=== PATIENT | male | born 1975 | race Caucasian/White ===

== ENCOUNTER 2020-03-29 10:58 | Outpatient (REF) | payer OTHER, SELFPAY ==
[2020-04-02 06:21] LABS: Vitamin B1 10 nmol/L (8-30)
== END 2020-03-29 10:59 | disposition home or self-care (01) ==
LOC: HO.LAB 10:58
PROVIDERS: PCP Internal Medicine; Visit Provider Surgery
DX: E51.9 Thiamine deficiency, unspecified (principal)
CPT/HCPCS: 84425

== ENCOUNTER 2020-07-30 13:12 | Outpatient (REF) | payer OTHER, SELFPAY ==
[2020-07-30 15:57] LABS: Blood Urea Nitrogen 13 mg/dL (9-16); Estimated Glomerular Filt Rate > 60
== END 2020-07-30 13:13 | disposition home or self-care (01) ==
LOC: HO.LAB 13:12
PROVIDERS: PCP Internal Medicine; Visit Provider Surgery
DX: E66.9 Obesity, unspecified (principal); Z68.31 Body mass index [BMI] 31.0-31.9, adult; R10.9 Unspecified abdominal pain; Z98.84 Bariatric surgery status
CPT/HCPCS: 36415; 82565; 84520; 99212

== ENCOUNTER 2020-09-06 10:08 | Outpatient (REF) | payer OTHER, SELFPAY | END 2020-09-06 10:09 | disposition home or self-care (01) | LOC: HO.CT 10:08 | PROVIDERS: Visit Provider Surgery | DX: Z13.89 Encounter for screening for other disorder (principal) ==

== ENCOUNTER 2021-06-18 06:42 | Emergency (ER) | payer OTHER, SELFPAY ==
--- NOTE | ~2021-06-18 | CT_ITS ---
EXAMINATION: CT LUMBAR SPINE WITHOUT CONTRAST CLINICAL INFORMATION: Fall. Pain. Rule out fracture. COMPARISON: None TECHNIQUE: Axial images through the lumbar spine without contrast. Sagittal and coronal reconstructions on the technologist workstation. This CT examination was performed using dose optimization techniques as appropriate, variously including the following: *Automated exposure control *Adjustment of mA and/or kV according to patient size (this includes techniques or standardized protocols for targeted exams where dose is matched to indication/reason for exam; i.e. extremities or head) *Use of iterative reconstruction technique DLP; 648 mGy-cm FINDINGS: Bone alignment is normal. No fracture or dislocation is seen. At L1-L2, there is no disc herniation, protrusion or bulge. There is mild facet arthritis. Spinal canal, lateral recesses and neural foramen are patent. At L2-L3, there is no disc herniation, protrusion or bulge. Spinal canal, lateral recesses and neural foramen are patent. At L3-L4, there is no disc herniation, protrusion or bulge. Spinal canal, lateral recesses and neural foramen are patent. At L4-L5, there is disc bulge and small calcified central disc protrusion. Spinal canal, lateral recesses and neural foramen are patent. At L5-S1, there is a central/left paracentral partially calcified disc herniation. There is mass effect on the left L5 lateral recess and proximal neural foramen. There is a partially calcified left adrenal nodule. Paraspinal soft tissues are otherwise normal. CT/CT lumbar spine wo con IMPRESSION: No fracture or dislocation. Large central/left paracentral partially calcified disc herniation at L5-S1. Central calcified disc protrusion at L4-L5.
[2021-06-18 07:06] VITALS: BP 157/103; PULSE 76; RESP 16; TEMP 36.6; O2SAT 99; BMI 33.9
[2021-06-18] MEDS: predniSONE 20 MG TABLET 60 MG PO (09:08)
[2021-06-18] MEDS: Ketorolac Tromethamine 60 MG/2 ML VIAL IM (09:08)
[2021-06-18 09:12] VITALS: BP 156/107; PULSE 102; RESP 18; O2SAT 99
--- NOTE | 2021-06-18 09:43 | ED_ITS ---
HPI - Back Pain/Injury General Chief Complaint: Back Pain/Injury Stated Complaint: Back pain Time Seen by Provider: 06/18/21 07:46 Source: patient Mode of arrival: ambulatory Limitations: no limitations History of Present Illness HPI Narrative: Patient presents ED for chronic back pain exacerbation. Patient states history of disc herniations and this past Thursday patient fell onto the floor due to severe back pain. Patient states he was walking with his cane and then his back pain came upon him which caused him to fall to the ground and fall onto his back. Patient has follow-up with Neurosurgery in and waiting on MRI results. Patient denies any urinary/bowel incontinence. Patient denies any paralysis of lower extremities or changing in gait. Patient denies any history of IV drug use or history of immunocompromise diseases. Patient denies any urinary/bowel incontinence, abdominal pain, nausea, vomiting, flank pain, fever, chills, dysuria, hematuria, or testicular pain Related Data Home Medications Medication Instructions Recorded Confirmed cholecalciferol (vitamin D3) 75 5,000 unit PO DAILY tab 07/30/20 07/30/20 mcg (3,000 unit) tablet cyanocobalamin (vitamin B-12) 1,000 mcg PO DAILY 07/30/20 07/30/20 1,000 mcg capsule duloxetine 30 mg capsule,delayed 30 mg PO DAILY 07/30/20 07/30/20 release duloxetine 60 mg capsule,delayed 60 mg PO DAILY 07/30/20 07/30/20 release hydroxyzine HCl 25 mg tablet 25 mg PO BEDTIME 07/30/20 07/30/20 Previous Rx's Medication Instructions Recorded ketorolac 10 mg tablet 10 mg PO QID PRN 5 Days #20 tab 06/18/21 prednisone 20 mg tablet 60 mg PO DAILY 5 Days #15 tab 06/18/21 Allergies Allergy/AdvReac Type Severity Reaction Status Date / Time Penicillin Allergy Unknown rash Unverified 07/30/20 14:28 Penicillins Allergy Unknown RASH, Unverified 07/30/20 14:28 THROAT CLOSES SEAFOOD Allergy Unknown RASH, Uncoded 07/30/20 14:28 THROAT CLOSES Shell Fish Allergy Unknown rash Uncoded 07/30/20 14:28 Review of Systems Review of Systems: Only back pain Yes all other systems are reviewed and are negative PMFSH Past Medical History Medical History Anxiety Back pain Degenerative disc disease Depression History of DVT (deep vein thrombosis) HTN (hypertension) Obesity (BMI 30-39.9) PTSD (post-traumatic stress disorder) Slipped cervical disc Surgical History History of fusion of cervical spine History of repair of hiatal hernia History of sleeve gastrectomy Family History Family History Father Type 2 diabetes mellitus History of stroke Mother HTN (hypertension) Osteoporosis Sister Obesity HTN (hypertension) Hyperlipidemia Sister No problems noted. Sister No problems noted. Son No problems noted. Son No problems noted. Son No problems noted. Son No problems noted. Daughter No problems noted. Daughter No problems noted. Daughter No problems noted. Social History Social History (Updated 07/30/20 @ 14:29 by Francheska Smith MD) Alcohol intake: former Advance Directives: No Physical Exam Vital Signs: Vital Signs: Last Vital Signs Temp 97.8 F 06/18/21 07:06 Pulse 102 H 06/18/21 09:12 Resp 18 06/18/21 09:12 BP 156/107 H 06/18/21 09:12 Pulse Ox 99 06/18/21 09:12 BMI result Body Mass Index 33.9 Const: General: cooperative, healthy appearing, comfortable, no acute distress, well developed, alert, awake and Physically active Orientation/consciousness: patient oriented x3 HENMT: Head: Yes normal to inspection, Yes No palpable skull fracture present, Yes normocephalic and Yes atraumatic Eyes: General: appearance normal, both eyes and all related structures Neck: Neck: Yes normal visual inspection, Yes full ROM, Yes no lymphadenopathy, Yes no meningeal signs, Yes trachea midline, Yes supple, No anterior neck swelling and No tender Chest: Chest palpation & inspection: normal inspection of the chest and normal palpation of entire chest wall Resp: Effort & Inspection: normal respiratory effort and able to speak in complete sentences Auscultation: clear to auscultation bilaterally Cardio: Jugular venous distension: no JVD Heart sounds: S1 normal heart sound present and S2 normal heart sound present GI: Inspection: Yes normal to inspection and No abdominal wall ecchymosis Palpation (GI): Soft to palpation, not firm, nontender, no guarding and not rigid : General: No CVA tenderness and Yes no CVA tenderness Back/Spine/Pelvis: Back: no CVA tenderness, No CVA tenderness and back tenderness (Lumbar spine tenderness on palpation) Skin: General skin exam: no rashes or lesions noted and elasticity normal Neuro: General: patient oriented x3, gait normal, no meningeal signs and CN's II-XI intact bilaterally Cranial nerves: Yes CN's II-XII intact bilaterally Extrem: General: Yes normal to inspection and Yes full ROM Psych: Appearance: grossly normal, well kempt and not disheveled Course Course Course Narrative: Due to patient's significant lumbar disc herniation history and fall will do is to CT scan to get better view of lumbar spine to rule out fracture. Will give Toradol and steroids Reevaluation(s) Reevaluation #1: CT scan came back negative for any fracture and just shows disc herniation. Patient already have oxycodone prescription at home. Patient will be discharged with Toradol and prednisone Time: 10:39 MDM - Back Pain/Injury MDM Narrative Medical decision making narrative: Disc herniation. Fall Discharge Plan Discharge Clinical Impression: Lumbar disc herniation with radiculopathy Patient Disposition: Home, Self-Care Instructions: Lumbar Disc Herniation (ED) Additional Instructions: Your CT scan came back negative for fracture. CT scan shows disc herniation. You will be discharged with NSAID and steroid. You can continue taking your oxycodone for pain relief. Return to the ED for any urinary/bowel incontinence, abdominal pain, bloody urine, testicular pain, painful urination, fever, chills, worsening back pain, paralysis of lower extremities, or any other concerning symptoms. Please follow up [facility] Surgeon and PCP. Prescriptions: New prednisone 20 mg tablet 60 mg PO DAILY 5 Days Qty: 15 RF: 0 ketorolac 10 mg tablet 10 mg PO QID PRN (Reason: pain) 5 Days Qty: 20 RF: 0 No Action duloxetine 30 mg capsule,delayed release(DR/EC) 30 mg PO DAILY RF: 0 duloxetine 60 mg capsule,delayed release(DR/EC) 60 mg PO DAILY RF: 0 hydroxyzine HCl 25 mg tablet 25 mg PO BEDTIME RF: 0 cholecalciferol (vitamin D3) 75 mcg (3,000 unit) tablet 5,000 unit PO DAILY RF: 0 cyanocobalamin (vitamin B-12) 1,000 mcg capsule 1,000 mcg PO DAILY RF: 0 Stand Alone Forms: Work/School Release Interventions: ED Discharge Assessment Last Done: 06/18/21 10:57 Discharge Date/Time: 06/18/21 10:57 Print Language: Slovenian
== END 2021-06-18 10:57 | disposition home or self-care (01) ==
PROVIDERS: Emergency Provider Emergency Medicine; PCP Internal Medicine
DX: M51.16 Intervertebral disc disorders with radiculopathy, lumbar region (principal); I10 Essential (primary) hypertension
CPT/HCPCS: 72131; 96372; 99284; J1885

== ENCOUNTER 2021-07-07 22:22 | Emergency (ER) | payer OTHER, SELFPAY ==
--- NOTE | ~2021-07-07 | XR_ITS ---
EXAMINATION: XR CHEST CLINICAL INFORMATION: Chest pain and shortness of breath COMPARISON: 01/04/2019 TECHNIQUE: Frontal view of the chest was obtained. FINDINGS: No significant abnormality is noted involving the heart, lungs, mediastinum, bony thorax or soft tissues. There is been prior cervical spine surgery. XR/XR chest 1V IMPRESSION: No acute intrathoracic disease.
--- NOTE | ~2021-07-07 | CT_ITS ---
EXAMINATION: CT ANGIOGRAM OF THE CHEST WITH AND WITHOUT CONTRAST (CT PULMONARY ANGIOGRAM FOR PE) CLINICAL INFORMATION: Reason for Exam severe left sided chest pain radiating to the back, SOB COMPARISON: 10/04/2009 TECHNIQUE: Prior to contrast administration, noncontrast localization images were obtained. Subsequently, multidetector volumetric imaging was performed from the thoracic inlet to below the diaphragms following the administration of 65 mL Omnipaque 350 intravenous contrast. No contrast reaction reported Sagittal, coronal, and MIP oblique sagittal reformatted images were obtained on the CT workstation, uploaded to PACS, and reviewed. This CT examination was performed using dose optimization techniques as appropriate, variously including the following: *Automated exposure control *Adjustment of mA and/or kV according to patient size (this includes techniques or standardized protocols for targeted exams where dose is matched to indication/reason for exam; i.e. extremities or head) *Use of iterative reconstruction technique Total exam dose-length product 367 mGy-cm FINDINGS: QUALITY OF STUDY/CONTRAST BOLUS: Suboptimal. PULMONARY ARTERIES: No central or segmental pulmonary emboli. However, assessment of the distal vasculature is limited due to bolus timing and respiratory motion artifact. THORACIC AORTA: No aneurysm or dissection. LUNG: Symmetric biapical opacities may reflect scarring. No additional consolidation is seen. A few calcified granulomas are noted. PLEURA: No pleural effusion or pneumothorax. MEDIASTINUM: Visualized thyroid gland is grossly unremarkable. There are subcentimeter mediastinal lymph nodes within the range of normal variation. Cardiac size is within normal limits; no pericardial effusion. No evidence of septal bowing or right heart strain. CHEST WALL/AXILLA: No axillary or internal mammary lymphadenopathy. OSSEOUS STRUCTURES: Multilevel endplate degenerative changes are noted in the spine. UPPER ABDOMEN: There are postsurgical changes along the stomach. Redemonstrated left adrenal nodule containing coarse calcification, also present on 10/04/2009 and presumably benign. No reflux of contrast into the hepatic veins to suggest elevated right heart pressures. CT/CT angio chest PE protocol IMPRESSION: No central or segmental pulmonary embolus identified. Limited assessment of the distal vasculature due to bolus timing and respiratory motion artifact; emboli at these levels therefore cannot be entirely excluded. VTE: negative
[2021-07-07 22:26] VITALS: BP 153/100; PULSE 99; RESP 20; TEMP 36; O2SAT 99; BMI 33.9
--- NOTE | 2021-07-07 22:31 | ECG_ITS ---
Test Reason : ANXIETY/TWTICH Blood Pressure : / mmHG Vent. Rate : 097 BPM Atrial Rate : 097 BPM P-R Int : 138 ms QRS Dur : 090 ms QT Int : 328 ms P-R-T Axes : 060 032 035 degrees QTc Int : 416 ms Normal sinus rhythm Normal ECG When compared with ECG of 04-JAN-2019 09:01, No significant change was found Referred By: Generic ED Physician Electronically Signed By:Kailash Vega
--- NOTE | 2021-07-07 22:45 | ED_ITS ---
HPI - Chest Pain General Chief Complaint: Chest Pain Stated Complaint: CRISIS, chest hurts Time Seen by Provider: 07/07/21 22:32 Source: patient Mode of arrival: ambulatory Limitations: no limitations History of Present Illness HPI narrative: 45-year-old male with a history of obesity, chronic low back pain on chronic opiates, status post cervical spinal fusion, anxiety who presents to the ER with severe 10/10 squeezing left upper chest pain that occurred suddenly at noon when he woke up and was lying in bed. He reports the pain radiates from his left upper chest to his back. He is short of breath, he reports because of the pain. He is unable to get sit still or be comfortable. He reports he last took his Percocet at 3 or 16:00 with some brief improvement in the pain but it came right back. He reports severe anxiety and has been diaphoretic since the pain started. He denies any nausea or vomiting. He denies any drug or alcohol use. He denies any personal or family history of cardiac disease. He is a nonsmoker. MD complaint: chest pain Onset (ago): hour(s) (10) Timing of current episode: constant Prior episodes: No Onset: during rest Pain location: left chest Pain radiation: back Severity: severe Pain scale (0-10): 10 Quality: tightness Relieving factors: nothing Exacerbating factors: palpation Associated symptoms: diaphoresis, dyspnea and sense of impending doom Treatment prior to arrival: none Risk Factors Coronary artery disease risk factors: none Thoracic aortic dissection risk factors: none Related Data Home Medications Medication Instructions Recorded Confirmed cholecalciferol (vitamin D3) 75 5,000 unit PO DAILY tab 07/30/20 07/30/20 mcg (3,000 unit) tablet cyanocobalamin (vitamin B-12) 1,000 mcg PO DAILY 07/30/20 07/30/20 1,000 mcg capsule duloxetine 30 mg 30 mg PO DAILY 07/30/20 07/30/20 capsule,delayed release duloxetine 60 mg 60 mg PO DAILY 07/30/20 07/30/20 capsule,delayed release hydroxyzine HCl 25 mg tablet 25 mg PO BEDTIME 07/30/20 07/30/20 Previous Rx's Medication Instructions Recorded ketorolac 10 mg tablet 10 mg PO QID PRN 5 Days #20 tab 01/18/22 prednisone 20 mg tablet 60 mg PO DAILY 5 Days #15 tab 06/18/21 Allergies Allergy/AdvReac Type Severity Reaction Status Date / Time Penicillin Allergy Unknown rash Verified 07/07/21 22:30 Penicillins Allergy Unknown RASH, Verified 07/07/21 22:30 THROAT CLOSES SEAFOOD Allergy Unknown RASH, Uncoded 07/07/21 22:30 THROAT CLOSES Shell Fish Allergy Unknown rash Uncoded 07/07/21 22:30 Review of Systems Verdana 4l Review of Systems: Verdana 4d Verdana 4d Constitutional: No Fever, No Chills, +Diaphoresis ENT/Mouth: No sore throat, No Rhinorrhea, No Swallowing Difficulty Eyes: No Eye Pain, No Swelling, No Redness Cardiovascular: + Chest Pain, + SOB, No Orthopnea, No Edema Respiratory: No Cough, No Sputum, No Wheezing, + dyspnea Gastrointestinal: No Nausea, No Vomiting, No Diarrhea, No abdominal Pain, No Hematochezia, No Melena Genitourinary: No Dysuria, No Urinary Frequency, No Hematuria Musculoskeletal: No joint pain, No Myalgias Skin: No Skin Lesions, No rash Neuro: No Weakness, No Numbness, No Dizziness, No Headache Psych: + Anxiety/Panic, No Depression Heme/Lymph: No Bruising, No Lymphadenopathy Endocrine: No Polyuria, No Polydipsia PMFSH Past Medical History Medical History Anxiety Back pain Degenerative disc disease Depression History of DVT (deep vein thrombosis) HTN (hypertension) Obesity (BMI 30-39.9) PTSD (post-traumatic stress disorder) Slipped cervical disc Surgical History History of fusion of cervical spine History of repair of hiatal hernia History of sleeve gastrectomy Family History Family History Father Type 2 diabetes mellitus History of stroke Mother HTN (hypertension) Osteoporosis Sister Obesity HTN (hypertension) Hyperlipidemia Sister No problems noted. Sister No problems noted. Son No problems noted. Son No problems noted. Son No problems noted. Son No problems noted. Daughter No problems noted. Daughter No problems noted. Daughter No problems noted. Social History Social History (Updated 07/30/20 @ 14:29 by Francheska Smith MD) Alcohol intake: former Advance Directives: No Physical Exam Verdana 4l Vital Signs: Verdana 4d Verdana 4d Vital Signs: Verdana 4d Verdana 4Bd Last Vital Signs Verdana 4d Radio Division Officer New 4d Radio Division Officer New 4d Temp 97.6 F 07/08/21 00:59 Radio Division Officer New 4d Pulse 90 07/08/21 00:59 Radio Division Officer New 4d Resp 20 07/08/21 00:59 BP 132/88 07/08/21 00:59 Pulse Ox 98 07/08/21 00:59 BMI result Body Mass Index 33.9 Appearance: Alert. Oriented X3. Diaphoretic, restless, will not sit still. Eyes: Pupils equal, round and reactive to light. ENT: Pharynx normal. Neck: Normal inspection. Neck supple. CVS: Tachycardic, regular rhythm. Pulses normal. Left chest wall with tenderness Respiratory: No respiratory distress. Breath sounds normal. Abdomen: Soft and nontender. +BS x4 Skin: Skin warm and dry. Normal skin color. Normal skin turgor. No rashes. Extremities: No lower extremity edema. Negative calf tenderness. Neuro: Oriented X 3. No motor deficit. No sensory deficit. Myoclonic jerking type movements/restlessness Course Course Course Narrative: 45-year-old male with a history of obesity, anxiety, chronic back pain on chronic opiates who presents to the ER with acute saw onset of left-sided constant 10/10 chest pain that radiates to his back that started around noon time today. He arrived to the ER diaphoretic and restless. He cannot get comfortable and states his pain is 10/10. He also reports some shortness of breath. On arrival his tachycardic with blood pressure in the 150s. His oxygen saturation is normal. He has left chest wall tenderness. EKG is normal, no STEMI. There is concern for possible PE vs dissection - will get CTA. IV morphine and ativan ordered for severe pain and anxiety. ASA given as well. Reevaluation(s) Reevaluation #1: Troponin is negative. WBC is 15K. CXR clear. Patient snoring after morphine and ativan. When awoken he continues to still have twitching and restless movements. Suspect substance abuse. CTA pending. Signed out to Dr. Sanchez who will follow- up results. MDM - Chest Pain Medical Records Data Attestation: I reviewed the patient's medical records. Lab Data Attestation: I reviewed the patient's lab results. Result diagrams: 07/07/21 22:44 07/07/21 22:44 Labs: Lab Results 07/07/21 07/07/21 07/07/21 Range/Units 22:44 22:44 22:44 WBC 15.0 H (4.8-10.8) X10*3/uL RBC 4.31 L (4.60-5.80) X10*6/uL Hgb 13.1 L (14.0-18.0) g/dl Hct 37.9 L (42.0-52.0) % MCV 87.9 (80.0-98.0) fL MCH 30.4 (27.0-33.0) pg MCHC 34.6 (31.0-36.0) g/dl RDW 12.4 (11.0-16.0) % Plt Count 260 (160-400) X10*3/uL MPV 9.3 L (9.4-12.4) fL Immature Gran % (Auto) 0.3 (0.0-0.4) % Neut % (Auto) 55.4 (45-73) % Lymph % (Auto) 26.7 (20-40) % Leon % (Auto) 14.8 H (2-11) % Eos % (Auto) 2.3 (0-4) % Baso % (Auto) 0.5 (0-2) % Lymph # (Auto) 4.0 (1.2-4.9) X10*3/uL Leon # (Auto) 2.2 H (0.1-1.2) X10*3/uL Eos # (Auto) 0.3 (0.0-0.4) X10*3/uL Baso # (Auto) 0.1 (0.0-0.2) X10*3/uL Abs Immat Gran (auto) 0.05 H (0.00-0.03) X10*3/uL Absolute Neuts (auto) 8.3 (2.0-8.3) x10*3/uL Absolute Nucleated RBC 0.000 (0.0-0.012) X10*3/uL Nucleated RBC % (auto) 0.0 (0.0-0.2) /100WBC Smear Tech's Comments VERIFIED PT (9.9-13.0) SEC INR (0.9-1.1) APTT (24.1-38.0) SEC Sodium 142 (135-145) mmol/L Potassium 3.6 (3.3-5.1) mmol/L Chloride 105 (96-108) mmol/L Carbon Dioxide 30 H (22-29) mmol/L Anion Gap 11 L (12-20) BUN 18 H (9-16) mg/dL Creatinine 0.95 (0.5-1.4) mg/dL Estim Creat Clear Calc 108.3 Estimated GFR > 60 Random Glucose 94 (60-115) mg/dL Calcium 9.3 (8.4-10.2) mg/dL Troponin I High Sens 3.9 (<3.5-35.0) ng/L Ethyl Alcohol mg/dL 07/07/21 07/07/21 Range/Units 22:44 22:44 WBC (4.8-10.8) X10*3/uL RBC (4.60-5.80) X10*6/uL Hgb (14.0-18.0) g/dl Hct (42.0-52.0) % MCV (80.0-98.0) fL MCH (27.0-33.0) pg MCHC (31.0-36.0) g/dl RDW (11.0-16.0) % Plt Count (160-400) X10*3/uL MPV (9.4-12.4) fL Immature Gran % (Auto) (0.0-0.4) % Neut % (Auto) (45-73) % Lymph % (Auto) (20-40) % Leon % (Auto) (2-11) % Eos % (Auto) (0-4) % Baso % (Auto) (0-2) % Lymph # (Auto) (1.2-4.9) X10*3/uL Leon # (Auto) (0.1-1.2) X10*3/uL Eos # (Auto) (0.0-0.4) X10*3/uL Baso # (Auto) (0.0-0.2) X10*3/uL Abs Immat Gran (auto) (0.00-0.03) X10*3/uL Absolute Neuts (auto) (2.0-8.3) x10*3/uL Absolute Nucleated RBC (0.0-0.012) X10*3/uL Nucleated RBC % (auto) (0.0-0.2) /100WBC Smear Tech's Comments PT 11.0 (9.9-13.0) SEC INR 1.0 (0.9-1.1) APTT 35.3 (24.1-38.0) SEC Sodium (135-145) mmol/L Potassium (3.3-5.1) mmol/L Chloride (96-108) mmol/L Carbon Dioxide (22-29) mmol/L Anion Gap (12-20) BUN (9-16) mg/dL Creatinine (0.5-1.4) mg/dL Estim Creat Clear Calc Estimated GFR Random Glucose (60-115) mg/dL Calcium (8.4-10.2) mg/dL Troponin I High Sens (<3.5-35.0) ng/L Ethyl Alcohol < 10 mg/dL ABG Data Attestation: I personally reviewed and interpreted this ABG as follows: ECG Data ECG #1: Attestation: I personally reviewed and interpreted this ECG as follows: ECG interpretation date: 07/07/21 ECG interpretation time: 22:47 Prior ECG tracings: not available for review Interpretation: Normal sinus rhythm, heart rate 97 beats per minute, normal RI interval, normal QTC, no ST segment elevations or depressions. Critical Care Time Critical Care Time Critical Care Time: Yes Total Critical Care Time: 35 Attestation: I have personally provided critical care time exclusive of time spent on separately billable procedures. Time includes review of lab data, radiology results, discussion with consultants, and monitoring for potential decompensation. Intervention performed as documented. Discharge Plan Discharge Clinical Impression: Chest pain Patient Disposition: Still a Patient Prescriptions: No Action prednisone 20 mg tablet 60 mg PO DAILY 5 Days Qty: 15 0RF ketorolac 10 mg tablet 10 mg PO QID PRN (Reason: pain) 5 Days Qty: 20 0RF Rx Instructions: patient received Toradol IM 60mg in the ED duloxetine 30 mg capsule,delayed release(DR/EC) 30 mg PO DAILY 0RF duloxetine 60 mg capsule,delayed release(DR/EC) 60 mg PO DAILY 0RF hydroxyzine HCl 25 mg tablet 25 mg PO BEDTIME 0RF cholecalciferol (vitamin D3) 75 mcg (3,000 unit) tablet 5,000 unit PO DAILY 0RF cyanocobalamin (vitamin B-12) 1,000 mcg capsule 1,000 mcg PO DAILY 0RF
[2021-07-07 22:51] LABS: Basophils Absolute Auto 0.1 X10*3/uL (0.0-0.2); Basophils Percent Auto 0.5 % (0-2); Eosinophils Absolute Auto 0.3 X10*3/uL (0.0-0.4); Eosinophils Percent Auto 2.3 % (0-4); Hematocrit 37.9 % (42.0-52.0); Hemoglobin 13.1 g/dl (14.0-18.0); Imm Gran Abs Auto 0.05 X10*3/uL (0.00-0.03); Imm Gran Pct Auto 0.3 % (0.0-0.4); Lymphocytes Percent Auto 26.7 % (20-40); MANUAL DIFF FLAG SCAN; Mean Corpuscular HGB Conc 34.6 g/dl (31.0-36.0); Mean Corpuscular Hemoglobin 30.4 pg (27.0-33.0); Mean Corpuscular Volume 87.9 fL (80.0-98.0); Mean Platelet Volume 9.3 fL (9.4-12.4); Monocytes Absolute Auto 2.2 X10*3/uL (0.1-1.2); Monocytes Percent Auto 14.8 % (2-11); Neutrophils Absolute Auto 8.3 x10*3/uL (2.0-8.3); Neutrophils Percent Auto 55.4 % (45-73); Platelet Count 260 X10*3/uL (160-400); Red Blood Count 4.31 X10*6/uL (4.60-5.80); Red Cell Distribution Width 12.4 % (11.0-16.0); SCAN SMEAR FLAG 1
[2021-07-07 23:02] LABS: Partial Thromboplastin Time 35.3 SEC (24.1-38.0)
[2021-07-07 23:05] LABS: Anion Gap 11 (12-20); Blood Urea Nitrogen 18 mg/dL (9-16); Calcium 9.3 mg/dL (8.4-10.2); Carbon Dioxide 30 mmol/L (22-29); Chloride 105 mmol/L (96-108); Creatinine Clr Calc Pharmacy 108.3; Estimated Glomerular Filt Rate > 60; Glucose Random 94 mg/dL (60-115); Potassium 3.6 mmol/L (3.3-5.1); Sodium 142 mmol/L (135-145)
[2021-07-07 23:08] LABS: SLIDE REVIEW VERIFIED
[2021-07-07 23:10] LABS: Troponin-I High Sensitivity 3.9 ng/L (<3.5-35.0)
[2021-07-07] MEDS: Aspirin 81 MG TAB.CHEW 324 MG PO (23:10)
[2021-07-07] MEDS: LORazepam 2 MG/ML VIAL 1 MG IVPUSH (23:11)
[2021-07-07 23:14] VITALS: RESP 29
[2021-07-07] MEDS: Morphine Sulfate 4 MG/ML CARTRIDGE IVPUSH (23:14)
[2021-07-07 23:16] VITALS: BP 158/101; PULSE 106; RESP 25; TEMP 36.8; O2SAT 98
[2021-07-07] MEDS: 0.9 % Sodium Chloride 1,000 ML 999 ML IVCONT (23:22)
--- NOTE | 2021-07-07 23:23 | PC.NURSE ---
At change of shift while this RN receiving report from CRISTO Leong pt is standing in hallway waving arm to indicate he needs assistance. Pt motions towards where his PIV was, bleeding controlled, PIV no longer in arm. Pt assisted to seated, cleaned, new PIV placed. Pt reports I was trying to get the stretcher down and the IV fell out because there was no tape on it or anything. Pt stretcher in low locked position, rails raised. Pt medicated per JUL. Pt reports 10/10 L chest pain, denies drugs/ETOH. Sandy MADDOX to bedside to ask pt why he is so restless. Pt states when my pain is bad, I get like this. Pt now asleep on stretcher, RR even and unlabored on RA. Pt awaiting CT for PE protocol.
[2021-07-07 23:30] LABS: Ethanol < 10 mg/dL
[2021-07-08] MEDS: iohexoL 350 MG/ML 100 ML INFUS..BTL 65 ML IV (00:47)
[2021-07-08 00:59] VITALS: BP 132/88; PULSE 90; RESP 20; TEMP 36.4; O2SAT 98
[2021-07-08 01:24] LABS: COVID-19 Test Negative (Negative); IDNOW Serial# 9DD0AD1C
[2021-07-08 01:26] LABS: Amphetamine Screen Urine Not Detected (Not Detect); Barbiturates, Urine Not Detected (Not Detect); Benzodiazepines Screen Urine Not Detected (Not Detect); Cannabinoid Screen Urine Not Detected (Not Detect); Cocaine Screen Urine POSITIVE (Not Detect); Fentanyl, urine Not Detected (Not Detect); Opiate Screen Urine POSITIVE (Not Detect); Phencyclidine Screen Urine Not Detected (Not Detect)
[2021-07-08 01:55] VITALS: BP 127/75; PULSE 98; RESP 21; O2SAT 98
[2021-07-08] MEDS: diphenhydrAMINE HCL 50 MG/ML VIAL IVPUSH (01:56)
[2021-07-08 03:21] VITALS: BP 133/67; PULSE 97; RESP 19; O2SAT 96
[2021-07-08 05:12] VITALS: BP 138/76; PULSE 96; RESP 18; O2SAT 97
== END 2021-07-08 05:27 | disposition home or self-care (01) ==
PROVIDERS: Physician Assistant; Emergency Provider Internal Medicine
DX: I10 Essential (primary) hypertension (principal); R07.89 Other chest pain; R06.02 Shortness of breath; F41.9 Anxiety disorder, unspecified; M54.50 Low back pain, unspecified; Z20.822 Contact with and (suspected) exposure to COVID-19; Z79.899 Other long term (current) drug therapy
CPT/HCPCS: 36415; 71045; 71275; 80048; 80307; 82077; 84484; 85025; 85610; 85730; 87635; 93005; 96374; 96376; 99284; J1200; J2060; J2270; Q9967

== ENCOUNTER 2023-01-05 19:31 | Inpatient (IN) | payer OTHER, SELFPAY ==
[2023-01-05 19:50] VITALS: BP 140/89; PULSE 89; RESP 16; TEMP 36.4; O2SAT 98
[2023-01-05 19:51] VITALS: BMI 34.7
[2023-01-05] MEDS: traZODone HCL 50 MG TABLET PO (23:33)
[2023-01-05] MEDS: Acetaminophen 325 MG TABLET 650 MG PO (23:33)
[2023-01-05] MEDS: Baclofen 10 MG TABLET PO (23:34)
[2023-01-05] MEDS: oxyCODONE HCl Immed Release 5 MG TABLET 7.5 MG PO (23:34)
[2023-01-05] MEDS: hydrOXYzine HCL 50 MG TABLET PO (23:34)
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
[2023-01-06 08:24] VITALS: BP 155/88; PULSE 88; RESP 18; TEMP 36.5; O2SAT 100
[2023-01-06] MEDS: Baclofen 10 MG TABLET PO ×2 (08:31→21:20)
[2023-01-06] MEDS: oxyCODONE HCl Immed Release 5 MG TABLET 7.5 MG PO ×2 (08:31→21:30)
[2023-01-06] MEDS: Cholecalciferol (Vitamin D3) 25 MCG TABLET 125 MCG PO (08:31)
[2023-01-06] MEDS: Cyanocobalamin (Vitamin B-12) 1,000 MCG TABLET 1000 MCG PO (08:31)
[2023-01-06 09:12] LABS: Alanine Aminotransferase 18 U/L (0-40); Albumin Level 4.2 g/dL (3.5-5.0); Alkaline Phosphatase 62 U/L (39-117); Anion Gap 10 (12-20); Aspartate Amino Transferase 19 U/L (5-37); Bilirubin Direct 0.2 mg/dL (0.0-0.5); Bilirubin Total 0.7 mg/dL (0.0-1.0); Blood Urea Nitrogen 16 mg/dL (9-16); Calcium 9.8 mg/dL (8.4-10.2); Carbon Dioxide 32 mmol/L (22-29); Chloride 104 mmol/L (96-108); Cholesterol 184 mg/dL; Estimated Glomerular Filt Rate > 60; Glucose Fasting 130 mg/dL (60-99); HDL Cholesterol 43 mg/dL; LDL Cholesterol Calculated 115 mg/dl; Potassium 4.4 mmol/L (3.3-5.1); Sodium 142 mmol/L (135-145); Triglycerides 134 mg/dL
[2023-01-06 09:21] LABS: Estimated Average Glucose 91 mg/dL; Hemoglobin A1c % 4.8 %
[2023-01-06 09:27] LABS: Free T4 (Free Thyroxine) 0.84 ng/dL (0.71-1.85); Thyroid Stimulating Hormone 0.88 uIU/mL (0.32-4.0)
[2023-01-06 09:39] LABS: Folate 12.6 ng/mL (> or = 4.0); Vitamin B12 321 pg/mL (200-900)
[2023-01-06] MEDS: DULoxetine HCl 60 MG CAPSULE.DR PO (10:00)
[2023-01-06] MEDS: Acetaminophen 325 MG TABLET 650 MG PO (11:15)
--- NOTE | 2023-01-06 12:03 | P.CONHOSP_ITS ---
History of Present Illness Data of Consult Service Date: 01/06/23 Requesting physician: Geovany Colunga Primary Care Provider: Unknown Physician HPI Reason for consult: Medical H and P 47-year-old male with history of chronic pain disorder related to chronic neck and low back pain with history cervical spinal fusion and L2 disc decompression, cocaine abuse, alcohol abuse admitted to Psychiatry with consult placed to hospitalist service for medical H and P. The patient's only complaint is his chronic uncontrolled neck pain. States he had been taking oxycodone 7.5 mg and baclofen which had previously been controlling his pain but over the last 2 weeks has not been sleeping and pain has become uncontrolled. Three days ago he decided to self medicate with cocaine and heavy alcohol use. States at that time he was not taking his oxycodone and baclofen. He denies any radicular symptoms, focal weakness, paresthesias, saddle anesthesia, bowel/bladder dysfunction. He is able to ambulate without difficulty. He denies any other illicit drug use, cigarette smoking. Review of Systems Review of Systems: General: No fevers, malaise, unintentional weight loss HEENT: No blurred vision, diplopia. No sore throat, nasal congestion, rhinorrhea, sinus pain, ear pain Cardiovascular: No chest pain, palpitations, or leg edema Respiratory: No shortness of breath, wheezing, cough GI: No abdominal pain, nausea, vomiting, diarrhea, constipation, melena, hematochezia : No dysuria, hematuria, increased urinary frequency, decreased urinary output MSK: No myalgia, +neck and back pain Neuro: No headaches, weakness, paresthesias Skin: No rashes or lesions [facility] Medical History Anxiety Back pain Degenerative disc disease Depression History of DVT (deep vein thrombosis) HTN (hypertension) Obesity (BMI 30-39.9) PTSD (post-traumatic stress disorder) Slipped cervical disc Family History Father Type 2 diabetes mellitus History of stroke Mother HTN (hypertension) Osteoporosis Sister Obesity HTN (hypertension) Hyperlipidemia Sister No problems noted. Sister No problems noted. Son No problems noted. Son No problems noted. Son No problems noted. Son No problems noted. Daughter No problems noted. Daughter No problems noted. Daughter No problems noted. Surgical History History of fusion of cervical spine History of repair of hiatal hernia History of sleeve gastrectomy Social History Household Members: Family Housing: Apartment Do you presently have visiting nurse or other home services: No Alcohol intake: former Patient Tobacco Use Status: Never used Tobacco Smoked in Last 30 Days: No e-Cigarette/Vaping Use: Former Use Patient Interested in Nicotine Replacement: No Patient Given Instructions on How to Stop Smoking: No Second Hand Smoke Exposure: No Substance Use Type: Crack/Cocaine Substance Use Frequency: Occasionally Last Used Substance: Just Prior to Admission Currently Displaying Signs/Symptoms of Drug Intoxication Withdrawal: No Any prior treatment program specific to substance use: No Have you been hit, kicked, punched, or otherwise hurt by someone within the past year? If so, by whom?: No Do you feel safe in your current relationship?: Yes Is there a partner from a previous relationship who is making you feel unsafe now?: No Are you made to feel afraid or neglected: No Advance Directives: No Advance Directives Information Provided: No Do you have thoughts of harming others: None Do you have a plan to hurt others: No Plan Recently lost weight without trying: No Eating poorly because of decreased appetite: No Nutrition Risks: No Nutritional Risk service: No Sexual orientation: Straight/Heterosexual Meds Allergies Allergy/AdvReac Type Severity Reaction Status Date / Time Penicillins Allergy Unknown Rash, Verified 07/02/22 08:14 Throat closes seafood Allergy Unknown Rash, Verified 07/02/22 08:14 throat closes shellfish derived Allergy Unknown Rash Verified 07/02/22 08:14 Active Medications: Current Medications Acetaminophen (Acetaminophen 325 Mg Tablet) 650 mg PO Q6H PRN PRN Reason: Headache/Pain Mild Scale (1-3) Last Admin: 01/06/23 11:15 Dose: 650 mg Al Hydroxide/Mg Hydroxide (Magnesium Hydrox/Alum Hydrox 30 Ml Oral.Susp) 30 ml PO Q6H PRN PRN Reason: Heartburn/Nausea Baclofen (Baclofen 10 Mg Tablet) 10 mg PO BID TRACEY Last Admin: 01/06/23 08:31 Dose: 10 mg Cyanocobalamin (Cyanocobalamin (Vitamin B-12) 1,000 Mcg Tablet) 1,000 mcg PO DAILY [facility] Last Admin: 01/06/23 08:31 Dose: 1,000 mcg Duloxetine HCl (Duloxetine Hcl 30 Mg Capsule.Dr) 90 mg PO DAILY [facility] Hydroxyzine HCl (Hydroxyzine Hcl 25 Mg Tablet) 25 mg PO Q6H PRN PRN Reason: Anxiety Hydroxyzine HCl (Hydroxyzine Hcl 50 Mg Tablet) 50 mg PO BEDTIME [facility] Last Admin: 01/05/23 23:34 Dose: 50 mg Magnesium Hydroxide (Milk Of Magnesia 30 Ml Oral.Susp) 30 ml PO DAILY PRN PRN Reason: Constipation Nicotine Polacrilex (Nicotine Polacrilex 2 Mg Gum) 4 mg BUCCAL Q2H PRN PRN Reason: Nicotine Cravings Oxycodone HCl (Oxycodone Hcl Immed Release 5 Mg Tablet) 7.5 mg PO TID PRN PRN Reason: Pain, Moderate(Pain Scale 4-6) Last Admin: 01/06/23 08:31 Dose: 7.5 mg Trazodone HCl (Trazodone Hcl 50 Mg Tablet) 50 mg PO BEDTIME MRX1 PRN PRN Reason: Insomnia Last Admin: 01/05/23 23:33 Dose: 50 mg Trazodone HCl (Trazodone Hcl 50 Mg Tablet) 150 mg PO BEDTIME [facility] Vitamin D (Cholecalciferol (Vitamin D3) 25 Mcg Tablet) 125 mcg PO DAILY [facility] Last Admin: 01/06/23 08:31 Dose: 125 mcg Home Medications Medication Instructions Recorded Confirmed Last Taken Type cholecalciferol (vitamin D3) 75 5,000 unit PO DAILY 07/30/20 01/05/23 Unknown History mcg (3,000 unit) tablet cyanocobalamin (vitamin B-12) 1,000 mcg PO DAILY 07/30/20 01/05/23 Unknown History 1,000 mcg capsule duloxetine 30 mg capsule,delayed 60 mg PO DAILY 07/30/20 01/05/23 Unknown History release duloxetine 60 mg capsule,delayed 60 mg PO DAILY 07/30/20 01/05/23 Unknown History release hydroxyzine HCl 25 mg tablet 50 mg PO BEDTIME 07/30/20 01/05/23 Unknown History baclofen 10 mg tablet 10 mg PO BID 01/05/23 01/05/23 Unknown History oxycodone-acetaminophen 7.5 mg-325 1 tab PO TID PRN Pain, Moderate 01/05/23 01/05/23 Unknown History mg tablet Physical Exam Vital Signs and Narrative: Vital Signs: Last Vital Signs Temp 97.7 F 01/06/23 08:24 Pulse 88 01/06/23 08:24 Resp 18 01/06/23 08:24 BP 155/88 H 01/06/23 08:24 Pulse Ox 100 01/06/23 08:24 O2 Del Method Room Air 01/06/23 08:24 BMI result Body Mass Index 34.7 Constitutional - Awake and Alert, No apparent distress Eyes - PERRLA, EOMI Cardiovascular - S1S2, RRR, No edema Neck- midline and bilateral paraspinal ttp with palpable spasm Respiratory - Normal lung expansion, Normal respiratory effort, No respiratory distress, CTA bilaterally Gastrointestinal - NT / ND; +BS; No rebound or guarding - No CVA tenderness Extremities - no calf tenderness bilaterally, no swelling Musculoskeletal - Normal inspection, normal ROM Skin - Warm/Dry Neurological - Alert & oriented x3, CN II-XII in tact, 5/5 strength BUE and BLE Psychological - Appropriate affect Results Labs 01/06/23 08:20 Labs: Laboratory Results - last 24 hr 01/06/23 01/06/23 01/06/23 08:20 08:20 08:20 Anion Gap 10 L Estim Creat Clear Calc 129.0 Estimated GFR > 60 Fasting Glucose 130 H Estimat Average Glucose 91 Hemoglobin A1c % 4.8 Calcium 9.8 Total Bilirubin 0.7 Direct Bilirubin 0.2 AST 19 ALT 18 Alkaline Phosphatase 62 Total Protein 7.0 Albumin 4.2 Triglycerides 134 Cholesterol 184 LDL Cholesterol, Calc 115 HDL Cholesterol 43 Vitamin B12 321 Folate 12.6 TSH 0.88 Free T4 0.84 Assessment and Plan (1) Routine medical exam: Status: Acute Plan 47-year-old male with history of chronic pain disorder related to chronic neck and low back pain with history cervical spinal fusion and L2 disc decompression, cocaine abuse, alcohol abuse admitted to Psychiatry with consult placed to hospitalist service for medical H and P. #Mood disorder/insomnia -plan per psychiatry #Chronic neck and low back pain -s/p cervical spinal fusion and lumbar decompression -Continue oxycodone 7.5mg tid pen and baclofen -add lidocaine patches -heat -outpt follow up #Substance abuse -plan per psychiatry Thank you for allowing me to participate in this consult. Signing off at this time. Please do not hesitate to call for further questions. Time Spent With Patient Time: Total time managing care of this patient today ____ minutes.
[2023-01-06] MEDS: Lidocaine 4 % Patch ADH..PATCH 2 PATCH TRANSDERMA (13:27)
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
[2023-01-06 19:45] VITALS: BP 138/64; PULSE 91; RESP 18; TEMP 36.3; O2SAT 99
[2023-01-06] MEDS: hydrOXYzine HCL 50 MG TABLET PO (21:20)
[2023-01-06] MEDS: traZODone HCL 50 MG TABLET 150 MG PO (21:20)
[2023-01-07] MEDS: Cholecalciferol (Vitamin D3) 25 MCG TABLET 125 MCG PO (08:53)
[2023-01-07] MEDS: DULoxetine HCl 30 MG CAPSULE.DR 90 MG PO (08:53)
[2023-01-07] MEDS: Cyanocobalamin (Vitamin B-12) 1,000 MCG TABLET 1000 MCG PO (08:53)
[2023-01-07] MEDS: Baclofen 10 MG TABLET PO (08:53)
[2023-01-07] MEDS: oxyCODONE HCl Immed Release 5 MG TABLET 7.5 MG PO (08:53)
[2023-01-07] MEDS: Lidocaine 4 % Patch ADH..PATCH 2 PATCH TRANSDERMA (08:58)
[2023-01-07 09:23] VITALS: BP 126/75; PULSE 96; RESP 18; TEMP 36.4; O2SAT 98
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
== END 2023-01-07 10:40 | disposition home or self-care (01) | DRG 885 ==
PROVIDERS: Admitting Provider Psychiatry & Neurology Psychiatry; Visit Provider Psychiatry & Neurology Psychiatry
DX: F39 Unspecified mood [affective] disorder (principal); R45.851 Suicidal ideations; F41.1 Generalized anxiety disorder; F14.10 Cocaine abuse, uncomplicated; F11.10 Opioid abuse, uncomplicated; G89.29 Other chronic pain; Z86.718 Personal history of other venous thrombosis and embolism; Z98.1 Arthrodesis status; Z98.84 Bariatric surgery status; Z88.0 Allergy status to penicillin; Z79.899 Other long term (current) drug therapy
CPT/HCPCS: 36415; 80053; 80061; 80076; 82607; 82746; 83036; 84439; 84443

== ENCOUNTER → 2023-01-05 19:31 | Outpatient (BNV) | payer OTHER, SELFPAY | PROVIDERS: Admitting Provider Psychiatry & Neurology Psychiatry; Visit Provider Psychiatry & Neurology Psychiatry | DX: F10.90 Alcohol use, unspecified, uncomplicated (principal); F14.10 Cocaine abuse, uncomplicated; F11.90 Opioid use, unspecified, uncomplicated; G89.29 Other chronic pain; F39 Unspecified mood [affective] disorder | CPT/HCPCS: 90792; 99239 ==

== ENCOUNTER → 2023-01-05 19:31 | Outpatient (BNV) | payer OTHER, SELFPAY | PROVIDERS: Admitting Provider Psychiatry & Neurology Psychiatry; Visit Provider Physician Assistant | DX: M54.2 Cervicalgia (principal); M43.22 Fusion of spine, cervical region; M54.50 Low back pain, unspecified | CPT/HCPCS: 99222 ==

== ENCOUNTER 2023-02-26 06:25 | Emergency (ER) | payer OTHER, SELFPAY ==
--- NOTE | ~2023-02-26 | CT_ITS ---
EXAMINATION: CT ABDOMEN AND PELVIS WITH CONTRAST CLINICAL INFORMATION: Upper abdominal pain and vomiting COMPARISON: CT angiography chest 07/08/2021 and CTA chest 10/04/2009 TECHNIQUE: Multidetector volumetric images were obtained from the superior aspect of the liver through the pubic symphysis following administration 85 mL of Omnipaque 350 intravenous contrast. Sagittal and coronal reformatted images were obtained on the technologist's workstation. Oral contrast: No This CT examination was performed using dose optimization techniques as appropriate, variously including the following: *Automated exposure control *Adjustment of mA and/or kV according to patient size (this includes techniques or standardized protocols for targeted exams where dose is matched to indication/reason for exam; i.e. extremities or head) *Use of iterative reconstruction technique DLP: 733 mGy-cm FINDINGS: LUNG BASES: The visualized lung bases are unremarkable. LIVER, GALLBLADDER, AND BILIARY TREE: The liver is normal in size, shape, and attenuation. No focal hepatic lesion or biliary ductal dilatation is present. The gallbladder is unremarkable with no evidence of radiopaque gallstones, gallbladder wall thickening, or obvious pericholecystic inflammatory changes. PANCREAS: Unremarkable. SPLEEN: Unremarkable. ADRENAL GLANDS: There is an irregular-shaped left adrenal mass present measuring 3.3 x 2.1 x 3.3 cm-this mass measures water density and has areas of calcification. This was present on the 10/04/2009 study although the degree of calcification is a bit more on the current study. Findings are consistent with a benign mass. The right adrenal gland is normal. KIDNEYS AND URETERS: The kidneys are normal in size, shape, and attenuation. No hydronephrosis, hydroureter, or calculi seen. No perinephric stranding. In the left kidney, there is a 0.8 cm mass seen near the lower pole which is not a cyst. No other renal masses are seen. BLADDER: Unremarkable. GASTROINTESTINAL TRACT: Patient is status post gastric surgery. There is thickening of the esophagus at the GE junction. The small and large bowel are unremarkable. The appendix is unremarkable. ABDOMINAL WALL: No significant hernia is appreciated. LYMPH NODES: No retroperitoneal lymphadenopathy VASCULAR: The abdominal aorta and iliofemoral vessels appear normal. The portal venous system is normal. The IVC and renal veins appear normal. The celiac SMA and ROSI are all widely patent. There are single renal arteries present bilaterally which appear unremarkable. PELVIC VISCERA: There is mild BPH. Seminal vesicles appear normal. OSSEOUS STRUCTURES: Mild degenerative changes are present in the spine. No bony destructive lesions. CT/CT abdomen pelvis w IV con IMPRESSION: 1. Prior gastric surgery with thickening of the esophagus is at the GE junction. In light of the patient's symptoms, further investigation is probably warranted with either an esophagram or upper endoscopy. 2. Benign left adrenal mass. 3. Mild BPH. 4. Small 0.8 cm left renal mass which is not a cyst. This could be a hyperdense cyst, a fat poor angiomyolipoma or a small renal cell carcinoma. MRI is recommended for further evaluation. Fleischner guidelines were followed.
--- NOTE | ~2023-02-26 | US_ITS ---
EXAMINATION: US VENOUS WITH DOPPLER UPPER EXTREMITY, LEFT CLINICAL INFORMATION: Left upper extremity swelling. COMPARISON: None available. TECHNIQUE: Ultrasound of the upper extremity is performed using compression sonography and color and pulse Doppler flow with assessment of augmentation of flow. There is also imaging and Doppler assessment of the jugular and subclavian veins. Spectral analysis with color-flow imaging is performed. FINDINGS: Respiratory variation, normal compression, and augmented flow are noted throughout the upper extremity including the axillary, brachial, cephalic, and radial and ulnar veins. There is normal flow in the internal jugular and subclavian veins. There is no visible deep or superficial thrombophlebitis. If the patient's symptoms progress, a followup ultrasound in 5 -7 days might be of value to exclude proximal propagation from a nonvisualized distal arm vein. US/US venous duplex UE LT IMPRESSION: No DVT demonstrated in the left upper extremity.
[2023-02-26 06:30] VITALS: BP 154/102; PULSE 72; RESP 16; TEMP 36.6; O2SAT 97; BMI 33.9
--- NOTE | 2023-02-26 07:09 | ED_ITS ---
HPI - General Adult General Chief complaint: General Medical Stated complaint: n/v, discolored vomit Time Seen by Provider: 02/26/23 07:02 Source: patient and old records reviewed Mode of arrival: ambulatory Limitations: no limitations History of Present Illness HPI narrative: 47 yo male with PMH of polysubstance abuse and ETOH abuse, s/p laparascopic gastric [place] [address] Barajas, chronic pain disorder here with c/o one week of poor PO intake and n/v. He then notes 3 days it looks more red in his vomitus and last night he threw up blood. He denies black or bloody stools. He takes motrin every day for aches and pain. He states he has never had GIB before or PUD. He takes no antacids. He denies ETOH use and has not used cocaine in 2 months. He states he also has LUE pain hx of DVT in that arm and worried about another clot - he does not inject drugs but snorts. He has also been constipated x 3 days due to no oral intake. MD complaint: bloody emesis Onset (ago): day(s) (3) Location: abdomen Radiation: non-radiation Severity: moderate Quality: burning and aching Pain Consistency: intermittent Relieving factors: none Exacerbating factors: eating Associated symptoms: loss of appetite, malaise, nausea/vomiting and other (hematemesis) Treatments prior to arrival: none Related Data Home Medications Medication Instructions Recorded Confirmed cholecalciferol (vitamin D3) 75 5,000 unit PO DAILY 07/30/20 01/05/23 mcg (3,000 unit) tablet cyanocobalamin (vitamin B-12) 1,000 mcg PO DAILY 07/30/20 01/05/23 1,000 mcg capsule duloxetine 60 mg capsule,delayed 60 mg PO DAILY 07/30/20 01/05/23 release hydroxyzine HCl 25 mg tablet 50 mg PO BEDTIME 07/30/20 01/05/23 baclofen 10 mg tablet 10 mg PO BID 01/05/23 01/05/23 oxycodone-acetaminophen 7.5 mg-325 1 tab PO TID PRN Pain, Moderate 01/05/23 01/05/23 mg tablet Previous Rx's Medication Instructions Recorded lidocaine 4 % topical patch 2 patch transdermal DAILY 30 days 01/07/23 (Lidocaine Pain Relief) #60 ea trazodone 50 mg tablet 150 mg (3 x 50 mg) PO BEDTIME 30 01/07/23 days #90 tabs omeprazole 20 mg capsule,delayed 20 mg PO BID #60 caps 02/26/23 release ondansetron 4 mg disintegrating 4 mg PO Q8H PRN nausea and 02/26/23 tablet vomiting #20 tabs sucralfate 100 mg/mL oral 10 ml PO BID 4 weeks #560 mL 02/26/23 suspension (Carafate) Allergies Allergy/AdvReac Type Severity Reaction Status Date / Time Penicillins Allergy Unknown Rash, Verified 07/02/22 08:14 Throat closes seafood Allergy Unknown Rash, Verified 07/02/22 08:14 throat closes shellfish derived Allergy Unknown Rash Verified 07/02/22 08:14 Review of Systems 2 Review of Systems: Constitutional : No Weight loss, No Fever, No Chills ENT/Mouth : No sore throat, No Rhinorrhea Eyes: No Swelling, No Redness Cardiovascular : No Chest Pain, No SOB, NoEdema Respiratory : No Cough, No Sputum, No Wheezing Gastrointestinal : Positive Nausea, Positive Vomiting, no Diarrhea, positive abdominal Pain, No Hematochezia, No Melena, pos hematemesis Genitourinary : No Dysuria, No Urinary Frequency, No Hematuria, No Urgency Musculoskeletal : No joint pain, No Myalgias, No Joint Swelling, pos left arm pain Skin : No Skin Lesions, No rash Neuro : No Weakness, No Numbness, No Dizziness, No Headache Psych : No Anxiety/Panic, No Depression All other systems reviewed and are negative. [facility] Past Medical History Attestation statement: The following information was validated with the patient. Source: old records reviewed Medical History Routine medical exam Obesity (BMI 30-39.9) History of DVT (deep vein thrombosis) Back pain PTSD (post-traumatic stress disorder) Anxiety Depression HTN (hypertension) Slipped cervical disc Degenerative disc disease Surgical History History of repair of hiatal hernia History of sleeve gastrectomy History of fusion of cervical spine Family History Family History Father Type 2 diabetes mellitus History of stroke Mother HTN (hypertension) Osteoporosis Sister Obesity HTN (hypertension) Hyperlipidemia Sister No problems noted. Sister No problems noted. Son No problems noted. Son No problems noted. Son No problems noted. Son No problems noted. Daughter No problems noted. Daughter No problems noted. Daughter No problems noted. Social History Social History Household Members: Family Housing: Apartment Do you presently have visiting nurse or other home services: No Alcohol intake: current Alcohol intake frequency: a few times a month Patient Tobacco Use Status: Never used Tobacco e-Cigarette/Vaping Use: Former Use Second Hand Smoke Exposure: No Substance Use Type: Crack/Cocaine service: No Sexual orientation: Straight/Heterosexual Physical Exam ED Vital Signs: Vital Signs - 24 hr 02/26/23 06:30 02/26/23 09:05 02/26/23 10:10 Temperature 98 F Pulse Rate 72 66 70 Respiratory Rate 16 18 16 Blood Pressure 154/102 H 159/97 H 153/106 H Pulse Oximetry 97 98 99 Oxygen Delivery Method Room Air Room Air Room Air BMI result Body Mass Index 33.9 Appearance: Alert. Oriented X3. No acute distress. Eyes: Pupils equal, round and reactive to light. ENT: Pharynx normal. Neck: Normal inspection. Neck supple. CVS: Normal heart rate and rhythm. Pulses normal. Respiratory: No respiratory distress. Breath sounds normal. Abdomen: Soft and mild epigastric ttp Skin: Skin warm and dry. Normal skin color. Normal skin turgor. Extremities: No lower extremity edema. L arm NV intact no swelling no rash or signs of infection but reports pain in bicep area Neuro: Oriented X 3. No motor deficit. No sensory deficit. Medications Administered Discontinued Medications Generic Name Dose Route Start Last Admin Trade Name Freq PRN Reason Stop Dose Admin Sodium Chloride 1,000 mls @ 999 mls/hr 02/26/23 07:30 02/26/23 10:11 Ns IV 02/26/23 08:30 Infused .Q1H1M TRACEY Infusion Iohexol 85 ml 02/26/23 07:58 02/26/23 07:58 Iohexol 350 Mg/Ml 75 Ml Infus..Btl IV 02/26/23 07:59 85 ml ONCE ONE Administration Morphine Sulfate 4 mg 02/26/23 07:22 02/26/23 07:44 Morphine Sulfate 4 Mg/Ml Cartridge IVPUSH 02/26/23 07:23 4 mg ONCE ONE Administration Protocol Ondansetron HCl 4 mg 02/26/23 07:22 02/26/23 07:45 Ondansetron Hcl 4 Mg/2 Ml Vial IVPUSH 02/26/23 07:23 4 mg ONCE ONE Administration Oxycodone HCl 7.5 mg 02/26/23 10:02 02/26/23 10:26 Oxycodone Hcl Immed Release 5 Mg Tablet PO 02/26/23 10:03 7.5 mg ONCE ONE Administration Pantoprazole Sodium 40 mg 02/26/23 07:22 02/26/23 07:44 Pantoprazole Sodium 40 Mg/10 Ml Vial IVPUSH 02/26/23 07:23 40 mg ONCE ONE Administration Medical Decision Making Medical Decision Making MDM Narrative: 47 yo male with PMH of polysubstance abuse and ETOH abuse, s/p laparascopic gastric [place] [address] Barajas, chronic pain disorder here with c/o one week of poor PO intake and n/v and associated blood in emesis. At this time he is taking motrin daily. No hx of UGIB or Marjolin ulcer. He denies having endoscopy. Will obtain labs, hydrate, start IV morphine/zofran and IV protonix. CT scan is ordered. He is also c/o L UE pain with hx of DVT I have ordered DVT study in that arm. Differential Diagnosis Differential Diagnoses: The differential diagnosis associated with the presentation includes gastritis, PUD, marjolin ulcer, elizabeth hawk tear Admission/Observation Consideration of admission/observation: Escalation of care including admission/observation considered cleared by bariatric and H/H stable - follow up with GI and either Dr. Smith or bariatrics here. start on PPI and carafate, able to tolerate PO Consult Healthcare Provider Management of the patient was discussed with: Global Account Executive (Noa tinsley) Lab Data [facility] Lab Attestation statement: I reviewed the patient's lab results. 02/26/23 07:14 02/26/23 07:14 Labs: Lab Results 02/26/23 02/26/23 Range/Units 07:14 09:07 WBC 8.7 (4.8-10.8) X10*3/uL RBC 4.65 (4.60-5.80) X10*6/uL Hgb 14.6 (14.0-18.0) g/dl Hct 40.0 L (42.0-52.0) % MCV 86.0 (80.0-98.0) fL MCH 31.4 (27.0-33.0) pg MCHC 36.5 H (31.0-36.0) g/dl RDW 12.7 (11.0-16.0) % Plt Count 276 (160-400) X10*3/uL MPV 9.3 L (9.4-12.4) fL Absolute Nucleated RBC 0.000 (0.0-0.012) X10*3/uL Nucleated RBC % (auto) 0.0 (0.0-0.2) /100WBC Sodium 141 (135-145) mmol/L Potassium 3.3 D (3.3-5.1) mmol/L Chloride 105 (96-108) mmol/L Carbon Dioxide 28 (22-29) mmol/L Anion Gap 11 L (12-20) BUN 17 H (9-16) mg/dL Creatinine 0.76 (0.5-1.4) mg/dL Estim Creat Clear Calc 132.6 Estimated GFR > 60 Random Glucose 93 (60-115) mg/dL Lactic Acid 0.6 (0.5-2.0) mmol/L Calcium 9.4 (8.4-10.2) mg/dL Magnesium 2.1 (1.6-2.6) mg/dL Total Bilirubin 0.5 (0.0-1.0) mg/dL AST 23 (5-37) U/L ALT 17 (0-40) U/L Alkaline Phosphatase 60 (39-117) U/L Total Protein 6.9 (6.5-8.0) g/dL Albumin 4.2 (3.5-5.0) g/dL Lipase 17 (8-78) U/L Urine Color Yellow Urine Appearance Clear Urine pH 7.5 (5.0-9.0) Ur Specific [place] >= 1.030 H (1.005-1.025) Urine Protein Negative (Neg-Trace) mg/dL Urine Glucose (UA) Negative (Negative) mg/dL Urine Ketones Negative (Negative) mg/dL Urine Blood Negative (Negative) Urine Nitrite Negative (Negative) Ur Leukocyte Esterase Negative (Negative) Urine RBC 0-2 (0-2) /HPF Urine WBC 0-5 (0-5) /HPF Ur Squamous Epith Cells 0-2 (0-2) /HPF Urine Bacteria None Seen (None Seen) Hyaline Casts 0-2 (0-2) /LPF Urine Opiates Screen POSITIVE H (Not Detect) Urine Fentanyl Screen Not Detected (Not Detect) Ur Barbiturates Screen Not Detected (Not Detect) Ur Phencyclidine Scrn Not Detected (Not Detect) Ur Amphetamines Screen Not Detected (Not Detect) U Benzodiazepines Scrn Not Detected (Not Detect) Urine Cocaine Screen Not Detected (Not Detect) U Marijuana (THC) Screen Not Detected (Not Detect) Ethyl Alcohol < 10 mg/dL Independent Interpretation I performed an independent interpretation of an: Ultrasound and CT Scan ([facility]) Radiology Impression Discussion of test interpretation with radiology: I have reviewed the radiologist's reading. External Record Review External record reviewed: Inpatient record Prescription Management I considered prescription management with: Other (zofran, PPI, carafate) Social Determinants Patient?s care significantly limited by Social Determinants of Health including: Alcoholism and drug addiction in family Critical Care Time Critical Care Time Critical Care Time: Yes Total Critical Care Time: 31 Attestation: pain improved after IV dilaudid, medical consult I attest to this time spent taking care of the patient Discharge Plan Discharge Clinical Impression: Esophagitis Patient Disposition: Home, Self-Care Instructions: Esophagitis (ED) Additional Instructions: YOU CANNOT TAKE MOTRIN ALEVE IBUPROFEN NAPROSYN OR ASPIRIN TYLENOL IS OKAY RETURN FOR WORSENING PAIN, FEVERS, BLACK / BLOOD STOOLS, WORSENING VOMITING OF BLOOD YOU CAN FOLLOW UP WITH DR. BARAJAS AT [facility] OR OUR BARIATRIC TEAM LISTED BELOW TAKE THE MEDICATIONS PRESCRIBED. YOU WILL ALSO NEED TO SEE THE BROKERAGE COORDINATOR LISTED BELOW PLEASE CALL THEM DR. THURMAN Prescriptions: New ondansetron 4 mg tablet,disintegrating 4 mg PO Q8H PRN (Reason: nausea and vomiting) Qty: 20 0RF omeprazole 20 mg capsule,delayed release(DR/EC) 20 mg PO BID Qty: 60 0RF sucralfate [Carafate] 100 mg/mL suspension 10 ml PO BID 28 Days Qty: 560 0RF No Action baclofen 10 mg tablet 10 mg PO BID oxycodone-acetaminophen 7.5-325 mg tablet 1 tab PO TID PRN (Reason: Pain, Moderate) lidocaine [Lidocaine Pain Relief] 4 % Adhesive Patch,Medicated 2 patch transdermal DAILY 30 Days Qty: 60 0RF Protocol: Apply to: Apply to: neck pain, back pain trazodone 50 mg Tablet 150 mg PO BEDTIME 30 Days Qty: 90 0RF duloxetine 60 mg capsule,delayed release(DR/EC) 60 mg PO DAILY hydroxyzine HCl 25 mg tablet 50 mg PO BEDTIME cholecalciferol (vitamin D3) 75 mcg (3,000 unit) tablet 5,000 unit PO DAILY cyanocobalamin (vitamin B-12) 1,000 mcg capsule 1,000 mcg PO DAILY Referrals: Danilo Latham PA [Physician Research Chemical Engineer] - 1 week (our bariatric surgery team) Jefferson Thurman MD [Physician] - 1 week (call for appointment - GI doctor) Interventions: ED Discharge Assessment Last Done: 02/26/23 10:28 Discharge Date/Time: 02/26/23 10:29
[2023-02-26 07:23] LABS: Hemoglobin 14.6 g/dl (14.0-18.0); Mean Corpuscular HGB Conc 36.5 g/dl (31.0-36.0); Mean Corpuscular Hemoglobin 31.4 pg (27.0-33.0); Mean Platelet Volume 9.3 fL (9.4-12.4); Platelet Count 276 X10*3/uL (160-400); Red Blood Count 4.65 X10*6/uL (4.60-5.80); Red Cell Distribution Width 12.7 % (11.0-16.0); White Blood Count 8.7 X10*3/uL (4.8-10.8)
[2023-02-26 07:33] LABS: Lactic Acid 0.6 mmol/L (0.5-2.0)
[2023-02-26 07:39] LABS: Alanine Aminotransferase 17 U/L (0-40); Albumin Level 4.2 g/dL (3.5-5.0); Alkaline Phosphatase 60 U/L (39-117); Anion Gap 11 (12-20); Aspartate Amino Transferase 23 U/L (5-37); Bilirubin Total 0.5 mg/dL (0.0-1.0); Blood Urea Nitrogen 17 mg/dL (9-16); Calcium 9.4 mg/dL (8.4-10.2); Carbon Dioxide 28 mmol/L (22-29); Chloride 105 mmol/L (96-108); Creatinine Clr Calc Pharmacy 132.6; Estimated Glomerular Filt Rate > 60; Glucose Random 93 mg/dL (60-115); Lipase 17 U/L (8-78); Potassium 3.3 mmol/L (3.3-5.1); Sodium 141 mmol/L (135-145); Total Protein 6.9 g/dL (6.5-8.0)
[2023-02-26 07:40] LABS: Ethanol < 10 mg/dL; Magnesium 2.1 mg/dL (1.6-2.6)
[2023-02-26] MEDS: Morphine Sulfate 4 MG/ML CARTRIDGE IVPUSH (07:44)
[2023-02-26] MEDS: 0.9 % Sodium Chloride 1,000 ML 999 ML IV (07:44)
[2023-02-26] MEDS: Pantoprazole Sodium 40 MG/10 ML VIAL IVPUSH (07:44)
[2023-02-26] MEDS: ondansetron HCL 4 MG/2 ML VIAL IVPUSH (07:45)
--- NOTE | 2023-02-26 07:51 | PC.NURSE ---
pt a&ox3. respirations even and unlabored. pt reports having a gastric bypass 3 years ago. pt reports within the last week he has been experiencing nausea with no vomiting and constipation.pt reports his last bowel movement 3 days ago that was soft. pt abdomen soft non tender to touch with hypoactive bowel sounds. pt reports he has no been able to eat or drink much for 3 days due to the nausea. pt reports 9/10 abdominal pain. pt denies chest pain and shortness of breath.
[2023-02-26] MEDS: iohexoL 350 MG/ML 75 ML INFUS..BTL 85 ML IV (07:58)
[2023-02-26 09:05] VITALS: BP 159/97; PULSE 66; RESP 18; O2SAT 98
[2023-02-26 09:15] LABS: Appearance Urine Clear; Color Urine Yellow; Glucose Urine UA Negative (Negative); Leukocyte Esterase Urine Negative (Negative); Nitrite Urine Negative (Negative); PH 7.5 (5.0-9.0); Specific Gravity - Urine >= 1.030 (1.005-1.025); Urine Blood Negative (Negative); Urine Ketones Negative (Negative); Urine Protein Negative (Neg-Trace)
[2023-02-26 09:20] LABS: Bacteria Urine None Seen (None Seen); Hyaline Casts Urine 0-2 /LPF (0-2); RBC Urine 0-2 /HPF (0-2); Squamous Epithelial Cell Urine 0-2 /HPF (0-2); WBC Urine 0-5 /HPF (0-5)
[2023-02-26 09:22] LABS: Amphetamine Screen Urine Not Detected (Not Detect); Barbiturates, Urine Not Detected (Not Detect); Benzodiazepines Screen Urine Not Detected (Not Detect); Cannabinoid Screen Urine Not Detected (Not Detect); Cocaine Screen Urine Not Detected (Not Detect); Fentanyl, urine Not Detected (Not Detect); Opiate Screen Urine POSITIVE (Not Detect); Phencyclidine Screen Urine Not Detected (Not Detect)
[2023-02-26 10:10] VITALS: BP 153/106; PULSE 70; RESP 16; O2SAT 99
--- NOTE | 2023-02-26 10:11 | PC.NURSE ---
when pt was ambulating to bathroom, pt accidentally removed IV. IV site cleaned and gauze applied by this RN.
[2023-02-26] MEDS: oxyCODONE HCl Immed Release 5 MG TABLET 7.5 MG PO (10:26)
--- NOTE | 2023-02-26 10:28 | PC.NURSE ---
pt medicated per mar prior to discharge. pt states having a ride home upon discharge.
== END 2023-02-26 10:29 | disposition home or self-care (01) ==
PROVIDERS: Emergency Provider Emergency Medicine
DX: K20.90 Esophagitis, unspecified without bleeding (principal); M79.602 Pain in left arm; I10 Essential (primary) hypertension; G89.4 Chronic pain syndrome; F19.10 Other psychoactive substance abuse, uncomplicated; Z98.84 Bariatric surgery status; Z86.718 Personal history of other venous thrombosis and embolism; Z79.899 Other long term (current) drug therapy
CPT/HCPCS: 36415; 74177; 80053; 80307; 81001; 83605; 83690; 83735; 85027; 93971; 96361; 96374; 96375; 99284; J2270; J2405; Q9967

== ENCOUNTER 2023-09-16 18:30 | Inpatient (IN) | payer OTHER, SELFPAY ==
[2023-09-16 18:35] VITALS: BP 143/101; PULSE 110; RESP 18; TEMP 36; O2SAT 97; BMI 29.0
--- NOTE | 2023-09-16 18:35 | ED_ITS ---
HPI - Psych General Chief Complaint: Psychiatric Symptoms Stated Complaint: crisis Time Seen by Provider: 09/16/23 19:08 Related Data Home Medications ?Medication ?Instructions ?Recorded ?Confirmed duloxetine 60 mg capsule,delayed 60 mg PO BID 07/30/20 09/16/23 release baclofen 10 mg tablet 10 mg PO BID 01/05/23 09/16/23 meloxicam 15 mg tablet 15 mg PO BEDTIME 09/16/23 09/16/23 oxycodone-acetaminophen 7.5 mg-325 1 tab PO TID PRN Pain (Scale Score 09/16/23 09/16/23 mg tablet 4-6) Allergies Allergy/AdvReac Type Severity Reaction Status Date / Time Penicillins Allergy Unknown Rash, Verified 09/16/23 18:39 Throat closes seafood Allergy Unknown Rash, Verified 09/16/23 18:39 throat closes shellfish derived Allergy Unknown Rash Verified 09/16/23 18:39 PMFSH Past Medical History Medical History Routine medical exam Obesity (BMI 30-39.9) History of DVT (deep vein thrombosis) Back pain PTSD (post-traumatic stress disorder) Anxiety Depression HTN (hypertension) Slipped cervical disc Degenerative disc disease Surgical History History of repair of hiatal hernia History of sleeve gastrectomy History of fusion of cervical spine Family History Family History Father Type 2 diabetes mellitus History of stroke Mother HTN (hypertension) Osteoporosis Sister Obesity HTN (hypertension) Hyperlipidemia Sister No problems noted. Sister No problems noted. Son No problems noted. Son No problems noted. Son No problems noted. Son No problems noted. Daughter No problems noted. Daughter No problems noted. Daughter No problems noted. Social History Social History Household Members: Family Housing: Apartment Do you presently have visiting nurse or other home services: No Alcohol intake: current Alcohol intake frequency: a few times a month Patient Tobacco Use Status: Never used Tobacco Smoked in Last 30 Days: Yes e-Cigarette/Vaping Use: Former Use Second Hand Smoke Exposure: No Use of substances other than those prescribed or required for medical reasons: Yes Substance Use Type: Crack/Cocaine and Marijuana Advance Directives: No Advance Directives Information Provided: No service: No Sexual orientation: Straight/Heterosexual Physical Exam 2 Vital Signs: Vital Signs: Last Vital Signs Temp 98.1 F 09/17/23 06:14 Pulse 85 09/17/23 06:14 Resp 16 09/17/23 06:14 BP 126/81 09/17/23 06:14 Pulse Ox 98 09/17/23 06:14 O2 Del Method Room Air 09/17/23 06:14 BMI result Body Mass Index 29.0 Course Course Course Narrative: RME:?47 yo male hx of etoh use disorder, polysubstance use here for crisis eval. states i have pain in my bones . endorses si with plan to rampage . no hi. endorses etoh consumption and cocaine 3 hours ago. no recent med changes. labs, ua, uds ordered Full HPI, ROS and PE to be performed by the primary ED provider. Reevaluation(s) Reevaluation #1: Patient is seen with the care team will be a bed search for inpatient psychiatric care Time: 22:53 Reevaluation #2: Physician observation continued. VS stable, no acute events overnight, inpatient bed search Time: 07:18 Medications Administered Generic Name Dose Route Start Last Admin Trade Name Freq PRN Reason Stop Dose Admin Baclofen 10 mg 09/17/23 09:00 09/16/23 22:52 Baclofen 10 Mg Tablet PO 10 mg BID TRACEY Administration Duloxetine HCl 60 mg 09/17/23 09:00 09/16/23 22:51 Duloxetine Hcl 60 Mg Capsule.Dr PO 60 mg BID TRACEY Administration Ibuprofen 800 mg 09/16/23 22:43 09/16/23 22:51 Ibuprofen 800 Mg Tablet PO 800 mg Q8H PRN Administration Pain, Moderate(Pain Scale 4-6) Discontinued Medications Generic Name Dose Route Start Last Admin Trade Name Freq PRN Reason Stop Dose Admin Hydroxyzine HCl 50 mg 09/16/23 20:17 09/16/23 20:20 Hydroxyzine Hcl 50 Mg Tablet PO 09/16/23 20:18 50 mg ONCE ONE Administration Lorazepam 2 mg 09/16/23 22:23 09/16/23 22:25 Lorazepam 1 Mg Tablet PO 09/16/23 22:24 2 mg ONCE ONE Administration Medical Decision Making Lab Data 09/16/23 21:18 09/16/23 21:18 Labs: Lab Results 09/16/23 09/16/23 09/16/23 Range/Units 19:07 21:18 21:19 WBC 9.3 (4.8-10.8) X10*3/uL RBC 4.94 (4.60-5.80) X10*6/uL Hgb 15.4 (14.0-18.0) g/dl Hct 43.8 (42.0-52.0) % MCV 88.7 (80.0-98.0) fL MCH 31.2 (27.0-33.0) pg MCHC 35.2 (31.0-36.0) g/dl RDW 12.3 (11.0-16.0) % Plt Count 318 (160-400) X10*3/uL MPV 9.7 (9.4-12.4) fL Immature Gran % (Auto) 0.2 (0.0-0.4) % Neut % (Auto) 59.1 (45-73) % Lymph % (Auto) 28.6 (20-40) % [place] % (Auto) 9.8 (2-11) % Eos % (Auto) 1.5 (0-4) % Baso % (Auto) 0.8 (0-2) % Lymph # (Auto) 2.7 (1.2-4.9) X10*3/uL [place] # (Auto) 0.9 (0.1-1.2) X10*3/uL Eos # (Auto) 0.1 (0.0-0.4) X10*3/uL Baso # (Auto) 0.1 (0.0-0.2) X10*3/uL Abs Immat Gran (auto) 0.02 (0.00-0.03) X10*3/uL Absolute Neuts (auto) 5.5 (2.0-8.3) x10*3/uL Absolute Nucleated RBC 0.000 (0.0-0.012) X10*3/uL Nucleated RBC % (auto) 0.0 (0.0-0.2) /100WBC Sodium 140 (135-145) mmol/L Potassium 3.5 (3.3-5.1) mmol/L Chloride 102 (96-108) mmol/L Carbon Dioxide 31 H (22-29) mmol/L Anion Gap 11 L (12-20) BUN 20 H (9-16) mg/dL Creatinine 0.77 (0.5-1.4) mg/dL Estim Creat Clear Calc 121.5 Estimated GFR > 60 Random Glucose 88 (60-115) mg/dL Calcium 9.7 (8.4-10.2) mg/dL Magnesium 2.0 (1.6-2.6) mg/dL Total Bilirubin 0.7 (0.0-1.0) mg/dL AST 27 (5-37) U/L ALT 22 (0-40) U/L Alkaline Phosphatase 82 (39-117) U/L Total Protein 7.0 (6.5-8.0) g/dL Albumin 4.4 (3.5-5.0) g/dL Lipase 36 (8-78) U/L Urine Color Dark Yellow Urine Appearance Clear Urine pH 6.0 (5.0-9.0) Ur Specific [place] 1.025 (1.005-1.025) Urine Protein Negative (Neg-Trace) mg/dL Urine Glucose (UA) Negative (Negative) mg/dL Urine Ketones Trace (Negative) mg/dL Urine Blood Negative (Negative) Urine Nitrite Negative (Negative) Ur Leukocyte Esterase Negative (Negative) Salicylates < 5.0 L (15-30) mg/dL Urine Opiates Screen Not Detected (Not Detect) Ur Buprenorphine Scrn Not Detected (Not Detect) ng/mL Ur Oxycodone Screen Not Detected (Not Detect) ng/mL Urine Methadone Screen Not Detected (Not Detect) ng/mL Urine Fentanyl Screen Not Detected (Not Detect) Ur Barbiturates Screen Not Detected (Not Detect) Ur Phencyclidine Scrn Not Detected (Not Detect) Ur Amphetamines Screen Not Detected (Not Detect) U Benzodiazepines Scrn Not Detected (Not Detect) Urine Cocaine Screen POSITIVE H (Not Detect) U Marijuana (THC) Screen Not Detected (Not Detect) Ethyl Alcohol 77 mg/dL Discharge Plan Discharge Clinical Impression: Cocaine use disorder, Acute anxiety Patient Disposition: Still a Patient Instructions: Cocaine Abuse (ED), Polysubstance Abuse (ED), Anxiety (ED) Prescriptions: No Action baclofen 10 mg tablet 10 mg PO BID meloxicam 15 mg tablet 15 mg PO BEDTIME oxycodone-acetaminophen 7.5-325 mg tablet 1 tab PO TID PRN (Reason: Pain (Scale Score 4-6)) duloxetine 60 mg capsule,delayed release(DR/EC) 60 mg PO BID Interventions: [place]-Suicide Risk Severity Scale Last Done: 09/16/23 18:50 Print Language: Green[place]ic
[2023-09-16 18:49] VITALS: RESP 16
[2023-09-16 19:15] LABS: Appearance Urine Clear; Color Urine Dark Yellow; Glucose Urine UA Negative (Negative); Leukocyte Esterase Urine Negative (Negative); Nitrite Urine Negative (Negative); Specific Gravity - Urine 1.025 (1.005-1.025); Urine Blood Negative (Negative); Urine Ketones Trace mg/dL (Negative); Urine Protein Negative (Neg-Trace)
--- NOTE | 2023-09-16 19:22 | PC.NURSE ---
patient appears to remain at rest at present respirations are even and unlabored patient appears in no distress.
[2023-09-16 19:24] LABS: Amphetamine Screen Urine Not Detected (Not Detect); Barbiturates, Urine Not Detected (Not Detect); Benzodiazepines Screen Urine Not Detected (Not Detect); Buprenorphine Scr Not Detected (Not Detect); Cannabinoid Screen Urine Not Detected (Not Detect); Cocaine Screen Urine POSITIVE (Not Detect); Fentanyl, urine Not Detected (Not Detect); Methadone Screen, Urine Not Detected (Not Detect); Opiate Screen Urine Not Detected (Not Detect); Oxycodone Screen Urine Not Detected (Not Detect); Phencyclidine Screen Urine Not Detected (Not Detect)
--- NOTE | 2023-09-16 19:25 | ED_ITS ---
HPI - Psych General Chief Complaint: Psychiatric Symptoms Stated Complaint: crisis Time Seen by Provider: 09/16/23 19:08 Source: patient Mode of arrival: ambulatory Limitations: no limitations History of Present Illness HPI Narrative: Patient comes to the emergency room complaining of severe anxiety, polysubstance abuse and suicidal ideation. Patient states that it has been a few weeks since he has been taking his anxiety medications. Patient admits to using drugs prior to arrival. Patient denies HI Related Data Home Medications ?Medication ?Instructions ?Recorded ?Confirmed cholecalciferol (vitamin D3) 75 5,000 unit PO DAILY 07/30/20 01/05/23 mcg (3,000 unit) tablet cyanocobalamin (vitamin B-12) 1,000 mcg PO DAILY 07/30/20 01/05/23 1,000 mcg capsule duloxetine 60 mg capsule,delayed 60 mg PO DAILY 07/30/20 01/05/23 release hydroxyzine HCl 25 mg tablet 50 mg PO BEDTIME 07/30/20 01/05/23 baclofen 10 mg tablet 10 mg PO BID 01/05/23 01/05/23 oxycodone-acetaminophen 7.5 mg-325 1 tab PO TID PRN Pain, Moderate 01/05/23 01/05/23 mg tablet Previous Rx's ?Medication ?Instructions ?Recorded lidocaine 4 % topical patch 2 patch transdermal DAILY 30 days 01/07/23 (Lidocaine Pain Relief) #60 ea trazodone 50 mg tablet 150 mg (3 x 50 mg) PO BEDTIME 30 01/07/23 days #90 tabs omeprazole 20 mg capsule,delayed 20 mg PO BID #60 caps 02/26/23 release ondansetron 4 mg disintegrating 4 mg PO Q8H PRN nausea and 02/26/23 tablet vomiting #20 tabs sucralfate 100 mg/mL oral 10 ml PO BID 4 weeks #560 mL 02/26/23 suspension (Carafate) Allergies Allergy/AdvReac Type Severity Reaction Status Date / Time Penicillins Allergy Unknown Rash, Verified 09/16/23 18:39 Throat closes seafood Allergy Unknown Rash, Verified 09/16/23 18:39 throat closes shellfish derived Allergy Unknown Rash Verified 09/16/23 18:39 Review of Systems Review of Systems: Constitutional : No Weight loss, No Fever, No Chills, No Night Sweats, No Fatigue, No Malaise ENT/Mouth : No Hearing loss, No Ear Pain, No Nasal Congestion, No Sinus Pain, No Hoarseness, No sore throat, No Rhinorrhea, No Swallowing Difficulty Eyes: No Eye Pain, No Swelling, No Redness, No Foreign Body, No Discharge, No Vision Changes Cardiovascular : No Chest Pain, No SOB, No Dyspnea on Exertion, No Orthopnea, No Edema, No Palpitations Respiratory : No Cough, No Sputum, No Wheezing, No Smoke Exposure, No Dyspnea Gastrointestinal : No Nausea, No Vomiting, No Diarrhea, No Constipation, No abdominal Pain, No Hematochezia, No Melena Genitourinary : no irregular bleeding, No Dysuria, No Urinary Frequency, No Hematuria, No Urinary Incontinence, No Urgency, No Flank Pain, No Urinary Flow Changes, No Hesitancy Musculoskeletal : No joint pain, No Myalgias, No Joint Swelling Skin : No Skin Lesions, No rash Neuro : No Weakness, No Numbness, No Paresthesias, No Loss of Consciousness, No Dizziness, No Headache Psych : Complaining of anxiety, vague SI, polysubstance abuse, no HI Heme/Lymph: No Bruising, No Bleeding,No Lymphadenopathy Endocrine : No Polyuria, No Polydipsia, No Temperature Intolerance PMFSH Past Medical History Medical History Routine medical exam Obesity (BMI 30-39.9) History of DVT (deep vein thrombosis) Back pain PTSD (post-traumatic stress disorder) Anxiety Depression HTN (hypertension) Slipped cervical disc Degenerative disc disease Surgical History History of repair of hiatal hernia History of sleeve gastrectomy History of fusion of cervical spine Family History Family History Father Type 2 diabetes mellitus History of stroke Mother HTN (hypertension) Osteoporosis Sister Obesity HTN (hypertension) Hyperlipidemia Sister No problems noted. Sister No problems noted. Son No problems noted. Son No problems noted. Son No problems noted. Son No problems noted. Daughter No problems noted. Daughter No problems noted. Daughter No problems noted. Social History Social History Household Members: Family Housing: Apartment Do you presently have visiting nurse or other home services: No Alcohol intake: current Alcohol intake frequency: a few times a month Patient Tobacco Use Status: Never used Tobacco Smoked in Last 30 Days: Yes e-Cigarette/Vaping Use: Former Use Second Hand Smoke Exposure: No Use of substances other than those prescribed or required for medical reasons: Yes Substance Use Type: Crack/Cocaine and Marijuana Advance Directives: No Advance Directives Information Provided: No service: No Sexual orientation: Straight/Heterosexual Physical Exam Vital Signs: Vital Signs: Last Vital Signs Temp 96.8 F 09/16/23 18:35 Pulse 110 H 09/16/23 18:35 Resp 16 09/16/23 18:49 BP 143/101 H 09/16/23 18:35 Pulse Ox 97 09/16/23 18:35 O2 Del Method Room Air 09/16/23 18:35 BMI result Body Mass Index 29.0 Const: Other: Appearance: Alert. Oriented X3. No acute distress. Eyes: Pupils equal, round and reactive to light. ENT: Pharynx normal. Neck: Normal inspection. Neck supple. No lymph nodes noted. No crepitus CVS: Normal heart rate and rhythm. Pulses normal. Normal S1 and S2 Respiratory: No respiratory distress. Breath sounds normal. No Wheezing. No rales Abdomen: Soft and nontender. No rigidity. No distention. Skin: Skin warm and dry. Normal skin color. Normal skin turgor. Extremities: No lower extremity edema. No Lacerations. No Rash Neuro: Oriented X 3. No motor deficit. No sensory deficit. Moving all extremities. No slurred speech. CN 2 through 12 grossly intact Psych: calm, cooperative, seems anxious Course Course Course Narrative: -all of patient's labs pending -care team consult pending -physician observation started at 19:27 Medical Decision Making Differential Diagnosis Differential Diagnoses: The differential diagnosis associated with the presentation includes (Anxiety, depression, polysubstance abuse) Admission/Observation Consideration of admission/observation: Escalation of care including admission/observation considered (Patient is on physician [facility] waiting to be seen by the care team to determine disposition) Lab Data Labs: Lab Results 09/16/23 Range/Units 19:07 Urine Color Dark Yellow Urine Appearance Clear Urine pH 6.0 (5.0-9.0) Ur Specific [place] 1.025 (1.005-1.025) Urine Protein Negative (Neg-Trace) mg/dL Urine Glucose (UA) Negative (Negative) mg/dL Urine Ketones Trace (Negative) mg/dL Urine Blood Negative (Negative) Urine Nitrite Negative (Negative) Ur Leukocyte Esterase Negative (Negative) Urine Opiates Screen Not Detected (Not Detect) Ur Buprenorphine Scrn Not Detected (Not Detect) ng/mL Ur Oxycodone Screen Not Detected (Not Detect) ng/mL Urine Methadone Screen Not Detected (Not Detect) ng/mL Urine Fentanyl Screen Not Detected (Not Detect) Ur Barbiturates Screen Not Detected (Not Detect) Ur Phencyclidine Scrn Not Detected (Not Detect) Ur Amphetamines Screen Not Detected (Not Detect) U Benzodiazepines Scrn Not Detected (Not Detect) Urine Cocaine Screen POSITIVE H (Not Detect) U Marijuana (THC) Screen Not Detected (Not Detect) Critical Care Time Critical Care Time Critical Care Time: Yes Total Critical Care Time: 35 Attestation: I have personally provided critical care time. Time includes review of lab data, radiology results, discussion with consultants, and monitoring for potential decompensation. Intervention performed as documented. Discharge Plan Discharge Clinical Impression: Cocaine use disorder, Acute anxiety Patient Disposition: Still a Patient Instructions: Anxiety (ED), Polysubstance Abuse (ED), Cocaine Abuse (ED) Prescriptions: No Action baclofen 10 mg tablet 10 mg PO BID oxycodone-acetaminophen 7.5-325 mg tablet 1 tab PO TID PRN (Reason: Pain, Moderate) lidocaine [Lidocaine Pain Relief] 4 % Adhesive Patch,Medicated 2 patch transdermal DAILY 30 Days Qty: 60 0RF Protocol: Apply to: Apply to: neck pain, back pain trazodone 50 mg Tablet 150 mg PO BEDTIME 30 Days Qty: 90 0RF ondansetron 4 mg tablet,disintegrating 4 mg PO Q8H PRN (Reason: nausea and vomiting) Qty: 20 0RF omeprazole 20 mg capsule,delayed release(DR/EC) 20 mg PO BID Qty: 60 0RF sucralfate [Carafate] 100 mg/mL suspension 10 ml PO BID 28 Days Qty: 560 0RF duloxetine 60 mg capsule,delayed release(DR/EC) 60 mg PO DAILY hydroxyzine HCl 25 mg tablet 50 mg PO BEDTIME cholecalciferol (vitamin D3) 75 mcg (3,000 unit) tablet 5,000 unit PO DAILY cyanocobalamin (vitamin B-12) 1,000 mcg capsule 1,000 mcg PO DAILY Interventions: [place]-Suicide Risk Severity Scale Last Done: 09/16/23 18:50 Print Language: Tanzanian
[2023-09-16] MEDS: hydrOXYzine HCL 50 MG TABLET PO (20:20)
--- NOTE | 2023-09-16 20:35 | PC.NURSE ---
patient vomited once, stated he prior had bariatric surgery seems pickard may have vomited again, will complete med rec
[2023-09-16 21:23] LABS: MANUAL DIFF FLAG NO
[2023-09-16 21:31] LABS: Basophils Absolute Auto 0.1 X10*3/uL (0.0-0.2); Basophils Percent Auto 0.8 % (0-2); Eosinophils Absolute Auto 0.1 X10*3/uL (0.0-0.4); Eosinophils Percent Auto 1.5 % (0-4); Hematocrit 43.8 % (42.0-52.0); Hemoglobin 15.4 g/dl (14.0-18.0); Imm Gran Abs Auto 0.02 X10*3/uL (0.00-0.03); Imm Gran Pct Auto 0.2 % (0.0-0.4); Lymphocytes Absolute Auto 2.7 X10*3/uL (1.2-4.9); Lymphocytes Percent Auto 28.6 % (20-40); Mean Corpuscular HGB Conc 35.2 g/dl (31.0-36.0); Mean Corpuscular Hemoglobin 31.2 pg (27.0-33.0); Mean Corpuscular Volume 88.7 fL (80.0-98.0); Mean Platelet Volume 9.7 fL (9.4-12.4); Monocytes Absolute Auto 0.9 X10*3/uL (0.1-1.2); Monocytes Percent Auto 9.8 % (2-11); Neutrophils Absolute Auto 5.5 x10*3/uL (2.0-8.3); Neutrophils Percent Auto 59.1 % (45-73); Platelet Count 318 X10*3/uL (160-400); Red Blood Count 4.94 X10*6/uL (4.60-5.80); Red Cell Distribution Width 12.3 % (11.0-16.0); White Blood Count 9.3 X10*3/uL (4.8-10.8)
[2023-09-16 21:40] LABS: Alanine Aminotransferase 22 U/L (0-40); Albumin Level 4.4 g/dL (3.5-5.0); Alkaline Phosphatase 82 U/L (39-117); Anion Gap 11 (12-20); Aspartate Amino Transferase 27 U/L (5-37); Bilirubin Total 0.7 mg/dL (0.0-1.0); Blood Urea Nitrogen 20 mg/dL (9-16); Calcium 9.7 mg/dL (8.4-10.2); Carbon Dioxide 31 mmol/L (22-29); Chloride 102 mmol/L (96-108); Creatinine Clr Calc Pharmacy 121.5; Estimated Glomerular Filt Rate > 60; Ethanol 77 mg/dL; Glucose Random 88 mg/dL (60-115); Lipase 36 U/L (8-78); Potassium 3.5 mmol/L (3.3-5.1); Sodium 140 mmol/L (135-145)
[2023-09-16 21:43] LABS: Salicylate < 5.0 mg/dL (15-30)
[2023-09-16] MEDS: LORazepam 1 MG TABLET 2 MG PO (22:25)
[2023-09-16] MEDS: Ibuprofen 800 MG TABLET PO (22:51)
[2023-09-16] MEDS: DULoxetine HCl 60 MG CAPSULE.DR PO (22:51)
[2023-09-16] MEDS: Baclofen 10 MG TABLET PO (22:52)
--- NOTE | 2023-09-17 03:45 | PC.NURSE ---
Took over care from RN Juana unable to complete psychiatric assessment due to pt sleeping at this time.
[2023-09-17 06:14] VITALS: BP 126/81; PULSE 85; RESP 16; TEMP 36.7; O2SAT 98
[2023-09-17 08:14] VITALS: BP 112/61; PULSE 103; RESP 16; TEMP 36.6; O2SAT 98
--- NOTE | 2023-09-17 08:26 | ECG_ITS ---
Test Reason : CHECK PROLONG QT Blood Pressure : / mmHG Vent. Rate : 085 BPM Atrial Rate : 085 BPM P-R Int : 144 ms QRS Dur : 088 ms QT Int : 332 ms P-R-T Axes : 068 051 048 degrees QTc Int : 395 ms Normal sinus rhythm Normal ECG No significant changes when compared with the previous EKG of 07 jul 2021 Referred By: Denise Zuniga Electronically Signed By:ELLIOTT MELTON
[2023-09-17] MEDS: Ibuprofen 800 MG TABLET PO ×2 (08:34→14:32)
[2023-09-17 09:09] LABS: COVID-19 Test Negative (Negative); IDNOW Serial# 152EDE1D
[2023-09-17] MEDS: hydrOXYzine HCL 50 MG TABLET PO (10:48)
[2023-09-17 13:26] VITALS: BMI 27.4
[2023-09-17 13:27] VITALS: BP 150/95; PULSE 100; RESP 18; TEMP 36.9; O2SAT 99
[2023-09-17] MEDS: Acetaminophen 325 MG TABLET 650 MG PO (13:54)
[2023-09-17] MEDS: LORazepam 1 MG TABLET PO ×2 (13:54→20:55)
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
[2023-09-17 20:00] VITALS: BP 121/77; PULSE 90; RESP 16; TEMP 36.8; O2SAT 99
[2023-09-17] MEDS: DULoxetine HCl 60 MG CAPSULE.DR PO (20:55)
[2023-09-17] MEDS: Baclofen 10 MG TABLET PO (20:55)
[2023-09-17] MEDS: hydrOXYzine HCL 25 MG TABLET PO (20:55)
[2023-09-17] MEDS: traZODone HCL 50 MG TABLET PO (20:55)
[2023-09-18 07:30] VITALS: BP 134/95; PULSE 93; RESP 16; TEMP 36.4; O2SAT 97
[2023-09-18 08:36] LABS: Alanine Aminotransferase 27 U/L (0-40); Alkaline Phosphatase 77 U/L (39-117); Anion Gap 11 (12-20); Aspartate Amino Transferase 25 U/L (5-37); Bilirubin Total 0.7 mg/dL (0.0-1.0); Blood Urea Nitrogen 14 mg/dL (9-16); Calcium 9.6 mg/dL (8.4-10.2); Carbon Dioxide 31 mmol/L (22-29); Chloride 102 mmol/L (96-108); Cholesterol 157 mg/dL (<200); Creatinine Clr Calc Pharmacy 115.4; Estimated Glomerular Filt Rate > 60; Glucose Fasting 94 mg/dL (60-99); HDL Cholesterol 68 mg/dL (>40); LDL Cholesterol Calculated 75 mg/dL (<100); Sodium 140 mmol/L (135-145); Total Protein 6.8 g/dL (6.5-8.0); Triglycerides 73 mg/dL (<150)
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
[2023-09-18] MEDS: Folic Acid 1 MG TABLET PO (09:32)
[2023-09-18] MEDS: Baclofen 10 MG TABLET PO ×2 (09:32→20:11)
[2023-09-18] MEDS: Multivitamin TABLET 1 TAB PO (09:32)
[2023-09-18] MEDS: DULoxetine HCl 60 MG CAPSULE.DR PO ×2 (09:32→20:30)
[2023-09-18] MEDS: Thiamine HCL 100 MG TABLET PO (09:32)
[2023-09-18] MEDS: Lidocaine 4 % Patch ADH..PATCH 2 PATCH TRANSDERMA (09:34)
[2023-09-18] MEDS: Ibuprofen 800 MG TABLET PO ×2 (09:45→18:43)
[2023-09-18] MEDS: LORazepam 1 MG TABLET PO (09:46)
[2023-09-18] MEDS: Acetaminophen 325 MG TABLET 650 MG PO (13:12)
[2023-09-18] MEDS: oxyCODONE HCl Immed Release 5 MG TABLET 7.5 MG PO ×2 (14:40→20:10)
--- NOTE | 2023-09-18 15:04 | MHC.RECOVRN ---
AUDIT-C Brief Intervention Pt had positive screen for unhealthy alcohol use on admission. Pt declined meeting with [facility] to discuss alcohol use and resources.
[2023-09-18] MEDS: hydrOXYzine HCL 25 MG TABLET PO (17:10)
[2023-09-18 20:00] VITALS: BP 100/60; PULSE 87; RESP 16; TEMP 36.6; O2SAT 98
[2023-09-18] MEDS: traZODone HCL 50 MG TABLET 150 MG PO (20:11)
[2023-09-19] MEDS: oxyCODONE HCl Immed Release 5 MG TABLET 7.5 MG PO ×3 (05:34→20:16)
[2023-09-19] MEDS: Acetaminophen 325 MG TABLET 650 MG PO ×2 (05:34→15:57)
[2023-09-19 07:51] VITALS: BP 109/68; PULSE 101; RESP 16; TEMP 36.2; O2SAT 97
[2023-09-19] MEDS: Nicotine 21 MG PATCH.TD24 TRANSDERMA (08:26)
[2023-09-19] MEDS: Baclofen 10 MG TABLET PO ×2 (08:27→20:16)
[2023-09-19] MEDS: Multivitamin TABLET 1 TAB PO (08:27)
[2023-09-19] MEDS: Folic Acid 1 MG TABLET PO (08:27)
[2023-09-19] MEDS: DULoxetine HCl 60 MG CAPSULE.DR PO ×2 (08:27→20:16)
[2023-09-19] MEDS: Thiamine HCL 100 MG TABLET PO (08:27)
[2023-09-19] MEDS: Lidocaine 4 % Patch ADH..PATCH 2 PATCH TRANSDERMA (08:28)
--- NOTE | 2023-09-19 09:35 | HO.PSYCHPN ---
Subjective Subjective Date of Service: 09/19/23 Reason For Visit: crisis Subjective Notes: Conditional Voluntary Interim History: Patient was seen and discussed in rounds today. Records and plans were reviewed. He has been guarded and continues to endorse depression and anxiety. Scoring low on his CIWA protocol. Using most of his p.r.n. medications. No complaints or side effects. Eating and sleeping well. No SI. No changes were made today Review of Systems Review of Systems Yes all other systems are reviewed and are negative Mental Status Exam Mental Status Exam Narrative: In today's visit he is alert, oriented and pleasant. Normal speech. Moderate eye contact. Appropriate affect and somewhat subdued. No signs of psychosis. No AVH. No delusions. No SI. Cognitively intact. Judgment is intact. Able to move all limbs. No abnormalities of gait. Diagnostics Vital Signs (24Hr): Vital Signs - 24 hr 09/18/23 20:00 09/19/23 07:51 Temperature 97.9 F 97.2 F Pulse Rate 87 101 H Respiratory Rate 16 16 Blood Pressure 100/60 109/68 Pulse Oximetry 98 97 Oxygen Delivery Method Room Air Room Air BMI result Body Mass Index 27.4 Labs 09/16/23 21:18 09/18/23 08:06 Labs: Laboratory Results - last 48 hr 09/18/23 08:06 Hold Purple Top SEE NOTE Sodium 140 Potassium 4.0 Chloride 102 Carbon Dioxide 31 H Anion Gap 11 L BUN 14 Creatinine 0.79 Estim Creat Clear Calc 115.4 Estimated GFR > 60 Fasting Glucose 94 Calcium 9.6 Total Bilirubin 0.7 AST 25 ALT 27 Alkaline Phosphatase 77 Total Protein 6.8 Albumin 4.0 Triglycerides 73 Cholesterol 157 LDL Cholesterol, Calc 75 HDL Cholesterol 68 Medications Medications Current Medications Acetaminophen (Acetaminophen 325 Mg Tablet) 650 mg PO Q6H PRN PRN Reason: Headache/Pain Mild Scale (1-3) Last Admin: 09/19/23 05:34 Dose: 650 mg Al Hydroxide/Mg Hydroxide (Magnesium Hydrox/Alum Hydrox 30 Ml Oral.Susp) 30 ml PO Q6H PRN PRN Reason: Heartburn/Nausea Baclofen (Baclofen 10 Mg Tablet) 10 mg PO BID [facility] Last Admin: 09/19/23 08:27 Dose: 10 mg Benzocaine (Benzocaine 20 % Oral Gel 9 Gm Tube) 1 appl MUCOUS MEM TID PRN; Protocol PRN Reason: tooth pain Duloxetine HCl (Duloxetine Hcl 60 Mg Capsule.Dr) 60 mg PO BID [facility] Last Admin: 09/19/23 08:27 Dose: 60 mg Folic Acid (Folic Acid 1 Mg Tablet) 1 mg PO DAILY [facility] Last Admin: 09/19/23 08:27 Dose: 1 mg Hydroxyzine HCl (Hydroxyzine Hcl 25 Mg Tablet) 25 mg PO Q6H PRN PRN Reason: Anxiety Last Admin: 09/18/23 17:10 Dose: 25 mg Ibuprofen (Ibuprofen 800 Mg Tablet) 800 mg PO Q8H PRN PRN Reason: Pain, Moderate(Pain Scale 4-6) Last Admin: 09/18/23 18:43 Dose: 800 mg Lidocaine (Lidocaine 4 % Patch Adh..Patch) 2 patch TRANSDERMA DAILY [facility]; Protocol Last Admin: 09/19/23 08:28 Dose: 2 patch Lorazepam (Lorazepam 1 Mg Tablet) 1 mg PO Q4H PRN PRN Reason: CIWA 6-12 Last Admin: 09/18/23 09:46 Dose: 1 mg Lorazepam (Lorazepam 1 Mg Tablet) 2 mg PO Q4H PRN PRN Reason: Ciwa 13 and above Magnesium Hydroxide (Milk Of Magnesia 30 Ml Oral.Susp) 30 ml PO DAILY PRN PRN Reason: Constipation Multivitamins/Vitamin C (Multivitamin Tablet) 1 tab PO DAILY [facility] Last Admin: 09/19/23 08:27 Dose: 1 tab Nicotine (Nicotine 21 Mg Patch.Td24) 21 mg TRANSDERMA DAILY [facility] Last Admin: 09/19/23 08:26 Dose: 21 mg Nicotine Polacrilex (Nicotine Polacrilex 2 Mg Gum) 4 mg BUCCAL Q2H PRN PRN Reason: Nicotine Cravings Oxycodone HCl (Oxycodone Hcl Immed Release 5 Mg Tablet) 7.5 mg PO TID PRN PRN Reason: Pain (Scale Score 4-6) Last Admin: 09/19/23 05:34 Dose: 7.5 mg Thiamine HCl (Thiamine Hcl 100 Mg Tablet) 100 mg PO DAILY [facility] Last Admin: 09/19/23 08:27 Dose: 100 mg Trazodone HCl (Trazodone Hcl 50 Mg Tablet) 150 mg PO BEDTIME [facility] Last Admin: 09/18/23 20:11 Dose: 150 mg Allergies Allergies Allergy/AdvReac Type Severity Reaction Status Date / Time Penicillins Allergy Unknown Rash, Verified 09/16/23 18:39 Throat closes seafood Allergy Unknown Rash, Verified 09/16/23 18:39 throat closes shellfish derived Allergy Unknown Rash Verified 09/16/23 18:39 Assessment & Plan Assessment & Plan (1) MDD (major depressive disorder), recurrent episode: Status: Acute Code(s): F33.9 - Major depressive disorder, recurrent, unspecified (2) PTSD (post-traumatic stress disorder): Status: Acute Code(s): F43.10 - Post-traumatic stress disorder, unspecified (3) Alcohol use disorder: Status: Acute Code(s): F10.90 - Alcohol use, unspecified, uncomplicated (4) Cocaine use disorder: Status: Acute Code(s): F14.10 - Cocaine abuse, uncomplicated Plan Patient is a 47 year old male with hx of MDD, PTSD, cocaine use d/o and alcohol use d/o who presented to ER d/t suicidal ideation secondary to increased anxiety and inability to sleep for the past four days. Plan: CV 15 minute safety checks CIWA continue home medications Start: Trazodone 150mg PO bedtime referral to outpatient prescriber encourage groups discharge planning 09/19/2023: Continue current regimen and plans Reason for continued inpatient stay Substantial Risk for: med/psych decompensation Time Spent With Patient Time: Total time managing care of this patient today ____ minutes.
[2023-09-19] MEDS: LORazepam 1 MG TABLET PO (09:41)
[2023-09-19] MEDS: Benzocaine 20 % Oral Gel 9 GM TUBE 1 APPL MUCOUS MEM (11:08)
[2023-09-19] MEDS: Ibuprofen 800 MG TABLET PO ×2 (11:08→19:06)
[2023-09-19] MEDS: hydrOXYzine HCL 25 MG TABLET PO ×2 (11:08→16:54)
[2023-09-19 20:00] VITALS: BP 137/61; PULSE 110; RESP 16; TEMP 36.6; O2SAT 99
[2023-09-19] MEDS: traZODone HCL 50 MG TABLET 150 MG PO (20:15)
[2023-09-20] MEDS: hydrOXYzine HCL 25 MG TABLET PO ×3 (03:15→15:42)
[2023-09-20] MEDS: Ibuprofen 800 MG TABLET PO (03:16)
[2023-09-20 08:00] VITALS: BP 110/68; PULSE 82; RESP 16; TEMP 36.8; O2SAT 99
[2023-09-20] MEDS: DULoxetine HCl 60 MG CAPSULE.DR PO ×2 (08:48→20:24)
[2023-09-20] MEDS: Multivitamin TABLET 1 TAB PO (08:48)
[2023-09-20] MEDS: Baclofen 10 MG TABLET PO ×2 (08:49→20:24)
[2023-09-20] MEDS: Folic Acid 1 MG TABLET PO (08:49)
[2023-09-20] MEDS: Thiamine HCL 100 MG TABLET PO (08:49)
[2023-09-20] MEDS: oxyCODONE HCl Immed Release 5 MG TABLET 7.5 MG PO ×3 (09:22→20:22)
[2023-09-20] MEDS: Lidocaine 4 % Patch ADH..PATCH 2 PATCH TRANSDERMA (09:23)
--- NOTE | 2023-09-20 09:37 | HO.PSYCHPN ---
Subjective Subjective Date of Service: 09/20/23 Reason For Visit: crisis Subjective Notes: Conditional Voluntary Interim History: Patient was seen and discussed in rounds today. Records and plans were reviewed. He has been pleasant and cooperative. Not scoring on the CIWA and it was discontinued. Some back pain reported. He is denying any side effects. Eating and sleeping well. No SI. No changes were made today other than the above. Review of Systems Review of Systems Back pain Yes all other systems are reviewed and are negative Mental Status Exam Mental Status Exam Narrative: In today's visit he is alert, oriented and pleasant. Normal speech. Moderate eye contact. Appropriate affect and somewhat subdued. No signs of psychosis. No AVH. No delusions. No SI. Cognitively intact. Judgment is intact. Able to move all limbs. No abnormalities of gait. Diagnostics Vital Signs (24Hr): Vital Signs - 24 hr 09/19/23 20:00 09/20/23 08:00 Temperature 97.8 F 98.3 F Pulse Rate 110 H 82 Respiratory Rate 16 16 Blood Pressure 137/61 110/68 Pulse Oximetry 99 99 Oxygen Delivery Method Room Air Room Air BMI result Body Mass Index 27.4 Labs 09/16/23 21:18 09/18/23 08:06 Medications Medications Current Medications Acetaminophen (Acetaminophen 325 Mg Tablet) 650 mg PO Q6H PRN PRN Reason: Headache/Pain Mild Scale (1-3) Last Admin: 09/19/23 15:57 Dose: 650 mg Al Hydroxide/Mg Hydroxide (Magnesium Hydrox/Alum Hydrox 30 Ml Oral.Susp) 30 ml PO Q6H PRN PRN Reason: Heartburn/Nausea Baclofen (Baclofen 10 Mg Tablet) 10 mg PO BID [facility] Last Admin: 09/20/23 08:49 Dose: 10 mg Benzocaine (Benzocaine 20 % Oral Gel 9 Gm Tube) 1 appl MUCOUS MEM TID PRN; Protocol PRN Reason: tooth pain Last Admin: 09/19/23 11:08 Dose: 1 appl Duloxetine HCl (Duloxetine Hcl 60 Mg Capsule.) 60 mg PO BID [facility] Last Admin: 09/20/23 08:48 Dose: 60 mg Folic Acid (Folic Acid 1 Mg Tablet) 1 mg PO DAILY [facility] Last Admin: 09/20/23 08:49 Dose: 1 mg Hydroxyzine HCl (Hydroxyzine Hcl 25 Mg Tablet) 25 mg PO Q6H PRN PRN Reason: Anxiety Last Admin: 09/20/23 09:22 Dose: 25 mg Ibuprofen (Ibuprofen 800 Mg Tablet) 800 mg PO Q8H PRN PRN Reason: Pain, Moderate(Pain Scale 4-6) Last Admin: 09/20/23 03:16 Dose: 800 mg Lidocaine (Lidocaine 4 % Patch Adh..Patch) 2 patch TRANSDERMA DAILY [facility]; Protocol Last Admin: 09/20/23 09:23 Dose: 2 patch Magnesium Hydroxide (Milk Of Magnesia 30 Ml Oral.Susp) 30 ml PO DAILY PRN PRN Reason: Constipation Multivitamins/Vitamin C (Multivitamin Tablet) 1 tab PO DAILY [facility] Last Admin: 09/20/23 08:48 Dose: 1 tab Nicotine (Nicotine 21 Mg Patch.Td24) 21 mg TRANSDERMA DAILY [facility] Last Admin: 09/20/23 09:06 Dose: Not Given Nicotine Polacrilex (Nicotine Polacrilex 2 Mg Gum) 4 mg BUCCAL Q2H PRN PRN Reason: Nicotine Cravings Oxycodone HCl (Oxycodone Hcl Immed Release 5 Mg Tablet) 7.5 mg PO TID PRN PRN Reason: Pain (Scale Score 4-6) Last Admin: 09/20/23 09:22 Dose: 7.5 mg Thiamine HCl (Thiamine Hcl 100 Mg Tablet) 100 mg PO DAILY [facility] Last Admin: 09/20/23 08:49 Dose: 100 mg Trazodone HCl (Trazodone Hcl 50 Mg Tablet) 150 mg PO BEDTIME [facility] Last Admin: 09/19/23 20:15 Dose: 150 mg Allergies Allergies Allergy/AdvReac Type Severity Reaction Status Date / Time Penicillins Allergy Unknown Rash, Verified 09/16/23 18:39 Throat closes seafood Allergy Unknown Rash, Verified 09/16/23 18:39 throat closes shellfish derived Allergy Unknown Rash Verified 09/16/23 18:39 Assessment & Plan Assessment & Plan (1) MDD (major depressive disorder), recurrent episode: Status: Acute Code(s): F33.9 - Major depressive disorder, recurrent, unspecified (2) PTSD (post-traumatic stress disorder): Status: Acute Code(s): F43.10 - Post-traumatic stress disorder, unspecified (3) Alcohol use disorder: Status: Acute Code(s): F10.90 - Alcohol use, unspecified, uncomplicated (4) Cocaine use disorder: Status: Acute Code(s): F14.10 - Cocaine abuse, uncomplicated Plan Patient is a 47 year old male with hx of MDD, PTSD, cocaine use d/o and alcohol use d/o who presented to ER d/t suicidal ideation secondary to increased anxiety and inability to sleep for the past four days. Plan: CV 15 minute safety checks CIWA continue home medications Start: Trazodone 150mg PO bedtime referral to outpatient prescriber encourage groups discharge planning 09/19/2023: Continue current regimen and plans 09/20/2023: Continue current regimen and plans Reason for continued inpatient stay Substantial Risk for: med/psych decompensation Time Spent With Patient Time: Total time managing care of this patient today ____ minutes.
[2023-09-20] MEDS: Acetaminophen 325 MG TABLET 650 MG PO ×2 (13:48→20:23)
[2023-09-20 19:55] VITALS: BP 111/57; PULSE 89; RESP 15; TEMP 36.8; O2SAT 99
[2023-09-20] MEDS: traZODone HCL 50 MG TABLET 150 MG PO (20:24)
[2023-09-21 07:30] VITALS: BP 128/75; PULSE 79; RESP 14; TEMP 36.5; O2SAT 99
[2023-09-21] MEDS: Multivitamin TABLET 1 TAB PO (08:26)
[2023-09-21] MEDS: DULoxetine HCl 60 MG CAPSULE.DR PO ×2 (08:26→20:45)
[2023-09-21] MEDS: Baclofen 10 MG TABLET PO ×2 (08:26→20:46)
[2023-09-21] MEDS: Thiamine HCL 100 MG TABLET PO (08:27)
[2023-09-21] MEDS: Folic Acid 1 MG TABLET PO (08:27)
[2023-09-21] MEDS: Lidocaine 4 % Patch ADH..PATCH 2 PATCH TRANSDERMA (08:27)
[2023-09-21] MEDS: oxyCODONE HCl Immed Release 5 MG TABLET 7.5 MG PO ×3 (08:54→20:43)
--- NOTE | 2023-09-21 08:57 | P.PNPSI_ITS ---
Subjective Subjective Date of Service: 09/21/23 Reason For Visit: crisis Subjective Notes: 3 Day Interim History: Reviewed with Dr. Ortega. Pt reports feeling better than when I came in because I have my medicine. I slept well. I stopped feeling negative after the second day here because I was able to rest . Pt reports he plans to follow up with outpatient providers. pt denies SI/HI/VH/AH. Plan to discharge home tomorrow. Medication Compliance: Yes Side effects from medications: No Attending Groups: No Review of Systems Constitutional: Reports as per HPI Eyes: Reports as per HPI Reports as per HPI Cardiovascular: Reports as per HPI Respiratory: Reports as per HPI Gastrointestinal: Reports as per HPI Genitourinary: Reports as per HPI Musculoskeletal: Reports as per HPI Skin/Breast: Reports as per HPI Reports as per HPI Psychiatric: Reports as per HPI Endocrine: Reports as per HPI Hematologic/Lymphatic: Reports as per HPI Allergic/Immunologic: Reports as per HPI Mental Status Exam Mental Status Exam Narrative: Pt is alert and oriented; behavior is cooperative and calm; dressed in casual attire; mood is described as good ; eye contact appropriate; Speech is normal rate, volume and prosody and not pressured; thought process is organized Thought content is on discharge; denies SI/HI/VH/AH. Diagnostics Vital Signs (24Hr): Vital Signs - 24 hr 09/20/23 19:55 09/21/23 07:30 Temperature 98.2 F 97.7 F Pulse Rate 89 79 Respiratory Rate 15 14 Blood Pressure 111/57 L 128/75 Pulse Oximetry 99 99 Oxygen Delivery Method Room Air Room Air BMI result Body Mass Index 27.4 Labs 09/16/23 21:18 09/18/23 08:06 Medications Medications Current Medications Acetaminophen (Acetaminophen 325 Mg Tablet) 650 mg PO Q6H PRN PRN Reason: Headache/Pain Mild Scale (1-3) Last Admin: 09/20/23 20:23 Dose: 650 mg Al Hydroxide/Mg Hydroxide (Magnesium Hydrox/Alum Hydrox 30 Ml Oral.Susp) 30 ml PO Q6H PRN PRN Reason: Heartburn/Nausea Baclofen (Baclofen 10 Mg Tablet) 10 mg PO BID [facility] Last Admin: 09/21/23 08:26 Dose: 10 mg Benzocaine (Benzocaine 20 % Oral Gel 9 Gm Tube) 1 appl MUCOUS MEM TID PRN; Protocol PRN Reason: tooth pain Last Admin: 09/19/23 11:08 Dose: 1 appl Duloxetine HCl (Duloxetine Hcl 60 Mg Capsule.Dr) 60 mg PO BID [facility] Last Admin: 09/21/23 08:26 Dose: 60 mg Folic Acid (Folic Acid 1 Mg Tablet) 1 mg PO DAILY [facility] Last Admin: 09/21/23 08:27 Dose: 1 mg Hydroxyzine HCl (Hydroxyzine Hcl 25 Mg Tablet) 25 mg PO Q6H PRN PRN Reason: Anxiety Last Admin: 09/20/23 15:42 Dose: 25 mg Ibuprofen (Ibuprofen 800 Mg Tablet) 800 mg PO Q8H PRN PRN Reason: Pain, Moderate(Pain Scale 4-6) Last Admin: 09/20/23 03:16 Dose: 800 mg Lidocaine (Lidocaine 4 % Patch Adh..Patch) 2 patch TRANSDERMA DAILY [facility]; Protocol Last Admin: 09/21/23 08:27 Dose: 2 patch Magnesium Hydroxide (Milk Of Magnesia 30 Ml Oral.Susp) 30 ml PO DAILY PRN PRN Reason: Constipation Multivitamins/Vitamin C (Multivitamin Tablet) 1 tab PO DAILY [facility] Last Admin: 09/21/23 08:26 Dose: 1 tab Nicotine (Nicotine 21 Mg Patch.Td24) 21 mg TRANSDERMA DAILY [facility] Last Admin: 09/21/23 08:31 Dose: Not Given Nicotine Polacrilex (Nicotine Polacrilex 2 Mg Gum) 4 mg BUCCAL Q2H PRN PRN Reason: Nicotine Cravings Oxycodone HCl (Oxycodone Hcl Immed Release 5 Mg Tablet) 7.5 mg PO TID PRN PRN Reason: Pain (Scale Score 4-6) Last Admin: 09/21/23 08:54 Dose: 7.5 mg Thiamine HCl (Thiamine Hcl 100 Mg Tablet) 100 mg PO DAILY [facility] Last Admin: 09/21/23 08:27 Dose: 100 mg Trazodone HCl (Trazodone Hcl 50 Mg Tablet) 150 mg PO BEDTIME [facility] Last Admin: 09/20/23 20:24 Dose: 150 mg Allergies Allergies Allergy/AdvReac Type Severity Reaction Status Date / Time Penicillins Allergy Unknown Rash, Verified 09/16/23 18:39 Throat closes seafood Allergy Unknown Rash, Verified 09/16/23 18:39 throat closes shellfish derived Allergy Unknown Rash Verified 09/16/23 18:39 Assessment & Plan Assessment & Plan (1) MDD (major depressive disorder), recurrent episode: Status: Acute Code(s): F33.9 - Major depressive disorder, recurrent, unspecified (2) PTSD (post-traumatic stress disorder): Status: Acute Code(s): F43.10 - Post-traumatic stress disorder, unspecified (3) Alcohol use disorder: Status: Acute Code(s): F10.90 - Alcohol use, unspecified, uncomplicated (4) Cocaine use disorder: Status: Acute Code(s): F14.10 - Cocaine abuse, uncomplicated Plan Patient is a 47 year old male with hx of MDD, PTSD, cocaine use d/o and alcohol use d/o who presented to ER d/t suicidal ideation secondary to increased anxiety and inability to sleep for the past four days. Plan: CV 15 minute safety checks CIWA continue home medications Start: Trazodone 150mg PO bedtime referral to outpatient prescriber encourage groups discharge planning 09/19/2023: Continue current regimen and plans 09/20/2023: Continue current regimen and plans 09/20:Pt reports feeling better than when I came in because I have my medicine. I slept well. I stopped feeling negative after the second day here because I was able to rest . Pt reports he plans to follow up with outpatient providers. pt denies SI/HI/VH/AH. Plan to discharge home tomorrow. Patient educated on: diagnosis, medication risk/benefits, substance abuse and therapeutic strategies Informed Consent: understands Reason for continued inpatient stay Substantial Risk for: stable for discharge Time Spent With Patient Time: Total time managing care of this patient today __20__ minutes.
[2023-09-21] MEDS: Acetaminophen 325 MG TABLET 650 MG PO ×2 (12:05→20:45)
[2023-09-21] MEDS: hydrOXYzine HCL 25 MG TABLET PO ×2 (15:00→20:46)
[2023-09-21] MEDS: Ibuprofen 800 MG TABLET PO (19:33)
[2023-09-21 20:00] VITALS: BP 136/79; PULSE 97; RESP 16; TEMP 37; O2SAT 100
[2023-09-21] MEDS: traZODone HCL 50 MG TABLET 150 MG PO (20:45)
[2023-09-22 08:00] VITALS: BP 128/67; PULSE 80; RESP 16; O2SAT 96
[2023-09-22] MEDS: Multivitamin TABLET 1 TAB PO (09:09)
[2023-09-22] MEDS: Folic Acid 1 MG TABLET PO (09:09)
[2023-09-22] MEDS: oxyCODONE HCl Immed Release 5 MG TABLET 7.5 MG PO (09:09)
[2023-09-22] MEDS: Thiamine HCL 100 MG TABLET PO (09:10)
[2023-09-22] MEDS: Baclofen 10 MG TABLET PO (09:10)
[2023-09-22] MEDS: DULoxetine HCl 60 MG CAPSULE.DR PO (09:10)
[2023-09-22] MEDS: hydrOXYzine HCL 25 MG TABLET PO (09:10)
[2023-09-22] MEDS: Lidocaine 4 % Patch ADH..PATCH 2 PATCH TRANSDERMA (09:11)
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
== END 2023-09-22 11:12 | disposition home or self-care (01) | DRG 885 ==
LOC: HO.ED 19:28 → HO.PADLT16 09-17 12:23
PROVIDERS: Physician Assistant Medical; Admitting Provider Registered Nurse; Emergency Provider Emergency Medicine; Responsible Provider Registered Nurse; Visit Provider Psychiatry & Neurology Psychiatry
DX: F33.9 Major depressive disorder, recurrent, unspecified (principal); R45.851 Suicidal ideations; Z20.822 Contact with and (suspected) exposure to COVID-19; Y90.3 Blood alcohol level of 60-79 mg/100 ml; F19.10 Other psychoactive substance abuse, uncomplicated; Z91.148 Patient's other noncompliance with medication regimen for other reason; F14.10 Cocaine abuse, uncomplicated; F10.90 Alcohol use, unspecified, uncomplicated; F43.10 Post-traumatic stress disorder, unspecified; Z79.899 Other long term (current) drug therapy
CPT/HCPCS: 36415; 80053; 80061; 80179; 80307; 81003; 83690; 83735; 85025; 87635; 93005; 99285; S9485

== ENCOUNTER → 2023-09-17 08:26 | Outpatient (BNV) | payer OTHER, SELFPAY | PROVIDERS: Admitting Provider Registered Nurse; Emergency Provider Emergency Medicine; Responsible Provider Registered Nurse; Visit Provider Internal Medicine | DX: I45.81 Long QT syndrome (principal) | CPT/HCPCS: 93010 ==

== ENCOUNTER → 2023-09-17 12:08 | Outpatient (BNV) | payer OTHER, SELFPAY | PROVIDERS: Admitting Provider Registered Nurse; Emergency Provider Emergency Medicine; Responsible Provider Registered Nurse; Visit Provider Registered Nurse | DX: F33.2 Major depressive disorder, recurrent severe without psychotic features (principal); F14.10 Cocaine abuse, uncomplicated; F43.11 Post-traumatic stress disorder, acute; F10.90 Alcohol use, unspecified, uncomplicated | CPT/HCPCS: 90792; 99231; 99238 ==

== ENCOUNTER 2023-11-21 20:52 | Emergency (ER) | payer OTHER, SELFPAY ==
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
[2023-11-21 20:56] VITALS: BP 165/95; PULSE 102; RESP 24; TEMP 35.7; O2SAT 97; BMI 25.6
[2023-11-21 21:15] LABS: MANUAL DIFF FLAG NO
[2023-11-21 21:19] VITALS: TEMP 36.8
[2023-11-21 21:24] LABS: Basophils Absolute Auto 0.1 X10*3/uL (0.0-0.2); Basophils Percent Auto 1.3 % (0-2); Eosinophils Absolute Auto 0.2 X10*3/uL (0.0-0.4); Eosinophils Percent Auto 1.6 % (0-4); Hematocrit 42.5 % (42.0-52.0); Hemoglobin 14.8 g/dl (14.0-18.0); Imm Gran Abs Auto 0.04 X10*3/uL (0.00-0.03); Imm Gran Pct Auto 0.4 % (0.0-0.4); Lymphocytes Absolute Auto 1.9 X10*3/uL (1.2-4.9); Lymphocytes Percent Auto 20.5 % (20-40); Mean Corpuscular HGB Conc 34.8 g/dl (31.0-36.0); Mean Corpuscular Hemoglobin 31.6 pg (27.0-33.0); Mean Corpuscular Volume 90.8 fL (80.0-98.0); Mean Platelet Volume 8.9 fL (9.4-12.4); Monocytes Percent Auto 10.3 % (2-11); Neutrophils Absolute Auto 6.1 x10*3/uL (2.0-8.3); Neutrophils Percent Auto 65.9 % (45-73); Platelet Count 376 X10*3/uL (160-400); Red Blood Count 4.68 X10*6/uL (4.60-5.80); Red Cell Distribution Width 13.1 % (11.0-16.0); White Blood Count 9.2 X10*3/uL (4.8-10.8)
[2023-11-21 21:39] LABS: Appearance Urine Cloudy; Bacteria Urine None Seen (None Seen); Color Urine Dark Yellow; Glucose Urine UA Negative (Negative); Leukocyte Esterase Urine Negative (Negative); Nitrite Urine Negative (Negative); PH 7.5 (5.0-9.0); Squamous Epithelial Cell Urine 0-2 /HPF (0-2); UMIC TRIGGER UACC YES; Urine Blood Negative (Negative); Urine Ketones Trace mg/dL (Negative); Urine Protein 30 (1+) mg/dL (Neg-Trace); WBC Urine 0-5 /HPF (0-5)
[2023-11-21 21:46] LABS: Alanine Aminotransferase 21 U/L (0-40); Albumin Level 4.3 g/dL (3.5-5.0); Alkaline Phosphatase 103 U/L (39-117); Anion Gap 13 (12-20); Aspartate Amino Transferase 52 U/L (5-37); Bilirubin Total 0.4 mg/dL (0.0-1.0); Blood Urea Nitrogen 12 mg/dL (9-16); Calcium 10.2 mg/dL (8.4-10.2); Carbon Dioxide 30 mmol/L (22-29); Chloride 103 mmol/L (96-108); Creatinine Clr Calc Pharmacy 109.5; Estimated Glomerular Filt Rate > 60; Ethanol < 10 mg/dL; Glucose Random 99 mg/dL (60-115); Sodium 142 mmol/L (135-145); Total Protein 7.6 g/dL (6.5-8.0)
[2023-11-21 21:49] LABS: Amphetamine Screen Urine Not Detected (Not Detect); Barbiturates, Urine Not Detected (Not Detect); Benzodiazepines Screen Urine Not Detected (Not Detect); Buprenorphine Scr Not Detected (Not Detect); Cannabinoid Screen Urine Not Detected (Not Detect); Cocaine Screen Urine POSITIVE (Not Detect); Fentanyl, urine Not Detected (Not Detect); Methadone Screen, Urine Not Detected (Not Detect); Opiate Screen Urine Not Detected (Not Detect); Oxycodone Screen Urine Positive (Not Detect); Phencyclidine Screen Urine Not Detected (Not Detect)
--- NOTE | 2023-11-21 22:13 | ED.GENADULT ---
HPI - General Adult General Chief complaint: Psychiatric Symptoms Stated complaint: crisis eval Time Seen by Provider: 11/21/23 22:13 History of Present Illness ED Provider: Sina ANDUJAR narrative: The patient is a 48-year-old male with a history of depression, PTSD, alcohol use disorder, and cocaine use disorder who comes to the emergency room after feeling unwell for over a week. He reports that he has been under stress because he has had housing problems and also because he has having a disagreement with the mother of his child. Apparently he shares custody of the child with the mother but the mother does not feel that she can release the child to the patient because of his uncertain social situation. The patient says he has been upset about this and has been drinking a lot more than usual over the last week. He reports that he has had 2 episodes of passing out and hitting his head and causing neck pain. He says that he is also run out of his medications. He is complaining of a headache and neck pain. He has been very upset over the last couple of days and was worried that he ?might do something stupid? and so had a cousin drive him to the emergency room tonight. Related Data Home Medications ?Medication ?Instructions ?Recorded ?Confirmed baclofen 10 mg tablet 10 mg PO BID 11/21/23 11/21/23 duloxetine 60 mg capsule,delayed 60 mg PO BID 11/21/23 11/21/23 release hydroxyzine HCl 25 mg tablet 25 mg PO BID 11/21/23 11/21/23 meloxicam 15 mg tablet 15 mg PO DAILY 11/21/23 11/21/23 terbinafine HCl 250 mg tablet 250 mg PO DAILY 11/21/23 11/21/23 trazodone 150 mg tablet 150 mg PO BEDTIME 11/21/23 11/21/23 Allergies Allergy/AdvReac Type Severity Reaction Status Date / Time Penicillins Allergy Unknown Rash, Verified 11/21/23 21:00 Throat closes seafood Allergy Unknown Rash, Verified 11/21/23 21:00 throat closes shellfish derived Allergy Unknown Rash Verified 11/21/23 21:00 Review of Systems Review of Systems: Yes all other systems are reviewed and are negative PMFSH Past Medical History Medical History (Updated 11/22/23 @ 02:00 by Petar Andino MD) Routine medical exam Obesity (BMI 30-39.9) History of DVT (deep vein thrombosis) Back pain PTSD (post-traumatic stress disorder) Anxiety Depression HTN (hypertension) Slipped cervical disc Degenerative disc disease Surgical History History of repair of hiatal hernia History of sleeve gastrectomy History of fusion of cervical spine Family History Family History Father Type 2 diabetes mellitus History of stroke Mother HTN (hypertension) Osteoporosis Sister Obesity HTN (hypertension) Hyperlipidemia Sister No problems noted. Sister No problems noted. Son No problems noted. Son No problems noted. Son No problems noted. Son No problems noted. Daughter No problems noted. Daughter No problems noted. Daughter No problems noted. Social History Social History Household Members: Other Household Members Other:: Roommate Housing: Apartment Do you presently have visiting nurse or other home services: No Alcohol intake: current Alcohol intake frequency: a few times a month Patient Tobacco Use Status: Never used Tobacco e-Cigarette/Vaping Use: Former Use Second Hand Smoke Exposure: No Substance Use Type: Crack/Cocaine Advance Directives: No Advance Directives Information Provided: No Do you have a plan to hurt others: No Plan service: No Sexual orientation: Straight/Heterosexual Physical Exam ED Vital Signs: Vital Signs - 24 hr 11/21/23 20:56 11/21/23 21:19 Temperature 96.3 F L 98.2 F Pulse Rate 102 H Respiratory Rate 24 H Blood Pressure 165/95 H Pulse Oximetry 97 Oxygen Delivery Method Room Air BMI result Body Mass Index 25.6 Const Other: The patient is a well-developed and athletic looking 48-year-old who was awake and alert. He was extremely restless during the interview. He did not seem in distress. HENMT Other: No obvious signs of trauma to the head or the neck. No raccoon eyes. No forman sign. Face is symmetrical and unremarkable. Eyes Other: Pupils are round equal, conjunctivae are clear Neck Other: The patient reports significant C-spine tenderness in the midline posteriorly with palpation. Resp Effort & Inspection: normal respiratory effort Auscultation: clear to auscultation bilaterally Cardio Rate: regular rate Rhythm: regular rhythm Heart sounds: S1 normal heart sound present and S2 normal heart sound present GI Other: Abdomen is soft and nontender Back/Spine/Pelvis Other: Back is normal to inspection without significant vertebral tenderness. Skin Other: Skin is dry and unremarkable Neuro Other: The patient is awake and alert and oriented. He has an intense affect but his mental status is otherwise unremarkable. He was exhibiting a lot of psychomotor restlessness. However cranial nerves 2-12 are intact. He moves his extremities normally. Coordination is normal. Gait is normal. He is neurologically intact. Extrem Other: No signs of trauma to the extremities. No edema. Extremities are normal. Psych Other: The patient has an intense affect and a lot of psychomotor restlessness. Medications Administered Generic Name Dose Route Start Last Admin Trade Name Freq PRN Reason Stop Dose Admin Baclofen 10 mg 11/21/23 22:30 11/21/23 22:44 Baclofen 10 Mg Tablet PO 10 mg BID TRACEY Administration Duloxetine HCl 60 mg 11/21/23 22:30 11/21/23 22:44 Duloxetine Hcl 60 Mg Capsule.Dr PO 60 mg BID TRACEY Administration Hydroxyzine HCl 25 mg 11/21/23 22:30 11/21/23 22:44 Hydroxyzine Hcl 25 Mg Tablet PO 25 mg BID TRACEY Administration Trazodone HCl 150 mg 11/21/23 22:30 11/21/23 22:44 Trazodone Hcl 50 Mg Tablet PO 150 mg BEDTIME TRACEY Administration Discontinued Medications Generic Name Dose Route Start Last Admin Trade Name Freq PRN Reason Stop Dose Admin Lorazepam 2 mg 11/21/23 22:25 11/21/23 22:44 Lorazepam 1 Mg Tablet PO 11/21/23 22:26 2 mg ONCE ONE Administration Medical Decision Making Medical Decision Making [facility] Narrative: The patient is a 48-year-old male who presents himself to the emergency room on a voluntary basis primarily for reasons of Behavioral Health. He describes feeling depressed and having worries that he might ?do something stupid. The patient says that he has been drinking a lot during the last week and he has had 2 episodes of fainting and has had a head injury and has neck pain. He has a negative head CT and a negative cervical spine CT. EKG shows sinus rhythm at 70 beats per minute and is an unremarkable EKG with normal QT interval. Labs are unremarkable. ETOH is negative. Urine is positive for cocaine. The patient admitted to cocaine use. The patient is medically clear for evaluation by the care team. Lab Data 11/21/23 21:09 11/21/23 21:09 Labs: Lab Results 11/21/23 11/21/23 Range/Units 21:09 21:20 WBC 9.2 (4.8-10.8) X10*3/uL RBC 4.68 (4.60-5.80) X10*6/uL Hgb 14.8 (14.0-18.0) g/dl Hct 42.5 (42.0-52.0) % MCV 90.8 (80.0-98.0) fL MCH 31.6 (27.0-33.0) pg MCHC 34.8 (31.0-36.0) g/dl RDW 13.1 (11.0-16.0) % Plt Count 376 (160-400) X10*3/uL MPV 8.9 L (9.4-12.4) fL Immature Gran % (Auto) 0.4 (0.0-0.4) % Neut % (Auto) 65.9 (45-73) % Lymph % (Auto) 20.5 (20-40) % [place] % (Auto) 10.3 (2-11) % Eos % (Auto) 1.6 (0-4) % Baso % (Auto) 1.3 (0-2) % Lymph # (Auto) 1.9 (1.2-4.9) X10*3/uL [place] # (Auto) 1.0 (0.1-1.2) X10*3/uL Eos # (Auto) 0.2 (0.0-0.4) X10*3/uL Baso # (Auto) 0.1 (0.0-0.2) X10*3/uL Abs Immat Gran (auto) 0.04 H (0.00-0.03) X10*3/uL Absolute Neuts (auto) 6.1 (2.0-8.3) x10*3/uL Absolute Nucleated RBC 0.000 (0.0-0.012) X10*3/uL Nucleated RBC % (auto) 0.0 (0.0-0.2) /100WBC Sodium 142 (135-145) mmol/L Potassium 4.0 (3.3-5.1) mmol/L Chloride 103 (96-108) mmol/L Carbon Dioxide 30 H (22-29) mmol/L Anion Gap 13 (12-20) BUN 12 (9-16) mg/dL Creatinine 0.76 (0.5-1.4) mg/dL Estim Creat Clear Calc 109.5 Estimated GFR > 60 Random Glucose 99 (60-115) mg/dL Calcium 10.2 D (8.4-10.2) mg/dL Total Bilirubin 0.4 (0.0-1.0) mg/dL AST 52 H (5-37) U/L ALT 21 (0-40) U/L Alkaline Phosphatase 103 (39-117) U/L Total Protein 7.6 (6.5-8.0) g/dL Albumin 4.3 (3.5-5.0) g/dL Urine Color Dark Yellow Urine Appearance Cloudy Urine pH 7.5 (5.0-9.0) Ur Specific [place] 1.020 (1.005-1.025) Urine Protein 30 (1+) H (Neg-Trace) mg/dL Urine Glucose (UA) Negative (Negative) mg/dL Urine Ketones Trace (Negative) mg/dL Urine Blood Negative (Negative) Urine Nitrite Negative (Negative) Ur Leukocyte Esterase Negative (Negative) Urine RBC 3-5 H (0-2) /HPF Urine WBC 0-5 (0-5) /HPF Ur Squamous Epith Cells 0-2 (0-2) /HPF Urine Bacteria None Seen (None Seen) Hyaline Casts 3-5 (0-2) /LPF Urine Opiates Screen Not Detected (Not Detect) Ur Buprenorphine Scrn Not Detected (Not Detect) ng/mL Ur Oxycodone Screen Positive H (Not Detect) ng/mL Urine Methadone Screen Not Detected (Not Detect) ng/mL Urine Fentanyl Screen Not Detected (Not Detect) Ur Barbiturates Screen Not Detected (Not Detect) Ur Phencyclidine Scrn Not Detected (Not Detect) Ur Amphetamines Screen Not Detected (Not Detect) U Benzodiazepines Scrn Not Detected (Not Detect) Urine Cocaine Screen POSITIVE H (Not Detect) U Marijuana (THC) Screen Not Detected (Not Detect) Ethyl Alcohol < 10 mg/dL Independent Interpretation I performed an independent interpretation of an: EKG Interpretation: EKG at 22:38 shows sinus rhythm with a short UT at 70 beats per minute. QTC is 386. Overall unremarkable EKG. Discharge Plan Discharge Clinical Impression: Depression, Substance use disorder Patient Disposition: Still a Patient Prescriptions: No Action meloxicam 15 mg tablet 15 mg PO DAILY terbinafine HCl 250 mg tablet 250 mg PO DAILY baclofen 10 mg tablet 10 mg PO BID trazodone 150 mg tablet 150 mg PO BEDTIME hydroxyzine HCl 25 mg tablet 25 mg PO BID duloxetine 60 mg capsule,delayed release(DR/EC) 60 mg PO BID Interventions: Sawyer-Suicide Risk Severity Scale Last Done: 11/21/23 21:19 Print Language: Occitan
--- NOTE | 2023-11-21 22:32 | ECG_ITS ---
Test Reason : cocaine use Blood Pressure : / mmHG Vent. Rate : 070 BPM Atrial Rate : 070 BPM P-R Int : 108 ms QRS Dur : 088 ms QT Int : 358 ms P-R-T Axes : 049 051 066 degrees QTc Int : 386 ms Sinus rhythm with short SD Otherwise normal ECG When compared with ECG of 17-SEP-2023 08:33, SD interval has decreased Referred By: Petar Andino Electronically Signed By:TIP CUNNINGHAM MD
[2023-11-21] MEDS: traZODone HCL 50 MG TABLET 150 MG PO (22:44)
[2023-11-21] MEDS: LORazepam 1 MG TABLET 2 MG PO (22:44)
[2023-11-21] MEDS: hydrOXYzine HCL 25 MG TABLET PO (22:44)
[2023-11-21] MEDS: Baclofen 10 MG TABLET PO (22:44)
[2023-11-21] MEDS: DULoxetine HCl 60 MG CAPSULE.DR PO (22:44)
[2023-11-22 06:00] VITALS: BP 120/80; PULSE 88; RESP 17; TEMP 36.2; O2SAT 96
--- NOTE | 2023-11-22 07:46 | PC.NURSE ---
Assumed care of patient at 0645. Patient is observed resting quietly in their bed. No unsafe behaviors observed at this time. No signs of distress observed, breathing is even and unlabored.
[2023-11-22] MEDS: hydrOXYzine HCL 25 MG TABLET PO ×2 (08:36→20:05)
[2023-11-22] MEDS: DULoxetine HCl 60 MG CAPSULE.DR PO ×2 (08:36→20:05)
[2023-11-22] MEDS: NaPROXEN 500 MG TABLET PO ×2 (08:36→20:04)
[2023-11-22] MEDS: Baclofen 10 MG TABLET PO ×2 (08:37→20:05)
[2023-11-22 19:16] VITALS: BP 134/88; PULSE 94; RESP 18; TEMP 36.3; O2SAT 99
--- NOTE | 2023-11-22 19:18 | PC.NURSE ---
patient appears to remain at rest at present respirations are even and unlabored patient appears in no distress.
[2023-11-22] MEDS: traZODone HCL 50 MG TABLET 150 MG PO (20:04)
[2023-11-22] MEDS: oxyCODONE HCl Immed Release 15 MG TABLET 7.5 MG PO (22:15)
[2023-11-22] MEDS: Acetaminophen 325 MG TABLET PO (22:15)
[2023-11-23 00:27] VITALS: BP 94/66; PULSE 109; RESP 16; TEMP 36.5; O2SAT 98
--- NOTE | 2023-11-23 07:46 | PC.NURSE ---
Assumed care of patient at 0645, patient appears to be in no apparent distress, sitting up in bed eating breakfast, respirations even and unlabored. Pending CARE team re-eval this am
[2023-11-23] MEDS: NaPROXEN 500 MG TABLET PO (08:48)
[2023-11-23] MEDS: Baclofen 10 MG TABLET PO (08:48)
[2023-11-23] MEDS: hydrOXYzine HCL 25 MG TABLET PO (08:48)
[2023-11-23] MEDS: DULoxetine HCl 60 MG CAPSULE.DR PO (08:48)
[2023-11-23] MEDS: oxyCODONE HCl Immed Release 5 MG TABLET PO ×2 (08:49→16:46)
[2023-11-23 12:00] VITALS: BP 102/64; PULSE 94; RESP 16; TEMP 36.9; O2SAT 97
--- NOTE | 2023-11-23 19:03 | PC.NURSE ---
patient appears to remain at rest
[2023-11-23 19:47] VITALS: BP 130/78; PULSE 80; RESP 18; TEMP 36.6; O2SAT 98
== END 2023-11-23 19:47 | disposition home or self-care (01) ==
PROVIDERS: Emergency Provider Emergency Medicine
DX: F33.9 Major depressive disorder, recurrent, unspecified (principal); F19.10 Other psychoactive substance abuse, uncomplicated; F41.9 Anxiety disorder, unspecified; F43.10 Post-traumatic stress disorder, unspecified; F14.10 Cocaine abuse, uncomplicated; F11.90 Opioid use, unspecified, uncomplicated; F10.10 Alcohol abuse, uncomplicated; Y90.0 Blood alcohol level of less than 20 mg/100 ml; Z79.899 Other long term (current) drug therapy; Z86.718 Personal history of other venous thrombosis and embolism
CPT/HCPCS: 36415; 70450; 72125; 80053; 80307; 81001; 85025; 93005; 99285; S9485

== ENCOUNTER → 2023-11-21 22:32 | Outpatient (BNV) | payer OTHER, SELFPAY | PROVIDERS: Emergency Provider Emergency Medicine; Visit Provider Internal Medicine Cardiovascular Disease | DX: I49.8 Other specified cardiac arrhythmias (principal) | CPT/HCPCS: 93010 ==

== ENCOUNTER 2023-12-21 00:04 | Emergency (ER) | payer OTHER, SELFPAY ==
--- NOTE | ~2023-12-21 | CT_ITS ---
EXAMINATION: CT HEAD WITHOUT CONTRAST CT CERVICAL SPINE WITHOUT CONTRAST CLINICAL INFORMATION: Fall. Pain. COMPARISON: None available. TECHNIQUE: Contiguous axial imaging was performed through the head and cervical spine without intravenous administration of contrast. Sagittal and coronal reformatted images also obtained. This CT examination was performed using dose optimization techniques as appropriate, variously including the following: *Automated exposure control *Adjustment of mA and/or kV according to patient size (this includes techniques or standardized protocols for targeted exams where dose is matched to indication/reason for exam; i.e. extremities or head) *Use of iterative reconstruction technique DLP: 1185 mGy-cm FINDINGS: The lateral, third and fourth ventricles are normally outlined. The cortical sulci and basal normally outlined as well. There is no acute territorial defect, hemorrhage or midline shift. The extra-axial spaces are unremarkable. Calvarium/scalp: Intact. Maxillofacial sinuses and mastoids: Clear as visualized. Cervical spine: There is fusion at C3-C4-C5, C5-C6 and C6-C7. The alignment is normal. There is multilevel posterior osteophytes and mild facet osteoarthritic hypertrophic change with multilevel minimal spinal canal and mild neuroforaminal narrowing. No acute fracture is seen. The soft tissues are unremarkable. The visualized upper lung maynard are clear. CT/CT head/brain wo IV con IMPRESSION: CT HEAD: No acute intracranial abnormality. CT CERVICAL SPINE: There is fusion C4-C5, C5-C6 and C6-C7. The alignment is normal. There is multilevel posterior osteophytes and mild facet arthropathy with multilevel minimal spinal canal and mild neuroforaminal narrowing.
--- NOTE | ~2023-12-21 | CT_ITS ---
EXAMINATION: CT HEAD WITHOUT CONTRAST CT CERVICAL SPINE WITHOUT CONTRAST CLINICAL INFORMATION: Fall. Pain. COMPARISON: None available. TECHNIQUE: Contiguous axial imaging was performed through the head and cervical spine without intravenous administration of contrast. Sagittal and coronal reformatted images also obtained. This CT examination was performed using dose optimization techniques as appropriate, variously including the following: *Automated exposure control *Adjustment of mA and/or kV according to patient size (this includes techniques or standardized protocols for targeted exams where dose is matched to indication/reason for exam; i.e. extremities or head) *Use of iterative reconstruction technique DLP: 1185 mGy-cm FINDINGS: The lateral, third and fourth ventricles are normally outlined. The cortical sulci and basal normally outlined as well. There is no acute territorial defect, hemorrhage or midline shift. The extra-axial spaces are unremarkable. Calvarium/scalp: Intact. Maxillofacial sinuses and mastoids: Clear as visualized. Cervical spine: There is fusion at C3-C4-C5, C5-C6 and C6-C7. The alignment is normal. There is multilevel posterior osteophytes and mild facet osteoarthritic hypertrophic change with multilevel minimal spinal canal and mild neuroforaminal narrowing. No acute fracture is seen. The soft tissues are unremarkable. The visualized upper lung maynard are clear. CT/CT cervical spine wo IV con IMPRESSION: CT HEAD: No acute intracranial abnormality. CT CERVICAL SPINE: There is fusion C4-C5, C5-C6 and C6-C7. The alignment is normal. There is multilevel posterior osteophytes and mild facet arthropathy with multilevel minimal spinal canal and mild neuroforaminal narrowing.
[2023-12-21 00:07] VITALS: BP 136/88; PULSE 114; RESP 18; TEMP 36.8; O2SAT 96; BMI 24.3
--- NOTE | 2023-12-21 00:11 | ED_ITS ---
HPI - Psych General Chief Complaint: General Medical Stated Complaint: Crisis Time Seen by Provider: 12/21/23 00:10 Source: patient and old records reviewed Mode of arrival: ambulatory Limitations: other (very poor historian) History of Present Illness ED Provider: YIMI ANDUJAR Narrative: 48 yo male with PMH of PTSD, depression, chronic pain syndrome, opiate and cocaine abuse disorder, ETOH abuse here with multiple complaints that are hard to follow. He states he fell recently and then went to respite but his days are off of when he was seen here which was one month ago. He then states he gets anxiety and falls and passes out. No preceding chest pain dizziness. He then alludes to anxiety and depression and it causes him to vomit and now he has not taken his medications since . He initially stated he had a CT scan but that is not accurrate it was 11/21/23. He is moving a lot and rubbing his face and restless he states he has not done drugs and it not in withdrawal. He has no SI/HI but states he lives in a bad area and needs to see crisis because he will turn to drugs. He then states he has been vomiting for 3 days and fainted x 3 since Thursday and cannot keep anything down. He denies pain, diarrhea. He states this happens when his anxiety is bad. complaint: anxiety Onset (ago): week(s) Duration: getting worse History of same: Yes Relieving factors: none Exacerbating factors: other Context: significant life stressor Associated psychiatric symptoms: depression Associated symptoms: nausea, vomiting and syncope Treatments prior to arrival: none Related Data Home Medications ?Medication ?Instructions ?Recorded ?Confirmed baclofen 10 mg tablet 10 mg PO BID 11/21/23 11/21/23 duloxetine 60 mg capsule,delayed 60 mg PO BID 11/21/23 11/21/23 release hydroxyzine HCl 25 mg tablet 25 mg PO BID 11/21/23 11/21/23 meloxicam 15 mg tablet 15 mg PO DAILY 11/21/23 11/21/23 terbinafine HCl 250 mg tablet 250 mg PO DAILY 11/21/23 11/21/23 trazodone 150 mg tablet 150 mg PO BEDTIME 11/21/23 11/21/23 oxycodone-acetaminophen 7.5 mg-325 1 tab PO TID PRN Pain (Scale Score 11/23/23 11/23/23 mg tablet 7-10) Allergies Allergy/AdvReac Type Severity Reaction Status Date / Time Penicillins Allergy Unknown Rash, Verified 12/21/23 00:13 Throat closes seafood Allergy Unknown Rash, Verified 12/21/23 00:13 throat closes shellfish derived Allergy Unknown Rash Verified 12/21/23 00:13 Review of Systems 2 Review of Systems: Constitutional : No Fever, No Chills ENT/Mouth : No Ear Pain, No Nasal Congestion, No sore throat Eyes: No Eye Pain, No Swelling, No Redness Cardiovascular : No Chest Pain, No SOB Respiratory : No Cough, No Sputum, No Dyspnea Gastrointestinal : pos Nausea, pos Vomiting, No Diarrhea, No Hematochezia, No Melena Genitourinary : No Dysuria, No Urinary Frequency, No Hematuria Musculoskeletal : No Myalgias Skin : No Skin Lesions, No rash Neuro : No Weakness, No Numbness, No Paresthesias, No Dizziness, No Headache, pos syncope Psych : positive Anxiety, positive Depression, no SI/HI Heme/Lymph: No Lymphadenopathy Endocrine : No Polyuria, No Polydipsia All other systems reviewed and are negative [facility] Past Medical History Attestation statement: The following information was validated with the patient. Source: old records reviewed Medical History Routine medical exam Obesity (BMI 30-39.9) History of DVT (deep vein thrombosis) Back pain PTSD (post-traumatic stress disorder) Anxiety Depression HTN (hypertension) Slipped cervical disc Degenerative disc disease Surgical History History of repair of hiatal hernia History of sleeve gastrectomy History of fusion of cervical spine Family History Family History Father Type 2 diabetes mellitus History of stroke Mother HTN (hypertension) Osteoporosis Sister Obesity HTN (hypertension) Hyperlipidemia Sister No problems noted. Sister No problems noted. Son No problems noted. Son No problems noted. Son No problems noted. Son No problems noted. Daughter No problems noted. Daughter No problems noted. Daughter No problems noted. Social History Social History Household Members: Other Household Members Other:: Roommate Housing: Apartment Do you presently have visiting nurse or other home services: No Alcohol intake: current Alcohol intake frequency: a few times a month Patient Tobacco Use Status: Never used Tobacco e-Cigarette/Vaping Use: Former Use Second Hand Smoke Exposure: No Substance Use Type: Crack/Cocaine and Marijuana Advance Directives: No Advance Directives Information Provided: Yes service: No Sexual orientation: Straight/Heterosexual Physical Exam 2 Vital Signs: Vital Signs: Last Vital Signs Temp 98.2 F 12/21/23 00:07 Pulse 114 H 12/21/23 00:07 Resp 18 12/21/23 00:07 BP 136/88 12/21/23 00:07 Pulse Ox 96 12/21/23 00:07 O2 Del Method Room Air 12/21/23 00:07 BMI result Body Mass Index 24.3 Appearance: Alert. Oriented X3. restless, keeps rubbing face, hard time given information, mild acute distress. Eyes: Pupils equal, round and reactive to light. ENT: Pharynx normal. atrauamtic Neck: Normal inspection. Neck supple. CVS: Normal heart rate and rhythm. Pulses normal. Respiratory: No respiratory distress. Breath sounds normal. Abdomen: Soft and nontender. Skin: Skin warm and dry. Normal skin color. Normal skin turgor. Extremities: No lower extremity edema. No calf ttp Neuro: Oriented X 3. No motor deficit. No sensory deficit. CN2-12 intact moving all extremities without issue Medications Administered Discontinued Medications Generic Name Dose Route Start Last Admin Trade Name Freq PRN Reason Stop Dose Admin Lorazepam 2 mg 12/21/23 00:30 12/21/23 00:38 Lorazepam 2 Mg/Ml Vial IM 12/21/23 00:31 2 mg STAT STA Administration Medical Decision Making Medical Decision Making MDM Narrative: 48 yo male with PMH of PTSD, depression, chronic pain syndrome, opiate and cocaine abuse disorder, ETOH abuse here with c/o severe anxiety and n/v he then notes this has caused him to pass out and he then cannot keep his story consistent in regards to when he passed out and was seen here last he is very restless rubbing his face and he adamantly denies he used drugs to me. At this time labs, EKG, CT head/cspine, drug screen. IM ativan for anxiety ordered. He is asking for IV dilaudid for pain which I do not feel comfortable given as he has no traumatic injuries and it is not appropriate for chronic pain management. Differential Diagnosis Differential Diagnoses: The differential diagnosis associated with the presentation includes syncope, dehydration, drug abuse, anxiety Admission/Observation Consideration of admission/observation: Escalation of care including admission/observation considered physician observation started at 148am pending CARE team - medically cleared Lab Data MDM Lab Attestation statement: I reviewed the patient's lab results. 12/21/23 00:45 12/21/23 00:45 Labs: Lab Results 12/21/23 Range/Units 00:45 WBC 8.3 (4.8-10.8) X10*3/uL RBC 3.97 L (4.60-5.80) X10*6/uL Hgb 12.5 L (14.0-18.0) g/dl Hct 36.1 L (42.0-52.0) % MCV 90.9 (80.0-98.0) fL MCH 31.5 (27.0-33.0) pg MCHC 34.6 (31.0-36.0) g/dl RDW 12.5 (11.0-16.0) % Plt Count 398 (160-400) X10*3/uL MPV 9.0 L (9.4-12.4) fL Immature Gran % (Auto) 0.4 (0.0-0.4) % Neut % (Auto) 73.6 H (45-73) % Lymph % (Auto) 14.9 L (20-40) % [place] % (Auto) 10.3 (2-11) % Eos % (Auto) 0.2 (0-4) % Baso % (Auto) 0.6 (0-2) % Lymph # (Auto) 1.2 (1.2-4.9) X10*3/uL [place] # (Auto) 0.9 (0.1-1.2) X10*3/uL Eos # (Auto) 0.0 (0.0-0.4) X10*3/uL Baso # (Auto) 0.1 (0.0-0.2) X10*3/uL Abs Immat Gran (auto) 0.03 (0.00-0.03) X10*3/uL Absolute Neuts (auto) 6.1 (2.0-8.3) x10*3/uL Absolute Nucleated RBC 0.000 (0.0-0.012) X10*3/uL Nucleated RBC % (auto) 0.0 (0.0-0.2) /100WBC Sodium 143 (135-145) mmol/L Potassium 3.3 (3.3-5.1) mmol/L Chloride 102 (96-108) mmol/L Carbon Dioxide 27 (22-29) mmol/L Anion Gap 17 (12-20) BUN 22 H (9-16) mg/dL Creatinine 0.84 (0.5-1.4) mg/dL Estim Creat Clear Calc 99.1 Estimated GFR > 60 Random Glucose 93 (60-115) mg/dL Calcium 9.8 (8.4-10.2) mg/dL Total Bilirubin 0.3 (0.0-1.0) mg/dL Direct Bilirubin 0.1 (0.0-0.5) mg/dL AST 42 H (5-37) U/L ALT 30 (0-40) U/L Alkaline Phosphatase 89 (39-117) U/L Total Protein 6.8 (6.5-8.0) g/dL Albumin 3.7 (3.5-5.0) g/dL Urine Opiates Screen POSITIVE H (Not Detect) Ur Buprenorphine Scrn Not Detected (Not Detect) ng/mL Ur Oxycodone Screen Positive H (Not Detect) ng/mL Urine Methadone Screen Not Detected (Not Detect) ng/mL Urine Fentanyl Screen Not Detected (Not Detect) Ur Barbiturates Screen Not Detected (Not Detect) Ur Phencyclidine Scrn Not Detected (Not Detect) Ur Amphetamines Screen Not Detected (Not Detect) U Benzodiazepines Scrn Not Detected (Not Detect) Urine Cocaine Screen POSITIVE H (Not Detect) U Marijuana (THC) Screen Not Detected (Not Detect) Ethyl Alcohol < 10 mg/dL Independent Interpretation I performed an independent interpretation of an: EKG and CT Scan (normal ) Interpretation: Rate: 87 Rhythm: NSR [place]: normal Normal P waves. Normal JASON. Normal QRS complex. ST T wave : normal no CLEVE qTC: 404 prior studies: no acute ischemia The study has been interpreted contemporaneously by me. . Radiology Impression Discussion of test interpretation with radiology: I have reviewed the radiologist's reading. External Record Review External record reviewed: Inpatient record Discharge Plan Discharge Clinical Impression: Cocaine use disorder, Opioid use disorder Patient Disposition: Still a Patient Prescriptions: No Action meloxicam 15 mg tablet 15 mg PO DAILY terbinafine HCl 250 mg tablet 250 mg PO DAILY baclofen 10 mg tablet 10 mg PO BID trazodone 150 mg tablet 150 mg PO BEDTIME hydroxyzine HCl 25 mg tablet 25 mg PO BID duloxetine 60 mg capsule,delayed release(DR/EC) 60 mg PO BID oxycodone-acetaminophen 7.5-325 mg tablet 1 tab PO TID PRN (Reason: Pain (Scale Score 7-10)) Print Language: Latvian
--- NOTE | 2023-12-21 00:24 | ECG_ITS ---
Test Reason : syncope Blood Pressure : / mmHG Vent. Rate : 087 BPM Atrial Rate : 087 BPM P-R Int : 110 ms QRS Dur : 084 ms QT Int : 336 ms P-R-T Axes : 062 039 049 degrees QTc Int : 404 ms Sinus rhythm with short MA Otherwise normal ECG When compared with ECG of 21-NOV-2023 22:38, No significant change was found Referred By: Elsy Powell Electronically Signed By:ELLIOTT MELTON
[2023-12-21] MEDS: LORazepam 2 MG/ML VIAL IM (00:38)
[2023-12-21 00:50] LABS: Basophils Absolute Auto 0.1 X10*3/uL (0.0-0.2); Basophils Percent Auto 0.6 % (0-2); Eosinophils Percent Auto 0.2 % (0-4); Hematocrit 36.1 % (42.0-52.0); Hemoglobin 12.5 g/dl (14.0-18.0); Imm Gran Abs Auto 0.03 X10*3/uL (0.00-0.03); Imm Gran Pct Auto 0.4 % (0.0-0.4); Lymphocytes Absolute Auto 1.2 X10*3/uL (1.2-4.9); Lymphocytes Percent Auto 14.9 % (20-40); MANUAL DIFF FLAG NO; Mean Corpuscular HGB Conc 34.6 g/dl (31.0-36.0); Mean Corpuscular Hemoglobin 31.5 pg (27.0-33.0); Mean Corpuscular Volume 90.9 fL (80.0-98.0); Monocytes Absolute Auto 0.9 X10*3/uL (0.1-1.2); Monocytes Percent Auto 10.3 % (2-11); Neutrophils Absolute Auto 6.1 x10*3/uL (2.0-8.3); Neutrophils Percent Auto 73.6 % (45-73); Platelet Count 398 X10*3/uL (160-400); Red Blood Count 3.97 X10*6/uL (4.60-5.80); Red Cell Distribution Width 12.5 % (11.0-16.0); White Blood Count 8.3 X10*3/uL (4.8-10.8)
[2023-12-21 01:04] LABS: Amphetamine Screen Urine Not Detected (Not Detect); Barbiturates, Urine Not Detected (Not Detect); Benzodiazepines Screen Urine Not Detected (Not Detect); Buprenorphine Scr Not Detected (Not Detect); Cannabinoid Screen Urine Not Detected (Not Detect); Cocaine Screen Urine POSITIVE (Not Detect); Fentanyl, urine Not Detected (Not Detect); Methadone Screen, Urine Not Detected (Not Detect); Opiate Screen Urine POSITIVE (Not Detect); Oxycodone Screen Urine Positive (Not Detect); Phencyclidine Screen Urine Not Detected (Not Detect)
[2023-12-21 01:08] LABS: Alanine Aminotransferase 30 U/L (0-40); Albumin Level 3.7 g/dL (3.5-5.0); Alkaline Phosphatase 89 U/L (39-117); Anion Gap 17 (12-20); Aspartate Amino Transferase 42 U/L (5-37); Bilirubin Direct 0.1 mg/dL (0.0-0.5); Bilirubin Total 0.3 mg/dL (0.0-1.0); Blood Urea Nitrogen 22 mg/dL (9-16); Calcium 9.8 mg/dL (8.4-10.2); Carbon Dioxide 27 mmol/L (22-29); Chloride 102 mmol/L (96-108); Creatinine Clr Calc Pharmacy 99.1; Estimated Glomerular Filt Rate > 60; Ethanol < 10 mg/dL; Glucose Random 93 mg/dL (60-115); Potassium 3.3 mmol/L (3.3-5.1); Sodium 143 mmol/L (135-145); Total Protein 6.8 g/dL (6.5-8.0)
--- NOTE | 2023-12-21 02:10 | PC.NURSE ---
pt very restless upon arrival, denied drug use. pt medicated per MAR for anxiety. pt rested for an hour, now awake and resting food. sitting up in bed, eat and restless again
--- NOTE | 2023-12-21 03:15 | PC.NURSE ---
pt resting comfortably with eyes closed, breathing even and unlabored. no apparent distress noted. call downey w/in reach
[2023-12-21 03:56] VITALS: BP 125/97; PULSE 64; RESP 16; TEMP 36.2; O2SAT 97
--- NOTE | 2023-12-21 06:34 | MHC.EDTECH ---
pt belongings in pod laundry closet. logged into log book, stickers on bag.
[2023-12-21 06:45] VITALS: BP 146/91; PULSE 84; RESP 18; TEMP 36.4; O2SAT 97
--- NOTE | 2023-12-21 07:31 | PC.NURSE ---
Care of Pt assumed at change of shift. Pt is currently resting comfortably with eyes closed; NAD. Pt is awaiting care team consult.
[2023-12-21] MEDS: Ondansetron ODT 4 MG TAB.RAPDIS TRANSLINGU (07:50)
[2023-12-21 08:00] VITALS: BP 132/82; PULSE 79; RESP 18; TEMP 36.4; O2SAT 99
--- NOTE | 2023-12-21 08:02 | PC.NURSE ---
Pt is alert/oriented. Vomiting after breakfast, Zofran ordered and given. Pt states no SI or HI at this time but feels potential d/t chronic uncontrolled pain to neck, left arm and low back. Ambulatory to bathroom, unsteady on feet but able to stabilize self. Denies drug use despite tox screen, states ETOH last use 8 days ago. Staying in cousins house with drug use and states I need to get out of there Request Dilaudid and Toradol
--- NOTE | 2023-12-21 08:53 | PC.NURSE ---
Pt is asleep, no further vomiting s/p Zofran.
--- NOTE | 2023-12-21 10:44 | PC.NURSE ---
Pt remains asleep at this time RR16
--- NOTE | 2023-12-21 11:01 | PC.NURSE ---
CARE team at bedside
[2023-12-21] MEDS: LORazepam 1 MG TABLET 2 MG PO (11:29)
--- NOTE | 2023-12-21 13:50 | MHC.CARE ---
Pt referred to [facility] and [facility]
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
[2023-12-21 14:19] VITALS: BP 151/101; PULSE 95; RESP 16; TEMP 36.6; O2SAT 100
--- NOTE | 2023-12-21 14:20 | PC.NURSE ---
Pt now awake and eating lunch at his time. ?dispo
--- NOTE | 2023-12-21 14:39 | PC.NURSE ---
Plan for PO Dilaudid then discharge to homeless senior living via [facility]
[2023-12-21] MEDS: HYDROmorphone HCl 2 MG TABLET 1 MG PO (15:40)
[2023-12-21] MEDS: Ketorolac Tromethamine 15 MG/ML VIAL 30 MG IM (15:47)
[2023-12-21 16:19] VITALS: BP 151/101; PULSE 95; RESP 16; TEMP 36.6; O2SAT 100
== END 2023-12-21 16:20 | disposition home or self-care (01) ==
PROVIDERS: Emergency Provider Emergency Medicine
DX: F14.10 Cocaine abuse, uncomplicated (principal); F11.10 Opioid abuse, uncomplicated; R51.9 Headache, unspecified; R55 Syncope and collapse; M54.2 Cervicalgia; R11.2 Nausea with vomiting, unspecified; M25.50 Pain in unspecified joint; Z79.899 Other long term (current) drug therapy
CPT/HCPCS: 36415; 70450; 72125; 80048; 80076; 80307; 85025; 93005; 96372; 99285; J1885; J2060; S9485

== ENCOUNTER → 2023-12-21 00:24 | Outpatient (BNV) | payer OTHER, SELFPAY | PROVIDERS: Emergency Provider Emergency Medicine; Visit Provider Internal Medicine | DX: R55 Syncope and collapse (principal) | CPT/HCPCS: 93010 ==

== ENCOUNTER → 2023-12-21 00:52 | Outpatient (BNV) | payer OTHER, SELFPAY | PROVIDERS: Emergency Provider Emergency Medicine; Visit Provider Social Worker | DX: F33.2 Major depressive disorder, recurrent severe without psychotic features (principal); F14.10 Cocaine abuse, uncomplicated; F11.90 Opioid use, unspecified, uncomplicated; F10.90 Alcohol use, unspecified, uncomplicated | CPT/HCPCS: 99284 ==

== ENCOUNTER 2025-02-21 19:03 | Inpatient (IN) | payer OTHER, SELFPAY ==
--- OUTSIDE RECORDS SUMMARY | 2017-03-18 12:45 | XMS_ITS | Continuity of Care Document ---
Author Organization [facility] Address [address] [place] [address] Care Team Providers Care Editor Sound Name Role Phone Kirill Samir CH Unavailable Unavailable Allergies, Adverse Reactions, Alerts Substance Reaction Status Criticality Penicillins Active No Information Medications Medication Instructions Dosage Effective Dates (start - stop) Status Comments Percocet 10 mg-325 mg tablet take 1 tablet by oral route every 6 hours as needed 1.00 tablet - Active tizanidine 4 mg tablet take 1 tablet by oral route every 8 hours as needed not to exceed 3 doses in 24 hours 4 MG - Active trazodone 150 mg tablet take 1 tablet by oral route every day as needed 150 MG - Active Dymista 137 mcg-50 mcg/spray nasal spray - Active aripiprazole 5 mg tablet take 1 tablet by oral route every day 5 MG - Active duloxetine 60 mg capsule,delayed release take 1 capsule by oral route every day 60 MG - Active pantoprazole 40 mg tablet,delayed release take 1 tablet by oral route every day 40 MG - Active lisinopril 2.5 mg tablet take 1 tablet by oral route every day 2.5 MG - Active alprazolam 2 mg tablet take 1/2 - 1 Tablet by oral route 2 times every day 1 MG - Active Percocet 10 mg-325 mg tablet take 1 tablet by oral route every 6 hours as needed 1.00 tablet - No Longer Active Procedures Procedure Date OFFICE/OUTPATIENT VISIT, EST DRUG TEST PRSMV CHEM ANLYZR OFFICE/OUTPATIENT VISIT, EST DRUG TEST PRSMV CHEM ANLYZR OFFICE/OUTPATIENT VISIT, EST ASC Procedure PERLA interlaminar lmbr/sac ANESTH, N BLOCK/INJ, PRONE OFFICE/OUTPATIENT VISIT, EST DRUG TEST PRSMV CHEM ANLYZR OFFICE/OUTPATIENT VISIT, EST OFFICE/OUTPATIENT VISIT, EST DRUG TEST PRSMV CHEM ANLYZR OFFICE/OUTPATIENT VISIT, EST DRUG TEST PRSMV CHEM ANLYZR ANESTH, N BLOCK/INJ, PRONE Njx interlaminar crv/thrc OFFICE/OUTPATIENT VISIT, EST DRUG TEST PRSMV CHEM ANLYZR OFFICE/OUTPATIENT VISIT, EST ASC Procedure ASC Procedure Facet joint injection C/T 1 lev 016 Facet joint injection C/T 2 lev 016 ANESTH, N BLOCK/INJ, PRONE OFFICE/OUTPATIENT VISIT, EST OFFICE/OUTPATIENT VISIT, EST OFFICE/OUTPATIENT VISIT, EST DRUG SCREEN, SINGLE OFFICE/OUTPATIENT VISIT, EST OFFICE/OUTPATIENT VISIT, EST OFFICE/OUTPATIENT VISIT, EST DRUG SCREEN, SINGLE OFFICE/OUTPATIENT VISIT, EST OFFICE/OUTPATIENT VISIT, EST DRUG SCREEN, SINGLE OFFICE/OUTPATIENT VISIT, EST DRUG SCREEN, SINGLE OFFICE/OUTPATIENT VISIT, EST DRUG SCREEN, SINGLE OFFICE/OUTPATIENT VISIT, EST DRUG SCREEN, SINGLE OFFICE/OUTPATIENT VISIT, EST ASC Procedure PERLA Cervical Or Thoracic FLUOROGUIDE FOR SPINE INJECT ANESTH, N BLOCK/INJ, PRONE OFFICE/OUTPATIENT VISIT, EST MUSCLE TEST, 2 LIMBS Motor&sen 9-10 Nrv Cndj Test ASC Procedure PERLA Cervical Or Thoracic FLUOROGUIDE FOR SPINE INJECT ANESTH, N BLOCK/INJ, PRONE OFFICE/OUTPATIENT VISIT, NEW Drug Screen Multiple Class Drug Screen Quantalcohols Results Test Name Date and Time Measure Units Reference Range Abnormal Flag Status Comments Panel Description: [facility] Drug Confirmation 3 2 Panel Final Alprazolam 2016 14:48:4 7 >1000 ng/mL 25 Final Consistent res ults given prescription(s) indicated. AlphaOHAlprazolam 2016 14:48:4 7 905 ng/mL 25 Final Consistent res ults given prescription(s) indicated. Hydroxyalprazolam is the primary metabolite of Alprazolam. Buprenorphine 2016 14:48:4 7 <5 ng/mL 5 Final Norbuprenorphine 2016 14:48:4 7 <5 ng/mL 5 Final Carisoprodol 2016 14:48:4 7 <100 ng/mL 100 Final Meprobamate 2016 14:48:4 7 <100 ng/mL 100 Final EDDP(Methadone Metabolite) 2016 14:48:4 7 <25 ng/mL 25 Final Methadone 2016 14:48:4 7 <25 ng/mL 25 Final Meperidine 2016 14:48:4 7 <25 ng/mL 25 Final Normeperidine 2016 14:48:4 7 <25 ng/mL 25 Final Hydrocodone 2016 14:48:4 7 <25 ng/mL 25 Final Hydromorphone 2016 14:48:4 7 <25 ng/mL 25 Final Codeine 2016 14:48:4 7 <25 ng/mL 25 Final Morphine 2016 14:48:4 7 <25 ng/mL 25 Final Fentanyl 2016 14:48:4 7 <1 ng/mL 1 Final Norfentanyl 2016 14:48:4 7 <1 ng/mL 1 Final 6-MALGORZATA 2016 14:48:4 7 <15 ng/mL 15 Final Oxycodone 2016 14:48:4 7 >1000 ng/mL 25 Final Consistent res ult given prescription(s) indicated. Oxymorphone 2016 14:48:4 7 526 ng/mL 25 Final Consistent res ult given prescription(s) indicated. Lorazepam 2016 14:48:4 7 <25 ng/mL 25 Final 7-Aminoclonazepam 2016 14:48:4 7 <25 ng/mL 25 Final Nordiazepam 2016 14:48:4 7 <25 ng/mL 25 Final Oxazepam 2016 14:48:4 7 <25 ng/mL 25 Final Temazepam 2016 14:48:4 7 <25 ng/mL 25 Final Tapentadol 2016 14:48:4 7 <25 ng/mL 25 Final Tramadol 2016 14:48:4 7 <25 ng/mL 25 Final Cocaine Metabolite 2016 14:48:4 7 <50 ng/mL 50 Final MDMA(Ecstasy) 2016 14:48:4 7 <50 ng/mL 50 Final Phencyclidine 2016 14:48:4 7 <5 ng/mL 5 Final Amphetamine 2016 14:48:4 7 <100 ng/mL 100 Final Methamphetamine 2016 14:48:4 7 <250 ng/mL 250 Final THC-COOH 2016 14:48:4 7 <40 ng/mL 40 Final Prescriptions 2016 14:48:4 7 Alprazola m,Oxycodo ne Final Panel Description: Report Comments[i] Final Report Comment 2016 14:48:4 7 Report Comments Final 1. All samples tested at [facility] are urine from clinical patients.2. Screening tests for the presence of drugs and validity tests are by immunoassay techniques. 3. Positive drug screening results are considered presumptive until confirmed by a more sensitive and specific method. 4. Analytical test results are reported as part of the treatment protocol using sensitive confirmatory liquid chromatography mass spectrometry (LC/MS/MS) analyses based on laboratory developed tests (LDTs) that are specific at a molecular level for individual drugs and their metabolites. 5. For interpretation, consistency is reported when a patient's urine specimen is confirmed positive for a prescribed drug or one or more metabolites.6. Due to individual variations in patient urinary excretion patterns, certain drug metabolites may not be detected.7. Laboratory test results should be combined with clinical observation and professional judgement in relation to pain management practices. Panel Description: Urine Drug Screen Final Amphetamines Negative ng/mL 100 Final Barbiturates Negative ng/mL 100 Final Benzodiazepines Positive ng/mL 100 H Final Phencyclidine Negative ng/mL 100 Final Cocaine Negative ng/mL 100 Final Methadone Negative ng/mL 100 Final Oxycodone Positive ng/mL 100 H Final THC Negative ng/mL 100 Final ETOH Negative mg/dL 100 Final Ecstasy Negative ng/mL 100 Final Opiates Positive ng/mL 100 H Final Advance Directives Directive Yes / No Effective Date File Name No Information Encounters Encounter Description Practice Location Reason(s) For Visit Diagnoses Date Provider Providers Copied on Encounter OFFICE/OUTPA TIENT VISIT, EST [facility], [address], [place], [place], [id number], [facility] low back pain (chief complaint)ne ck pain (chief complaint) Postlaminect liliam syndromeRadi culopathy, lumbar regionOther spondylosis, cervical regionLong term (current) use of opiate analgesicOth er longterm (current) drug therapy 7 Kirill Dawson. [address] [place] [address], [address], [id number], . tel:[phone] Referring Provider: Samir Jeong, [address] [place] [address] [place] [address], [address] . 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 [address] [place] [address], [id number], . tel:[phone] Referring Provider: Samir Jeong, [address] [place] [address], [address] . tel:[phone] OFFICE/OUTPA TIENT VISIT, EST [facility], [address], [place], [place], [id number], [facility] Follow Up of caudal epidural injection (chief complaint)lo w back pain (chief complaint) Postlaminect liliam syndromeOthe r spondylosis, cervical regionRadicu lopathy, lumbar regionLong term (current) use of opiate analgesicBod y mass index (BMI) 45.0-49.9, adult Bronson-0 7 Kirill Dawson. [address] [place] [address], [id number], . tel:[phone] Referring Provider: Samir Jeong, [address] [place] [address], [address] . tel:[phone] [facility], [address], [place], [place], [id number], [facility] Radiculopath y, lumbar region 7 Kirill Dawson. [address] [place] [address], [id number], . tel:[phone] [facility], [address], [place], [place], [id number], [place] tel:[phone] [facility] [place] No Information Aiden Arroyo. [address], [place], [place], [id number], [place]. OFFICE/OUTPA TIENT VISIT, EST [facility], [address], [place], [place], [id number], [facility] low back pain (chief complaint) Postlaminect liliam syndromeOthe r spondylosis, cervical regionRadicu lopathy, lumbar regionLong term (current) use of opiate analgesic September- Kirill Dawson. [address], [id number], . tel:[phone] Referring Provider: Samir Jeong, [address] [place] [address] [place] [address], [address] . tel:[phone] OFFICE/OUTPA TIENT VISIT, [facility], [address], [place], [place], [id number], [facility] low back pain (chief complaint)ne ck pain (chief complaint) Body mass index (BMI) 50-59.9 , adultCervica l disc disorder with radiculopath y, unspecified cervical regionPostla minectomy syndromeOthe r spondylosis, cervical regionOther longterm (current) drug therapyLong term (current) use of opiate analgesicRad iculopathy, lumbar region Jul-3 Carolyn Hudson. [address] [facility], [place] [address], [place], [place], [id number], [place]. tel:[phone] Referring Provider: Becca Norris, [address] [facility] [address] [facility], [place], [address] . tel:[phone] OFFICE/OUTPA TIENT VISIT, [facility], [address], [place], [place], [id number], [facility] neck pain (chief complaint)lo w back pain (chief complaint) Radiculopath y, lumbar regionPostla minectomy syndromeOthe r spondylosis, cervical regionLong term (current) use of opiate analgesic Jul-0 Kirill Dawson. 100 [facility], [address], [id number], [place]. tel:[phone] Referring Provider: Smair Jeong, [address] [place] [address] [place] [address], [address] . tel:[phone] OFFICE/OUTPA TIENT VISIT, EST [facility], [address], [place], [place], [id number], [place] [facility] cervicalgia (chief complaint)lo w back pain (chief complaint) Postlaminect liliam syndromeRadi culopathy, lumbar regionOther spondylosis, cervical regionLong term (current) use of opiate analgesic 7 Kirill Dawson. [address] [place] [address], [address] [place] [address], [id number], [place]. tel:[phone] Referring Provider: Samir Jeong, [address] [place] [address] [place] [address], [address] . tel:[phone] [facility], [address], [place], [place], [id number], [facility] [place] Radiculopath y, lumbar region 7 Kirill Dawson. [address] [place] [address], [address], [place], [id number], [place]. tel:[phone] [facility], [address], [place], [place], [id number], [place] tel:[phone] [facility] No Information 7 Destinee Avila. [address] [place], [place], [id number], [place]. tel:[phone] [facility], [address], [place], [place], [id number], [place] [facility] [place] No Information 7 Kirill Camilausha. [address] [place] [address], [address] [place] [address], [id number], [place]. tel:[phone] Referring Provider: Samir Jeong, [address] [place] [address] [address], [place], [address] . tel:[phone] OFFICE/OUTPA TIENT VISIT, EST [facility], [address], [place], [place], [id number], [facility] cervicalgia (chief complaint)lo w back pain (chief complaint) Postlaminect liliam syndromeRadi culopathy, lumbar regionCervic al disc disorder with radiculopath y, unspecified cervical regionOther spondylosis, cervical regionLong term (current) use of opiate analgesic Jun-0 7 Kirill Dawson. [address] [place] [address], [address], [id number], [place]. tel:[phone] Referring Provider: Samir Jeong, [address] [place] [address] [place] [address], [address] . tel:[phone] OFFICE/OUTPA TIENT VISIT, EST [facility], [address], [place], [place], [id number], [facility] low back pain (chief complaint)Ce rvicalgia (chief complaint) Body mass index (BMI) 50-59.9 , adultPostlam inectomy syndromeRadi culopathy, lumbar regionCervic al disc disorder with radiculopath y, unspecified cervical regionOther spondylosis, cervical regionLong term (current) use of opiate analgesic 6 Kirill Camilausha. [address] [place] [address], [address], [id number], [place]. tel:[phone] Referring Provider: Samir Jeong, [address] [place] [address], [address] . tel:[phone] [facility], [address], [place], [place], [id number], [facility] Other spondylosis, cervical region 6 Kirill Camilausha. [address] [place] [address], [address], [id number], . tel:[phone] [facility], [address], [place], [place], [id number], tel:[phone] [facility] No Information 6 Destinee Turciosmelita. [address] [place], [place], [id number], [place]. tel:[phone] OFFICE/OUTPA TIENT VISIT, EST [facility], [address], [place], [place], [id number], [place] [facility] low back pain (chief complaint)Ce rvicalgia (chief complaint)ER Discharge 03/31/2016 04/01/2016 (chief complaint) Postlaminect liliam syndromeRadi culopathy, lumbar regionCervic al disc disorder with radiculopath y, unspecified cervical regionLong term (current) use of opiate analgesicOth er spondylosis, cervical region 6 Kirill Dawson. [address] [place] [address], [address], [id number], . tel:[phone] Referring Provider: Samir Jeong, [address] [place] [address] [place] [address], [address] . tel:[phone] OFFICE/OUTPA TIENT VISIT, EST [facility], [address], [place], [place], [id number], [facility] low back pain (chief complaint)Ce rvicalgia (chief complaint) Postlaminect liliam syndromeCerv ical disc disorder with radiculopath y, unspecified cervical regionLong term (current) use of opiate analgesicDiz zinessOther spondylosis, cervical regionRadicu lopathy, lumbar region 6 Kirill Dawson. [address] [place] [address], [address], [place], [id number], . tel:[phone] Referring Provider: Samir Jeong, [address] [place] [address] [place] [address], [address] . tel:[phone] OFFICE/OUTPA TIENT VISIT, EST [facility], [address], [place], [place], [id number], [place] [facility] cervicalgia (chief complaint)lo w back pain (chief complaint) Postlaminect liliam syndromeCerv ical disc disorder with radiculopath y, unspecified cervical regionLong term (current) use of opiate analgesic Sep-2 6 Kirill Dawson. [address] [place] [address], [address], [id number], . tel:[phone] Referring Provider: Samir Jeong, [address] [place] [address] [place] [address], [address] . tel:[phone] OFFICE/OUTPA TIENT VISIT, EST [facility], [address], [place], [place], [id number], [place] [facility] [place] low back pain (chief complaint)ce rvicalgia (chief complaint) Body mass index (BMI) 50-59.9 , adultCervica l disc disorder with radiculopath y, unspecified cervical regionRadicu lopathy, cervical regionLong term (current) use of opiate analgesicPos tlaminectomy syndrome Aug 6 Kirill Dawson. [address] [place] [address], [address], [id number], [place]. tel:[phone] Referring Provider: Samir Jeong, [address] [place] [address] [place] [address], [address] . tel:[phone] OFFICE/OUTPA TIENT VISIT, EST [facility], [address], [place], [place], [id number], [place] [facility] low back pain (chief complaint) Cervical disc disorder with radiculopath y, unspecified cervical regionCervic al disc disorder w myelopathy, high cervical regionRadicu lopathy, cervical region Nov- 6 Jam Young. [address], [facility] [address], [id number], [place]. tel:[phone] Referring Provider: Hector Robins, [address], [place], [address] . tel:[phone] OFFICE/OUTPA TIENT VISIT, EST [facility], [address], [place], [place], [id number], [facility] neck pain (chief complaint) Cervical disc disorder with radiculopath y, unspecified cervical regionCervic al disc disorder w myelopathy, high cervical regionOther longterm (current) drug therapyRadic ulopathy, cervical region Bronson-2 8-201 6 [place] Hector. [address], [address], [id number], . tel:[phone] OFFICE/OUTPA TIENT VISIT, EST [facility], [address], [place], [place], [id number], [facility] low back pain (chief complaint)ne ck pain (chief complaint) Cervical disc disorder w myelopathy, high cervical regionCervic al disc disorder with radiculopath y, unspecified cervical regionRadicu lopathy, cervical region Bronson-0 2 6 [place] Hector. [address], [address], [id number], . tel:[phone] OFFICE/OUTPA TIENT VISIT, [facility], [address], [place], [place], [id number], [facility] low back pain (chief complaint)ne ck pain (chief complaint) Cervical disc disorder with radiculopath y, unspecified cervical regionRadicu lopathy, cervical region September-0 5201 6 Jam Young. [address], [address], [id number], . tel:[phone] Referring Provider: Hector Robins, [address], [address] . tel:[phone] OFFICE/OUTPA TIENT VISIT, [facility], [address], [place], [place], [id number], [facility] neck pain (chief complaint) Cervical disc disorder with radiculopath y, unspecified cervical regionRadicu lopathy, cervical regionCervic al disc disorder w myelopathy, high cervical region Apr-0 6 [place] Hector. [address], [address] [place] [address], [id number], [place]. tel:[phone] Referring Provider: Hector Robins, [address], [address] . tel:[phone] OFFICE/OUTPA TIENT VISIT, EST [facility], [address], [place], [place], [id number], [facility] neck pain (chief complaint) Cervical disc disorder with radiculopath y, unspecified cervical regionCervic al disc disorder w myelopathy, high cervical regionRadicu lopathy, cervical region Jul- 6 [place] Hector. [address], [address], [id number], [place]. tel:[phone] Referring Provider: Hector Robins, [address], [address] . tel:[phone] OFFICE/OUTPA TIENT VISIT, [facility], [address], [place], [place], [id number], [facility] neck pain (chief complaint) Cervical disc disorder with radiculopath y, unspecified cervical regionCervic al disc disorder w myelopathy, high cervical regionRadicu lopathy, cervical region Feb- 6 [place] Hector. [address], [address] [place] [address], [id number], [place]. tel:[phone] Referring Provider: Hector Robins, [address], [address] . tel:[phone] OFFICE/OUTPA TIENT VISIT, [facility], [address], [place], [place], [id number], [facility] neck pain (chief complaint) Brachial neuritis or radiculitis nosCervical disc disorder with radiculopath y, unspecified cervical regionRadicu lopathy, cervical region 6 Jam Young. [address], [address], [id number], [place]. tel:[phone] Referring Provider: Hector Robins, [address], [address] . tel:[phone] [facility], [address], [place], [place], [id number], [place] [facility] Radiculopath y, cervical region 6 Jam Young. [address], [address], [id number], [place]. tel:[phone] [facility], [address], [place], [place], [id number], [place] tel:[phone] [facility] No Information 6 Destinee Avila. [address] [place], [place], [id number], [place]. tel:[phone] OFFICE/OUTPA TIENT VISIT, EST [facility], [address], [place], [place], [id number], [place] [facility] neck pain (chief complaint) Brachial neuritis or radiculitis nosRadiculop athy, cervical regionCervic al disc disorder with radiculopath y, unspecified cervical region 5 Jam Young. [address], [address], [id number], [place]. tel:[phone] [facility], [address], [place], [place], [id number], [place] [facility] Cervical disc disorder w myelopathy, high cervical region 5 Jam Chilel [address], [address], [id number], . tel:[phone] Referring Provider: Hector Robins, [address], [address] . tel:[phone] [facility], [address], [place], [place], [id number], [facility] Radiculopath y, cervical region 5 Jam Young. [address], [address], [id number], . tel:[phone] [facility], [address], [place], [place], [id number], tel:[phone] [facility] No Information 5 Alecia Muniz. . OFFICE/OUTPA TIENT VISIT, NEW [facility], [address], [place], [place], [id number], [facility] neck pain (chief complaint) Brachial neuritis or radiculitis nosRadiculop athy, cervical region 5 Jam Young. [address], [address], [id number], . tel:[phone] Referring Provider: Hector Robins, [address], [address] . tel:[phone] Family History Family Member Type Diagnosis Age At Onset Mother Problem (finding) hypertension Mother Problem (finding) diabetes melli tus in first degree relative Father Problem (finding) diabetes melli tus in first degree relative Father Problem (finding) hypertension Payers Payer name Insurance type Covered alliance party ID Authoriza tion(s) No Information Social History Type Description Quantity Date Captured Comments Alcohol Use Details No Caffeine Use Details coffee occassional per day Tobacco Use Status Never smoked tobacco 2016 Smoking Status Never smoker Sex Male Vital Signs Date / Time: Height Weight BMI Pulse Rate Blood Pressure Temperature Respiratory Rate Body Surface Area Head Circumference Head Circ. Percentile Wt./Bennett. Percentile BMI percentile Pulse Ox Inhaled Ox 3:29 PM 66.00 in 137.892 kg (304.00 lbs) 49.0 7 kg/m eter (2) 104 /min 115/81 mm[Hg] 99.00 F 14 /min Chief Complaint And Reason For Visit From encounter dated 03/18/2017 16:45'. low back pain (chief complaint). Description: Onset: gradual without injury. Severity level is severe. Duration: > 1 hour. The problem is fluctuating. It occurs persistently. Location of painis lower back, gluteal area and bilateral posterior hips. Pain is radiated to the left thigh, rightthigh and bilateral buttocks.The patient describes the pain as an ache, deep, shooting and stabbing. Context: no injury. Symptoms are aggravated by bending, changing positions, lifting, sitting, standing and walking. Symptoms are relieved by pain meds/drugs. Associated symptoms include tenderness, tingling in the arms and tingling in the legs. neck pain (chief complaint). Description: Onset: gradual. The problem is severe. Duration: > 1 hour. The status of the symptoms are flucuates. Location of pain is bilateral lateral neck, bilateral posterior neck, bilateral shoulder and bilateral scapula. There is radiation of pain to the bilateral head and occipital. The patient describes the pain as aching, sharp and stabbing. Aggravating factors include exertion, lifting, stress and turning head. Relieving factors include rx pain meds. Associated symptoms include difficulty sleeping, muscle spasm, tenderness, tingling and weakness. Reason For Referral Reason For Referral No Information Plan Of Treatment Date Type Action Status Goal Dietary manageme nt education, guidance, and counseling completed Goal Dietary manageme nt education, guidance, and counseling completed Referral Ordered: MRI L-SPINE W/WO CONTRAST ordered Referral Ordered: MRI SACRUM / COCCYX ordered Referral Ordered: MRI C-SPINE W/O CONTRAST ordered Referral Ordered: MRI L-SPINE W/ CONTRAST ordered Future Order: Lab Order Urine Dr ug Screen w/Alcohol Screen (101), Collected on: , Sent on: Sent History Of Present Illness Encounter Date Complaint History Of Dustin nt Illness neck pain Onset: gradual. The problem is severe. Duration: > 1 hour. The status of the symptoms are flucuates. Location of pain is bilateral lateral neck, bilateral posterior neck, bilateral shoulder and bilateral scapula. There is radiation of pain to the bilateral head and occipital. The patient describes the pain as aching, sharp and stabbing. Aggravating factors include exertion, lifting, stress and turning head. Relieving factors include rx pain meds. Associated symptoms include difficulty sleeping, muscle spasm, tenderness, tingling and weakness. low back pain Onset: gradual w ithout injury. Severity level is severe. Duration: > 1 hour. The problem is fluctuating. It occurs persistently. Location of pain is lower back, gluteal area and bilateral posterior hips. Pain is radiated to the left thigh, right thigh and bilateral buttocks.The patient describes the pain as an ache, deep, shooting and stabbing. Context: no injury. Symptoms are aggravated by bending, changing positions, lifting, sitting, standing and walking. Symptoms are relieved by pain meds/drugs. Associated symptoms include tenderness, tingling in the arms and tingling in the legs. neck pain Onset: gradual. The problem is severe. Duration: > 1 hour. The problem has worsened. The frequency of pain is constant. Location of pain is bilateral lateral neck, bilateral posterior neck, left arm and bilateral upper back. The patient describes the pain as aching, burning, sharp and shooting. Aggravating factors include prolonged sitting, rotation and straining. Relieving factors include narcotic analgesics and rest. caudal epidural injection Patidivya t states that he had some improvement after the injection on 10/30/16. States there was no change in range of motion. States that his pain leve went from an 8 to a 5. Follow Up of caudal epidural injection low back pain The problem is i mproving. It occurs persistently. Location of pain is lower back. Pain is radiated to the left ankle, left calf and left thigh.The patient describes the pain as sharp and shooting. Symptoms are aggravated by bending, daily activities, lifting, sitting, standing and walking. Symptoms are relieved by lying down, injection: epidural injection, pain meds/drugs and rest. low back pain Onset: gradual w ithout injury. Severity level is severe. Duration: > 1 hour. The problem is fluctuating. It occurs persistently. Location of pain is lower back, gluteal area, bilateral posterior hips and and sacrum. Pain is radiated to the left ankle, right ankle, left calf, right calf, left thigh, right thigh and bilateral buttocks.The patient describes the pain as an ache, deep, sharp and shooting. Context: no injury. Symptoms are aggravated by bending, changing positions, lifting, sitting, standing and walking. Symptoms are relieved by pain meds/drugs. Associated symptoms include limping, numbness in the lower extremity, spasms, tenderness, tingling in the arms and tingling in the legs. low back pain The problem is s table. It occurs persistently. Location of pain is lower back. Pain is radiated to the left ankle, left calf, left foot and left thigh.The patient describes the pain as sharp and shooting. Symptoms are aggravated by daily activities, sitting and standing. Symptoms are relieved by pain meds/drugs. neck pain The problem has not changed. The frequency of pain is daily. Location of pain is bilateral posterior neck. There is radiation of pain to the shoulders. The patient describes the pain as aching, discomforting, dull, sharp and shooting. Aggravating factors include flexion, rotation and turning head. Relieving factors include narcotic analgesics. neck pain Onset: gradual. The problem is severe. Duration: > 1 hour. The problem has worsened. The frequency of pain is constant. Location of pain is bilateral lateral neck, bilateral posterior neck and bilateral shoulder. The patient describes the pain as aching, discomforting, sharp and shooting. Aggravating factors include rotation and turning head. low back pain Onset: gradual w ithout injury. Severity level is severe. Duration: > 1 hour. The problem is worsening. It occurs persistently. Location of pain is lower back and gluteal area. Pain is radiated to the right thigh.The patient describes the pain as an ache and discomforting. Symptoms are aggravated by changing positions, daily activities, standing and walking. Symptoms are relieved by pain meds/drugs. low back pain Severity level i s moderate. The problem is fluctuating. It occurs persistently. Location of pain is lower back and gluteal area. Pain is radiated to the left calf, right calf, left foot, right foot, left thigh and right thigh.The patient describes the pain as an ache, discomforting and dull. Symptoms are aggravated by daily activities, sitting, standing and walking. Symptoms are relieved by pain meds/drugs and rest. cervicalgia Onset: gradual. The severity of the problem is moderate. Duration: > 1 hour. The problem has not changed. The frequency of pain is constant. Location of pain is bilateral anterior neck, bilateral lateral neck, bilateral posterior neck and bilateral shoulder. There is radiation of pain to the bilateral head and bilateral scalp. The patient describes the pain as aching and sharp. Aggravating factors include prolonged sitting and turning head. Relieving factors include narcotic analgesics, NSAIDs and rest. low back pain Severity level i s moderate-severe. It occurs persistently. Location of pain is lower back and gluteal area.The patient describes the pain as an ache, discomforting, dull and sharp. Symptoms are aggravated by coughing, daily activities, sitting, standing and walking. Symptoms are relieved by pain meds/drugs and rest. cervicalgia The problem is s evere. The problem has not changed. The frequency of pain is constant. Location of pain is bilateral anterior neck, bilateral lateral neck and bilateral posterior neck. There is radiation of pain to the bilateral head. The patient describes the pain as aching, gnawing and sharp. Aggravating factors include prolonged sitting, standing and turning head. Relieving factors include narcotic analgesics, NSAIDs and rest. Cervicalgia The problem is s evere. The problem has not changed. The frequency of pain is constant. Location of pain is bilateral anterior neck, bilateral lateral neck and bilateral posterior neck. The patient describes the pain as aching, gnawing and sharp. Aggravating factors include lying down, prolonged sitting and turning head. Relieving factors include NSAIDs. low back pain Onset: gradual w ith injury. Severity level is moderate-severe. Duration: > 1 hour. The problem is fluctuating. It occurs persistently. Location of pain is lower back and gluteal area. Pain is radiated to the left ankle, right ankle, left calf, right calf, left foot, right foot, left thigh and right thigh.The patient describes the pain as an ache, discomforting, dull and sharp. Symptoms are aggravated by daily activities, sitting, standing and walking. Symptoms are relieved by pain meds/drugs and rest. ER Discharge 03/31/2016 04/01/20 16 Patient was admited due chronic back pain Cervicalgia The problem is s evere. The problem has not changed. The frequency of pain is constant. Location of pain is bilateral anterior neck, bilateral lateral neck, bilateral posterior neck, bilateral arm and bilateral upper back. There is radiation of pain to the bilateral head and bilateral scalp. The patient describes the pain as aching and sharp. Aggravating factors include prolonged sitting and twisting. Relieving factors include narcotic analgesics. low back pain Onset: sudden wi th injury. Severity level is moderate-severe. Duration: 30-60 minutes. The problem is fluctuating. It occurs persistently. Location of pain is lower back and gluteal area. Pain is radiated to the left ankle, right ankle, left calf, right calf, left foot, right foot, left thigh and right thigh.The patient describes the pain as an ache, discomforting, dull and sharp. Symptoms are aggravated by daily activities, extension, flexion, sitting, standing and walking. Symptoms are relieved by rest. Cervicalgia The severity of the problem is moderate. The problem has not changed. The frequency of pain is constant. Location of pain is left scalp, left anterior neck, left lateral neck and left posterior neck. There is radiation of pain to the left head and left scalp. The patient describes the pain as aching, sharp, shooting and throbbing. Aggravating factors include driving, lifting, prolonged sitting, rotation, standing, stooping, stress and turning head. Relieving factors include narcotic analgesics. Associated symptoms include dizziness and right arm numbness. Pertinent negatives include dysphagia and weight loss. low back pain Onset: gradual w ithout injury. Severity level is moderate-severe. Duration: > 1 hour. The problem is fluctuating. It occurs persistently. Location of pain is lower back and gluteal area. Pain is radiated to the left ankle, left calf, left foot and left thigh.The patient describes the pain as an ache, discomforting, dull and sharp. Symptoms are aggravated by daily activities, sitting, standing and walking. Symptoms are relieved by pain meds/drugs and rest. cervicalgia Location of pain is bilateral head. There is radiation of pain to the left upper arm, left hand, left thumb, left index finger and left 5th finger. The patient describes the pain as burning and stabbing. Aggravating factors include exertion. Relieving factors include rest. low back pain The problem is s table. Pain is radiated to the left thigh.The patient describes the pain as burning and stabbing. Symptoms are aggravated by daily activities. Symptoms are relieved by rest. low back pain Onset: gradual w ith injury. Severity level is moderate-severe. Duration: > 1 hour. The problem is fluctuating. It occurs persistently. Location of pain is lower back and gluteal area. Pain is radiated to the left calf, right calf, left foot, right foot, left thigh and right thigh.The patient describes the pain as an ache, discomforting, dull, sharp, stabbing and throbbing. Symptoms are aggravated by daily activities, sitting, standing and walking. Symptoms are relieved by pain meds/drugs and rest. cervicalgia The severity of the problem is moderate. The patient describes the pain as aching and sharp. Aggravating factors include exertion. Relieving factors include rest. Pertinent negatives include dysphagia and weight loss. low back pain Severity level i s 7. The problem is worsening. It occurs persistently. Location of pain is middle back.There is no radiation of pain. The patient describes the pain as dull and sharp. Symptoms are aggravated by daily activities. Symptoms are relieved by pain meds/drugs. neck pain The severity of the problem is moderate. The problem has worsened. The frequency of pain is constant. Location of pain is bilateral posterior neck and bilateral shoulder. There is radiation of pain to the bilateral upper arm, bilateral elbow, bilateral forearm, bilateral interscapular and bilateral wrist. The patient describes the pain as aching and sharp. neck pain The severity of the problem is moderate. The problem has not changed. The frequency of pain is constant. Location of pain is bilateral anterior neck and bilateral lateral neck. There is radiation of pain to the bilateral head, bilateral wrist, bilateral hand, bilateral index finger and bilateral 5th finger. The patient describes the pain as aching and sharp. Aggravating factors include prolonged sitting, rotation, standing and turning head. Relieving factors include narcotic analgesics and rest. Associated symptoms include numbness. Pertinent negatives include bladder incontinence, bladder retention, joint pain, rash, sexual dysfunction and weight loss. Additional information: PAtient is having surgery on 11/15/15. low back pain Severity level i s moderate-severe. The problem is fluctuating. It occurs persistently. Location of pain is middle back, lower back and neck. Pain is radiated to the left calf, right calf, left foot, right foot, left thigh and right thigh.The patient describes the pain as an ache, discomforting, dull and sharp. Symptoms are aggravated by daily activities, sitting, standing and walking. Symptoms are relieved by pain meds/drugs and rest. neck pain Onset: gradual. The severity of the problem is moderate. The problem has worsened. The frequency of pain is constant. Location of pain is bilateral lateral neck, bilateral posterior neck, bilateral shoulder and bilateral arm. There is radiation of pain to the bilateral forearm, bilateral interscapular, bilateral wrist, bilateral hand and left thumb. The patient describes the pain as aching, dull and shooting. Associated symptoms include joint pain. Pertinent negatives include bladder incontinence, bladder retention, rash, sexual dysfunction and weight loss. low back pain Onset: gradual w ithout injury. Severity level is moderate. Duration: 5-15 minutes. The problem is stable. It occurs persistently. Location of pain is lower back and gluteal area. Pain is radiated to the right calf, right foot and right thigh.The patient describes the pain as an ache, dull and sharp. Symptoms are aggravated by daily activities. Symptoms are relieved by pain meds/drugs. neck pain The severity of the problem is moderate. The problem has improved. The frequency of pain is constant. Location of pain is bilateral posterior neck and bilateral shoulder. There is radiation of pain to the bilateral upper arm. The patient describes the pain as aching and sharp. Relieving factors include narcotic analgesics and rest. neck pain The problem is s evere. Duration: 30-60 minutes. The problem has not changed. The frequency of pain is constant. Location of pain is bilateral posterior neck. There is radiation of pain to the bilateral hand. The patient describes the pain as burning, sharp and tingling. Aggravating factors include bending, lying down, prolonged sitting, rotation and turning head. Relieving factors include narcotic analgesics. Pertinent negatives include bladder incontinence, bladder retention, joint pain, rash, sexual dysfunction and weight loss. neck pain The severity of the problem is moderate. Duration: 30-60 minutes. The problem has not changed. The frequency of pain is constant. Location of pain is bilateral posterior neck and bilateral shoulder. There is radiation of pain to the bilateral hand. The patient describes the pain as aching and tingling. Aggravating factors include bending, exertion, prolonged sitting, rotation and turning head. Relieving factors include narcotic analgesics. Pertinent negatives include bladder incontinence, bladder retention, joint pain, rash, sexual dysfunction and weight loss. neck pain The problem is s evere. Duration: 30-60 minutes. The problem has not changed. The frequency of pain is constant. Location of pain is bilateral posterior neck. There is radiation of pain to the bilateral hand. The patient describes the pain as aching, burning, sharp, stabbing and tingling. Aggravating factors include bending, lifting, prolonged sitting, rotation and turning head. Denies relieving factors. Pertinent negatives include bladder incontinence, bladder retention, joint pain, rash, sexual dysfunction and weight loss. neck pain The severity of the problem is moderate. Duration: 30-60 minutes. The problem has not changed. The frequency of pain is constant. Location of pain is bilateral posterior neck. There is radiation of pain to the bilateral hand. The patient describes the pain as aching, burning, stabbing and tingling. Aggravating factors include bending, lifting, prolonged sitting, rotation and turning head. Relieving factors include narcotic analgesics. neck pain Onset: gradual. The severity of the problem is moderate. Duration: 15-30 minutes. The problem has worsened. The frequency of pain is constant. Location of pain is bilateral posterior neck. There is radiation of pain to the left interscapular, left wrist, left hand, left thumb and left index finger. The patient describes the pain as aching, sharp and shooting. Functional Status Date Functional Assessmen t Pain Score 8/10 Pain Score 8/10 Instructions Date Instruction Additional Infor martínez Recommended to lana merritt up with spine surgeon Related to Radiculopathy, lumbar region The patient notes th at the current medication regimen is helping with pain and functionality and denies significant side effects. There is no evidence of aberrant behavior or inconsistencies. Urine drug testing and EFORSCE are consistent and demonstrate compliance with the treatment plan. We will continue the current medication regimen.The patient understands to take the medication only as prescribed. It was explained to the patient and the patient understands the potential side effects of the medications including sedation, drowsiness and respiratory depression. The patient understands not to drive or operate heavy machinery while on this medication. Related to Postlaminectomy syndrome It is my medical opi nion that this patient will benefit from a fluoroscopically guided therapeutic caudal epidural injection. The patient has evidence of persistent radicular pain >6/10 on a numeric pain scale, with pain that is significant enough to interfere with normal activities and has failed 6 weeks of conservative treatment including a combination of medications, a supervised HEP/PT/healthcare liaison, despite ongoing active treatment. The patient has significant functional limitations resulting in diminished quality of life and impaired age appropriate activities. The patient understands the risks/benefits of this procedure and wishes to schedule this procedure. Related to Radiculopathy, lumbar region The patient has inco mplete relief from NSAIDs, ice/heat and is in moderate to severe pain, consistent with the physical examination performed today. There is no evidence of aberrant behavior or inconsistencies. EFORSCE demonstrates no aberrant behavior. I will reinitiate the patient on a regimen of Percocet 10-325mg QIDThe patient has signed an opiate contract. The patient understands to take the medication only as prescribed. It was explained to the patient and the patient understands the potential side effects of the medications including sedation, drowsiness, and respiratory depression. The patient understands not to drive or operate heavy machinery while on this medication. UDS obtained today and LC/MS confirmation results to be checked when available. Related to Postlaminectomy syndrome It is my medical opi nion that this patient will benefit from a fluoroscopically guided therapeutic caudal epidural injection. The patient has evidence of persistent radicular pain >6/10 on a numeric pain scale, with pain that is significant enough to interfere with normal activities and has failed 6 weeks of conservative treatment including a combination of medications, a supervised HEP/PT/healthcare liaison, despite ongoing active treatment. The patient has significant functional limitations resulting in diminished quality of life and impaired age appropriate activities. The patient understands the risks/benefits of this procedure and wishes to schedule this procedure. Related to Radiculopathy, lumbar region The patient notes th at the current medication regimen is helping with pain and functionality and denies significant side effects. There is no evidence of aberrant behavior or inconsistencies. Urine drug testing and E-FORSCE are consistent and demonstrate compliance with the treatment plan. We will continue the current medication regimen.The patient understands to take the medication only as prescribed. It was explained to the patient and the patient understands the potential side effects of the medications including sedation, drowsiness and respiratory depression. The patient understands not to drive or operate heavy machinery while on this medication. Related to Postlaminectomy syndrome I will follow up wit h the patient in 4 weeks. Related to group home (current) use of opiate analgesic Dietary management e ducation, guidance, and counseling Related to Body mass index (BMI) 45.0-49.9, adult I will follow up wit h the patient in 4 weeks. Related to group home (current) use of opiate analgesic It is my medical opi jane that this patient will benefit from a fluoroscopically guided therapeutic caudal epidural injection. The patient has evidence of persistent radicular pain >6/10 on a numeric pain scale, with pain that is significant enough to interfere with normal activities and has failed 6 weeks of conservative treatment including a combination of medications, a supervised HEP/PT/healthcare liaison, despite ongoing active treatment. The patient has significant functional limitations resulting in diminished quality of life and impaired age appropriate activities. The patient understands the risks/benefits of this procedure and wishes to schedule this procedure. Related to Radiculopathy, lumbar region The patient notes th at the current medication regimen is helping with pain and functionality and denies significant side effects. There is no evidence of aberrant behavior or inconsistencies. Urine drug testing and E-FORSCE are consistent and demonstrate compliance with the treatment plan. We will continue the current medication regimen.The patient understands to take the medication only as prescribed. It was explained to the patient and the patient understands the potential side effects of the medications including sedation, drowsiness and respiratory depression. The patient understands not to drive or operate heavy machinery while on this medication. Related to Postlaminectomy syndrome Dietary management e ducation, guidance, and counseling Related to Body mass index (BMI) 50-59.9 , adult The patient notes th at the current medication regimen is helping with pain and functionality and denies significant side effects. There is no evidence of aberrant behavior. Urine drug testing and EFORSCE are consistent and demonstrate compliance with the treatment plan. We will continue the current medication regimen. Upon today's office visit, pill count of [facility] was inconsistent with previous fill date of 07/05/2016. Upon inspection, 60 tablets were counted despite the last prescription being filled on 07/05/2016 and taking as prescribed.The patient understands to take the medication only as prescribed. It was explained to the patient and the patient understands the potential side effects of the medications including sedation, drowsiness and respiratory depression. The patient understands not to drive or operate heavy machinery while on this medication. Related to Postlaminectomy syndrome I will follow up wit h the patient in 4 weeks. Related to group home (current) use of opiate analgesic We will obtain an MR I of the Lumbosacral Spine/Sacrum to evaluate for disc pathology, cord compression and nerve root compromise which may be contributing to the patient's symptoms. Related to Radiculopathy, lumbar region Continue to monitor effects of L PERLA. Related to Radiculopathy, lumbar region I will see the patie nt for follow up in 4 weeks. 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 Patient's last UDS is negative for oxycodone which is consistent. He states he has been taking his medications regularly. He last took oxycodone yesterday. He states that he has been sleepy due to an increase in his psychiatric medications. PATIENT HAS BEEN INSTRUCTED TO BRING IN PILL BOTTLES TO EACH VISIT. PATIENT WARNED TO TAKE MEDICATIONS PRESCRIBED. We will continue the current medication regimen.The patient understands to take the medication only as prescribed. It was explained to the patient and the patient understands the potential side effects of the medications including sedation, drowsiness and respiratory depression. The patient understands not to drive or operate heavy machinery while on this medication. Related to Postlaminectomy syndrome I will follow up wit h the patient in 4 weeks. 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 There is no evidence of aberrant behavior or inconsistencies. Urine drug testing and EFORSCE are consistent and demonstrate compliance with the treatment plan. We will continue the current medication regimen.The patient understands to take the medication only as prescribed. It was explained to the patient and the patient understands the potential side effects of the medications including sedation, drowsiness and respiratory depression. The patient understands not to drive or operate heavy machinery while on this medication. Related to Postlaminectomy syndrome It is my medical opi nion that this patient will benefit from a fluoroscopically guided therapeutic L5-S1 interlaminar epidural injection. The patient has evidence of persistent radicular pain >6/10 on a numeric pain scale, with pain that is significant enough to interfere with normal activities and has failed 6 weeks of conservative treatment including a combination of medications, a supervised HEP/PT/healthcare liaison, despite ongoing active treatment. The patient has significant functional limitations resulting in diminished quality of life and impaired age appropriate activities. The patient understands the risks/benefits of this procedure and wishes to schedule this procedure. Related to Radiculopathy, lumbar region Continue follow up with dominick tucker. Related to Cervical disc disorder with radiculopathy, unspecified cervical region It is my medical opi nion that this patient will benefit from a fluoroscopically guided therapeutic lumbar interlaminar epidural injection. 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 WE WILL CONTACT THEM TODAY FOR CLEARANCE. The patient has evidence of persistent radicular pain >6/10 on a numeric pain scale, with pain that is significant enough to interfere with normal activities and has failed 6 weeks of conservative treatment including a combination of medications, a supervised HEP/PT/healthcare liaison, despite ongoing active treatment. The patient has significant functional limitations resulting in diminished quality of life and impaired age appropriate activities. The patient understands the risks/benefits of this procedure and wishes to schedule this procedure. Related to Radiculopathy, lumbar region I will follow up wit h the patient in 4 weeks. 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 Related to Other spondylosis, cervical region The patient notes th at the current medication regimen is helping with pain and functionality and denies significant side effects. There is no evidence of aberrant behavior or inconsistencies. Urine drug testing and EFORSCE are consistent and demonstrate compliance with the treatment plan. We will continue the current medication regimen.The patient understands to take the medication only as prescribed. It was explained to the patient and the patient understands the potential side effects of the medications including sedation, drowsiness and respiratory depression. The patient understands not to drive or operate heavy machinery while on this medication. Related to Postlaminectomy syndrome Dietary needs education Related to Body mass index (BMI) 50-59.9 , adult I will see the patie nt for follow up in 4 weeks. 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 PATIENT WILL NEED CLEARANCE FROM DR. STEPHENS, THE BATCH MIXER OPERATOR TO STOP ELIQUIS PRIOR TO INJECTION. The patient has evidence of persistent radicular pain >6/10 on a numeric pain scale, with pain that is significant enough to interfere with normal activities and has failed 6 weeks of conservative treatment including a combination of medications, a supervised HEP/PT/healthcare liaison, despite ongoing active treatment. The patient has significant functional limitations resulting in diminished quality of life and impaired age appropriate activities. The patient understands the risks/benefits of this procedure and wishes to schedule this procedure.Patient's gabapentin increased to 800mg TID. Related to Radiculopathy, lumbar region Patient is scheduled for left cervical MBB. Related to Other spondylosis, cervical region As the patient is ex periencing incomplete pain relief with the current medications we will adjust the regimen as follows: Increase MS Contin to 30mg q12. Continue Percocet 10/325mg q6 hours PRN. There is no evidence of aberrant behavior or inconsistencies. Urine drug testing and EFORSCE are consistent and demonstrate compliance with the treatment plan. The patient understands to take the medication only as prescribed. It was explained to the patient and the patient understands the potential side effects of the medications including sedation, drowsiness and respiratory depression. The patient understands not to drive or operate heavy machinery while on this medication. Related to Postlaminectomy syndrome I will see the patie nt for follow up in 4 weeks. Related to group home (current) use of opiate analgesic We will obtain an MR I of the Lumbosacral Spine to evaluate for disc pathology, cord compression or nerve root compromise which may be contributing to the patient's symptoms. Related to Radiculopathy, lumbar region It is my medical opi nion that this patient will benefit from fluoroscopically guided left C3-4, C4-5, C5-6 facet joint nerve block. The patient has evidence of non-radiating left-sided cervical pain, pain in the cervical spine rated 9/10 on a numeric pain scale, with pain that is significant enough to interfere with normal activities and has failed 6 weeks of conservative treatment including a combination of medications, a supervised HEP/PT/healthcare liaison. The patient has significant functional limitations resulting in diminished quality of life and impaired age appropriate activities. The patient understands the risks/benefits of this procedure and wishes to schedule this procedure. Related to Other spondylosis, cervical region The patient notes th at the current medication regimen is helping with pain and functionality and denies significant side effects. There is no evidence of aberrant behavior or inconsistencies. Urine drug testing and EFORSCE are consistent and demonstrate compliance with the treatment plan. We will continue the current medication regimen.The patient understands to take the medication only as prescribed. It was explained to the patient and the patient understands the potential side effects of the medications including sedation, drowsiness and respiratory depression. The patient understands not to drive or operate heavy machinery while on this medication. Related to Postlaminectomy syndrome We will obtain an MR I of the Cervical Spine to evaluate for disc pathology, cord compression or nerve root compromise which may be contributing to the patient's symptoms. Related to Cervical disc disorder with radiculopathy, unspecified cervical region Patient is being fol lowed by an blood donor recruiter supervisor for further assessment of this concern. Related to Dizziness Increase gabapentin to QID. Rela andrade to Cervical disc disorder with radiculopathy, unspecified cervical region I will see the nu henriquez for follow up in 4 weeks. 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 we will adjust the regimen as follows: Start MS Contin 15mg q12, continue Percocet 10/325mg q6 hours PRN. There is no evidence of aberrant behavior or inconsistencies. Urine drug testing and EFORSCE are consistent and demonstrate compliance with the treatment plan. The patient understands to take the medication only as prescribed. It was explained to the patient and the patient understands the potential side effects of the medications including sedation, drowsiness and respiratory depression. The patient understands not to drive or operate heavy machinery while on this medication. Related to Postlaminectomy syndrome Increase gabapentin to 300mg TID . Related to Radiculopathy, cervical region I will see the nu nt for follow up in 4 weeks. Related to group home (current) use of opiate analgesic The patient notes th at the current medication regimen is helping with pain and functionality and denies significant side effects. There is no evidence of aberrant behavior or inconsistencies. Urine drug testing and EFORSCE are consistent and demonstrate compliance with the treatment plan. We will continue the current medication regimen.The patient understands to take the medication only as prescribed. It was explained to the patient and the patient understands the potential side effects of the medications including sedation, drowsiness and respiratory depression. The patient understands not to drive or operate heavy machinery while on this medication. Related to Postlaminectomy syndrome Dietary needs education Related to Body mass index (BMI) 50-59.9 , adult Assessments Type Assessment Date assessment Postlaminectomy syndrome 2016 assessment Radiculopathy, lumbar region Mar assessment Other spondylosis, cervical elisabeth on assessment group home (current) use of opiat e analgesic impression Last UDS was negative as expecte d will retest today. assessment Other longterm (current) drug t herapy Mental Status Date Cognitive Assessment Orientation - [place] ed to time, place, person, situation. Patient Care Teams Name Effective Dates (start - stop) Status Members No Information
--- NOTE | ~2025-02-21 | CT_ITS ---
CLINICAL HISTORY: fall intoxicated CT cervical spine without contrast Comparison: CT/SR - CT CERVICAL SPINE WITHOUT IV CONTRAST - 12/21/23 01:03 EDT Findings: C6-7: Grade 1 anterolisthesis of C6 over C7. Mild facet arthropathy. Mild bilateral spondylitic neural foraminal stenosis. Prior anterior cervical fusion of C4/C5/C6. Visualized intracranial contents are unremarkable. Soft tissues of the neck are normal. Lung apices are clear. IMPRESSION: 1. Grade 1 anterolisthesis of C6 over C7. 2. Prior anterior cervical fusion of C4/C5/C6. This document has been electronically signed by: David Villalpando MD on 02/21/2025 21:13:43
--- NOTE | ~2025-02-21 | CT_ITS ---
CLINICAL HISTORY: fall, intoxicated CT head without contrast Comparison: CT/SR - CT HEAD WITHOUT IV CONTRAST - 12/21/23 01:03 EDT Findings: No intra-axial mass, midline shift, hydrocephalus, or acute hemorrhage. No significant atrophy-like change or white matter disease. The visualized paranasal sinuses and mastoid air cells are normal. The orbits are unremarkable. No skull fracture. IMPRESSION: 1. No acute intracranial findings. This document has been electronically signed by: David Villalpando MD on 02/21/2025 20:50:36
[2025-02-21 19:12] VITALS: BP 92/56; PULSE 94; RESP 20; TEMP 36.9; O2SAT 99; BMI 23.8
--- NOTE | 2025-02-21 19:12 | ED.GENADULT ---
HPI - General Adult General Chief complaint: Psychiatric Symptoms Stated complaint: CRISIS Time Seen by Provider: 02/21/25 21:17 Source: patient Mode of arrival: ambulatory Limitations: altered mental status (Intoxicated) History of Present Illness ED Provider: Dr. Letitia Callahan HPI narrative: 49-year-old male with with a history of cocaine use disorder, alcohol use disorder, housing insecurity, major depressive disorder, PTSD presenting with a fall that occurred today. Reports that he has been drinking and using cocaine and fell forward, hitting his face on the ground. Unsure of LOC. denies neck pain. Ambulatory into the emergency department without assistance. Denies other injuries besides his face. Admits that he is feeling depressed about using drugs and feels ?I can not keep doing this?. He is asking for help. He admitted to triage that he had a plan to overdose to kill himself. He denies this to me. He is feeling extremely depressed though in the setting of his mother dying a few months ago. Admits he is currently living with his cousin. Denies other illicit substance use. Related Data Home Medications ?Medication ?Instructions ?Recorded ?Confirmed baclofen 10 mg tablet 10 mg PO BID 11/21/23 02/22/25 duloxetine 60 mg capsule,delayed 60 mg PO BID 11/21/23 02/22/25 release hydroxyzine HCl 25 mg tablet 25 mg PO BID 11/21/23 02/22/25 meloxicam 15 mg tablet 15 mg PO DAILY 11/21/23 02/22/25 terbinafine HCl 250 mg tablet 250 mg PO DAILY 11/21/23 02/22/25 trazodone 150 mg tablet 150 mg PO BEDTIME 11/21/23 02/22/25 oxycodone-acetaminophen 7.5 mg-325 1 tab PO TID PRN Pain (Scale Score 11/23/23 02/22/25 mg tablet 7-10) clonidine HCl 0.1 mg tablet 0.1 mg PO BID PRN Anxiety 02/22/25 02/22/25 melatonin 3 mg tablet 3 mg PO BEDTIME PRN Sleep 02/22/25 02/22/25 quetiapine 50 mg tablet 50 - 100 mg PO BEDTIME PRN anxiety 02/22/25 02/22/25 Allergies Allergy/AdvReac Type Severity Reaction Status Date / Time Penicillins Allergy Unknown Rash, Verified 02/21/25 19:14 Throat closes seafood Allergy Unknown Rash, Verified 02/21/25 19:14 throat closes shellfish derived Allergy Unknown Rash Verified 02/21/25 19:14 Review of Systems Review of Systems: As per HPI, full review of systems performed and negative but for the above mentioned pertinent positives and negatives. [facility] Past Medical History Medical History Routine medical exam Obesity (BMI 30-39.9) History of DVT (deep vein thrombosis) Back pain PTSD (post-traumatic stress disorder) Anxiety Depression HTN (hypertension) Slipped cervical disc Degenerative disc disease Surgical History History of repair of hiatal hernia History of sleeve gastrectomy History of fusion of cervical spine Family History Family History Father Type 2 diabetes mellitus History of stroke Mother HTN (hypertension) Osteoporosis Sister Obesity HTN (hypertension) Hyperlipidemia Sister No problems noted. Sister No problems noted. Son No problems noted. Son No problems noted. Son No problems noted. Son No problems noted. Daughter No problems noted. Daughter No problems noted. Daughter No problems noted. Social History Social History Household Members: Other Household Members Other:: Roommate Housing: Apartment Do you presently have visiting nurse or other home services: No Alcohol intake: current Alcohol intake frequency: 3 or more drinks per day Alcohol type: hard liquor Patient Tobacco Use Status: Never used Tobacco Smoked in Last 30 Days: Yes e-Cigarette/Vaping Use: Former Use Second Hand Smoke Exposure: No Substance Use Type: Crack/Cocaine Advance Directives: No Advance Directives Information Provided: No Do you have a plan to hurt others: No Plan service: No Sexual orientation: Straight/Heterosexual Physical Exam ED Exam Exam: GENERAL: Appears intoxicated, GCS 13, eyes open to voice, slurred speech, unkempt. SKIN: Normal skin color for ethnicity, warm, dry, no rashes noted. HEENT: Normocephalic, atraumatic, no stridor, posterior oropharynx nonerythematous, dentition intact, no raccoon's eyes, no forman sign, no raccoon's eyes, no bogginess to the scalp, EOMI, pupils are pinpoint bilaterally, reactive to light. NECK: Soft, supple, no step-offs, no deformities, no lymphadenopathy. CHEST: Heart regular tachycardia, no murmurs, symmetric chest rise and fall. PULMONARY: Clear to auscultation bilaterally, diminished at the bases, no labored breathing, no wheezes/rhales/rhonchi. ABDOMINAL: Soft, nondistended, positive bowel sounds in all quadrants. : Deferred. MUSCULOSKELETAL: Normal tone, full range of motion, no deformities, no peripheral edema. NEURO: GCS 13, eyes open to voice, slightly slurred speech, CN II through XII intact, equal strength and sensation bilateral upper and lower extremities, no focal neurologic deficits. PSYCHIATRIC: Flat affect, poor eye contact, suicidal. Vital Signs: Vital Signs - 24 hr 02/21/25 19:12 02/22/25 02:28 02/22/25 10:04 Temperature 98.5 F 98.3 F 98.5 F Pulse Rate 94 85 77 Respiratory Rate 20 17 20 Blood Pressure 92/56 L 126/76 143/100 H Pulse Oximetry 99 99 97 Oxygen Delivery Method Room Air Room Air Room Air BMI result Body Mass Index 23.8 Course Course Course Narrative: This is a Rapid Medical Examination (RME) performed by Mara Rider PA-C in triage. Full HPI, ROS, assessment and treatment plan per primary provider in the Main ED. Hx: 49 yo M here for eval of SI w/ plan to overdose. admits to using cocaine and consuming etoh. last used yesterday. last drink 5 hours ago. admits to falling some time between yesterday and today while drinking. cannot give me an exact time. no LOC. no thinners. bit his upper lip during fall, admits to facial pain. PE/vitals: small lac w/ swelling to upper lip, dentition appears intact, perrla, no other trauma noted to head/face, appears intoxicated. Plan: CT head/c spine, med clearance, care team Reevaluation(s) Reevaluation #1: Patient currently medically cleared. Requesting crisis for substance use and suicidality. Awaiting care team evaluation. Time: 23:13 Reevaluation #2: Time: Date: 02/22/25 Provider: DR. Pace Patient in physician observation for psychiatric evaluation.? No acute events reported overnight. No current complaints. VS stable.? Patient is in bed search status. Will continue to monitor. Reevaluation #3: Time: 14:10, Date: 02/22/25 Provider: DR. Pace. Discontinue physician observation patient will be admitted to . Time: 14:10 Medications Administered Generic Name Dose Route Start Last Admin Trade Name Freq PRN Reason Stop Dose Admin Baclofen 10 mg 02/22/25 09:30 02/22/25 10:38 Baclofen 10 Mg Tablet PO 10 mg BID TRACEY Administration Duloxetine HCl 60 mg 02/22/25 09:30 02/22/25 10:39 Duloxetine Hcl 60 Mg Capsule.Dr PO 60 mg BID TRACEY Administration Hydroxyzine HCl 25 mg 02/22/25 09:30 02/22/25 10:36 Hydroxyzine Hcl 25 Mg Tablet PO 25 mg BID TRACEY Administration Naproxen 500 mg 02/22/25 10:30 02/22/25 10:46 Naproxen 500 Mg Tablet PO 500 mg BID TRACEY Administration Oxycodone HCl 7.5 mg 02/22/25 10:45 02/22/25 10:47 Oxycodone Hcl Immed Release 5 Mg Tablet PO 7.5 mg TID PRN Administration Pain (Scale Score 7-10) Medical Decision Making Medical Decision Making MDM Narrative: Patient presents with psychologic complaints. Differential diagnosis includes suicidal ideations, homicidal ideations, depression, anxiety, mood disorder, decompensated mental illnesses such as schizophrenia or bipolar disorder, medication noncompliance, among many others. Medical clearance protocol was initiated. 6:57 AM 02/22/2025 (Dr. Letitia Callahan, D.O.) signing out to oncoming provider pending placement and final disposition. Differential Diagnosis Differential Diagnoses: The differential diagnosis associated with the presentation includes (As above) Admission/Observation Consideration of admission/observation: Escalation of care including admission/observation considered Consult Healthcare Provider Management of the patient was discussed with: Behavioral Health Provider Lab Data [facility] Lab Attestation statement: I reviewed the patient's lab results. 02/21/25 19:22 02/21/25 19:22 Labs: Lab Results 02/21/25 02/22/25 Range/Units 19:22 01:10 WBC 9.6 (4.8-10.8) X10*3/uL RBC 4.02 L (4.60-5.80) X10*6/uL Hgb 12.7 L (14.0-18.0) g/dl Hct 36.6 L (42.0-52.0) % MCV 91.0 (80.0-98.0) fL MCH 31.6 (27.0-33.0) pg MCHC 34.7 (31.0-36.0) g/dl RDW 13.2 (11.0-16.0) % Plt Count 229 D (160-400) X10*3/uL MPV 9.4 (9.4-12.4) fL Immature Gran % (Auto) 0.4 (0.0-0.4) % Neut % (Auto) 56.8 (45-73) % Lymph % (Auto) 29.8 (20-40) % Crane % (Auto) 10.6 (2-11) % Eos % (Auto) 1.6 (0-4) % Baso % (Auto) 0.8 (0-2) % Lymph # (Auto) 2.9 (1.2-4.9) X10*3/uL [place]ane # (Auto) 1.0 (0.1-1.2) X10*3/uL Eos # (Auto) 0.2 (0.0-0.4) X10*3/uL Baso # (Auto) 0.1 (0.0-0.2) X10*3/uL Abs Immat Gran (auto) 0.04 H (0.00-0.03) X10*3/uL Absolute Neuts (auto) 5.5 (2.0-8.3) x10*3/uL Absolute Nucleated RBC 0.000 (0.0-0.012) X10*3/uL Nucleated RBC % (auto) 0.0 (0.0-0.2) /100WBC Sodium 146 H (135-145) mmol/L Potassium 3.6 (3.3-5.1) mmol/L Chloride 109 H (96-108) mmol/L Carbon Dioxide 29 (22-29) mmol/L Anion Gap 12 (12-20) BUN 11 (9-16) mg/dL Creatinine 0.80 (0.5-1.4) mg/dL Estim Creat Clear Calc 103.0 Estimated GFR > 60 Random Glucose 86 (60-115) mg/dL Calcium 8.8 D (8.4-10.2) mg/dL Magnesium 1.9 (1.6-2.6) mg/dL Total Bilirubin 0.1 (0.0-1.0) mg/dL AST 39 H (5-37) U/L ALT 46 H (0-40) U/L Alkaline Phosphatase 99 (39-117) U/L Total Protein 6.4 L (6.5-8.0) g/dL Albumin 3.8 (3.5-5.0) g/dL Lipase 41 (8-78) U/L Urine Color Yellow Urine Appearance Clear Urine pH 5.5 (5.0-9.0) Ur Specific [place] 1.025 (1.005-1.025) Urine Protein Negative (Neg-Trace) mg/dL Urine Glucose (UA) Negative (Negative) mg/dL Urine Ketones Negative (Negative) mg/dL Urine Blood Negative (Negative) Urine Nitrite Negative (Negative) Ur Leukocyte Esterase Negative (Negative) Salicylates < 5.0 L (15-30) mg/dL Urine Opiates Screen Not Detected (Not Detect) Ur Buprenorphine Scrn Not Detected (Not Detect) ng/mL Ur Oxycodone Screen Not Detected (Not Detect) ng/mL Urine Methadone Screen Not Detected (Not Detect) ng/mL Urine Fentanyl Screen Not Detected (Not Detect) Acetaminophen < 3 (<30) mcg/mL Ur Barbiturates Screen Not Detected (Not Detect) Ur Phencyclidine Scrn Not Detected (Not Detect) Ur Amphetamines Screen Not Detected (Not Detect) U Benzodiazepines Scrn Not Detected (Not Detect) Urine Cocaine Screen POSITIVE H (Not Detect) U Marijuana (THC) Screen Not Detected (Not Detect) Ethyl Alcohol 206 mg/dL External Record Review External record reviewed: Inpatient record Social Determinants Patient?s care significantly limited by Social Determinants of Health including: Inadequate housing, Problems related to primary support group and Other Social Determinant of Health Discharge Plan Discharge Clinical Impression: Alcohol use disorder, Cocaine use disorder, Ground-level fall, Laceration of lower lip, Suicidal ideation Patient Disposition: Admitted As Inpatient Interventions: [place]-Suicide Risk Severity Scale Last Done: 02/21/25 21:15 Print Language: Thai
--- OUTSIDE RECORDS SUMMARY | 2025-02-21 19:21 | XMS_ITS | Patient Health Record ---
Author Organization [facility], [place] Address [address] [place] [id number] Care Team Providers Care Trimmer And Borer Machine Operator Name Role Phone PINELESS DO, PABLO Unavailable [phone] Reason For Referral No Information Plan Of Treatment No Information
--- OUTSIDE RECORDS SUMMARY | 2025-02-21 19:21 | XMS_ITS | Patient Health Record ---
Author Organization [facility] Address [address] [place] [id number] Care Team Providers Care Mailing Section Clerk Name Role Phone Link Danilo Powell Primary Care Provider Hector Hargrove Unavailable [phone] Allergies Allergen (clinical drug ingredient) Drug/Non Drug Allergy documented on EMR Reaction Allergy Type Onset Date Status PCN, shellfish (uncoded) Unknown Allergy Active Reason For Referral No Information Medications Medication SIG (Take, Route, Fr equency, Duration) Notes Start Date End Date Status ALPRAZolam Active traZODone HCl Active busPIRone HCl Active Tizanidine Comfort Pac Active Eliquis Active Gabapentin Active oxyCODONE-Acetaminophen Active Metoprolol Succinate Active Citalopram Hydrobromide Active Social History Tobacco Use: Social History Observation Description Date Details (start date - stop date) Never Smoker NA - NA Tobacco Use/Smoking Question Answer Notes Are you a nonsmoker Problems Problem Type SNOMED Code ICD Code Onset Dates Problem Status W/U Status Risk Notes Problem Embolism from thrombosis of vein of lower extremity (307413807) Acute embolism and thrombosis of unspecified deep veins of unspecified lower extremity (I82.409) Active confirmed Plan Of Treatment No Information Insurance Providers Payer Name Payer Address Payer Phone Subscriber Number Group Number Insured Name Patient Relationship to Insured Coverage Start Date Coverage End Date [employer] [place] [employer] [address] [place] [address] [id number] Self - patient is the insured Medical (General) History Medical History History ICD Code M.O. Surgical History Surgery Date(Month/Year) cervical spine fusion
--- OUTSIDE RECORDS SUMMARY | 2025-02-21 19:22 | XMS_ITS | Patient Health Record ---
Author Organization [facility] Address [address] [place] [address] Care Team Providers Care Mortgage Advisor Name Role Phone Micheal Phillips Primary Care Provider U SARA Coleman Unavailable [phone] Allergies Allergen (clinical drug ingredient) Drug/Non Drug Allergy documented on EMR Reaction Allergy Type Onset Date Status penicillin V Penicillin V Potassium Intolerance-unkn own Drug Allergy Active Reason For Referral No Information Medications Medication SIG (Take, Route, Frequency, Duration) Notes Start Date End Date Status traZODone HCl 150 mg 1 po at HS oral 06/04/2016 Active tiZANidine HCl 4 mg 1 p.o. daily q 6hr oral 2016 Active Metoprolol Tartrate 25 mg 1 p.o. b.i.d. oral 06/04 Active ALPRAZolam 2 mg 1 p.o. b.i.d. oral 06/04/2016 Active Percocet 10-325 mg 1 p.o. b.i.d. oral 10/13/2016 Active Lisinopril 2.5 mg 1 p.o. daily oral 06/04/2016 Active Pantoprazole Sodium 40 mg 1 p.o. daily oral 2016 Active glipiZIDE 5 mg 1 po daily oral 06/26/2016 Active RisperDAL 2 mg 1 p.o. daily oral 06/04/2016 Active Problems Problem Type SNOMED Code ICD Code Onset Dates Problem Status W/U Status Risk Notes Problem Type II diabetes mellitus without complication (530679640) Type 2 diabetes mellitus without complications (E11.9) 2016 Active confirmed Smooth- ICD9 Name: Type 2 Diabetes Mellitus Without Complications-[facility]- Entry Dt: 10/13/2016; Dr: BASIA Problem Morbid obesity (disorder) (742494075) Morbid (severe) obesity due to excess calories (E66.01) 2016 Active confirmed Smooth- ICD9 Name: Morbid (severe) Obesity Due To Excess Calories-Unchange d- Entry Dt: 10/13/2016; : BASIA Problem Obstructive sleep apnea syndrome (disorder) (75606102) Obstructive sleep apnea (adult) (pediatric) (G47.33) 2016 Active confirmed Smooth- ICD9 Name: Obstructive Sleep Apnea (adult) (pediatric)-Prima ry- Entry Dt: 10/13/2016; Dr: BASIA Problem Essential hypertension (95748609) Essential (primary) hypertension (I10) 2016 Active confirmed Smooth- ICD9 Name: Essential (primary) Hypertension-New- Entry Dt: 10/13/2016; : BASIA Amato Hypertensive heart disease without congestive heart failure (91212081) Hypertensive heart disease without heart failure (I11.9) 2016 Active confirmed Smooth- ICD9 Name: Hypertensive Heart Disease Without Heart Failure-Primary- Entry Dt: 10/13/2016; Dr: BRIA Problem Phlebitis and thrombophlebitis of lower extremities, unspecified (I80.3) 2016 Active confirmed Smooth- ICD9 Name: Phlebitis And Thrombophlebitis Of Lower Extremities, Unspecified-Uncha nged- Entry Dt: 10/13/2016; : BASIA Problem Dyspnea (098471884) Dyspnea, unspecified (R06.00) 2016 Active confirmed Smooth- ICD9 Name: Dyspnea-Stable- Entry Dt: 10/13/2016; : BRIA Problem Chest pain (51002582) Chest pain, unspecified (R07.9) 2016 Active confirmed Smooth- ICD9 Name: Chest pain, unspecified-Resol kate- Entry Dt: 06/26/2016; End Dt: 06/26/2016; : BRIA Plan Of Treatment No Information Insurance Providers Payer Name Payer Address Payer Phone Subscriber Number Group Number Insured Name Patient Relationship to Insured Coverage Start Date Coverage End Date [facility] [address] [place] [address] [id number] KOSTAS BROWN Spouse - patient is the spouse of the insured Medical (General) History Medical History History ICD Code MEDICAL Type 2 diabetes mellitus without complic ations E11.9 Morbid (severe) obesity due to excess ca lories E66.01 Obstructive sleep apnea G47.33 cervical disk onychomycosis depression bipolar CARDIOVASCULAR Essential (primary) hypertension I10 Hypertensive heart disease without heart failure I11.9 Phlebitis and thrombophlebitis of lower extremities, unspecified I80.3 DVT LUE post neck surgery 2016 Dyspnea, unspecified R06.00 Surgical History Surgery Date(Month/Year) Shoulder Surgery, Hernia Repair left upper extreity doppler - DVT - [facility] 2015
--- OUTSIDE RECORDS SUMMARY | 2025-02-21 19:22 | XMS_ITS | Patient Health Record ---
Author Organization [facility] Address [address] [place], [place] [id number] Care Team Providers Care Mix Technician Name Role Phone Dewayne Lawrence Unavailable [phone] Reason For Referral No Information Medications Medication SIG (Take, Route, Frequency, Duration) Notes Start Date End Date Status traMADol HCl 1 every 6 hours 11/29/2014 Active Medrol as directed 11/28/2015 Not-Glenn ing Restoril 1 every bedtime 11/29/2014 Act linda Flexeril 10mgTablet One to two tabs every 8 hours 01/08/2015 Active Problems Problem Type SNOMED Code ICD Code Onset Dates Problem Status W/U Status Risk Notes Problem Low back pain (087375597) Low back pain (M54.5) Active confirmed Plan Of Treatment No Information Insurance Providers Payer Name Payer Address Payer Phone Subscriber Number Group Number Insured Name Patient Relationship to Insured Coverage Start Date Coverage End Date [facility] [address] [place] [address] [id number] Ghada Brown Spouse - patient is the spouse of the insured [employer] [facility] [address] [place] [address] [id number] Jamil Brown Self - patient is the insured Medical (General) History Medical History History ICD Code Mr. Brown relates continue d pain in his neck into was left upper extremity.. The pain is not nearly as severe as it was prior to surgery. However it is still bothersome. He also relates lower back pain concentrated in the mid lumbar region. He denies any significant lower extremity symptoms. The patient relates that he has not undergone physical therapy for his neck or his lower back recently.
[2025-02-21 19:26] LABS: MANUAL DIFF FLAG NO
[2025-02-21 19:31] LABS: Hematocrit 36.6 % (42.0-52.0); Hemoglobin 12.7 g/dl (14.0-18.0); Imm Gran Abs Auto 0.04 X10*3/uL (0.00-0.03); Imm Gran Pct Auto 0.4 % (0.0-0.4); Lymphocytes Absolute Auto 2.9 X10*3/uL (1.2-4.9); Mean Corpuscular HGB Conc 34.7 g/dl (31.0-36.0); Mean Corpuscular Hemoglobin 31.6 pg (27.0-33.0); Mean Corpuscular Volume 91.0 fL (80.0-98.0); NRBC Abs Auto 0.000 X10*3/uL (0.0-0.012); NRBC Pct Auto 0.0 /100WBC (0.0-0.2); Platelet Count 229 X10*3/uL (160-400); Red Blood Count 4.02 X10*6/uL (4.60-5.80); White Blood Count 9.6 X10*3/uL (4.8-10.8)
[2025-02-21 19:43] LABS: Alanine Aminotransferase 46 U/L (0-40); Albumin Level 3.8 g/dL (3.5-5.0); Alkaline Phosphatase 99 U/L (39-117); Anion Gap 12 (12-20); Aspartate Amino Transferase 39 U/L (5-37); Blood Urea Nitrogen 11 mg/dL (9-16); Calcium 8.8 mg/dL (8.4-10.2); Carbon Dioxide 29 mmol/L (22-29); Chloride 109 mmol/L (96-108); Creatinine Clr Calc Pharmacy 103.0; Estimated Glomerular Filt Rate > 60; Lipase 41 U/L (8-78); Magnesium 1.9 mg/dL (1.6-2.6); Potassium 3.6 mmol/L (3.3-5.1); Sodium 146 mmol/L (135-145); Total Protein 6.4 g/dL (6.5-8.0)
[2025-02-21 19:44] LABS: Acetaminophen LAB < 3 mcg/mL (<30); Salicylate < 5.0 mg/dL (15-30)
--- NOTE | 2025-02-21 21:15 | PC.NURSE ---
Pt presents with suicidal ideation, states that he was trying to harm self by binge drinking whiskey and snoring cocaine for the last week, denies HI, pt states that he hit his head on the floor intentionally aaox4, pt resting in the bed NAD, sitter at bedside
--- NOTE | 2025-02-22 00:15 | PC.NURSE ---
med rec completed at this time, pt able to verbalize home medications
[2025-02-22 01:17] LABS: Appearance Urine Clear; Glucose Urine UA Negative (Negative); PH 5.5 (5.0-9.0); Specific Gravity - Urine 1.025 (1.005-1.025)
[2025-02-22 01:29] LABS: Cannabinoid Screen Urine Not Detected (Not Detect)
[2025-02-22 02:28] VITALS: BP 126/76; PULSE 85; RESP 17; TEMP 36.8; O2SAT 99
--- NOTE | 2025-02-22 07:08 | PC.NURSE ---
Assumed care, report received. Pt is currently sleeping, safety maintained.
--- NOTE | 2025-02-22 09:26 | ECG_ITS ---
Test Reason : CHECK PROLONGED QT Blood Pressure : */* mmHG Vent. Rate : 64 BPM Atrial Rate : 64 BPM P-R Int : 154 ms QRS Dur : 88 ms QT Int : 366 ms P-R-T Axes : 53 50 55 degrees QTcB Int : 377 ms Normal sinus rhythm Normal ECG When compared with ECG of 21-Dec-2023 00:32, HI interval has increased Referred By: Debra Pace Electronically Signed By: Kailash Vega
[2025-02-22 10:04] VITALS: BP 143/100; PULSE 77; RESP 20; TEMP 36.9; O2SAT 97
--- NOTE | 2025-02-22 10:04 | PHA.MEDREC ---
Addendum entered by Deyvi Ni RPh 02/22/25 10:21: MED REC REVIEWED BY [facility] Original Note: Pharmacy Consult ? Medication Reconciliation Pharmacy has Reviewed the medication reconciliation done by nursing. Spoke to patient to confirm med list. Patient confirmed he is still taking Baclofen 10, Duloxetine 60 mg, and Hydroxyzine 25 mg even though last fill date was 09/13/24 for 28 days, Quetiapine is now 50-100 mg at bedtime from 100-200 mg at bedtime, and trazadone 150 mg at bedtime even though claims has Trazadone 100-200 mg at bedtime Patient insist he takes the 50 mg tablets.
[2025-02-22] MEDS: oxyCODONE HCl Immed Release 5 MG TABLET 7.5 MG PO (10:47)
[2025-02-22 14:50] VITALS: PULSE 77
[2025-02-22 17:55] VITALS: BP 145/99; PULSE 78; RESP 16; TEMP 36.8; O2SAT 97
[2025-02-22 18:01] VITALS: BMI 24.2
--- NOTE | 2025-02-22 18:41 | PC.ADMIT ---
Jamil was admitted to M3 from [facility] on a CV for treatment of MDD, Alcohol Use Disorder and Cocaine Use Disorder. Prior to admission, he was living with his cousin after his mother passing away a few months ago. He has been drinking alcohol excessively and using cocaine excessively. He than had SI with a plan to OD. His last drink and cocaine use was 02/21/25. Upon admission assessment, he is A&O x4, calm, pleasant and cooperative. His mood is depressed and his affect is congruent with his mood. He denies current SI/HI/AVH and reports being able to come to staff if these thoughts occur. His thought process is clear and linear, he does not appear to have any perceptual disturbances. He reports his appetite is intact and denies any recent weight loss. He reports poor sleep due to racing thoughts. His tox screen was positive for cocaine and his BAL was 206. He reports a recent fall after drinking too much alcohol, hitting his face. All testing from the ED were negative. He has a PMH HTN, chronic back pain, slipped cervical disc and degenerative disc disease. He reports continued pain to his face and back. His skin check was unremarkable. He was placed on 15 minute checks for safety.
--- NOTE | 2025-02-22 18:55 | PC.NURSE ---
Patient refused Flu vaccine
[2025-02-22 20:00] VITALS: BP 132/94; PULSE 85; RESP 16; TEMP 36.4; O2SAT 98
[2025-02-23 08:00] VITALS: BP 133/81; PULSE 92; RESP 16; TEMP 36.6; O2SAT 99
--- NOTE | 2025-02-23 08:25 | P.CONHOSP_ITS ---
History of Present Illness Data of Consult Service Date: 02/23/25 Primary Care Provider: Unknown Physician HPI Reason for consult: Medical management 49-year-old male with a past medical history of cocaine use disorder, obesity, history of DVT, chronic back pain, anxiety, depression, hypertension, alcohol use disorder, major depressive disorder, PTSD presented to the ED with a fall. Patient reported that he had been drinking and using cocaine and fell forward hitting his face, unsure if he lost consciousness. He admitted to triage that he had a plan to overdose to kill himself, but denied this in the ED. in the ED his workup revealed ETOH level of 206, positive cocaine on tox screen, urine without any evidence of infection. Mild elevation in AST and ALT. Renal function within normal limits, mild anemia, no leukocytosis. Head CT negative for any acute intracranial findings. Cervical spine reveals a prior anterior cervical fusion of C4 through C6 otherwise no fracture or abnormality. Patient denies any medical concerns except for chronic lower back pain. He denies any shortness of breath, dizziness, lightheadedness, abdominal pain, dysuria or any other concerning symptoms. Review of Systems 2 Review of Systems: Denies any shortness of breath, chest pain, dizziness, lightheadedness, abdominal pain or discomfort, nausea vomiting or diarrhea PMFSH Medical History Routine medical exam Obesity (BMI 30-39.9) History of DVT (deep vein thrombosis) Back pain PTSD (post-traumatic stress disorder) Anxiety Depression HTN (hypertension) Slipped cervical disc Degenerative disc disease Family History Father Type 2 diabetes mellitus History of stroke Mother HTN (hypertension) Osteoporosis Sister Obesity HTN (hypertension) Hyperlipidemia Sister No problems noted. Sister No problems noted. Son No problems noted. Son No problems noted. Son No problems noted. Son No problems noted. Daughter No problems noted. Daughter No problems noted. Daughter No problems noted. Surgical History History of repair of hiatal hernia History of sleeve gastrectomy History of fusion of cervical spine Social History Household Members: Family Household Members Other:: [place] Housing: Apartment Do you presently have visiting nurse or other home services: No Alcohol intake: current Alcohol intake frequency: 3 or more drinks per day Alcohol type: hard liquor Patient Tobacco Use Status: Never used Tobacco Smoked in Last 30 Days: Yes e-Cigarette/Vaping Use: Former Use Second Hand Smoke Exposure: No Substance Use Type: Crack/Cocaine Currently Displaying Signs/Symptoms of Drug Intoxication Withdrawal: No Have you been hit, kicked, punched, or otherwise hurt by someone within the past year? If so, by whom?: No Do you feel safe in your current relationship?: No Current Relationship Is there a partner from a previous relationship who is making you feel unsafe now?: No Are you made to feel afraid or neglected: No Advance Directives: No Advance Directives Information Provided: No Do you have thoughts of harming others: None Do you have a plan to hurt others: No Plan Recently lost weight without trying: No How much weight loss: Not applicable Eating poorly because of decreased appetite: No Nutrition screen score: 0 Nutrition Risks: No Nutritional Risk Poor oral hygiene: No service: No Sexual orientation: Straight/Heterosexual Meds Allergies Allergy/AdvReac Type Severity Reaction Status Date / Time Penicillins Allergy Unknown Rash, Verified 02/21/25 19:14 Throat closes seafood Allergy Unknown Rash, Verified 02/21/25 19:14 throat closes shellfish derived Allergy Unknown Rash Verified 02/21/25 19:14 Active Medications: Current Medications Acetaminophen (Acetaminophen 325 Mg Tablet) 650 mg PO Q6H PRN PRN Reason: Headache/Pain, Scale 1-10 Al Hydroxide/Mg Hydroxide (Magnesium Hydrox/Alum Hydrox 30 Ml Oral.Susp) 30 ml PO Q6H PRN PRN Reason: Heartburn/Nausea Baclofen (Baclofen 10 Mg Tablet) 10 mg PO BID [facility] Last Admin: 02/22/25 20:16 Dose: 10 mg Clonidine HCl (Clonidine Hcl 0.1 Mg Tablet) 0.1 mg PO BID PRN; Protocol PRN Reason: Anxiety Duloxetine HCl (Duloxetine Hcl 60 Mg Capsule.Dr) 60 mg PO BID [facility] Last Admin: 02/22/25 20:17 Dose: 60 mg Hydroxyzine HCl (Hydroxyzine Hcl 25 Mg Tablet) 25 mg PO Q6H PRN PRN Reason: mild anxiety Lorazepam (Lorazepam 1 Mg Tablet) 1 mg PO Q2H PRN PRN Reason: CIWA 8-11 Lorazepam (Lorazepam 1 Mg Tablet) 2 mg PO Q2H PRN PRN Reason: CIWA 12-15 Lorazepam (Lorazepam 1 Mg Tablet) 3 mg PO Q2H PRN PRN Reason: CIWA > 15, and call Magnesium Hydroxide (Milk Of Magnesia 30 Ml Oral.Susp) 30 ml PO DAILY PRN PRN Reason: Constipation Melatonin (Melatonin 3 Mg Tablet) 3 mg PO BEDTIME PRN PRN Reason: Sleep Naproxen (Naproxen 500 Mg Tablet) 500 mg PO BID [facility] Last Admin: 02/22/25 20:16 Dose: 500 mg Nicotine (Nicotine 21 Mg Patch.Td24) 21 mg TRANSDERMA DAILY TRACEY Nicotine Polacrilex (Nicotine Polacrilex 2 Mg Gum) 4 mg BUCCAL Q2H PRN PRN Reason: Nicotine Cravings Non-Formulary Medication (Terbinafine Hcl) 250 mg PO DAILY TRACEY Thiamine HCl (Thiamine Hcl 100 Mg Tablet) 100 mg PO DAILY TRACEY Trazodone HCl (Trazodone Hcl 50 Mg Tablet) 150 mg PO BEDTIME [facility] Last Admin: 02/22/25 20:16 Dose: 150 mg Trazodone HCl (Trazodone Hcl 50 Mg Tablet) 50 mg PO BEDTIME MRX1 PRN PRN Reason: Insomnia Home Medications ?Medication ?Instructions ?Recorded ?Confirmed ?Last Taken ?Type baclofen 10 mg tablet 10 mg PO BID 11/21/23 Unknown History duloxetine 60 mg capsule,delayed 60 mg PO BID 11/21/23 02/22/25 Unknown History release hydroxyzine HCl 25 mg tablet 25 mg PO BID 11/21/23 Unknown History meloxicam 15 mg tablet 15 mg PO DAILY 11/21/2301/31 Unknown History terbinafine HCl 250 mg tablet 250 mg PO DAILY 11/21/23 02/22/25 Unknown History trazodone 150 mg tablet 150 mg PO BEDTIME 11/21/23 0 02/22/25 Unknown History oxycodone-acetaminophen 7.5 mg-325 1 tab PO TID PRN Pa in (Scale Score 11/23/23 02/22/25 Unknown History mg tablet 7-10) clonidine HCl 0.1 mg tablet 0.1 mg PO BID PRN Anxiety 02/22/25 02/22/25 Unknown History melatonin 3 mg tablet 3 mg PO BEDTIME PRN Sleep 02/22/25 Unknown History quetiapine 50 mg tablet 50 - 100 mg PO BEDTIME PRN a nxiety 02/22/25 02/22/25 Unknown History Physical Exam 2 Vital Signs and Narrative: Vital Signs: Last Vital Signs Temp 97.9 F 02/23/25 08:00 Pulse 92 02/23/25 08:00 Resp 16 02/23/25 08:00 BP 133/81 02/23/25 08:00 Pulse Ox 99 02/23/25 08:00 O2 Del Method Room Air 02/23/25 08:00 BMI result Body Mass Index 24.2 CONST: Alert and oriented, in NAD. Well nourished HEENT: Normocephalic, atraumatic, MMM, Eyes clear, Neck supple RESP: Lungs clear, RRR even and regular HEART:,RRR, S1, S2. No edema GI:Abdomen Soft NT, ND. + BS times four :Deferred SKIN: Warm dry and intact, no visible lesions or rashes NEURO:CN II-XII Intact bilaterally, Sensation intact. Speech clear PSYCH: Normal affect Results Labs 02/21/25 19:22 02/23/25 07:37 Assessment and Plan (1) Chronic pain: Status: Acute Plan 49-year-old male with past medical history of cocaine use disorder, obesity, history of DVT, chronic back pain, anxiety, depression, hypertension, alcohol use disorder, major depressive disorder, PTSD admitted to inpatient psych after presenting to the ED with and suicide ideation with plan to overdose. Anxiety/depression/EtOH use disorder/major depressive disorder/PTSD Treatment per psychiatric team Chronic back pain/history of cervical fusion Baclofen b.i.d., Cymbalta and Naprosyn Will order muscle rub TID prn Thank you for allowing me to participate in the care of this patient. Will follow as needed, please notify medical provider with any changes in condition or concerns.
[2025-02-23 08:29] LABS: Alanine Aminotransferase 37 U/L (0-40); Albumin Level 3.9 g/dL (3.5-5.0); Alkaline Phosphatase 77 U/L (39-117); Anion Gap 7 (12-20); Aspartate Amino Transferase 28 U/L (5-37); Blood Urea Nitrogen 15 mg/dL (9-16); Calcium 9.1 mg/dL (8.4-10.2); Carbon Dioxide 33 mmol/L (22-29); Chloride 104 mmol/L (96-108); Cholesterol 161 mg/dL (<200); Creatinine Clr Calc Pharmacy 117.7; Estimated Glomerular Filt Rate > 60; HDL Cholesterol 69 mg/dL (>40); Potassium 3.8 mmol/L (3.3-5.1); Sodium 140 mmol/L (135-145); Total Protein 6.8 g/dL (6.5-8.0); Triglycerides 66 mg/dL (<150)
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
[2025-02-23 10:30] LABS: Hemoglobin A1C 109.4872 umol/L; Total Hemoglobin (HGBA1C) 3717.6416 umol/L
[2025-02-23 19:44] VITALS: BP 158/105; PULSE 77; RESP 16; TEMP 36.4; O2SAT 100
--- NOTE | 2025-02-24 00:31 | PC.NURSE ---
Pt sleeping soundly and comfortably, snoring gently. Breathing is easy and unlabored. Allowed to sleep.
--- NOTE | 2025-02-24 04:59 | PC.NURSE ---
At 0400, pt sleeping soundly and comfortably, snoring gently. Breathing is easy and unlabored. Allowed to sleep.
[2025-02-24 07:40] VITALS: BP 97/63; PULSE 94; RESP 16; TEMP 36.4; O2SAT 98
--- NOTE | 2025-02-24 11:17 | MHC.RECOVRN ---
TW met with the patient in a conference room on M3? to discuss current alcohol/substance use and concerns related to increased risk of alcohol/substance use related problems.? On approach pt is laying in bed, eyes closed, in no apparent distress. Pt awakens to name being called and agreed to meet with TW Pt reports his alcohol and cocaine use was previously only on the weekends and ?not that bad?, but states that after the of his mother in July of this year, it has progressed and ? is out of control?.? Pt states he is currently drinking 1 Ltr of straight whiskey in addition to snorting 1 to 1.5 eight balls of cocaine daily. Pt states he no longer wants to use any substances however reports that he is currently residing with a cousin who drinks and uses substances regularly.? Pt states he has never attended treatment but does report speaking with his older adult social work specialist and having a referral to the [facility] and is looking forward to placement.? Discussed how alcohol and substance use has impacted health, including negative impact on mental health and overall physical well being.? Discussed risk and reduction strategies including drinking below the recommended limit, not combining substances, using clean straws and not sharing or using other items to snort cocaine.??? Provided pt with written resources including information on inpatient and outpatient treatment, SHABANA, harm reduction, recovery coaching, and START program.?? Pt declines intervention, SHABANA, or outpatient appt for treatment related to AUD at this time. Pt also declined referrals for recovery coaching and START program.? ?Pt was provided with TW?s contact information if questions or concerns arise, which he denies at this time.? Tw available as needed for further recovery support as needed.
--- NOTE | 2025-02-24 12:21 | HO.PSYCHPN ---
Subjective Subjective Date of Service: 02/24/25 Reason For Visit: CRISIS Subjective Notes: Conditional Voluntary Interim History: Pt had poor sleep last night due to anxious ruminations and his roommate's snoring. Took trazodone and hydroxyzine with partial benefit. Feels tired today and has tried to catch up on his sleep. Mood is a 'little anxious' Denies any med SE. Denies SI/violent ideation Denies AH/VH Denies sx of ETOH w/d Medication Compliance: Yes Side effects from medications: No Attending Groups: No Review of Systems Acute medical concerns: No Review of Systems Psychiatric: Reports no additional psychiatric complaints Mental Status Exam Mental Status Exam Narrative: Appearance: lying in bed, wearing hospital dwayne Attitude:Cooperative Speech: Mild latency, fluent in mix of [place]araguan and Frisian Motor activity: Calm and without any tics, tremors or dyskinesias. Steady gait Mood: as noted above Affect: appropriate, constricted Thought process: goal directed and without evidence of formal thought disorder Thought content: denies SI/violent ideation. Perception: Denies AH/VH and does not appear to respond to internal stimuli Insight: intact Judgment: intact Diagnostics Vital Signs (24Hr): Vital Signs - 24 hr 02/23/25 19:44 02/24/25 07:40 Temperature 97.6 F 97.6 F Pulse Rate 77 94 Respiratory Rate 16 16 Blood Pressure 158/105 H 97/63 Pulse Oximetry 100 98 Oxygen Delivery Method Room Air Room Air BMI result Body Mass Index 24.2 Labs 02/21/25 19:22 02/23/25 07:37 Labs: Laboratory Results - last 48 hr 02/23/25 07:37 Sodium 140 Potassium 3.8 Chloride 104 Carbon Dioxide 33 H Anion Gap 7 L BUN 15 Creatinine 0.70 Estim Creat Clear Calc 117.7 Estimated GFR > 60 Random Glucose 100 Estimat Average Glucose 91 Hemoglobin A1c % 4.8 Calcium 9.1 Total Bilirubin 0.3 AST 28 ALT 37 Alkaline Phosphatase 77 Total Protein 6.8 Albumin 3.9 Triglycerides 66 Cholesterol 161 LDL Cholesterol, Calc 79 HDL Cholesterol 69 Medications Medications Current Medications Acetaminophen (Acetaminophen 325 Mg Tablet) 650 mg PO Q6H PRN PRN Reason: Headache/Pain, Scale 1-10 Last Admin: 02/23/25 14:56 Dose: 650 mg Al Hydroxide/Mg Hydroxide (Magnesium Hydrox/Alum Hydrox 30 Ml Oral.Susp) 30 ml PO Q6H PRN PRN Reason: Heartburn/Nausea Baclofen (Baclofen 10 Mg Tablet) 10 mg PO BID [facility] Last Admin: 02/24/25 08:26 Dose: 10 mg Clonidine HCl (Clonidine Hcl 0.1 Mg Tablet) 0.1 mg PO BID PRN; Protocol PRN Reason: Anxiety Last Admin: 02/24/25 08:30 Dose: 0.1 mg Duloxetine HCl (Duloxetine Hcl 60 Mg Capsule.Dr) 60 mg PO BID [facility] Last Admin: 02/24/25 08:26 Dose: 60 mg Hydroxyzine HCl (Hydroxyzine Hcl 25 Mg Tablet) 25 mg PO Q6H PRN PRN Reason: mild anxiety Last Admin: 02/23/25 14:56 Dose: 25 mg Lorazepam (Lorazepam 1 Mg Tablet) 1 mg PO Q2H PRN PRN Reason: CIWA 8-11 Last Admin: 02/23/25 09:36 Dose: 1 mg Lorazepam (Lorazepam 1 Mg Tablet) 2 mg PO Q2H PRN PRN Reason: CIWA 12-15 Lorazepam (Lorazepam 1 Mg Tablet) 3 mg PO Q2H PRN PRN Reason: CIWA > 15, and call Magnesium Hydroxide (Milk Of Magnesia 30 Ml Oral.Susp) 30 ml PO DAILY PRN PRN Reason: Constipation Melatonin (Melatonin 3 Mg Tablet) 3 mg PO BEDTIME PRN PRN Reason: Sleep Last Admin: 02/23/25 20:20 Dose: 3 mg Naproxen (Naproxen 500 Mg Tablet) 500 mg PO BID [facility] Last Admin: 02/24/25 08:26 Dose: 500 mg Nicotine (Nicotine 21 Mg Patch.Td24) 21 mg TRANSDERMA DAILY [facility] Last Admin: 02/24/25 08:27 Dose: Not Given Nicotine Polacrilex (Nicotine Polacrilex 2 Mg Gum) 4 mg BUCCAL Q2H PRN PRN Reason: Nicotine Cravings Non-Formulary Medication (Terbinafine Hcl) 250 mg PO DAILY [facility] Thiamine HCl (Thiamine Hcl 100 Mg Tablet) 100 mg PO DAILY [facility] Last Admin: 02/24/25 08:26 Dose: 100 mg Trazodone HCl (Trazodone Hcl 50 Mg Tablet) 150 mg PO BEDTIME [facility] Last Admin: 02/23/25 20:19 Dose: 150 mg Trazodone HCl (Trazodone Hcl 50 Mg Tablet) 50 mg PO BEDTIME MRX1 PRN PRN Reason: Insomnia Last Admin: 02/23/25 20:19 Dose: 50 mg Allergies Allergies Allergy/AdvReac Type Severity Reaction Status Date / Time Penicillins Allergy Unknown Rash, Verified 02/21/25 19:14 Throat closes seafood Allergy Unknown Rash, Verified 02/21/25 19:14 throat closes shellfish derived Allergy Unknown Rash Verified 02/21/25 19:14 Assessment & Plan Assessment & Plan (1) MDD (major depressive disorder), recurrent episode: Status: Acute Code(s): F33.9 - Major depressive disorder, recurrent, unspecified (2) PTSD (post-traumatic stress disorder): Status: Acute Code(s): F43.10 - Post-traumatic stress disorder, unspecified (3) Alcohol use disorder: Status: Acute Code(s): F10.90 - Alcohol use, unspecified, uncomplicated (4) Cocaine use disorder: Status: Acute Code(s): F14.10 - Cocaine abuse, uncomplicated Plan Patient is a 49-year-old male with history of MDD, PTSD, opiate use disorder, cocaine use disorder and alcohol use disorder who self presented to ER due to suicidal ideation secondary to increased depressive symptoms and substance use. Plan: CV 15 minute safety checks Continue home medications CIWA protocol. Last lorazepam was taken on am of 02/23 Obtain collateral Referral to outpatient psychiatric providers Encourage groups Referral to substance abuse program Discharge planning Patient educated on: medication risk/benefits and substance abuse Informed Consent: understands Reason for continued inpatient stay Substantial Risk for: harm to self and inability to function Time Spent With Patient Time: Total time managing care of this patient today ___30_ minutes.
[2025-02-24 20:00] VITALS: BP 97/63; PULSE 94; RESP 16; TEMP 36.4; O2SAT 98
[2025-02-24 20:28] VITALS: BP 97/63
[2025-02-25 07:42] VITALS: BP 108/60; PULSE 93; RESP 16; TEMP 36.4; O2SAT 100
[2025-02-25 09:11] VITALS: BP 95/63
[2025-02-25 17:48] VITALS: BP 127/89
[2025-02-25 19:48] VITALS: BP 119/87; PULSE 97; RESP 18; TEMP 36.6; O2SAT 100
--- NOTE | 2025-02-25 20:41 | P.PNPSI_ITS ---
Subjective Subjective Date of Service: 02/25/25 Reason For Visit: CRISIS Interim History: asking for something better for anxiety. also asking for increase in trazodone for sleep to 250. per staff, isolative. 10/10 back and neck pain. c/o anxiety 2/2 pain. anx/dep 9. CIWAs low. Mental Status Exam Mental Status Exam Narrative: Appearance: lying in bed, wearing hospital dwayne Attitude:Cooperative Speech: Mild latency, fluent in mix of Maltese and [place]ib[place]ian Motor activity: Calm and without any tics, tremors or dyskinesias. Steady gait Mood: as noted above Affect: appropriate, constricted Thought process: goal directed and without evidence of formal thought disorder Thought content: denies SI/violent ideation. Perception: Denies AH/VH and does not appear to respond to internal stimuli Insight: intact Judgment: intact Diagnostics Vital Signs (24Hr): Vital Signs - 24 hr 02/25/25 07:42 02/25/25 09:11 02/25/25 17:48 Temperature 97.5 F Pulse Rate 93 Respiratory Rate 16 Blood Pressure 108/60 95/63 127/89 Pulse Oximetry 100 Oxygen Delivery Method Room Air 02/25/25 19:48 Temperature 97.9 F Pulse Rate 97 Respiratory Rate 18 Blood Pressure 119/87 Pulse Oximetry 100 Oxygen Delivery Method Room Air BMI result Body Mass Index 24.2 Labs 02/21/25 19:22 02/23/25 07:37 Medications Medications Current Medications Acetaminophen (Acetaminophen 325 Mg Tablet) 650 mg PO Q6H PRN PRN Reason: Headache/Pain, Scale 1-10 Last Admin: 02/25/25 15:27 Dose: 650 mg Al Hydroxide/Mg Hydroxide (Magnesium Hydrox/Alum Hydrox 30 Ml Oral.Susp) 30 ml PO Q6H PRN PRN Reason: Heartburn/Nausea Baclofen (Baclofen 10 Mg Tablet) 10 mg PO BID [facility] Last Admin: 02/25/25 08:58 Dose: 10 mg Clonidine HCl (Clonidine Hcl 0.1 Mg Tablet) 0.1 mg PO BID PRN; Protocol PRN Reason: Anxiety Last Admin: 02/25/25 17:48 Dose: 0.1 mg Duloxetine HCl (Duloxetine Hcl 60 Mg Capsule.Dr) 60 mg PO BID [facility] Last Admin: 02/25/25 08:57 Dose: 60 mg Hydroxyzine HCl (Hydroxyzine Hcl 50 Mg Tablet) 50 mg PO Q6H PRN PRN Reason: mild anxiety Last Admin: 02/25/25 12:07 Dose: 50 mg Magnesium Hydroxide (Milk Of Magnesia 30 Ml Oral.Susp) 30 ml PO DAILY PRN PRN Reason: Constipation Melatonin (Melatonin 3 Mg Tablet) 3 mg PO BEDTIME PRN PRN Reason: Sleep Last Admin: 02/24/25 20:25 Dose: 3 mg Naproxen (Naproxen 500 Mg Tablet) 500 mg PO BID [facility] Last Admin: 02/25/25 08:57 Dose: 500 mg Nicotine (Nicotine 21 Mg Patch.Td24) 21 mg TRANSDERMA DAILY [facility] Last Admin: 02/25/25 09:12 Dose: Not Given Nicotine Polacrilex (Nicotine Polacrilex 2 Mg Gum) 4 mg BUCCAL Q2H PRN PRN Reason: Nicotine Cravings Non-Formulary Medication (Terbinafine Hcl) 250 mg PO DAILY [facility] Thiamine HCl (Thiamine Hcl 100 Mg Tablet) 100 mg PO DAILY [facility] Last Admin: 02/25/25 08:58 Dose: 100 mg Tramadol HCl (Tramadol Hcl 50 Mg Tablet) 50 mg PO Q6H PRN PRN Reason: severe pain (8-10) Last Admin: 02/25/25 18:10 Dose: 50 mg Trazodone HCl (Trazodone Hcl 50 Mg Tablet) 50 mg PO BEDTIME MRX1 PRN PRN Reason: Insomnia Last Admin: 02/24/25 20:25 Dose: 50 mg Trazodone HCl (Trazodone Hcl 100 Mg Tablet) 200 mg PO BEDTIME [facility] Allergies Allergies Allergy/AdvReac Type Severity Reaction Status Date / Time Penicillins Allergy Unknown Rash, Verified 02/21/25 19:14 Throat closes seafood Allergy Unknown Rash, Verified 02/21/25 19:14 throat closes shellfish derived Allergy Unknown Rash Verified 02/21/25 19:14 Assessment & Plan Assessment & Plan (1) MDD (major depressive disorder), recurrent episode: Status: Acute Code(s): F33.9 - Major depressive disorder, recurrent, unspecified (2) PTSD (post-traumatic stress disorder): Status: Acute Code(s): F43.10 - Post-traumatic stress disorder, unspecified (3) Alcohol use disorder: Status: Acute Code(s): F10.90 - Alcohol use, unspecified, uncomplicated (4) Cocaine use disorder: Status: Acute Code(s): F14.10 - Cocaine abuse, uncomplicated Plan Patient is a 49-year-old male with history of MDD, PTSD, opiate use disorder, cocaine use disorder and alcohol use disorder who self presented to ER due to suicidal ideation secondary to increased depressive symptoms and substance use. Plan: CV 15 minute safety checks Continue home medications CIWA protocol. Last lorazepam was taken on am of 02/23 Obtain collateral Referral to outpatient psychiatric providers Encourage groups Referral to substance abuse program Discharge planning 02/25: not scoring for CIWA< protocol DCed. tramadol 50 started for back/neck pain. trazodone increased to 250 QHS for insomnia. continue hydroxyzine for anxiety. Reason for continued inpatient stay Substantial Risk for: inability to function Time Spent With Patient Time: Total time managing care of this patient today ____ minutes.
[2025-02-26 08:00] VITALS: BP 89/54; PULSE 73; RESP 16; TEMP 36.9; O2SAT 97
[2025-02-26 11:49] VITALS: BP 130/83
[2025-02-26] MEDS: Benzocaine 20 % Oral Gel 9 GM TUBE 1 APPL MUCOUS MEM (16:33)
--- NOTE | 2025-02-26 17:29 | P.PNPSI_ITS ---
Subjective Subjective Date of Service: 02/26/25 Reason For Visit: CRISIS Interim History: asking for oxycodone for back pain, MD declined and suggested he visit PCP after discharge. feeling helped by tramadol. also c/o having fallen and injured his teeth/gums, asking for anbesol, which is prescribed. no mental health complaints. per staff, taking clonidine and atarax for anxiety. c/o back pain. tramadol 50 PRN added. helpful. slept 7 hours. dep/anx 8. Mental Status Exam Mental Status Exam Narrative: Appearance: lying in bed, wearing hospital dwayne Attitude:Cooperative Speech: Mild latency, fluent in mix of Malay and Danish Motor activity: Calm and without any tics, tremors or dyskinesias. Steady gait Mood: as noted above Affect: appropriate, constricted Thought process: goal directed and without evidence of formal thought disorder Thought content: denies SI/violent ideation. Perception: Denies AH/VH and does not appear to respond to internal stimuli Insight: intact Judgment: intact Diagnostics Vital Signs (24Hr): Vital Signs - 24 hr 02/25/25 17:48 02/25/25 19:48 02/26/25 08:00 Temperature 97.9 F 98.4 F Pulse Rate 97 73 Respiratory Rate 18 16 Blood Pressure 127/89 119/87 89/54 L Pulse Oximetry 100 97 Oxygen Delivery Method Room Air Room Air 02/26/25 11:49 Temperature Pulse Rate Respiratory Rate Blood Pressure 130/83 Pulse Oximetry Oxygen Delivery Method BMI result Body Mass Index 24.2 Labs 02/21/25 19:22 02/23/25 07:37 Medications Medications Current Medications Acetaminophen (Acetaminophen 325 Mg Tablet) 650 mg PO Q6H PRN PRN Reason: Headache/Pain, Scale 1-10 Last Admin: 02/26/25 15:22 Dose: 650 mg Al Hydroxide/Mg Hydroxide (Magnesium Hydrox/Alum Hydrox 30 Ml Oral.Susp) 30 ml PO Q6H PRN PRN Reason: Heartburn/Nausea Baclofen (Baclofen 10 Mg Tablet) 10 mg PO BID [facility] Last Admin: 02/26/25 08:27 Dose: 10 mg Benzocaine (Benzocaine 20 % Oral Gel 9 Gm Tube) 1 appl MUCOUS MEM QID PRN; Protocol PRN Reason: dental pain Last Admin: 02/26/25 16:33 Dose: 1 appl Clonidine HCl (Clonidine Hcl 0.1 Mg Tablet) 0.1 mg PO BID PRN; Protocol PRN Reason: Anxiety Last Admin: 02/26/25 11:49 Dose: 0.1 mg Duloxetine HCl (Duloxetine Hcl 60 Mg Capsule.Dr) 60 mg PO BID [facility] Last Admin: 02/26/25 08:26 Dose: 60 mg Hydroxyzine HCl (Hydroxyzine Hcl 50 Mg Tablet) 50 mg PO Q6H PRN PRN Reason: mild anxiety Last Admin: 02/26/25 15:22 Dose: 50 mg Magnesium Hydroxide (Milk Of Magnesia 30 Ml Oral.Susp) 30 ml PO DAILY PRN PRN Reason: Constipation Melatonin (Melatonin 3 Mg Tablet) 3 mg PO BEDTIME PRN PRN Reason: Sleep Last Admin: 02/25/25 20:43 Dose: 3 mg Naproxen (Naproxen 500 Mg Tablet) 500 mg PO BID [facility] Last Admin: 02/26/25 08:26 Dose: 500 mg Nicotine Polacrilex (Nicotine Polacrilex 2 Mg Gum) 4 mg BUCCAL Q2H PRN PRN Reason: Nicotine Cravings Non-Formulary Medication (Terbinafine Hcl) 250 mg PO DAILY [facility] Thiamine HCl (Thiamine Hcl 100 Mg Tablet) 100 mg PO DAILY [facility] Last Admin: 02/26/25 08:26 Dose: 100 mg Tramadol HCl (Tramadol Hcl 50 Mg Tablet) 50 mg PO Q6H PRN PRN Reason: severe pain (8-10) Last Admin: 02/26/25 12:21 Dose: 50 mg Trazodone HCl (Trazodone Hcl 50 Mg Tablet) 50 mg PO BEDTIME MRX1 PRN PRN Reason: Insomnia Last Admin: 02/26/25 00:30 Dose: 50 mg Trazodone HCl (Trazodone Hcl 100 Mg Tablet) 200 mg PO BEDTIME [facility] Last Admin: 02/25/25 20:43 Dose: 200 mg Allergies Allergies Allergy/AdvReac Type Severity Reaction Status Date / Time Penicillins Allergy Unknown Rash, Verified 02/21/25 19:14 Throat closes seafood Allergy Unknown Rash, Verified 02/21/25 19:14 throat closes shellfish derived Allergy Unknown Rash Verified 02/21/25 19:14 Assessment & Plan Assessment & Plan (1) MDD (major depressive disorder), recurrent episode: Status: Acute Code(s): F33.9 - Major depressive disorder, recurrent, unspecified (2) PTSD (post-traumatic stress disorder): Status: Acute Code(s): F43.10 - Post-traumatic stress disorder, unspecified (3) Alcohol use disorder: Status: Acute Code(s): F10.90 - Alcohol use, unspecified, uncomplicated (4) Cocaine use disorder: Status: Acute Code(s): F14.10 - Cocaine abuse, uncomplicated Plan Patient is a 49-year-old male with history of MDD, PTSD, opiate use disorder, cocaine use disorder and alcohol use disorder who self presented to ER due to suicidal ideation secondary to increased depressive symptoms and substance use. Plan: CV 15 minute safety checks Continue home medications CIWA protocol. Last lorazepam was taken on am of 02/23 Obtain collateral Referral to outpatient psychiatric providers Encourage groups Referral to substance abuse program Discharge planning 02/25: not scoring for CIWA< protocol DCed. tramadol 50 started for back/neck pain. trazodone increased to 250 QHS for insomnia. continue hydroxyzine for anxiety. 02/26: asking for oxycodone, told he can have tramadol while inpatient and can visit his PCP after discharge. no psych complaints. continue current mgmt. Reason for continued inpatient stay Substantial Risk for: inability to function and rapid decompensation Time Spent With Patient Time: Total time managing care of this patient today ____ minutes.
[2025-02-26 20:00] VITALS: BP 103/64; PULSE 86; RESP 16; TEMP 36.8; O2SAT 98
[2025-02-27 06:01] VITALS: BP 109/59
[2025-02-27 08:00] VITALS: RESP 18
--- NOTE | 2025-02-27 11:34 | P.PNPSI_ITS ---
Subjective Subjective Date of Service: 02/27/25 Reason For Visit: CRISIS Subjective Notes: Conditional Voluntary Interim History: Keeping to self. Pt reports feeling anxious today d/t not knowing if he will be accepted to program; encouraged to attend groups. Pt reports if he is not accepted to a program, he plans on returning to his cousins home. denies SI/HI/VH/AH. continue tx plan. Medication Compliance: Yes Side effects from medications: No Attending Groups: No Mental Status Exam Mental Status Exam Narrative: Pt is alert and oriented; behavior is cooperative and calm; dressed in casual attire; mood is described as good ; eye contact appropriate; Speech is normal rate, volume and not pressured; thought process is organized; Thought content is on tx; denies SI/HI/VH/AH. Diagnostics Vital Signs (24Hr): Vital Signs - 24 hr 02/26/25 11:49 02/26/25 20:00 02/27/25 06:01 Temperature 98.3 F Pulse Rate 86 Respiratory Rate 16 Blood Pressure 130/83 103/64 109/59 L Pulse Oximetry 98 Oxygen Delivery Method Room Air 02/27/25 08:00 Temperature Pulse Rate Respiratory Rate 18 Blood Pressure Pulse Oximetry Oxygen Delivery Method BMI result Body Mass Index 24.2 Labs 02/21/25 19:22 02/23/25 07:37 Medications Medications Current Medications Acetaminophen (Acetaminophen 325 Mg Tablet) 650 mg PO Q6H PRN PRN Reason: Headache/Pain, Scale 1-10 Last Admin: 02/27/25 06:01 Dose: 650 mg Al Hydroxide/Mg Hydroxide (Magnesium Hydrox/Alum Hydrox 30 Ml Oral.Susp) 30 ml PO Q6H PRN PRN Reason: Heartburn/Nausea Baclofen (Baclofen 10 Mg Tablet) 10 mg PO BID [facility] Last Admin: 02/27/25 08:59 Dose: 10 mg Benzocaine (Benzocaine 20 % Oral Gel 9 Gm Tube) 1 appl MUCOUS MEM QID PRN; Protocol PRN Reason: dental pain Last Admin: 02/26/25 16:33 Dose: 1 appl Clonidine HCl (Clonidine Hcl 0.1 Mg Tablet) 0.1 mg PO BID PRN; Protocol PRN Reason: Anxiety Last Admin: 02/27/25 06:01 Dose: 0.1 mg Duloxetine HCl (Duloxetine Hcl 60 Mg Capsule.) 60 mg PO BID [facility] Last Admin: 02/27/25 08:58 Dose: 60 mg Hydroxyzine HCl (Hydroxyzine Hcl 50 Mg Tablet) 50 mg PO Q6H PRN PRN Reason: mild anxiety Last Admin: 02/27/25 11:21 Dose: 50 mg Magnesium Hydroxide (Milk Of Magnesia 30 Ml Oral.Susp) 30 ml PO DAILY PRN PRN Reason: Constipation Melatonin (Melatonin 3 Mg Tablet) 3 mg PO BEDTIME PRN PRN Reason: Sleep Last Admin: 02/26/25 19:59 Dose: 3 mg Naproxen (Naproxen 500 Mg Tablet) 500 mg PO BID [facility] Last Admin: 02/27/25 08:59 Dose: 500 mg Nicotine Polacrilex (Nicotine Polacrilex 2 Mg Gum) 4 mg BUCCAL Q2H PRN PRN Reason: Nicotine Cravings Non-Formulary Medication (Terbinafine Hcl) 250 mg PO DAILY [facility] Thiamine HCl (Thiamine Hcl 100 Mg Tablet) 100 mg PO DAILY [facility] Last Admin: 02/27/25 08:58 Dose: 100 mg Tramadol HCl (Tramadol Hcl 50 Mg Tablet) 50 mg PO Q6H PRN PRN Reason: severe pain (8-10) Last Admin: 02/27/25 11:21 Dose: 50 mg Trazodone HCl (Trazodone Hcl 50 Mg Tablet) 50 mg PO BEDTIME MRX1 PRN PRN Reason: Insomnia Last Admin: 02/27/25 01:59 Dose: 50 mg Trazodone HCl (Trazodone Hcl 100 Mg Tablet) 200 mg PO BEDTIME [facility] Last Admin: 02/26/25 20:00 Dose: 200 mg Allergies Allergies Allergy/AdvReac Type Severity Reaction Status Date / Time Penicillins Allergy Unknown Rash, Verified 02/21/25 19:14 Throat closes seafood Allergy Unknown Rash, Verified 02/21/25 19:14 throat closes shellfish derived Allergy Unknown Rash Verified 02/21/25 19:14 Assessment & Plan Assessment & Plan (1) MDD (major depressive disorder), recurrent episode: Status: Acute Code(s): F33.9 - Major depressive disorder, recurrent, unspecified (2) PTSD (post-traumatic stress disorder): Status: Acute Code(s): F43.10 - Post-traumatic stress disorder, unspecified (3) Alcohol use disorder: Status: Acute Code(s): F10.90 - Alcohol use, unspecified, uncomplicated (4) Cocaine use disorder: Status: Acute Code(s): F14.10 - Cocaine abuse, uncomplicated Plan Patient is a 49-year-old male with history of MDD, PTSD, opiate use disorder, cocaine use disorder and alcohol use disorder who self presented to ER due to suicidal ideation secondary to increased depressive symptoms and substance use. Plan: CV 15 minute safety checks Continue home medications CIWA protocol. Last lorazepam was taken on am of 02/23 Obtain collateral Referral to outpatient psychiatric providers Encourage groups Referral to substance abuse program Discharge planning 02/25: not scoring for CIWA< protocol DCed. tramadol 50 started for back/neck pain. trazodone increased to 250 QHS for insomnia. continue hydroxyzine for anxiety. 02/26: asking for oxycodone, told he can have tramadol while inpatient and can visit his PCP after discharge. no psych complaints. continue current mgmt. 02/27: Keeping to self. Pt reports feeling anxious today d/t not knowing if he will be accepted to program; encouraged to attend groups. Pt reports if he is not accepted to a program, he plans on returning to his cousins home. denies SI/HI/VH/AH. continue tx plan. Patient educated on: diagnosis, medication risk/benefits and therapeutic strategies Reason for continued inpatient stay Substantial Risk for: med/psych decompensation Time Spent With Patient Time: Total time managing care of this patient today _20___ minutes.
[2025-02-27 15:40] VITALS: BP 101/61
[2025-02-27 20:00] VITALS: BP 99/61; PULSE 71; RESP 16; TEMP 36.4; O2SAT 100
[2025-02-28 07:50] VITALS: BP 104/58; PULSE 70; RESP 20; TEMP 36.5; O2SAT 98
[2025-02-28 09:11] VITALS: BP 108/67; PULSE 75
[2025-02-28 15:41] VITALS: BP 101/61
--- NOTE | 2025-02-28 19:42 | HO.PSYCHPN ---
Subjective Subjective Date of Service: 02/28/25 Reason For Visit: CRISIS Subjective Notes: Conditional Voluntary Healthcare Proxy: No Guardianship: No Medical Problems Affecting Mental Status: No Interim History: Medical record and nursing notes reviewed; case discussed during rounds with team/nursing staff, and met with patient for supportive therapy/psychoeducation, as well as medication management. Patient slept for 7 hours. Compliant with meds, denies side efffects but report feeling N/V which he thinks it is from anxiety and pain. Report high in anxiety and depression. Anxiety most like related to discharge plan. He hopes to get to [facility] but unsure at this time if he is accepted. If he is not, he has to return home with his cousin where drug and alcohol environment is not great for his sobriety. Report chronic neck pain 03/10. He was at pain management clinic but did not continue after his mom passed. Patient observed more visible as the day goes by. Encourage group participation. Increase Melatonin up to 9mg scheduled at HS as patient c/o not able to sleep even with scheduled and PRN Trazodone. Medication Compliance: Yes Side effects from medications: No Attending Groups: Intermittent Review of Systems Acute medical concerns: No Medical Review of Systems: unchanged Review of Systems Psychiatric: Reports no additional psychiatric complaints Mental Status Exam Mental Status Exam Narrative: Pt is alert and oriented; behavior is cooperative and calm; dressed in casual attire; mood is described as depressed and anxious related to discharge, eye contact appropriate; Speech is normal rate, volume and not pressured; thought process is organized; Thought content is on tx; denies SI/HI/VH/AH. Diagnostics Vital Signs (24Hr): Vital Signs - 24 hr 02/27/25 20:00 02/28/25 07:50 02/28/25 09:11 Temperature 97.6 F 97.7 F Pulse Rate 71 70 75 Respiratory Rate 16 20 Blood Pressure 99/61 104/58 L 108/67 Pulse Oximetry 100 98 Oxygen Delivery Method Room Air Room Air 02/28/25 15:41 Temperature Pulse Rate Respiratory Rate Blood Pressure 101/61 Pulse Oximetry Oxygen Delivery Method BMI result Body Mass Index 24.2 Labs 02/21/25 19:22 02/23/25 07:37 Medications Medications Current Medications Acetaminophen (Acetaminophen 325 Mg Tablet) 650 mg PO Q6H PRN PRN Reason: Headache/Pain, Scale 1-10 Last Admin: 02/28/25 11:26 Dose: 650 mg Al Hydroxide/Mg Hydroxide (Magnesium Hydrox/Alum Hydrox 30 Ml Oral.Susp) 30 ml PO Q6H PRN PRN Reason: Heartburn/Nausea Baclofen (Baclofen 10 Mg Tablet) 10 mg PO BID [facility] Last Admin: 02/28/25 08:07 Dose: 10 mg Benzocaine (Benzocaine 20 % Oral Gel 9 Gm Tube) 1 appl MUCOUS MEM QID PRN; Protocol PRN Reason: dental pain Last Admin: 02/26/25 16:33 Dose: 1 appl Clonidine HCl (Clonidine Hcl 0.1 Mg Tablet) 0.1 mg PO BID PRN; Protocol PRN Reason: Anxiety Last Admin: 02/28/25 15:41 Dose: 0.1 mg Duloxetine HCl (Duloxetine Hcl 60 Mg Capsule.Dr) 60 mg PO BID [facility] Last Admin: 02/28/25 08:07 Dose: 60 mg Hydroxyzine HCl (Hydroxyzine Hcl 50 Mg Tablet) 50 mg PO Q6H PRN PRN Reason: mild anxiety Last Admin: 02/28/25 14:34 Dose: 50 mg Magnesium Hydroxide (Milk Of Magnesia 30 Ml Oral.Susp) 30 ml PO DAILY PRN PRN Reason: Constipation Melatonin (Melatonin 3 Mg Tablet) 9 mg PO BEDTIME [facility] Naproxen (Naproxen 500 Mg Tablet) 500 mg PO BID [facility] Last Admin: 02/28/25 08:07 Dose: 500 mg Nicotine Polacrilex (Nicotine Polacrilex 2 Mg Gum) 4 mg BUCCAL Q2H PRN PRN Reason: Nicotine Cravings Non-Formulary Medication (Terbinafine Hcl) 250 mg PO DAILY [facility] Thiamine HCl (Thiamine Hcl 100 Mg Tablet) 100 mg PO DAILY [facility] Last Admin: 02/28/25 08:07 Dose: 100 mg Tramadol HCl (Tramadol Hcl 50 Mg Tablet) 50 mg PO Q6H PRN PRN Reason: severe pain (8-10) Last Admin: 02/28/25 15:42 Dose: 50 mg Trazodone HCl (Trazodone Hcl 50 Mg Tablet) 50 mg PO BEDTIME MRX1 PRN PRN Reason: Insomnia Last Admin: 02/28/25 00:41 Dose: 50 mg Trazodone HCl (Trazodone Hcl 100 Mg Tablet) 200 mg PO BEDTIME [facility] Last Admin: 02/27/25 20:05 Dose: 200 mg Allergies Allergies Allergy/AdvReac Type Severity Reaction Status Date / Time Penicillins Allergy Unknown Rash, Verified 02/21/25 19:14 Throat closes seafood Allergy Unknown Rash, Verified 02/21/25 19:14 throat closes shellfish derived Allergy Unknown Rash Verified 02/21/25 19:14 Assessment & Plan Assessment & Plan (1) MDD (major depressive disorder), recurrent episode: Status: Acute Code(s): F33.9 - Major depressive disorder, recurrent, unspecified (2) PTSD (post-traumatic stress disorder): Status: Acute Code(s): F43.10 - Post-traumatic stress disorder, unspecified (3) Alcohol use disorder: Status: Acute Code(s): F10.90 - Alcohol use, unspecified, uncomplicated (4) Cocaine use disorder: Status: Acute Code(s): F14.10 - Cocaine abuse, uncomplicated Plan Patient is a 49-year-old male with history of MDD, PTSD, opiate use disorder, cocaine use disorder and alcohol use disorder who self presented to ER due to suicidal ideation secondary to increased depressive symptoms and substance use. Plan: CV 15 minute safety checks Continue home medications CIWA protocol. Last lorazepam was taken on am of 02/23 Obtain collateral Referral to outpatient psychiatric providers Encourage groups Referral to substance abuse program Discharge planning 02/25: not scoring for CIWA< protocol DCed. tramadol 50 started for back/neck pain. trazodone increased to 250 QHS for insomnia. continue hydroxyzine for anxiety. 02/26: asking for oxycodone, told he can have tramadol while inpatient and can visit his PCP after discharge. no psych complaints. continue current mgmt. 02/27: Keeping to self. Pt reports feeling anxious today d/t not knowing if he will be accepted to program; encouraged to attend groups. Pt reports if he is not accepted to a program, he plans on returning to his cousins home. denies SI/HI/VH/AH. continue tx plan. 02/28/25: Patient slept for 7 hours. Compliant with meds, denies side efffects but report feeling N/V which he thinks it is from anxiety and pain. Report high in anxiety and depression. Anxiety most like related to discharge plan. He hopes to get to [facility] but unsure at this time if he is accepted. If he is not, he has to return home with his cousin where drug and alcohol environment is not great for his sobriety. Report chronic neck pain 03/10. He was at pain management clinic but did not continue after his mom passed. Denies safety concerns. Patient observed more visible as the day goes by. Encourage group participation. Increase Melatonin up to 9mg scheduled at HS as patient c/o not able to sleep even with scheduled and PRN Trazodone. Patient educated on: medication risk/benefits and therapeutic strategies Informed Consent: understands Reason for continued inpatient stay Substantial Risk for: med/psych decompensation Time Spent With Patient Time: Total time managing care of this patient today ____ minutes.
[2025-02-28 20:00] VITALS: BP 110/58; PULSE 72; RESP 16; TEMP 36.5; O2SAT 98
[2025-03-01 07:49] VITALS: BP 100/56; PULSE 77; RESP 16; TEMP 36.5; O2SAT 98
[2025-03-01 10:52] VITALS: BP 84/51; PULSE 88
--- NOTE | 2025-03-01 10:54 | PC.NURSE ---
Pt reported feeling anxious and requested clonidine. RN assessed vitals, BP 84/51 HR 88. Pt denied feeling lightheaded/dizzy, denied nausea, reported I just feel weird. RN encouraged food and fluids, provider aware.
[2025-03-01 11:37] VITALS: BP 118/67; PULSE 82
--- NOTE | 2025-03-01 16:05 | P.PNPSI_ITS ---
Subjective Subjective Date of Service: 03/01/25 Reason For Visit: CRISIS Subjective Notes: Conditional Voluntary Interim History: Active on unit. social with peers. Patient reports feeling anxious about going back to my cousins d/t concerns he may use substances. denies SI/HI/VH/AH. He reports sleeping well last night. Plan to discharge Thursday; pt aware. Medication Compliance: Yes Side effects from medications: No Attending Groups: Intermittent Mental Status Exam Mental Status Exam Narrative: Pt is alert and oriented; behavior is cooperative and calm; dressed in casual attire; mood is described as good ; eye contact appropriate; Speech is normal rate, volume and not pressured; thought process is organized; Thought content is on discharge; denies SI/HI/VH/AH. Diagnostics Vital Signs (24Hr): Vital Signs - 24 hr 02/28/25 20:00 03/01/25 07:49 03/01/25 10:52 Temperature 97.7 F 97.7 F Pulse Rate 72 77 88 Respiratory Rate 16 16 Blood Pressure 110/58 L 100/56 L 84/51 L Pulse Oximetry 98 98 Oxygen Delivery Method Room Air Room Air 03/01/25 11:37 Temperature Pulse Rate 82 Respiratory Rate Blood Pressure 118/67 Pulse Oximetry Oxygen Delivery Method BMI result Body Mass Index 24.2 Labs 02/21/25 19:22 02/23/25 07:37 Medications Medications Current Medications Acetaminophen (Acetaminophen 325 Mg Tablet) 650 mg PO Q6H PRN PRN Reason: Headache/Pain, Scale 1-10 Last Admin: 03/01/25 12:10 Dose: 650 mg Al Hydroxide/Mg Hydroxide (Magnesium Hydrox/Alum Hydrox 30 Ml Oral.Susp) 30 ml PO Q6H PRN PRN Reason: Heartburn/Nausea Baclofen (Baclofen 10 Mg Tablet) 10 mg PO BID [facility] Last Admin: 03/01/25 09:06 Dose: 10 mg Benzocaine (Benzocaine 20 % Oral Gel 9 Gm Tube) 1 appl MUCOUS MEM QID PRN; Protocol PRN Reason: dental pain Last Admin: 02/26/25 16:33 Dose: 1 appl Clonidine HCl (Clonidine Hcl 0.1 Mg Tablet) 0.1 mg PO BID PRN; Protocol PRN Reason: Anxiety Last Admin: 03/01/25 11:38 Dose: 0.1 mg Duloxetine HCl (Duloxetine Hcl 60 Mg Capsule.Dr) 60 mg PO BID [facility] Last Admin: 03/01/25 09:06 Dose: 60 mg Hydroxyzine HCl (Hydroxyzine Hcl 50 Mg Tablet) 50 mg PO Q6H PRN PRN Reason: mild anxiety Last Admin: 03/01/25 15:53 Dose: 50 mg Magnesium Hydroxide (Milk Of Magnesia 30 Ml Oral.Susp) 30 ml PO DAILY PRN PRN Reason: Constipation Melatonin (Melatonin 3 Mg Tablet) 9 mg PO BEDTIME [facility] Last Admin: 02/28/25 20:55 Dose: 9 mg Naproxen (Naproxen 500 Mg Tablet) 500 mg PO BID [facility] Last Admin: 03/01/25 09:05 Dose: 500 mg Nicotine Polacrilex (Nicotine Polacrilex 2 Mg Gum) 4 mg BUCCAL Q2H PRN PRN Reason: Nicotine Cravings Thiamine HCl (Thiamine Hcl 100 Mg Tablet) 100 mg PO DAILY [facility] Last Admin: 03/01/25 09:06 Dose: 100 mg Tramadol HCl (Tramadol Hcl 50 Mg Tablet) 50 mg PO Q6H PRN PRN Reason: severe pain (8-10) Last Admin: 03/01/25 15:53 Dose: 50 mg Trazodone HCl (Trazodone Hcl 50 Mg Tablet) 50 mg PO BEDTIME MRX1 PRN PRN Reason: Insomnia Last Admin: 02/28/25 20:55 Dose: 50 mg Trazodone HCl (Trazodone Hcl 100 Mg Tablet) 200 mg PO BEDTIME [facility] Last Admin: 02/28/25 20:56 Dose: 200 mg Allergies Allergies Allergy/AdvReac Type Severity Reaction Status Date / Time Penicillins Allergy Unknown Rash, Verified 02/21/25 19:14 Throat closes seafood Allergy Unknown Rash, Verified 02/21/25 19:14 throat closes shellfish derived Allergy Unknown Rash Verified 02/21/25 19:14 Assessment & Plan Assessment & Plan (1) MDD (major depressive disorder), recurrent episode: Status: Acute Code(s): F33.9 - Major depressive disorder, recurrent, unspecified (2) PTSD (post-traumatic stress disorder): Status: Acute Code(s): F43.10 - Post-traumatic stress disorder, unspecified (3) Alcohol use disorder: Status: Acute Code(s): F10.90 - Alcohol use, unspecified, uncomplicated (4) Cocaine use disorder: Status: Acute Code(s): F14.10 - Cocaine abuse, uncomplicated Plan Patient is a 49-year-old male with history of MDD, PTSD, opiate use disorder, cocaine use disorder and alcohol use disorder who self presented to ER due to suicidal ideation secondary to increased depressive symptoms and substance use. Plan: CV 15 minute safety checks Continue home medications CIWA protocol. Last lorazepam was taken on am of 02/23 Obtain collateral Referral to outpatient psychiatric providers Encourage groups Referral to substance abuse program Discharge planning 02/25: not scoring for CIWA< protocol DCed. tramadol 50 started for back/neck pain. trazodone increased to 250 QHS for insomnia. continue hydroxyzine for anxiety. 02/26: asking for oxycodone, told he can have tramadol while inpatient and can visit his PCP after discharge. no psych complaints. continue current mgmt. 02/27: Keeping to self. Pt reports feeling anxious today d/t not knowing if he will be accepted to program; encouraged to attend groups. Pt reports if he is not accepted to a program, he plans on returning to his cousins home. denies SI/HI/VH/AH. continue tx plan. 02/28/25: Patient slept for 7 hours. Compliant with meds, denies side efffects but report feeling N/V which he thinks it is from anxiety and pain. Report high in anxiety and depression. Anxiety most like related to discharge plan. He hopes to get to [facility] but unsure at this time if he is accepted. If he is not, he has to return home with his cousin where drug and alcohol environment is not great for his sobriety. Report chronic neck pain 03/10. He was at pain management clinic but did not continue after his mom passed. Denies safety concerns. Patient observed more visible as the day goes by. Encourage group participation. Increase Melatonin up to 9mg scheduled at HS as patient c/o not able to sleep even with scheduled and PRN Trazodone. 03/01: Active on unit. social with peers. Patient reports feeling anxious about going back to my cousins d/t concerns he may use substances. denies SI/HI/VH/AH. He reports sleeping well last night. Plan to discharge Thursday; pt aware. Patient educated on: diagnosis, medication risk/benefits and therapeutic strategies Reason for continued inpatient stay Substantial Risk for: med/psych decompensation Time Spent With Patient Time: Total time managing care of this patient today _20___ minutes.
[2025-03-01 18:52] VITALS: BP 120/72; PULSE 85
[2025-03-01 19:15] VITALS: BP 125/68; PULSE 90; RESP 16; TEMP 36.7; O2SAT 99
[2025-03-02 07:00] VITALS: BMI 26.8
[2025-03-02 07:43] VITALS: BP 109/61; PULSE 75; RESP 16; TEMP 36.6; O2SAT 99
--- NOTE | 2025-03-02 08:46 | P.PNPSI_ITS ---
Subjective Subjective Date of Service: 03/02/25 Reason For Visit: CRISIS Subjective Notes: Conditional Voluntary Interim History: Active on unit. social with peers. Patient reports feeling good today; he reports feeling ready to leave . denies SI/HI/VH/AH. Pt reports he plans on following up with his outpatient providers. Medication Compliance: Yes Side effects from medications: No Attending Groups: Intermittent Mental Status Exam Mental Status Exam Narrative: Pt is alert and oriented; behavior is cooperative and calm; dressed in casual attire; mood is described as good ; eye contact appropriate; Speech is normal rate, volume and not pressured; thought process is organized; Thought content is on discharge; denies SI/HI/VH/AH. Diagnostics Vital Signs (24Hr): Vital Signs - 24 hr 03/01/25 10:52 03/01/25 11:37 03/01/25 18:52 Temperature Pulse Rate 88 82 85 Respiratory Rate Blood Pressure 84/51 L 118/67 120/72 Pulse Oximetry Oxygen Delivery Method 03/01/25 19:15 03/02/25 07:43 Temperature 98.1 F 97.8 F Pulse Rate 90 75 Respiratory Rate 16 16 Blood Pressure 125/68 109/61 Pulse Oximetry 99 99 Oxygen Delivery Method Room Air Room Air BMI result Body Mass Index 24.2 Labs 02/21/25 19:22 02/23/25 07:37 Medications Medications Current Medications Acetaminophen (Acetaminophen 325 Mg Tablet) 650 mg PO Q6H PRN PRN Reason: Headache/Pain, Scale 1-10 Last Admin: 03/02/25 03:17 Dose: 650 mg Al Hydroxide/Mg Hydroxide (Magnesium Hydrox/Alum Hydrox 30 Ml Oral.Susp) 30 ml PO Q6H PRN PRN Reason: Heartburn/Nausea Baclofen (Baclofen 10 Mg Tablet) 10 mg PO BID [facility] Last Admin: 03/01/25 20:16 Dose: 10 mg Benzocaine (Benzocaine 20 % Oral Gel 9 Gm Tube) 1 appl MUCOUS MEM QID PRN; Protocol PRN Reason: dental pain Last Admin: 02/26/25 16:33 Dose: 1 appl Clonidine HCl (Clonidine Hcl 0.1 Mg Tablet) 0.1 mg PO BID PRN; Protocol PRN Reason: Anxiety Last Admin: 03/01/25 18:55 Dose: 0.1 mg Duloxetine HCl (Duloxetine Hcl 60 Mg Capsule.Dr) 60 mg PO BID [facility] Last Admin: 03/01/25 20:15 Dose: 60 mg Hydroxyzine HCl (Hydroxyzine Hcl 50 Mg Tablet) 50 mg PO Q6H PRN PRN Reason: mild anxiety Last Admin: 03/01/25 15:53 Dose: 50 mg Magnesium Hydroxide (Milk Of Magnesia 30 Ml Oral.Susp) 30 ml PO DAILY PRN PRN Reason: Constipation Melatonin (Melatonin 3 Mg Tablet) 9 mg PO BEDTIME [facility] Last Admin: 03/01/25 20:15 Dose: 9 mg Naproxen (Naproxen 500 Mg Tablet) 500 mg PO BID [facility] Last Admin: 03/01/25 20:15 Dose: 500 mg Nicotine Polacrilex (Nicotine Polacrilex 2 Mg Gum) 4 mg BUCCAL Q2H PRN PRN Reason: Nicotine Cravings Thiamine HCl (Thiamine Hcl 100 Mg Tablet) 100 mg PO DAILY [facility] Last Admin: 03/01/25 09:06 Dose: 100 mg Tramadol HCl (Tramadol Hcl 50 Mg Tablet) 50 mg PO Q6H PRN PRN Reason: severe pain (8-10) Last Admin: 03/02/25 03:17 Dose: 50 mg Trazodone HCl (Trazodone Hcl 50 Mg Tablet) 50 mg PO BEDTIME MRX1 PRN PRN Reason: Insomnia Last Admin: 03/02/25 03:17 Dose: 50 mg Trazodone HCl (Trazodone Hcl 100 Mg Tablet) 200 mg PO BEDTIME [facility] Last Admin: 03/01/25 20:16 Dose: 200 mg Allergies Allergies Allergy/AdvReac Type Severity Reaction Status Date / Time Penicillins Allergy Unknown Rash, Verified 02/21/25 19:14 Throat closes seafood Allergy Unknown Rash, Verified 02/21/25 19:14 throat closes shellfish derived Allergy Unknown Rash Verified 02/21/25 19:14 Assessment & Plan Assessment & Plan (1) MDD (major depressive disorder), recurrent episode: Status: Acute Code(s): F33.9 - Major depressive disorder, recurrent, unspecified (2) PTSD (post-traumatic stress disorder): Status: Acute Code(s): F43.10 - Post-traumatic stress disorder, unspecified (3) Alcohol use disorder: Status: Acute Code(s): F10.90 - Alcohol use, unspecified, uncomplicated (4) Cocaine use disorder: Status: Acute Code(s): F14.10 - Cocaine abuse, uncomplicated Plan Patient is a 49-year-old male with history of MDD, PTSD, opiate use disorder, cocaine use disorder and alcohol use disorder who self presented to ER due to suicidal ideation secondary to increased depressive symptoms and substance use. Plan: CV 15 minute safety checks Continue home medications CIWA protocol. Last lorazepam was taken on am of 02/23 Obtain collateral Referral to outpatient psychiatric providers Encourage groups Referral to substance abuse program Discharge planning 02/25: not scoring for CIWA< protocol DCed. tramadol 50 started for back/neck pain. trazodone increased to 250 QHS for insomnia. continue hydroxyzine for anxiety. 02/26: asking for oxycodone, told he can have tramadol while inpatient and can visit his PCP after discharge. no psych complaints. continue current mgmt. 02/27: Keeping to self. Pt reports feeling anxious today d/t not knowing if he will be accepted to program; encouraged to attend groups. Pt reports if he is not accepted to a program, he plans on returning to his cousins home. denies SI/HI/VH/AH. continue tx plan. 02/28/25: Patient slept for 7 hours. Compliant with meds, denies side efffects but report feeling N/V which he thinks it is from anxiety and pain. Report high in anxiety and depression. Anxiety most like related to discharge plan. He hopes to get to [facility] but unsure at this time if he is accepted. If he is not, he has to return home with his cousin where drug and alcohol environment is not great for his sobriety. Report chronic neck pain 03/10. He was at pain management clinic but did not continue after his mom passed. Denies safety concerns. Patient observed more visible as the day goes by. Encourage group participation. Increase Melatonin up to 9mg scheduled at HS as patient c/o not able to sleep even with scheduled and PRN Trazodone. 03/01: Active on unit. social with peers. Patient reports feeling anxious about going back to my cousins d/t concerns he may use substances. denies SI/HI/VH/AH. He reports sleeping well last night. Plan to discharge Thursday; pt aware. 03/02: Active on unit. social with peers. Patient reports feeling good today; he reports feeling ready to leave . denies SI/HI/VH/AH. Pt reports he plans on following up with his outpatient providers. Patient educated on: diagnosis and medication risk/benefits Reason for continued inpatient stay Substantial Risk for: stable for discharge Time Spent With Patient Time: Total time managing care of this patient today _20___ minutes.
[2025-03-02 13:21] VITALS: BP 98/53
[2025-03-02 19:20] VITALS: BP 93/52; PULSE 88; RESP 16; TEMP 36.4; O2SAT 99
[2025-03-03 08:00] VITALS: BP 111/74; PULSE 76; RESP 16; TEMP 36.5; O2SAT 99
[2025-03-03] MEDS: Naloxone HCl Nasal TAKE HOME 4 MG SPRAY 8 MG NOSTRILALT (08:37)
[2025-03-03 08:42] VITALS: BP 111/74
--- NOTE | 2025-03-03 08:49 | P.DS_ITS ---
DS: Providers Provider Date of Service: 03/03/25 Date of admission: 02/22/25 13:31 Date of discharge: 03/03/25 Primary care physician: Unknown Physician Admitting clinician: Josephine Lovelace Attending physician on admission: James Ortega Consults: 02/22/25 18:38 Addiction Medicine Provider Routine Consulting Provider: Addiction Covering Reason for consultation: + AUDIT-C Attending physician on discharge: James Ortega Discharging clinician: Josephine Lovelace DS: Diagnosis Discharge Diagnosis (1) MDD (major depressive disorder), recurrent episode: Status: Acute (2) PTSD (post-traumatic stress disorder): Status: Acute (3) Alcohol use disorder: Status: Acute (4) Cocaine use disorder: Status: Acute DS: Medications Discharge Medications Home Medications: Home Medications ?Medication ?Instructions ?Recorded ?Confirmed baclofen 10 mg tablet 10 mg PO BID 11/21/23 duloxetine 60 mg capsule,delayed 60 mg PO BID 11/21/23 02/22/25 release hydroxyzine HCl 25 mg tablet 25 mg PO BID 11/21/23 meloxicam 15 mg tablet 15 mg PO DAILY 11/21/2301/31 oxycodone-acetaminophen 7.5 mg-325 1 tab PO TID PRN Pa in (Scale Score 11/23/23 02/22/25 mg tablet 7-10) clonidine HCl 0.1 mg tablet 0.1 mg PO BID PRN Anxiety 02/22/25 02/22/25 Previous Rx's ?Medication ?Instructions ?Recorded melatonin 10 mg capsule 10 mg PO BEDTIME 7 days #7 c aps 03/02/25 trazodone 100 mg tablet 200 mg (2 x 100 mg) PO BEDTI ME 7 03/02/25 days #14 tabs Mental Status Exam Mental Status Exam Narrative: Pt is alert and oriented; behavior is cooperative and calm; dressed in casual attire; mood is described as good ; eye contact appropriate; Speech is normal rate, volume and not pressured; thought process is organized; Thought content is on discharge; denies SI/HI/VH/AH. DS: Summary Hospital Course Hospital Course: Patient is a 49-year-old male with history of MDD, PTSD, opiate use disorder, cocaine use disorder and alcohol use disorder who self presented to ER due to suicidal ideation secondary to increased depressive symptoms and substance use. Per crisis report, patient reports increased depressive symptoms, worsening substance use and suicidal ideation with plan to overdose intentionally. Patient reports he has been using cocaine and alcohol at an increased amount and indicated that his last drink was 5 hours ago. Patient reports he has been excessively using substances since his mother 10 months ago. Patient stated, my thoughts do not stop. I don't sleep until I pass out from drinking . Patient reports poor sleep and appetite. He reports nightmares daily. Denies HI/VH/AH. Patient reports he was discharged from [facility] for inconsistent attendance and has been off his medications for days . History of 2 prior inpatient psychiatric hospitalizations. Denies history of substance use treatment. BAL was 206 on arrival. He reports drinking multiple bottles of whiskey and snorting half an 8 ball daily . During admission assessment, patient presents alert and oriented x3. Calm and cooperative. Patient reports feeling depressed ; patient stated, my mother 7 months ago. That is when I started to relapse and start drinking and using cocaine. I feel depressed but I'm here . Patient denies history of withdrawal seizures. Patient reports he would like a referral to a substance abuse program. Patient stated, I gotta get off the drugs and take my meds. I want to go to program . Patient denies SI/HI/VH/AH. Patient reports he has not been medication compliant since using substances. He reports poor sleep and appetite. Plan: CV 15 minute safety checks Continue home medications CIWA protocol. Last lorazepam was taken on am of 02/23 Obtain collateral Referral to outpatient psychiatric providers Encourage groups Referral to substance abuse program Discharge planning not scoring for CIWA< protocol DCed. tramadol 50 started for back/neck pain. trazodone increased to 250 QHS for insomnia. continue hydroxyzine for anxiety. asking for oxycodone, told he can have tramadol while inpatient and can visit his PCP after discharge. no psych complaints. continue current mgmt. Keeping to self. Pt reports feeling anxious today d/t not knowing if he will be accepted to program; encouraged to attend groups. Pt reports if he is not accepted to a program, he plans on returning to his cousins home. denies SI/HI/VH/AH. continue tx plan. Patient slept for 7 hours. Compliant with meds, denies side efffects but report feeling N/V which he thinks it is from anxiety and pain. Report high in anxiety and depression. Anxiety most like related to discharge plan. He hopes to get to [facility] but unsure at this time if he is accepted. If he is not, he has to return home with his cousin where drug and alcohol environment is not great for his sobriety. Report chronic neck pain 03/10. He was at pain management clinic but did not continue after his mom passed. Denies safety concerns. Patient observed more visible as the day goes by. Encourage group participation. Increase Melatonin up to 9mg scheduled at as patient c/o not able to sleep even with scheduled and PRN Trazodone. Active on unit. social with peers. Patient reports feeling anxious about going back to my cousins d/t concerns he may use substances. denies SI/HI/VH/AH. He reports sleeping well last night. Plan to discharge Thursday; pt aware. Active on unit. social with peers. Patient reports feeling good today; he reports feeling ready to leave . denies SI/HI/VH/AH. Pt reports he plans on following up with his outpatient providers. Status at Discharge Cognitive/behavioral status at discharge: Patient has insight and demonstrates good judgment in terms of wanting to pursue treatment. Patient has a safety plan that includes presenting to the closest ER or calling 911 if feeling unsafe. Functional status at discharge: independent ambulation Overall status at discharge: patient is back to baseline Time Spent with Patient Time attestation: Total time managing care of this patient today __20__ minutes. Time spent: Less than 30 minutes Discharge Plan Discharge Anticipated Discharge Date/Time: 03/03/25 10:00 Patient Disposition: Home, Self-Care Discharge Diagnosis: MDD, PTSD, cocaine use d/o, alcohol use d/o Referrals: Maren Leslie (Therapy) [Other] - 03/08/25 6:00 pm Referral Note: TELEHEALTH APPOINTMENT Shae Rivers (Psychiatry) [Other] - 03/29/25 1:00 pm Referral Note: TELEHEALTH APPOINTMENT [facility] Referral: [facility] ([facility]) [facility] [Other] - 1 Week Referral Note: Call the above number daily to follow up on CSS referral [facility] [Provider Group] - 1 Week Referral Note: 03-01-25 [facility] was added to patients chart. Please call [phone] to schedule a follow up visit within 7-10 days of discharge. No release or PCP on file. Discharge Medications: New trazodone 100 mg Tablet 200 mg PO BEDTIME 7 Days Qty: 14 0RF melatonin 10 mg capsule 10 mg PO BEDTIME 7 Days Qty: 7 0RF Continued meloxicam 15 mg tablet 15 mg PO DAILY baclofen 10 mg tablet 10 mg PO BID hydroxyzine HCl 25 mg tablet 25 mg PO BID duloxetine 60 mg capsule,delayed release(DR/EC) 60 mg PO BID oxycodone-acetaminophen 7.5-325 mg tablet 1 tab PO TID PRN (Reason: Pain (Scale Score 7-10)) clonidine HCl 0.1 mg tablet 0.1 mg PO BID PRN (Reason: Anxiety) Discontinued terbinafine HCl 250 mg tablet 250 mg PO DAILY trazodone 150 mg tablet 150 mg PO BEDTIME melatonin 3 mg Tablet 3 mg PO BEDTIME MDD 1-3 tablets PRN (Reason: Sleep) quetiapine 50 mg tablet 50 - 100 mg PO BEDTIME PRN (Reason: anxiety) Discharge Orders: Discharge Order (Routine); Ordered 03/03/25 Ordered By: Josephine Lovelace Diet: Regular diet Activity on Discharge: As tolerated Stand Alone Forms: Patient Portal Discharge page, Community Support Print Language: Amharic Care Plan Goals: Maintain mood and safe behaviors Take medications as prescribed Continue to pursue sobriety Practice coping skills Continue with outpatient providers and reach out to them as needed Health Concerns: Mood stability and behaviors Sobriety Plan of Treatment: Follow up with your PCP, psychiatric provider and other outpatient providers regarding above concerns Take medications as prescribed Assessment: Patient has insight and demonstrates good judgment in terms of wanting to pursue treatment. Patient has a safety plan that includes presenting to the closest ER or calling 911 if feeling unsafe. Discharge Date/Time: 03/03/25 10:13
== END 2025-03-03 10:13 | disposition home or self-care (01) | DRG 885 ==
LOC: HO.ED 02-22 13:48 → HO.PADLT16 02-22 14:51
PROVIDERS: Physician Assistant Medical; Admitting Provider Registered Nurse; Emergency Provider Emergency Medicine; Responsible Provider Registered Nurse; Visit Provider Psychiatry & Neurology Psychiatry
DX: F33.9 Major depressive disorder, recurrent, unspecified (principal); G89.29 Other chronic pain; Y90.7 Blood alcohol level of 200-239 mg/100 ml; M54.9 Dorsalgia, unspecified; F43.10 Post-traumatic stress disorder, unspecified; F10.929 Alcohol use, unspecified with intoxication, unspecified; F14.10 Cocaine abuse, uncomplicated; Z98.1 Arthrodesis status; Z98.84 Bariatric surgery status; Z79.899 Other long term (current) drug therapy
CPT/HCPCS: 36415; 70450; 72125; 80053; 80061; 80143; 80179; 80307; 81003; 83036; 83690; 83735; 85025; 93005; 99285; S9485

== ENCOUNTER → 2025-02-21 19:12 | Outpatient (BNV) | payer OTHER, SELFPAY | PROVIDERS: Visit Provider Radiology Diagnostic Radiology | DX: M43.12 Spondylolisthesis, cervical region (principal); S09.90XA Unspecified injury of head, initial encounter | CPT/HCPCS: 70450; 72125 ==

== ENCOUNTER → 2025-02-22 09:26 | Outpatient (BNV) | payer OTHER, SELFPAY | PROVIDERS: Admitting Provider Registered Nurse; Emergency Provider Emergency Medicine; Visit Provider Internal Medicine Cardiovascular Disease | DX: Z13.6 Encounter for screening for cardiovascular disorders (principal) | CPT/HCPCS: 93010 ==

== ENCOUNTER → 2025-02-22 13:31 | Outpatient (BNV) | payer OTHER, SELFPAY | PROVIDERS: Admitting Provider Registered Nurse; Emergency Provider Emergency Medicine; Visit Provider Nurse Practitioner Family | DX: G89.29 Other chronic pain (principal) | CPT/HCPCS: 99221 ==

== ENCOUNTER → 2025-02-22 13:31 | Outpatient (BNV) | payer OTHER, SELFPAY | PROVIDERS: Admitting Provider Registered Nurse; Emergency Provider Emergency Medicine; Visit Provider Psychiatry & Neurology Psychiatry | DX: F33.9 Major depressive disorder, recurrent, unspecified (principal); F43.10 Post-traumatic stress disorder, unspecified; F10.90 Alcohol use, unspecified, uncomplicated; F14.10 Cocaine abuse, uncomplicated | CPT/HCPCS: 90792; 99231 ==

== ENCOUNTER 2025-03-07 16:57 | Inpatient (IN) | payer OTHER, SELFPAY ==
--- OUTSIDE RECORDS SUMMARY | 2017-03-18 12:45 | XMS_ITS | Continuity of Care Document ---
Author Organization [facility] Address [address] [place] [address] Care Team Providers Care Aluminum Polisher Name Role Phone Kirill Samir CH Unavailable [...] Final 1. All samples tested at [facility] are urine from clinical patients.2. Screening tests [...] Copied on Encounter OFFICE/OUTPA TIENT VISIT, EST [facility], [address], [place], [place], [id number], [facility] low back pain (chief complaint)ne ck pain (chief complaint) Postlaminect liliam syndromeRadi culopathy, lumbar regionOther spondylosis, cervical regionLong term (current) use of opiate analgesicOth er chcf (current) drug therapy 7 Kirill Dawson. [address] [place] [address], [address], [id number], . tel:[phone] Referring Provider: Samir Jeong, [address] [place] [address] [place] [address], [address] . tel:[phone] OFFICE/OUTPA TIENT VISIT, EST [facility], [address], [place], [place], [id number], [facility] neck pain (chief complaint) Postlaminect liliam syndromeOthe r spondylosis, cervical regionRadicu lopathy, lumbar regionLong term (current) use of opiate analgesicOth er exterminator helper (current) drug therapy Jan- 7 Kirill Dawson. [address] [place] [address], [id number], . tel:[phone] Referring Provider: Samir Jeong, [address] [place] [address], [address] . tel:[phone] OFFICE/OUTPA TIENT VISIT, EST [facility], [address], [place], [place], [id number], [facility] Follow Up of caudal epidural injection (chief complaint)lo w back pain (chief complaint) Postlaminect liliam syndromeOthe r spondylosis, cervical regionRadicu lopathy, lumbar regionLong term (current) use of opiate analgesicBod y mass index (BMI) 45.0-49.9, adult Bronson-0 7 Kirill Dawson. [address] [place] [address], [id number], . tel:[phone] Referring Provider: Samir Jeong, [address] [place] [address], [address] . tel:[phone] [facility], [address], [place], [place], [id number], [facility] Radiculopath y, lumbar region 7 Kirill Dawson. [address] [place] [address], [id number], . tel:[phone] [facility], [address], [place], [place], [id number], [place] tel:[phone] [facility] [place] No Information Aiden Arroyo. [address], [place], [place], [id number], [place]. OFFICE/OUTPA TIENT VISIT, EST [facility], [address], [place], [place], [id number], [facility] low back pain (chief complaint) Postlaminect liliam syndromeOthe r spondylosis, cervical regionRadicu lopathy, lumbar regionLong term (current) use of opiate analgesic September- Kirill Dawson. [address], [id number], . tel:[phone] Referring Provider: Samir Jeong, [address] [place] [address] [place] [address], [address] . tel:[phone] OFFICE/OUTPA TIENT VISIT, [facility], [address], [place], [place], [id number], [facility] low back pain (chief complaint)ne ck pain (chief complaint) Body mass index (BMI) 50-59.9 , adultCervica l disc disorder with radiculopath y, unspecified cervical regionPostla minectomy syndromeOthe r spondylosis, cervical regionOther chcf (current) drug therapyLong term (current) use of opiate analgesicRad iculopathy, lumbar region Jul-[address] [facility], [place] [address], [place], [place], [id number], [place]. tel:[phone] Referring Provider: Becca Norris, [address] [facility] [address] [facility], [place], [address] . tel:[phone] OFFICE/OUTPA TIENT VISIT, [facility], [address], [place], [place], [id number], [facility] neck pain (chief complaint)lo w back pain (chief complaint) Radiculopath y, lumbar regionPostla minectomy syndromeOthe r spondylosis, cervical regionLong term (current) use of opiate analgesic Jul-0 Kirill Dawson. 100 [facility], [address], [id number], [place]. tel:[phone] Referring Provider: Samir Jeong, [address] [place] [address] [place] [address], [address] . tel:[phone] OFFICE/OUTPA TIENT VISIT, EST [facility], [address], [place], [place], [id number], [place] [facility] cervicalgia (chief complaint)lo w back pain (chief complaint) Postlaminect liliam syndromeRadi culopathy, lumbar regionOther spondylosis, cervical regionLong term (current) use of opiate analgesic 7 Kirill Dawson. [address] [place] [address], [address] [place] [address], [id number], [place]. tel:[phone] Referring Provider: Samir Jeong, [address] [place] [address] [place] [address], [address] . tel:[phone] [facility], [address], [place], [place], [id number], [facility] [place] Radiculopath y, lumbar region 7 Kirill Dawson. [address] [place] [address], [address], [place], [id number], [place]. tel:[phone] [facility], [address], [place], [place], [id number], [place] tel:[phone] [facility] No Information 7 Destinee Avila. [address] [place], [place], [id number], [place]. tel:[phone] [facility], [address], [place], [place], [id number], [place] [facility] [place] No Information 7 Kirill Camilausha. [address] [place] [address], [address] [place] [address], [id number], [place]. tel:[phone] Referring Provider: Samir Jeong, [address] [place] [address] [address], [address] . tel:[phone] OFFICE/OUTPA TIENT VISIT, EST [facility], [address], [place], [place], [id number], [facility] cervicalgia (chief complaint)lo w back pain (chief complaint) Postlaminect liliam syndromeRadi culopathy, lumbar regionCervic al disc disorder with radiculopath y, unspecified cervical regionOther spondylosis, cervical regionLong term (current) use of opiate analgesic Jun-0 7 Kirill Dawson. [address] [place] [address], [address], [id number], [place]. tel:[phone] Referring Provider: Samir Jeong, [address] [place] [address] [place] [address], [address] . tel:[phone] OFFICE/OUTPA TIENT VISIT, EST [facility], [address], [place], [place], [id number], [facility] low back pain (chief complaint)Ce rvicalgia (chief complaint) Body mass index (BMI) 50-59.9 , adultPostlam inectomy syndromeRadi culopathy, lumbar regionCervic al disc disorder with radiculopath y, unspecified cervical regionOther spondylosis, cervical regionLong term (current) use of opiate analgesic 6 Kirill Camilausha. [address] [place] [address], [address], [id number], [place]. tel:[phone] Referring Provider: Samir Jeong, [address] [place] [address], [address] . tel:[phone] [facility], [address], [place], [place], [id number], [facility] Other spondylosis, cervical region 6 Kirill Camilausha. [address] [place] [address], [address], [id number], . tel:[phone] [facility], [address], [place], [place], [id number], tel:[phone] [facility] No Information 6 Destinee Turciosmelita. [address] [place], [place], [id number], [place]. tel:[phone] OFFICE/OUTPA TIENT VISIT, EST [facility], [address], [place], [place], [id number], [place] [facility] low back pain (chief complaint)Ce rvicalgia (chief complaint)ER Discharge 03/31/2016 04/01/2016 (chief complaint) Postlaminect liliam syndromeRadi culopathy, lumbar regionCervic al disc disorder with radiculopath y, unspecified cervical regionLong term (current) use of opiate analgesicOth er spondylosis, cervical region 6 Kirill Dawson. [address] [place] [address], [address], [id number], . tel:[phone] Referring Provider: Samir Jeong, [address] [place] [address] [place] [address], [address] . tel:[phone] OFFICE/OUTPA TIENT VISIT, EST [facility], [address], [place], [place], [id number], [facility] low back pain (chief complaint)Ce rvicalgia (chief complaint) Postlaminect liliam syndromeCerv ical disc disorder with radiculopath y, unspecified cervical regionLong term (current) use of opiate analgesicDiz zinessOther spondylosis, cervical regionRadicu lopathy, lumbar region 6 Kirill Dawson. [address] [place] [address], [address], [place], [id number], . tel:[phone] Referring Provider: Samir Jeong, [address] [place] [address] [place] [address], [address] . tel:[phone] OFFICE/OUTPA TIENT VISIT, EST [facility], [address], [place], [id number], [place] [facility] cervicalgia (chief complaint)lo w back pain (chief complaint) Postlaminect liliam syndromeCerv ical disc disorder with radiculopath y, unspecified cervical regionLong term (current) use of opiate analgesic Sep-2 6 Kirill Dawson. [address] [place] [address], [address], [id number], . tel:[phone] Referring Provider: Samir Jeong, [address] [place] [address] [place] [address], [address] . tel:[phone] OFFICE/OUTPA TIENT VISIT, EST [facility], [address], [place], [place], [id number], [place] [facility] [place] low back pain (chief complaint)ce rvicalgia (chief complaint) Body mass index (BMI) 50-59.9 , adultCervica l disc disorder with radiculopath y, unspecified cervical regionRadicu lopathy, cervical regionLong term (current) use of opiate analgesicPos tlaminectomy syndrome Aug 6 Kirill Dawson. [address] [place] [address], [address], [id number], [place]. tel:[phone] Referring Provider: Samir Jeong, [address] [place] [address] [place] [address], [address] . tel:[phone] OFFICE/OUTPA TIENT VISIT, EST [facility], [address], [place], [place], [id number], [place] [facility] low back pain (chief complaint) Cervical disc disorder with radiculopath y, unspecified cervical regionCervic al disc disorder w myelopathy, high cervical regionRadicu lopathy, cervical region Nov- 6 Jam Young. [address] [employer], [facility] [address] [place], [place], [id number], [place]. tel:[phone] Referring Provider: Hector Robins, [address] [employer] [address], [place], [address] . tel:[phone] OFFICE/OUTPA TIENT VISIT, EST [facility], [address], [place], [place], [id number], [facility] neck pain (chief complaint) Cervical disc disorder with radiculopath y, unspecified cervical regionCervic al disc disorder w myelopathy, high cervical regionOther chcf (current) drug therapyRadic ulopathy, cervical region Bronson-2 8-201 6 Cheatham Hector. [address] [employer], [address], [id number], . tel:[phone] OFFICE/OUTPA TIENT VISIT, EST [facility], [address], [place], [id number], [facility] low back pain (chief complaint)ne ck pain (chief complaint) Cervical disc disorder w myelopathy, high cervical regionCervic al disc disorder with radiculopath y, unspecified cervical regionRadicu lopathy, cervical region Bronson-0 2 6 [place] Hector. [address] [employer], [address], [id number], . tel:[phone] OFFICE/OUTPA TIENT VISIT, [facility], [address], [place], [place], [id number], [facility] low back pain (chief complaint)ne ck pain (chief complaint) Cervical disc disorder with radiculopath y, unspecified cervical regionRadicu lopathy, cervical region September-0 5201 6 Jam Young. [address] [employer], [address], [id number], . tel:[phone] Referring Provider: Hector Robins, [address], [address] . tel:[phone] OFFICE/OUTPA TIENT VISIT, [facility], [address], [place], [id number], [facility] neck pain (chief complaint) Cervical disc disorder with radiculopath y, unspecified cervical regionRadicu lopathy, cervical regionCervic al disc disorder w myelopathy, high cervical region Apr-0 6 [place] Hector. [address] [employer], [address] [place] [address], [id number], [place]. tel:[phone] Referring Provider: Hector Robins, [address] [employer] [address], [address] . tel:[phone] OFFICE/OUTPA TIENT VISIT, EST [facility], [address], [place], [place], [id number], [facility] neck pain (chief complaint) Cervical disc disorder with radiculopath y, unspecified cervical regionCervic al disc disorder w myelopathy, high cervical regionRadicu lopathy, cervical region Jul- 6 Cheatham Hector. [address] [employer], [address], [id number], [place]. tel:[phone] Referring Provider: Hector Robins, [address], [address] . tel:[phone] OFFICE/OUTPA TIENT VISIT, [facility], [address], [place], [place], [id number], [facility] neck pain (chief complaint) Cervical disc disorder with radiculopath y, unspecified cervical regionCervic al disc disorder w myelopathy, high cervical regionRadicu lopathy, cervical region Feb- 6 Cheatham Hector. [address] [employer], [address] [place] [address], [id number], [place]. tel:[phone] Referring Provider: Hector Robins, [address], [address] . tel:[phone] OFFICE/OUTPA TIENT VISIT, [facility], [address], [place], [id number], [facility] neck pain (chief complaint) Brachial neuritis or radiculitis nosCervical disc disorder with radiculopath y, unspecified cervical regionRadicu lopathy, cervical region 6 Jam Young. [address] [employer], [address], [id number], [place]. tel:[phone] Referring Provider: Hector Robins, [address], [address] . tel:[phone] [facility], [address], [place], [place], [id number], [place] [facility] Radiculopath y, cervical region 6 Jam Young. [address] [employer], [address], [id number], [place]. tel:[phone] [facility], [address], [place], [place], [id number], [place] tel:[phone] [facility] No Information 6 Destinee Avila. [address] [place], [place], [id number], [place]. tel:[phone] OFFICE/OUTPA TIENT VISIT, EST [facility], [address], [place], [place], [id number], [place] [facility] neck pain (chief complaint) Brachial neuritis or radiculitis nosRadiculop athy, cervical regionCervic al disc disorder with radiculopath y, unspecified cervical region 5 Jam Young. [address] [employer], [address], [id number], [place]. tel:[phone] [facility], [address], [place], [id number], [place] [facility] Cervical disc disorder w myelopathy, high cervical region 5 Jam Chilel [address] [employer], [address], [id number], . tel:[phone] Referring Provider: Hector Robins, [address] [address], [address] . tel:[phone] [facility] [place], [address], [place], [address], [facility] Radiculopath y, cervical region 5 Jam Young. [address] [employer], [address], [id number], . tel:[phone] [facility], [address], [place], [place], [id number], tel:[phone] [facility] No Information 5 Alecia Muniz. . OFFICE/OUTPA TIENT VISIT, NEW [facility], [address], [place], [id number], [facility] neck pain (chief complaint) Brachial neuritis or radiculitis nosRadiculop athy, cervical region 5 Jam Young. [address] [employer], [address], [id number], . tel:[phone] Referring Provider: Hector Robins, [address] [address], [address] . tel:[phone] Family History Family Member Type Diagnosis Age [...] walking. Symptoms are relieved by pain meds/drugs. cervicalgia Onset: gradual. The severity of the [...] are relieved by pain meds/drugs and rest. low back pain [...] are relieved by pain meds/drugs and rest. Cervicalgia The problem is s evere. The problem has not changed. The frequency of pain is constant. Location of pain is bilateral anterior neck, bilateral lateral neck and bilateral posterior neck. The patient describes the pain as aching, gnawing and sharp. Aggravating factors include lying down, prolonged sitting and turning head. Relieving factors include NSAIDs. low back pain Onset: sudden wi th [...] Symptoms are relieved by rest. Cervicalgia The problem is s evere. [...] and twisting. Relieving factors include narcotic analgesics. ER Discharge 03/31/2016 04/01/20 16 Patient was admited due chronic back pain low back pain Onset: gradual w ithout [...] are relieved by pain meds/drugs and rest. Cervicalgia The severity of the problem [...] Pertinent negatives include dysphagia and weight loss. cervicalgia Location of pain is bilateral head. [...] daily activities. Symptoms are relieved by rest. cervicalgia The severity of the problem is moderate. The patient describes the pain as aching and sharp. Aggravating factors include exertion. Relieving factors include rest. Pertinent negatives include dysphagia and weight loss. low back pain Onset: gradual w ith [...] are relieved by pain meds/drugs and rest. low back pain Severity level [...] are relieved by pain meds/drugs and rest. low back pain [...] are relieved by pain meds/drugs. neck pain Onset: gradual. The severity of [...] retention, rash, sexual dysfunction and weight loss. neck [...] including a combination of medications, a supervised HEP/PT/palliative care nurse practitioner, despite ongoing active treatment. The patient has [...] including a combination of medications, a supervised HEP/PT/palliative care nurse practitioner, despite ongoing active treatment. The patient has [...] the patient in 4 weeks. Related to MCFP (current) use of opiate analgesic Dietary management e ducation, guidance, and counseling Related to Body mass index (BMI) 45.0-49.9, adult I will follow up wit h the patient in 4 weeks. Related to exterminator helper (current) use of opiate analgesic It is [...] including a combination of medications, a supervised HEP/PT/palliative care nurse practitioner, despite ongoing active treatment. The patient has [...] the patient in 4 weeks. Related to MCFP (current) use of opiate analgesic We will [...] follow up in 4 weeks. Related to exterminator helper (current) use of opiate analgesic The patient [...] the patient in 4 weeks. Related to MCFP (current) use of opiate analgesic The patient [...] including a combination of medications, a supervised HEP/PT/palliative care nurse practitioner, despite ongoing active treatment. The patient has [...] therapeutic lumbar interlaminar epidural injection. PATIENT STATES SKI TOW OPERATOR HAS GIVEN CLEARANCE TO STOP ELIQUIS PRIOR TO INJECTION. WE WILL CONTACT THEM TODAY FOR CLEARANCE. The patient has evidence of persistent radicular pain >6/10 on a numeric pain scale, with pain that is significant enough to interfere with normal activities and has failed 6 weeks of conservative treatment including a combination of medications, a supervised HEP/PT/palliative care nurse practitioner, despite ongoing active treatment. The patient has significant functional limitations resulting in diminished quality of life and impaired age appropriate activities. The patient understands the risks/benefits of this procedure and wishes to schedule this procedure. Related to Radiculopathy, lumbar region I will follow up wit h the patient in 4 weeks. Related to MCFP (current) use of opiate analgesic Will continue [...] follow up in 4 weeks. Related to exterminator helper (current) use of opiate analgesic It is my medical opi nion that this patient will benefit from a fluoroscopically guided therapeutic lumbar interlaminar epidural injection. PATIENT WILL NEED CLEARANCE FROM DR. STEPHENS, THE SKI TOW OPERATOR TO STOP ELIQUIS PRIOR TO INJECTION. The patient has evidence of persistent radicular pain >6/10 on a numeric pain scale, with pain that is significant enough to interfere with normal activities and has failed 6 weeks of conservative treatment including a combination of medications, a supervised HEP/PT/palliative care nurse practitioner, despite ongoing active treatment. The patient has [...] follow up in 4 weeks. Related to exterminator helper (current) use of opiate analgesic We will [...] including a combination of medications, a supervised HEP/PT/palliative care nurse practitioner. The patient has significant functional limitations resulting [...] Patient is being fol lowed by an brick picker for further assessment of this concern. Related to Dizziness Increase gabapentin to QID. Rela andrade to Cervical disc disorder with radiculopathy, unspecified cervical region I will see the nu henriquez for follow up in 4 weeks. Related to MCFP (current) use of opiate analgesic Due to [...] follow up in 4 weeks. Related to exterminator helper (current) use of opiate analgesic The patient [...] assessment Other spondylosis, cervical elisabeth on assessment exterminator helper (current) use of opiat e analgesic impression Last UDS was negative as expecte d will retest today. assessment Other chcf (current) drug t herapy Mental Status Date Cognitive Assessment Orientation - [place] ed to time, place, person, situation. Patient Care Teams Name Effective Dates (start - stop) Status Members No Information
[2025-03-07 17:10] VITALS: BP 118/74; PULSE 106; O2SAT 98; BMI 25.0
[2025-03-07 17:19] VITALS: BP 98/54; PULSE 102; RESP 16; TEMP 36.7; O2SAT 96
[2025-03-07 17:47] LABS: MANUAL DIFF FLAG NO
--- NOTE | 2025-03-07 17:47 | MHC.EDTECH ---
Itemized patient belongings with security. Small bag of white substance found and confiscated/discarded by Jim in security. RN aware.
[2025-03-07 17:50] LABS: Appearance Urine Clear; Glucose Urine UA Negative (Negative); PH 5.0 (5.0-9.0); Specific Gravity - Urine 1.025 (1.005-1.025)
[2025-03-07 17:52] LABS: Hematocrit 35.9 % (42.0-52.0); Hemoglobin 12.7 g/dl (14.0-18.0); Imm Gran Abs Auto 0.03 X10*3/uL (0.00-0.03); Imm Gran Pct Auto 0.4 % (0.0-0.4); Lymphocytes Absolute Auto 2.2 X10*3/uL (1.2-4.9); Mean Corpuscular HGB Conc 35.4 g/dl (31.0-36.0); Mean Corpuscular Hemoglobin 31.6 pg (27.0-33.0); Mean Corpuscular Volume 89.3 fL (80.0-98.0); NRBC Abs Auto 0.000 X10*3/uL (0.0-0.012); NRBC Pct Auto 0.0 /100WBC (0.0-0.2); Platelet Count 286 X10*3/uL (160-400); Red Blood Count 4.02 X10*6/uL (4.60-5.80); White Blood Count 7.3 X10*3/uL (4.8-10.8)
[2025-03-07 18:00] LABS: Cannabinoid Screen Urine Not Detected (Not Detect)
[2025-03-07 18:08] LABS: Alanine Aminotransferase 23 U/L (0-40); Albumin Level 3.9 g/dL (3.5-5.0); Alkaline Phosphatase 98 U/L (39-117); Anion Gap 15 (12-20); Aspartate Amino Transferase 26 U/L (5-37); Blood Urea Nitrogen 20 mg/dL (9-16); Calcium 8.7 mg/dL (8.4-10.2); Carbon Dioxide 26 mmol/L (22-29); Chloride 108 mmol/L (96-108); Creatinine Clr Calc Pharmacy 90.2; Estimated Glomerular Filt Rate > 60; Potassium 3.6 mmol/L (3.3-5.1); Sodium 145 mmol/L (135-145); Total Protein 6.8 g/dL (6.5-8.0)
--- OUTSIDE RECORDS SUMMARY | 2025-03-07 19:06 | XMS_ITS | Patient Health Record ---
Author Organization [facility] Address [address], [place] [id number] Care Team Providers Care Gluing Machine Offbearer Name Role Phone Link Danilo Powell Primary Care Provider Hector Hargrove Unavailable [phone] Allergies Allergen (clinical drug ingredient) Drug/Non Drug [...] from thrombosis of vein of lower extremity (408723980) Acute embolism and thrombosis of unspecified deep veins of unspecified lower extremity (I82.409) Active confirmed Plan Of Treatment No Information Insurance Providers Payer Name Payer Address Payer Phone Subscriber Number Group Number Insured Name Patient Relationship to Insured Coverage Start Date Coverage End Date [employer] [place] [employer] [address] [place] [address] [phone] [id number] Self - patient is the insured Medical (General) History Medical History History ICD Code M.O. Surgical History Surgery Date(Month/Year) cervical spine fusion
--- OUTSIDE RECORDS SUMMARY | 2025-03-07 19:06 | XMS_ITS | Patient Health Record ---
Author Organization [facility] Address [address] [place], [place] [id number] Care Team Providers Care Nurse Healthcare Manager Name Role Phone Dewayne Lawrence Unavailable [phone] Reason For Referral No Information Medications Medication [...] Status Risk Notes Problem Low back pain (645465173) Low back pain (M54.5) Active confirmed Plan Of Treatment No Information Insurance Providers Payer Name Payer Address Payer Phone Subscriber Number Group Number Insured Name Patient Relationship to Insured Coverage Start Date Coverage End Date [facility] [address] [place] [address] [id number] Ghada Brown Spouse - patient is the spouse of the insured [id number] [facility] [address] [place] [id number] Jamil Brown Self - patient is the [...]
--- OUTSIDE RECORDS SUMMARY | 2025-03-07 19:06 | XMS_ITS | Patient Health Record ---
Author Organization [facility] [place] Address [address] [place] [address] Care Team Providers Care Precision Honing Machine Operator Name Role Phone Micheal Phillips Primary Care Provider U SARA Coleman Unavailable [phone] Allergies Allergen (clinical drug ingredient) Drug/Non Drug [...] Problem Type II diabetes mellitus without complication (090439903) Type 2 diabetes mellitus without complications (E11.9) 2016 Active confirmed Smooth- ICD9 Name: Type 2 Diabetes Mellitus Without Complications-[facility]- Entry Dt: 10/13/2016; Dr: BASIA Problem Morbid obesity (disorder) (286700831) Morbid (severe) obesity due to excess calories (E66.01) 2016 Active confirmed Smooth- ICD9 Name: Morbid (severe) Obesity Due To Excess Calories-Unchange d- Entry Dt: 10/13/2016; : BASIA Problem Obstructive sleep apnea syndrome (disorder) (96252597) Obstructive sleep apnea (adult) (pediatric) (G47.33) 2016 Active confirmed Smooth- ICD9 Name: Obstructive Sleep Apnea (adult) (pediatric)-Prima ry- Entry Dt: 10/13/2016; Dr: BASIA Problem Essential hypertension (70387638) Essential (primary) hypertension (I10) 2016 Active confirmed Smooth- ICD9 Name: Essential (primary) Hypertension-New- Entry Dt: 10/13/2016; : BASIA Amato Hypertensive heart disease without congestive heart failure (09747849) Hypertensive heart disease without heart failure (I11.9) 2016 Active confirmed Smooth- ICD9 Name: Hypertensive Heart Disease Without Heart Failure-Primary- Entry Dt: 10/13/2016; Dr: BRIA Problem Phlebitis and thrombophlebitis of lower extremities, unspecified (I80.3) 2016 Active confirmed Smooth- ICD9 Name: Phlebitis And Thrombophlebitis Of Lower Extremities, Unspecified-Uncha nged- Entry Dt: 10/13/2016; : BASIA Problem Dyspnea (837200865) Dyspnea, unspecified (R06.00) 2016 Active confirmed Smooth- ICD9 Name: Dyspnea-Stable- Entry Dt: 10/13/2016; : BRIA Problem Chest pain (23519239) Chest pain, unspecified (R07.9) 2016 Active confirmed Smooth- ICD9 Name: Chest pain, unspecified-Resol kate- Entry Dt: 06/26/2016; End Dt: 06/26/2016; : BRIA Plan Of Treatment No Information Insurance Providers Payer Name Payer Address Payer Phone Subscriber Number Group Number Insured Name Patient Relationship to Insured Coverage Start Date Coverage End Date [facility] [address] [place] [address] [id number] KOSTAS BROWN Spouse - patient is the [...]
--- OUTSIDE RECORDS SUMMARY | 2025-03-07 19:06 | XMS_ITS | Patient Health Record ---
Author Organization [facility] [place], [place] Address [address] [place] [id number] Care Team Providers Care Ruby On Rails Developer Name Role Phone PINELESS DO, PABLO Unavailable [phone] Reason For Referral No Information Plan Of Treatment No Information
--- OUTSIDE RECORDS SUMMARY | 2025-03-07 19:06 | XMS_ITS | Encounter Summary ---
Author Organization [facility] Address [address] [place] [address] Encounters * CPT with [facility] at [place] on 2025-03-07 Member was transferred to CRU by a covering patient centered care specialist because of SI. Member states he has started drinking and using Cocaine. Member denies any plans or thoughts of hurting himself or others. Member states he will end up badly if he continues to drink and use drugs. Member states he is in a bad place. Member was provided with 22/12 and 22/12 crisis number. Member states he has an appt with his therapist tomorrow. Member seemed intoxicated during the call. Member is aware and in agreement clifford [facility] visit. { reasonForRequest : , patientReports : , denies&quot ;:[], chiefComplaints : Mental Health , pmh : Depression, Substance Use Disorder, Post-Traumatic Stress Disorder (PTSD) , allergies : Penicillins, Shellfish Derived , otherAllergies :null, painAssessment : ,&q uot;visitOutcome : , additionalComments : Reviewed HPI. } MANOLO1 sent to the above address for the pt with a mental health evaluation. Upon arrival the pt stated he is not in a good way, stating he has been drinking armen and doing cocaine since he was released from the hospital on Thursday the . The pt was confused and slurring his words and stating he is not doing well. The pt was able to answer most questions correctly. The pt kept saying he wasn't in a good placed but wouldn't expand on his meaning of a bad way. Dr Richmond was contacted and advised that there was really nothing we were able to do for the pt in this setting. The pt was being sentto the hospital for further evaluation SC1 cleared the call. WRR. IV_(FLUIDS_AND/OR_MEDICATION), MEDICATION_IM, ORAL_MEDICATION, EKG Written by Medical [employer] on 2025-03-07
--- OUTSIDE RECORDS SUMMARY | 2025-03-07 19:06 | XMS_ITS | Continuity of Care Document ---
Author Name [facility] Address [address] [place] [id number] Organization Unknown Address [address] [place] [address] Medications No known medications Problems No known problems
[2025-03-07 21:07] VITALS: BP 96/65; PULSE 90; RESP 18; TEMP 37.1; O2SAT 96
--- NOTE | 2025-03-07 23:53 | PC.NURSE ---
This RN assumed pt care @ 2300. Pt a&ox4, no signs of distress. Pt ambulates with a steady gait. Pt requested and given food and drink. Pt back in bed. Plan of care ongoing.
[2025-03-08] VITALS (8 sets, daily range): BP systolic 91–138; BP diastolic 52–89; PULSE 62–78; RESP 12–19; TEMP 36.3–36.8; O2SAT 94–98; BMI 26.3
--- NOTE | 2025-03-08 02:19 | ED.PSYCH ---
HPI - Psych General Chief Complaint: Psychiatric Symptoms Stated Complaint: psych eval Time Seen by Provider: 03/07/25 17:12 Source: patient and EMS Mode of arrival: EMS Limitations: other History of Present Illness ED Provider: Dr. Denise Zuniga HPI Narrative: Patient comes to the emergency room complaining of feeling very depressed, vague SI, admits to using drugs and alcohol. Patient arrives from home after a visit from [facility], patient was discharged from the hospital 4 days ago. Patient denies HI Related Data Home Medications ?Medication ?Instructions ?Recorded ?Confirmed baclofen 10 mg tablet 10 mg PO BID 11/21/23 03/07/25 duloxetine 60 mg capsule,delayed 60 mg PO BID 11/21/23 03/07/25 release hydroxyzine HCl 25 mg tablet 25 mg PO BID 11/21/23 03/07/25 meloxicam 15 mg tablet 15 mg PO DAILY 11/21/23 03/07/25 oxycodone-acetaminophen 7.5 mg-325 1 tab PO TID PRN Pain (Scale Score 11/23/23 03/07/25 mg tablet 7-10) clonidine HCl 0.1 mg tablet 0.1 mg PO BID PRN Anxiety 02/22/25 03/07/25 Previous Rx's ?Medication ?Instructions ?Recorded melatonin 10 mg capsule 10 mg PO BEDTIME 7 days #7 caps 03/02/25 trazodone 100 mg tablet 200 mg (2 x 100 mg) PO BEDTIME 7 03/02/25 days #14 tabs Allergies Allergy/AdvReac Type Severity Reaction Status Date / Time Penicillins Allergy Unknown Rash, Verified 03/07/25 17:14 Throat closes seafood Allergy Unknown Rash, Verified 03/07/25 17:14 throat closes shellfish derived Allergy Unknown Rash Verified 03/07/25 17:14 Review of Systems Review of Systems: Constitutional : No Weight loss, No Fever, No Chills, No Night Sweats, No Fatigue, No Malaise ENT/Mouth : No Hearing loss, No Ear Pain, No Nasal Congestion, No Sinus Pain, No Hoarseness, No sore throat, No Rhinorrhea, No Swallowing Difficulty Eyes: No Eye Pain, No Swelling, No Redness, No Foreign Body, No Discharge, No Vision Changes Cardiovascular : No Chest Pain, No SOB, No Dyspnea on Exertion, No Orthopnea, No Edema, No Palpitations Respiratory : No Cough, No Sputum, No Wheezing, No Smoke Exposure, No Dyspnea Gastrointestinal : No Nausea, No Vomiting, No Diarrhea, No Constipation, No abdominal Pain, No Hematochezia, No Melena Genitourinary : no irregular bleeding, No Dysuria, No Urinary Frequency, No Hematuria, No Urinary Incontinence, No Urgency, No Flank Pain, No Urinary Flow Changes, No Hesitancy Musculoskeletal : No joint pain, No Myalgias, No Joint Swelling Skin : No Skin Lesions, No rash Neuro : No Weakness, No Numbness, No Paresthesias, No Loss of Consciousness, No Dizziness, No Headache Psych : No Anxiety/Panic, complaining of depression and vague SI, no/HI/AH/VH, No Social Issues, Heme/Lymph: No Bruising, No Bleeding,No Lymphadenopathy Endocrine : No Polyuria, No Polydipsia, No Temperature Intolerance [facility] Past Medical History Medical History Routine medical exam Obesity (BMI 30-39.9) History of DVT (deep vein thrombosis) Back pain PTSD (post-traumatic stress disorder) Anxiety Depression HTN (hypertension) Slipped cervical disc Degenerative disc disease Surgical History History of repair of hiatal hernia History of sleeve gastrectomy History of fusion of cervical spine Family History Family History Father Type 2 diabetes mellitus History of stroke Mother HTN (hypertension) Osteoporosis Sister Obesity HTN (hypertension) Hyperlipidemia Sister No problems noted. Sister No problems noted. Son No problems noted. Son No problems noted. Son No problems noted. Son No problems noted. Daughter No problems noted. Daughter No problems noted. Daughter No problems noted. Social History Social History Household Members: Family Household Members Other:: [place] Housing: Apartment Do you presently have visiting nurse or other home services: No Alcohol intake: current Alcohol intake frequency: 3 or more drinks per day Alcohol type: hard liquor Patient Tobacco Use Status: Never used Tobacco Smoked in Last 30 Days: No e-Cigarette/Vaping Use: Former Use Second Hand Smoke Exposure: No Use of substances other than those prescribed or required for medical reasons: Yes Substance Use Type: Crack/Cocaine Substance Use Frequency: Recent Binge Last Used Substance: Just Prior to Admission Any prior treatment program specific to substance use: No Advance Directives: No Advance Directives Information Provided: No Do you have a plan to hurt others: No Plan service: No Sexual orientation: Straight/Heterosexual Physical Exam Exam: Exam: Appearance: Alert. Oriented X3. No acute distress. Somnolent but easily arousable Eyes: Pupils equal, round and reactive to light. ENT: Pharynx normal. Neck: Normal inspection. Neck supple. No lymph nodes noted. No crepitus CVS: Normal heart rate and rhythm. Pulses normal. Normal S1 and S2 Respiratory: No respiratory distress. Breath sounds normal. No Wheezing. No rales Abdomen: Soft and nontender. No rigidity. No distention. Skin: Skin warm and dry. Normal skin color. Normal skin turgor. Extremities: No lower extremity edema. No Lacerations. No Rash Neuro: Oriented X 3. No motor deficit. No sensory deficit. Moving all extremities. No slurred speech. CN 2 through 12 grossly intact Psych: calm, cooperative, flat affect Vital Signs: Vital Signs: Last Vital Signs Temp 98.3 F 03/08/25 03:52 Pulse 72 03/08/25 04:18 Resp 18 03/08/25 04:18 BP 114/76 03/08/25 04:18 Pulse Ox 98 03/08/25 04:18 O2 Del Method Room Air 03/08/25 04:18 BMI result Body Mass Index 25.0 Medical Decision Making Medical Decision Making MDM Narrative: I reviewed patient's past medical records, patient was discharged on March 03, treated for alcohol abuse, PTSD, alcohol abuse, cocaine use disorder My interpretation of labs: No significant abnormality in patient's hematology or chemistry urinalysis negative, urine toxicology positive for oxycodone, amphetamines and cocaine, ETOH level 231 Patient is under physician observation waiting to see by the care team, Care team consult pending 3:54 AM 03/08/2025 (Dr. Letitia Callahan, D.O.) patient currently in active alcohol withdrawal with a CIWA of 17. I have pulled him back to a room with a monitor, initiated phenobarbital protocol. We will medicate with Valium and Zofran as well. We will admit to hospitalist for further care and evaluation of alcohol withdrawal. Differential Diagnosis Differential Diagnoses: The differential diagnosis associated with the presentation includes Lab Data 03/07/25 17:41 03/07/25 17:41 Labs: Lab Results 03/07/25 Range/Units 17:41 WBC 7.3 (4.8-10.8) X10*3/uL RBC 4.02 L (4.60-5.80) X10*6/uL Hgb 12.7 L (14.0-18.0) g/dl Hct 35.9 L (42.0-52.0) % MCV 89.3 (80.0-98.0) fL MCH 31.6 (27.0-33.0) pg MCHC 35.4 (31.0-36.0) g/dl RDW 13.2 (11.0-16.0) % Plt Count 286 (160-400) X10*3/uL MPV 8.8 L (9.4-12.4) fL Immature Gran % (Auto) 0.4 (0.0-0.4) % Neut % (Auto) 56.1 (45-73) % Lymph % (Auto) 30.2 (20-40) % [place] % (Auto) 9.2 (2-11) % Eos % (Auto) 2.5 (0-4) % Baso % (Auto) 1.6 (0-2) % Lymph # (Auto) 2.2 (1.2-4.9) X10*3/uL [place] # (Auto) 0.7 (0.1-1.2) X10*3/uL Eos # (Auto) 0.2 (0.0-0.4) X10*3/uL Baso # (Auto) 0.1 (0.0-0.2) X10*3/uL Abs Immat Gran (auto) 0.03 (0.00-0.03) X10*3/uL Absolute Neuts (auto) 4.1 (2.0-8.3) x10*3/uL Absolute Nucleated RBC 0.000 (0.0-0.012) X10*3/uL Nucleated RBC % (auto) 0.0 (0.0-0.2) /100WBC Sodium 145 (135-145) mmol/L Potassium 3.6 (3.3-5.1) mmol/L Chloride 108 (96-108) mmol/L Carbon Dioxide 26 (22-29) mmol/L Anion Gap 15 (12-20) BUN 20 H (9-16) mg/dL Creatinine 0.88 (0.5-1.4) mg/dL Estim Creat Clear Calc 90.2 Estimated GFR > 60 Random Glucose 100 (60-115) mg/dL Calcium 8.7 (8.4-10.2) mg/dL Total Bilirubin 0.1 (0.0-1.0) mg/dL AST 26 (5-37) U/L ALT 23 (0-40) U/L Alkaline Phosphatase 98 (39-117) U/L Total Protein 6.8 (6.5-8.0) g/dL Albumin 3.9 (3.5-5.0) g/dL Urine Color Yellow Urine Appearance Clear Urine pH 5.0 (5.0-9.0) Ur Specific [place] 1.025 (1.005-1.025) Urine Protein Negative (Neg-Trace) mg/dL Urine Glucose (UA) Negative (Negative) mg/dL Urine Ketones Negative (Negative) mg/dL Urine Blood Negative (Negative) Urine Nitrite Negative (Negative) Ur Leukocyte Esterase Negative (Negative) Urine RBC 0-2 (0-2) /HPF Urine WBC 0-5 (0-5) /HPF Ur Squamous Epith Cells 0-2 (0-2) /HPF Urine Bacteria None Seen (None Seen) Hyaline Casts 0-2 (0-2) /LPF Urine Opiates Screen Not Detected (Not Detect) Ur Buprenorphine Scrn Not Detected (Not Detect) ng/mL Ur Oxycodone Screen Positive H (Not Detect) ng/mL Urine Methadone Screen Not Detected (Not Detect) ng/mL Urine Fentanyl Screen Not Detected (Not Detect) Ur Barbiturates Screen Not Detected (Not Detect) Ur Phencyclidine Scrn Not Detected (Not Detect) Ur Amphetamines Screen POSITIVE H (Not Detect) U Benzodiazepines Scrn Not Detected (Not Detect) Urine Cocaine Screen POSITIVE H (Not Detect) U Marijuana (THC) Screen Not Detected (Not Detect) Ethyl Alcohol 231 mg/dL Critical Care Time Critical Care Time Critical Care Time: Yes Total Critical Care Time: 35 Attestation: I have personally provided critical care time. Time includes review of lab data, radiology results, discussion with consultants, and monitoring for potential decompensation. Intervention performed as documented. Discharge Plan Discharge Clinical Impression: Depressed, Cocaine abuse, Opioid abuse, Alcohol withdrawal Patient Disposition: Admitted As Inpatient Interventions: [place]-Suicide Risk Severity Scale Last Done: 03/07/25 17:18 Print Language: [place]
--- NOTE | 2025-03-08 04:04 | PC.NURSE ---
JENN 17- pt restless, actively vomiting and anxious. denies hx of withdrawals. Drinks 1-2L a day. Provider notified. Pt moved to main ED with plan for IV meds/fluids and pheno with plan for admission for alcohol withdrawals. Report given to CRISTO Manuel.
[2025-03-08] MEDS: diazePAM 10 MG/2 ML CARTRIDGE 5 MG IVPUSH (04:55)
[2025-03-08] MEDS: Lactated Ringers 1,000 ML 999 ML IV (04:56)
--- NOTE | 2025-03-08 04:58 | P.HPHOSP_ITS ---
History of Present Illness Date of Service: 03/08/25 Chief Complaint: etoh 49-year-old male with a past medical history of hypertension, anxiety, depression, degenerative spine disease, history of DVT, alcohol use disorder; presented to the hospital with a chief complaint of feeling depressed. Mentions that he has been drinking alcohol every day about a L. Last drink was prior coming to the hospital. Reports he has chronic back pain. Denies any chest pain or palpitations. Denies any fever chills cough or sputum production. Denies any abdominal pain. Review of all other systems is negative except mentioned above ER course: Per ER team, patient initial expiratory wheezing suicidal ideations; care team consult is pending; patient has started to withdraw. Started him on phenobarb protocol. [facility] Medical History Routine medical exam Obesity (BMI 30-39.9) History of DVT (deep vein thrombosis) Back pain PTSD (post-traumatic stress disorder) Anxiety Depression HTN (hypertension) Slipped cervical disc Degenerative disc disease Family History Father Type 2 diabetes mellitus History of stroke Mother HTN (hypertension) Osteoporosis Sister Obesity HTN (hypertension) Hyperlipidemia Sister No problems noted. Sister No problems noted. Son No problems noted. Son No problems noted. Son No problems noted. Son No problems noted. Daughter No problems noted. Daughter No problems noted. Daughter No problems noted. Surgical History History of repair of hiatal hernia History of sleeve gastrectomy History of fusion of cervical spine Social History Household Members: Family Household Members Other:: [place] Housing: Apartment Do you presently have visiting nurse or other home services: No Alcohol intake: current Alcohol intake frequency: 3 or more drinks per day Alcohol type: hard liquor Patient Tobacco Use Status: Never used Tobacco Smoked in Last 30 Days: No e-Cigarette/Vaping Use: Former Use Second Hand Smoke Exposure: No Use of substances other than those prescribed or required for medical reasons: Yes Substance Use Type: Crack/Cocaine Substance Use Frequency: Recent Binge Last Used Substance: Just Prior to Admission Any prior treatment program specific to substance use: No Advance Directives: No Advance Directives Information Provided: No Do you have a plan to hurt others: No Plan service: No Sexual orientation: Straight/Heterosexual Meds Allergies Allergy/AdvReac Type Severity Reaction Status Date / Time Penicillins Allergy Unknown Rash, Verified 03/07/25 17:14 Throat closes seafood Allergy Unknown Rash, Verified 03/07/25 17:14 throat closes shellfish derived Allergy Unknown Rash Verified 03/07/25 17:14 Active Medications: Current Medications Lactated Ringer's (Lr) 1,000 mls @ 999 mls/hr IV .Q1H1M ONE Stop: 03/08/25 05:30 Last Admin: 03/08/25 04:56 Dose: 999 mls/hr Pharmacy Consult (Consult Rx Etoh Phenob Im/Po) 1 each MISCELLANE ONCE PRN; Protocol PRN Reason: Consult order Phenobarbital (Phenobarbital 15 Mg Tablet) 45 mg PO BID@0700,1900 [facility] Stop: 03/10/25 07:01 Phenobarbital (Phenobarbital 15 Mg Tablet) 15 mg PO BID@0700,1900 [facility] Stop: 03/12/25 07:01 Phenobarbital (Phenobarbital 15 Mg Tablet) 15 mg PO DAILY@0700 [facility] Stop: 03/14/25 07:01 Phenobarbital Sodium (Phenobarbital Sodium 130 Mg/Ml Vial Im Q3hx2) 277 mg IM Q3H [facility] Stop: 03/08/25 11:01 Home Medications ?Medication ?Instructions ?Recorded ?Confirmed ?Last Taken ?Type baclofen 10 mg tablet 10 mg PO BID 11/21/2303/06/25 History duloxetine 60 mg capsule,delayed 60 mg PO BID 11/21/23 03/07/25 03/06/25 History release hydroxyzine HCl 25 mg tablet 25 mg PO BID 11/21/2312/2303/06/25 History meloxicam 15 mg tablet 15 mg PO DAILY 11/21/2312/2303/06/25 History oxycodone-acetaminophen 7.5 mg-325 1 tab PO TID PRN Pa in (Scale Score 11/23/23 03/07/25 03/06/25 History mg tablet 7-10) clonidine HCl 0.1 mg tablet 0.1 mg PO BID PRN Anxiety 02/22/25 03/07/25 03/06/25 History Physical Exam 2 Vital Signs and Narrative: Vital Signs: Last Vital Signs Temp 98.3 F 03/08/25 03:52 Pulse 72 03/08/25 04:18 Resp 18 03/08/25 04:18 BP 114/76 03/08/25 04:18 Pulse Ox 98 03/08/25 04:18 O2 Del Method Room Air 03/08/25 04:18 BMI result Body Mass Index 25.0 Gen: Appears be in no acute distress HEENT: NCAT, Moist mucosa. Pulmonary: Vesicular breath sounds, fair air entry CVS: Normal S1-S2 Abdomen: BS+, Soft, Nontender Extremities: Warm well perfused Neuro: Alert and awake. Results Labs 03/08/25 05:34 03/07/25 17:41 Labs: Laboratory Results - last 24 hr 03/07/25 17:41 MCV 89.3 MCH 31.6 MCHC 35.4 RDW 13.2 Plt Count 286 MPV 8.8 L Immature Gran % (Auto) 0.4 Neut % (Auto) 56.1 Lymph % (Auto) 30.2 [place] % (Auto) 9.2 Eos % (Auto) 2.5 Baso % (Auto) 1.6 Lymph # (Auto) 2.2 [place] # (Auto) 0.7 Eos # (Auto) 0.2 Baso # (Auto) 0.1 Abs Immat Gran (auto) 0.03 Absolute Neuts (auto) 4.1 Absolute Nucleated RBC 0.000 Nucleated RBC % (auto) 0.0 Anion Gap 15 Estim Creat Clear Calc 90.2 Estimated GFR > 60 Random Glucose 100 Calcium 8.7 Total Bilirubin 0.1 AST 26 ALT 23 Alkaline Phosphatase 98 Total Protein 6.8 Albumin 3.9 Urine Color Yellow Urine Appearance Clear Urine pH 5.0 Ur Specific [place] 1.025 Urine Protein Negative Urine Glucose (UA) Negative Urine Ketones Negative Urine Blood Negative Urine Nitrite Negative Ur Leukocyte Esterase Negative Urine RBC 0-2 Urine WBC 0-5 Ur Squamous Epith Cells 0-2 Urine Bacteria None Seen Hyaline Casts 0-2 Urine Opiates Screen Not Detected Ur Buprenorphine Scrn Not Detected Ur Oxycodone Screen Positive H Urine Methadone Screen Not Detected Urine Fentanyl Screen Not Detected Ur Barbiturates Screen Not Detected Ur Phencyclidine Scrn Not Detected Ur Amphetamines Screen POSITIVE H U Benzodiazepines Scrn Not Detected Urine Cocaine Screen POSITIVE H U Marijuana (THC) Screen Not Detected Ethyl Alcohol 231 Assessment and Plan (1) Alcohol use disorder: Status: Acute Plan 49-year-old male with a past medical history of hypertension, anxiety, depression, degenerative spine disease, history of DVT, alcohol use disorder; presented to the hospital with a chief complaint of feeling depressed/alcohol/cocaine use. Suicidal ideation: Patient expressed vague suicidal ideation to the ER team. One on 1 observation Suicide precautions Psychiatric consult follow-up in a.m. Alcohol use disorder: Monitor on CIWA protocol with phenobarbital. Thiamine folate and multivitamins. Cocaine abuse: Counseled to avoid illicit drug use. 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 Anxiety/depression: Continue home medications Chronic back pain: Pain control DVT prophylaxis: Lovenox Code status: Full code Quality Stroke Does the patient have a stroke diagnosis?: No VTE Prior VTE?: No VTE Risk Level:: Medical - moderate - high VTE Device Contraindication: Treatment Not Indicated VTE Drug Contraindication: N/A - Med Ordered
[2025-03-08] MEDS: PHENobarbitaL sodium 130 MG/ML IM ONCE 369 MG IM (05:00)
--- NOTE | 2025-03-08 05:31 | MHC.CARE ---
Late entry 0345: CARE Team attempted to evaluate patient, who was observably struggling with what appeared to be withdrawal symptoms. Patient was restless, shaky and fidgety. This clinician unable to appropriate assess patient who was sobbing and rolling back and forth across the bed with the blanket over his head. Speech mumbled and incoherent. This clinician asked patient if he had eaten and he stated he was unable to keep any food down, was actively vomiting and could only drink gingerale. Due to patients behaviors and visible distress, nursing was informed. Patient was later moved back to the main ED and medically admitted and medicated for ETOH withdrawal.
[2025-03-08] MEDS: Dextrose 5 % and 0.45 % NaCl 1,000 ML 100 ML IVCONT ×2 (05:43→15:14)
[2025-03-08 05:47] LABS: MANUAL DIFF FLAG NO
[2025-03-08 05:48] LABS: Hematocrit 36.0 % (42.0-52.0); Hemoglobin 12.4 g/dl (14.0-18.0); Imm Gran Abs Auto 0.03 X10*3/uL (0.00-0.03); Imm Gran Pct Auto 0.4 % (0.0-0.4); Lymphocytes Absolute Auto 2.1 X10*3/uL (1.2-4.9); Mean Corpuscular HGB Conc 34.4 g/dl (31.0-36.0); Mean Corpuscular Hemoglobin 30.9 pg (27.0-33.0); Mean Corpuscular Volume 89.8 fL (80.0-98.0); NRBC Abs Auto 0.000 X10*3/uL (0.0-0.012); NRBC Pct Auto 0.0 /100WBC (0.0-0.2); Platelet Count 276 X10*3/uL (160-400); Red Blood Count 4.01 X10*6/uL (4.60-5.80); White Blood Count 7.3 X10*3/uL (4.8-10.8)
[2025-03-08 06:06] LABS: Alanine Aminotransferase 17 U/L (0-40); Albumin Level 3.6 g/dL (3.5-5.0); Alkaline Phosphatase 60 U/L (39-117); Anion Gap 12 (12-20); Aspartate Amino Transferase 23 U/L (5-37); Blood Urea Nitrogen 21 mg/dL (9-16); Calcium 8.6 mg/dL (8.4-10.2); Carbon Dioxide 25 mmol/L (22-29); Chloride 106 mmol/L (96-108); Creatinine Clr Calc Pharmacy 122.2; Estimated Glomerular Filt Rate > 60; Potassium 3.8 mmol/L (3.3-5.1); Sodium 139 mmol/L (135-145); Total Protein 6.2 g/dL (6.5-8.0)
--- NOTE | 2025-03-08 07:27 | PHA.MEDREC ---
Pharmacy Consult ? Medication Reconciliation Pharmacy has reviewed the medication reconciliation done by nursing. Patient was recently discharged on 03/03/25, med list matches discharge packet.
[2025-03-08] MEDS: PHENobarbitaL sodium 130 MG/ML VIAL IM Q3Hx2 277 MG IM ×2 (08:40→11:41)
--- NOTE | 2025-03-08 09:48 | MHC.CM.ED ---
Attempted to meet with patient in regards to discharge planning. Patient currently sleeping. No family present. Will attempt to meet again. Continue to monitor for d/c needs.
--- NOTE | 2025-03-08 09:49 | HO.NURTONUR ---
Pt is a 49yo M with hx of ETOH use disorder, DVT, anxiety and dpression. Came into ED with c/o SI with plan. Pt was placed in the psych POD. During the course of the stay pt began vomiting and at that point pt endorsed daily drinking. Last drink prior to coming to hospital. Pt transferred to ED10. Admission for ETOH withdraw. Pt placed on phenobarb protocol. CIWA trending down. Neuro intact. VSS. Pt received 1L LR Bolus. Afebrile. 18gRFA. 1:1 observation. When asked if pt is still SI w plan he gave vague answer. States kind of . Voids using urinal. Calm and cooperative
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
--- NOTE | 2025-03-08 11:11 | P.PNIM_ITS ---
Subjective Subjective Date of Service: 03/08/25 Interval History: c/o depression Review of Systems Review of Systems: Yes all other systems are reviewed and are negative Physical Exam 2 Vital Signs: Vital Signs: Last Vital Signs Temp 97.8 F 03/08/25 08:46 Pulse 70 03/08/25 08:46 Resp 19 03/08/25 08:46 BP 138/80 03/08/25 08:46 Pulse Ox 97 03/08/25 08:46 O2 Del Method Room Air 03/08/25 08:46 BMI result Body Mass Index 25.0 Gen: in no acute distress HEENT: sclera anicteric, moist mucus membranes Neck: supple Lungs: clear to auscultation bilaterally Heart: regular rate and rhythm, no murmurs Abd: soft, non-tender, non-distended Ext: no edema Skin: warm/well-perfused Neuro: alert and oriented x3, no focal findings Psych: restricted affect Objective Data Active Medications Acetaminophen (Acetaminophen 325 Mg Tablet) 650 mg PO Q6H PRN PRN Reason: Pain, Mild 1-3,fever,headache Baclofen (Baclofen 10 Mg Tablet) 10 mg PO BID [facility] Last Admin: 03/08/25 08:39 Dose: 10 mg Documented By: NE Calcium Carbonate (Calcium Carbonate 750 Mg Tab.Chew) 750 mg PO Q4H PRN PRN Reason: Heartburn Clonidine HCl (Clonidine Hcl 0.1 Mg Tablet) 0.1 mg PO BID PRN; Protocol PRN Reason: Anxiety Duloxetine HCl (Duloxetine Hcl 60 Mg Capsule.Dr) 60 mg PO BID [facility] Last Admin: 03/08/25 08:39 Dose: 60 mg Documented By: NE Enoxaparin Sodium (Enoxaparin Sodium 40 Mg/0.4 Ml Syringe) 40 mg SUBCUT Q24H [facility] Last Admin: 03/08/25 09:35 Dose: 40 mg Documented By: NE Famotidine (Famotidine 20 Mg Tablet) 20 mg PO BID [facility] Last Admin: 03/08/25 08:39 Dose: 20 mg Documented By: NE Folic Acid (Folic Acid 1 Mg Tablet) 1 mg PO DAILY [facility] Stop: 03/11/25 08:59 Last Admin: 03/08/25 08:39 Dose: 1 mg Documented By: NE Hydroxyzine HCl (Hydroxyzine Hcl 25 Mg Tablet) 25 mg PO BID [facility] Last Admin: 03/08/25 08:39 Dose: 25 mg Documented By: NE Dextrose/Sodium Chloride (D51/2ns) 1,000 mls @ 100 mls/hr IVCONT .Q10H [facility] Last Admin: 03/08/25 05:43 Dose: 100 mls/hr Documented By: CYNDIE Magnesium Hydroxide (Milk Of Magnesia 30 Ml Oral.Susp) 30 ml PO DAILY PRN PRN Reason: Constipation Melatonin (Melatonin 3 Mg Tablet) 6 mg PO BEDTIME PRN PRN Reason: Insomnia Multivitamins/Vitamin C (Multivitamin Tablet) 1 tab PO DAILY [facility] Stop: 03/11/25 08:59 Last Admin: 03/08/25 08:39 Dose: 1 tab Documented By: NE Ondansetron HCl (Ondansetron Hcl 4 Mg/2 Ml Vial) 4 mg IVPUSH Q8H PRN PRN Reason: Nausea and Vomiting Pharmacy Consult (Consult Rx Etoh Phenob Im/Po) 1 each MISCELLANE ONCE PRN; Protocol PRN Reason: Consult order Phenobarbital (Phenobarbital 15 Mg Tablet) 45 mg PO BID@0700,1900 [facility] Stop: 03/10/25 07:01 Phenobarbital (Phenobarbital 15 Mg Tablet) 15 mg PO BID@0700,1900 [facility] Stop: 03/12/25 07:01 Phenobarbital (Phenobarbital 15 Mg Tablet) 15 mg PO DAILY@0700 [facility] Stop: 03/14/25 07:01 Sodium Chloride (0.9 % Sodium Chloride Flush 3 Ml Syringe) 3 ml IVFLUSH QSHIFT [facility] Last Admin: 03/08/25 08:28 Dose: Not Given Documented By: NE Non-Admin Reason: IV Running Trazodone HCl (Trazodone Hcl 100 Mg Tablet) 200 mg PO BEDTIME [facility] Labs 03/08/25 05:34 03/08/25 05:34 Labs: Laboratory Results - last 24 hr 03/07/25 03/08/25 17:41 05:34 MCV 89.3 89.8 MCH 31.6 30.9 MCHC 35.4 34.4 RDW 13.2 13.0 Plt Count 286 276 MPV 8.8 L 9.0 L Immature Gran % (Auto) 0.4 0.4 Neut % (Auto) 56.1 49.9 Lymph % (Auto) 30.2 29.4 [place] % (Auto) 9.2 15.9 H Eos % (Auto) 2.5 3.0 Baso % (Auto) 1.6 1.4 Lymph # (Auto) 2.2 2.1 [place] # (Auto) 0.7 1.2 Eos # (Auto) 0.2 0.2 Baso # (Auto) 0.1 0.1 Abs Immat Gran (auto) 0.03 0.03 Absolute Neuts (auto) 4.1 3.6 Absolute Nucleated RBC 0.000 0.000 Nucleated RBC % (auto) 0.0 0.0 Anion Gap 15 12 Estim Creat Clear Calc 90.2 122.2 Estimated GFR > 60 > 60 Random Glucose 100 81 Calcium 8.7 8.6 Total Bilirubin 0.1 0.5 AST 26 23 ALT 23 17 Alkaline Phosphatase 98 60 Total Protein 6.8 6.2 L Albumin 3.9 3.6 Urine Color Yellow Urine Appearance Clear Urine pH 5.0 Ur Specific [place] 1.025 Urine Protein Negative Urine Glucose (UA) Negative Urine Ketones Negative Urine Blood Negative Urine Nitrite Negative Ur Leukocyte Esterase Negative Urine RBC 0-2 Urine WBC 0-5 Ur Squamous Epith Cells 0-2 Urine Bacteria None Seen Hyaline Casts 0-2 Urine Opiates Screen Not Detected Ur Buprenorphine Scrn Not Detected Ur Oxycodone Screen Positive H Urine Methadone Screen Not Detected Urine Fentanyl Screen Not Detected Ur Barbiturates Screen Not Detected Ur Phencyclidine Scrn Not Detected Ur Amphetamines Screen POSITIVE H U Benzodiazepines Scrn Not Detected Urine Cocaine Screen POSITIVE H U Marijuana (THC) Screen Not Detected Ethyl Alcohol 231 Assessment and Plan (1) Depressed: Status: Acute (2) Suicidal ideation: Status: Acute Plan d1, 49yo M with HTN, anxiety, depression, degenerative spine disease, hx DVT, and AUD presenting with depression/SI with EtOH intoxication + cocaine abuse AUD with impending withdrawal: phenobarbital taper to prevent withdrawal, thiamine, folate, multivitamin, Addiction Medicine consult cocaine abuse: Addiction Medicine consult, screen HBV/HCV/HIV SI: sitter, CARE Team evaluation for inpt psychiatry when medically cleared chronic pain: duloxetine, baclofen mood disorder: duloxetine, clonidine, hydroxyzine, trazodone VTE ppx: enoxaparin dispo: likely inpt psychiatry In my clinical judgment, the patient requires continued inpatient hospitalization for the following reasons: phenobarbital taper Total time managing care of this patient today: 35 minutes. Quality Stroke Does the patient have a stroke diagnosis?: No VTE Prior VTE?: No VTE Risk Level:: Medical - moderate - high VTE Device Contraindication: Treatment Not Indicated VTE Drug Contraindication: N/A - Med Ordered
--- NOTE | 2025-03-08 12:03 | HO.ADDICTCON ---
History of Present Illness Date of Service: 03/08/2025 Chief Complaint: SI, depression, substance use Reason for Consult: alcohol withdrawal Sources of Information: chart reviewed HPI Narrative: Information obtained via chart review as patient was sleeping soundly and no reason to wake at this time, given that medications are likely causing appropriate sedation. Patient is a 49 year old male with history of AUD and cocaine use disorder who presented to [facility] ED reporting suicidal ideation and worsening depression. Patient was discharged from [facility] unit on 03/03. Per notes, he was discharged to a family members home, and was on wait list for [facility] bed. Per admission note, patient states he has been drinking beer and using cocaine. While awaiting crisis evaluation, patient began to display withdrawal sx and phenobarbital was initiated. CIWA scores have been 0 and 1 this morning. VS have been WNL. When seen by this proposal writer, patient was sleeping comfortably, opened eyes to voice, but quickly feel back to sleep. No restlessness or diaphoresis noted--and none documented. Labs reviewed Past Psychiatric History: History of 2 prior inpatient psychiatric hospitalizations. Does not have outpatient psychiatric providers at this time. reports h/o PHP. Denies history of SIB. History of SA: 2x (patient did not go into detail). Medical Evaluation Reviewed: Yes Review of Systems Review of Systems patient sleeping soundly ---CIWA scores 0 and 1 Diagnostics Vital Signs (24Hr): Vital Signs - 24 hr 03/07/25 17:19 03/07/25 21:07 03/08/25 03:52 Temperature 98.0 F 98.7 F 98.3 F Pulse Rate 102 H 90 78 Respiratory Rate 16 18 17 Blood Pressure 98/54 L 96/65 115/82 Pulse Oximetry 96 96 98 Oxygen Delivery Method Room Air Room Air Room Air 03/08/25 04:18 03/08/25 04:59 03/08/25 08:46 Temperature 97.8 F Pulse Rate 72 66 70 Respiratory Rate 18 14 19 Blood Pressure 114/76 118/79 138/80 Pulse Oximetry 98 94 97 Oxygen Delivery Method Room Air Room Air Room Air 03/08/25 11:46 Temperature Pulse Rate 62 Respiratory Rate 13 Blood Pressure 126/73 Pulse Oximetry 97 Oxygen Delivery Method Room Air BMI result Body Mass Index 25.0 Labs 03/08/25 05:34 03/08/25 05:34 Labs: Laboratory Results - last 48 hr 03/07/25 03/08/25 17:41 05:34 WBC 7.3 7.3 RBC 4.02 L 4.01 L Hgb 12.7 L 12.4 L Hct 35.9 L 36.0 L MCV 89.3 89.8 MCH 31.6 30.9 MCHC 35.4 34.4 RDW 13.2 13.0 Plt Count 286 276 MPV 8.8 L 9.0 L Immature Gran % (Auto) 0.4 0.4 Neut % (Auto) 56.1 49.9 Lymph % (Auto) 30.2 29.4 [place] % (Auto) 9.2 15.9 H Eos % (Auto) 2.5 3.0 Baso % (Auto) 1.6 1.4 Lymph # (Auto) 2.2 2.1 [place] # (Auto) 0.7 1.2 Eos # (Auto) 0.2 0.2 Baso # (Auto) 0.1 0.1 Abs Immat Gran (auto) 0.03 0.03 Absolute Neuts (auto) 4.1 3.6 Absolute Nucleated RBC 0.000 0.000 Nucleated RBC % (auto) 0.0 0.0 Sodium 145 139 Potassium 3.6 3.8 Chloride 108 106 Carbon Dioxide 26 25 Anion Gap 15 12 BUN 20 H 21 H Creatinine 0.88 0.65 Estim Creat Clear Calc 90.2 122.2 Estimated GFR > 60 > 60 Random Glucose 100 81 Calcium 8.7 8.6 Total Bilirubin 0.1 0.5 AST 26 23 ALT 23 17 Alkaline Phosphatase 98 60 Total Protein 6.8 6.2 L Albumin 3.9 3.6 Urine Color Yellow Urine Appearance Clear Urine pH 5.0 Ur Specific [place] 1.025 Urine Protein Negative Urine Glucose (UA) Negative Urine Ketones Negative Urine Blood Negative Urine Nitrite Negative Ur Leukocyte Esterase Negative Urine RBC 0-2 Urine WBC 0-5 Ur Squamous Epith Cells 0-2 Urine Bacteria None Seen Hyaline Casts 0-2 Urine Opiates Screen Not Detected Ur Buprenorphine Scrn Not Detected Ur Oxycodone Screen Positive H Urine Methadone Screen Not Detected Urine Fentanyl Screen Not Detected Ur Barbiturates Screen Not Detected Ur Phencyclidine Scrn Not Detected Ur Amphetamines Screen POSITIVE H U Benzodiazepines Scrn Not Detected Urine Cocaine Screen POSITIVE H U Marijuana (THC) Screen Not Detected Ethyl Alcohol 231 Mental Status Exam Mental Status Exam Level of Consciousness: Drowsy Medications Medications Current Medications Acetaminophen (Acetaminophen 325 Mg Tablet) 650 mg PO Q6H PRN PRN Reason: Pain, Mild 1-3,fever,headache Baclofen (Baclofen 10 Mg Tablet) 10 mg PO BID [facility] Last Admin: 03/08/25 08:39 Dose: 10 mg Calcium Carbonate (Calcium Carbonate 750 Mg Tab.Chew) 750 mg PO Q4H PRN PRN Reason: Heartburn Clonidine HCl (Clonidine Hcl 0.1 Mg Tablet) 0.1 mg PO BID PRN; Protocol PRN Reason: Anxiety Duloxetine HCl (Duloxetine Hcl 60 Mg Capsule.Dr) 60 mg PO BID [facility] Last Admin: 03/08/25 08:39 Dose: 60 mg Enoxaparin Sodium (Enoxaparin Sodium 40 Mg/0.4 Ml Syringe) 40 mg SUBCUT Q24H [facility] Last Admin: 03/08/25 09:35 Dose: 40 mg Famotidine (Famotidine 20 Mg Tablet) 20 mg PO BID [facility] Last Admin: 03/08/25 08:39 Dose: 20 mg Folic Acid (Folic Acid 1 Mg Tablet) 1 mg PO DAILY [facility] Stop: 03/11/25 08:59 Last Admin: 03/08/25 08:39 Dose: 1 mg Hydroxyzine HCl (Hydroxyzine Hcl 25 Mg Tablet) 25 mg PO BID [facility] Last Admin: 03/08/25 08:39 Dose: 25 mg Dextrose/Sodium Chloride (D51/2ns) 1,000 mls @ 100 mls/hr IVCONT .Q10H [facility] Last Admin: 03/08/25 05:43 Dose: 100 mls/hr Lidocaine (Lidocaine 4 % Patch Adh..Patch) 1 patch TRANSDERMA DAILY [facility]; Protocol Last Admin: 03/08/25 11:48 Dose: Not Given Magnesium Hydroxide (Milk Of Magnesia 30 Ml Oral.Susp) 30 ml PO DAILY PRN PRN Reason: Constipation Melatonin (Melatonin 3 Mg Tablet) 6 mg PO BEDTIME PRN PRN Reason: Insomnia Multivitamins/Vitamin C (Multivitamin Tablet) 1 tab PO DAILY [facility] Stop: 03/11/25 08:59 Last Admin: 03/08/25 08:39 Dose: 1 tab Ondansetron HCl (Ondansetron Hcl 4 Mg/2 Ml Vial) 4 mg IVPUSH Q8H PRN PRN Reason: Nausea and Vomiting Pharmacy Consult (Consult Rx Etoh Phenob Im/Po) 1 each MISCELLANE ONCE PRN; Protocol PRN Reason: Consult order Phenobarbital (Phenobarbital 15 Mg Tablet) 45 mg PO BID@0700,1900 [facility] Stop: 03/10/25 07:01 Phenobarbital (Phenobarbital 15 Mg Tablet) 15 mg PO BID@0700,1900 [facility] Stop: 03/12/25 07:01 Phenobarbital (Phenobarbital 15 Mg Tablet) 15 mg PO DAILY@0700 [facility] Stop: 03/14/25 07:01 Sodium Chloride (0.9 % Sodium Chloride Flush 3 Ml Syringe) 3 ml IVFLUSH QSHIFT [facility] Last Admin: 03/08/25 08:28 Dose: Not Given Trazodone HCl (Trazodone Hcl 100 Mg Tablet) 200 mg PO BEDTIME [facility] Allergies Allergies Allergy/AdvReac Type Severity Reaction Status Date / Time Penicillins Allergy Unknown Rash, Verified 03/07/25 17:14 Throat closes seafood Allergy Unknown Rash, Verified 03/07/25 17:14 throat closes shellfish derived Allergy Unknown Rash Verified 03/07/25 17:14 Assessment & Plan Assessment & Plan (1) Alcohol use disorder: Status: Acute Code(s): F10.90 - Alcohol use, unspecified, uncomplicated Assessment and Plan: no withdrawal sx noted when seen by t/w. phenobarbital taper in place, VS WNL and patient comfortably resting. continue thiamine and folic acid PO (2) Cocaine use disorder: Status: Acute Code(s): F14.10 - Cocaine abuse, uncomplicated Assessment and Plan: continue baclofen pending crisis eval. to determine dispo once medically cleared Total time managing care of this patient today _30___ minutes. COUNTS INCLUDE 234 BEDS AT [facility] Past Medical History Medical History Routine medical exam Obesity (BMI 30-39.9) History of DVT (deep vein thrombosis) Back pain PTSD (post-traumatic stress disorder) Anxiety Depression HTN (hypertension) Slipped cervical disc Degenerative disc disease Family History Family History Father Type 2 diabetes mellitus History of stroke Mother HTN (hypertension) Osteoporosis Sister Obesity HTN (hypertension) Hyperlipidemia Sister No problems noted. Sister No problems noted. Son No problems noted. Son No problems noted. Son No problems noted. Son No problems noted. Daughter No problems noted. Daughter No problems noted. Daughter No problems noted. Surgical History Surgical History History of repair of hiatal hernia History of sleeve gastrectomy History of fusion of cervical spine Social History Social History Household Members: Family Household Members Other:: [place] Housing: Apartment Do you presently have visiting nurse or other home services: No Alcohol intake: current Alcohol intake frequency: 3 or more drinks per day Alcohol type: hard liquor Patient Tobacco Use Status: Never used Tobacco Smoked in Last 30 Days: No e-Cigarette/Vaping Use: Former Use Second Hand Smoke Exposure: No Use of substances other than those prescribed or required for medical reasons: Yes Substance Use Type: Crack/Cocaine Substance Use Frequency: Recent Binge Last Used Substance: Just Prior to Admission Any prior treatment program specific to substance use: No Advance Directives: No Advance Directives Information Provided: No Do you have a plan to hurt others: No Plan Nutrition Risks: No Nutritional Risk service: No Sexual orientation: Straight/Heterosexual
--- NOTE | 2025-03-08 23:59 | MHC.EDTECH ---
This tech is bringing pt up at this time, including belongings that were in b[facility] pod.
[2025-03-09] VITALS (9 sets, daily range): BP systolic 100–136; BP diastolic 52–91; PULSE 70–85; RESP 16–18; TEMP 36.1–36.9; O2SAT 94–99
[2025-03-09] MEDS: Dextrose 5 % and 0.45 % NaCl 1,000 ML 100 ML IVCONT ×3 (00:14→20:57)
[2025-03-09 07:37] LABS: HBS Num1 1.66 mIU/mL (0-7.99); HBc Num1 0.63 S/CO (0.00-0.79); HBsAGNum1 0.38 S/CO (0.00-0.99); HIV Num 1 0.06 S/CO (0.00-0.99); Hepatitis B Surface Antigen Negative (Negative); ~HepC Num1 0.29 S/CO (0.00-0.79); ~Hepatitis B Surface Antibody NONREACTIVE (Nonreactive); ~Hepatitis C Antibody Nonreactive (Nonreactive)
--- NOTE | 2025-03-09 09:46 | P.PNIM_ITS ---
Subjective Subjective Date of Service: 03/09/25 Interval History: depressed c/o chronic back and neck pain no tremors Review of Systems Review of Systems: Yes all other systems are reviewed and are negative Physical Exam 2 Vital Signs: Vital Signs: Last Vital Signs Temp 97.0 F 03/09/25 07:39 Pulse 70 03/09/25 07:39 Resp 18 03/09/25 07:39 BP 104/57 L 03/09/25 07:39 Pulse Ox 98 03/09/25 07:39 O2 Del Method Room Air 03/09/25 07:39 BMI result Body Mass Index 26.3 Gen: in no acute distress HEENT: sclera anicteric, moist mucus membranes Neck: supple Lungs: clear to auscultation bilaterally Heart: regular rate and rhythm, no murmurs Abd: soft, non-tender, non-distended Ext: no edema Skin: warm/well-perfused Neuro: alert and oriented x3, no focal findings Psych: restricted affect Objective Data Active Medications Acetaminophen (Acetaminophen 325 Mg Tablet) 650 mg PO Q6H PRN PRN Reason: Pain, Mild 1-3,fever,headache Last Admin: 03/09/25 02:40 Dose: 650 mg Documented By: ZEUS Baclofen (Baclofen 10 Mg Tablet) 10 mg PO BID [facility] Last Admin: 03/08/25 20:06 Dose: 10 mg Documented By: NICO Calcium Carbonate (Calcium Carbonate 750 Mg Tab.Chew) 750 mg PO Q4H PRN PRN Reason: Heartburn Clonidine HCl (Clonidine Hcl 0.1 Mg Tablet) 0.1 mg PO BID PRN; Protocol PRN Reason: Anxiety Last Admin: 03/09/25 02:40 Dose: 0.1 mg Documented By: ZEUS Duloxetine HCl (Duloxetine Hcl 60 Mg Capsule.Dr) 60 mg PO BID [facility] Last Admin: 03/08/25 20:06 Dose: 60 mg Documented By: NICO Enoxaparin Sodium (Enoxaparin Sodium 40 Mg/0.4 Ml Syringe) 40 mg SUBCUT Q24H [facility] Last Admin: 03/08/25 09:35 Dose: 40 mg Documented By: NE Famotidine (Famotidine 20 Mg Tablet) 20 mg PO BID [facility] Last Admin: 03/08/25 20:06 Dose: 20 mg Documented By: NICO Folic Acid (Folic Acid 1 Mg Tablet) 1 mg PO DAILY [facility] Stop: 03/11/25 08:59 Last Admin: 03/08/25 08:39 Dose: 1 mg Documented By: NE Hydroxyzine HCl (Hydroxyzine Hcl 25 Mg Tablet) 25 mg PO BID [facility] Last Admin: 03/08/25 20:06 Dose: 25 mg Documented By: NICO Dextrose/Sodium Chloride (D51/2ns) 1,000 mls @ 100 mls/hr IVCONT .Q10H [facility] Last Admin: 03/09/25 00:14 Dose: 100 mls/hr Documented By: ZEUS Lidocaine (Lidocaine 4 % Patch Adh..Patch) 1 patch TRANSDERMA DAILY [facility]; Protocol Last Admin: 03/08/25 11:48 Dose: Not Given Documented By: NE Non-Admin Reason: Patient Refused Magnesium Hydroxide (Milk Of Magnesia 30 Ml Oral.Susp) 30 ml PO DAILY PRN PRN Reason: Constipation Melatonin (Melatonin 3 Mg Tablet) 6 mg PO BEDTIME PRN PRN Reason: Insomnia Multivitamins/Vitamin C (Multivitamin Tablet) 1 tab PO DAILY [facility] Stop: 03/11/25 08:59 Last Admin: 03/08/25 08:39 Dose: 1 tab Documented By: NE Ondansetron HCl (Ondansetron Hcl 4 Mg/2 Ml Vial) 4 mg IVPUSH Q8H PRN PRN Reason: Nausea and Vomiting Pharmacy Consult (Consult Rx Etoh Phenob Im/Po) 1 each MISCELLANE ONCE PRN; Protocol PRN Reason: Consult order Phenobarbital (Phenobarbital 15 Mg Tablet) 45 mg PO BID@0700,1900 [facility] Stop: 03/10/25 07:01 Last Admin: 03/09/25 08:24 Dose: 45 mg Documented By: ZEUS Phenobarbital (Phenobarbital 15 Mg Tablet) 15 mg PO BID@0700,1900 [facility] Stop: 03/12/25 07:01 Phenobarbital (Phenobarbital 15 Mg Tablet) 15 mg PO DAILY@0700 [facility] Stop: 03/14/25 07:01 Sodium Chloride (0.9 % Sodium Chloride Flush 3 Ml Syringe) 3 ml IVFLUSH QSHIFT [facility] Last Admin: 03/09/25 08:24 Dose: Not Given Documented By: ZEUS Non-Admin Reason: IV Running Trazodone HCl (Trazodone Hcl 100 Mg Tablet) 200 mg PO BEDTIME [facility] Last Admin: 03/08/25 20:06 Dose: 200 mg Documented By: NICO Labs 03/08/25 05:34 03/08/25 05:34 Labs: Laboratory Results - last 24 hr 03/09/25 06:22 Hold Purple Top SEE NOTE Hep Bs Antigen Negative Hep Bs Antibody NONREACTIVE Hep B Core Total Ab Nonreactive Hepatitis C Ab (EIA) Nonreactive HIV 1&2 Ab/P24 Ag 4thGn Nonreactive Assessment and Plan (1) Depressed: Status: Acute (2) Suicidal ideation: Status: Acute Plan d2, 49yo M with HTN, anxiety, depression, degenerative spine disease, hx DVT, and AUD presenting with depression/SI with EtOH intoxication + cocaine abuse AUD with impending withdrawal: phenobarbital taper to prevent withdrawal, thiamine, folate, multivitamin, Addiction Medicine consulted cocaine abuse: Addiction Medicine consulted, negative screen for HBV/HCV/HIV, already on baclofen SI: ash, CARE Team evaluation for inpt psychiatry when medically cleared chronic pain: duloxetine, baclofen, add back oxycodone mood disorder: duloxetine, clonidine, hydroxyzine, trazodone VTE ppx: enoxaparin dispo: likely inpt psychiatry In my clinical judgment, the patient requires continued inpatient hospitalization for the following reasons: phenobarbital taper Total time managing care of this patient today: 35 minutes. Quality Stroke Does the patient have a stroke diagnosis?: No VTE Prior VTE?: No VTE Risk Level:: Medical - moderate - high VTE Device Contraindication: Treatment Not Indicated VTE Drug Contraindication: N/A - Med Ordered
[2025-03-09] MEDS: oxyCODONE HCl Immed Release 5 MG TABLET PO ×2 (10:22→17:24)
--- NOTE | 2025-03-09 12:26 | MHC.RECOVRN ---
Addendum entered by Karie Reyes RN 03/09/25 12:54: Pt initiated by Addiction Medicine provider on baclofen for management of cocaine cravings. Original Note: Pt is a 49-y/o bilingual male who presented to the ED with concerns of worsening depression with SI. Met with pt in 457-1 after receiving an addiction consult for alcohol and cocaine use disorder, to discuss substance use and recovery supports & options. Pt reported using 1 8-ball of cocaine via the intranasal route QD as well as 2 pints of Whiskey daily. Reviewed pt?s readiness for change using motivational interviewing, and reaffirmed pt?s personal values such as health and relationships.? Pt identified personal triggers such as peer pressure from friends. Pt eager to focus on his mental health at this time and is considering CSS programs after his MH improves. He is awaiting a CARE team consult to determine next tx steps.
--- NOTE | 2025-03-09 15:16 | MHC.CM.PN ---
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 PT REPORTS HE LIVES W/COUSIN AND TERRI'S FAMILY, PT HAS A CANE/WALKER FOR MOBILITY HE USES NEEDED, [employer] 22HRS/WK AND [employer] CM. PT REPORTS HIS GOAL FOR DC IS PSYCH IPLOC, PT HAS SITTER AT BEDSIDE, CARE TEAM WILL SEE PT ONCE MEDICALLY CLEARED. PT HAD RECENT IPLOC 02/22/25-03/03/25
[2025-03-09] MEDS: 0.9 % Sodium Chloride Flush 3 ML SYRINGE IVFLUSH (17:25)
[2025-03-10] MEDS: oxyCODONE HCl Immed Release 5 MG TABLET PO ×3 (01:43→14:43)
[2025-03-10 03:05] VITALS: BP 105/50; PULSE 70; RESP 18; TEMP 36.3; O2SAT 98
[2025-03-10] MEDS: 0.9 % Sodium Chloride Flush 3 ML SYRINGE IVFLUSH ×2 (07:56→14:47)
[2025-03-10 08:00] VITALS: BP 104/59; PULSE 70; RESP 17; TEMP 36.9; O2SAT 96
--- NOTE | 2025-03-10 11:59 | HO.PM.IMPN ---
Subjective Subjective Date of Service: 03/10/25 Interval History: depressed; anxious; no other complaints Review of Systems Review of Systems: Yes all other systems are reviewed and are negative Physical Exam Vital Signs: Vital Signs: Last Vital Signs Temp 98.5 F 03/10/25 08:00 Pulse 70 03/10/25 08:00 Resp 17 03/10/25 08:00 BP 104/59 L 03/10/25 08:00 Pulse Ox 96 03/10/25 08:00 O2 Del Method Room Air 03/10/25 08:00 BMI result Body Mass Index 26.3 Gen: in no acute distress HEENT: sclera anicteric, moist mucus membranes Neck: supple Lungs: clear to auscultation bilaterally Heart: regular rate and rhythm, no murmurs Abd: soft, non-tender, non-distended Ext: no edema Skin: warm/well-perfused Neuro: alert and oriented x3, no focal findings Psych: restricted affect Objective Data Active Medications Acetaminophen (Acetaminophen 325 Mg Tablet) 650 mg PO Q6H PRN PRN Reason: Pain, Mild 1-3,fever,headache Last Admin: 03/09/25 13:55 Dose: 650 mg Documented By: JOSE Baclofen (Baclofen 10 Mg Tablet) 10 mg PO BID [facility] Last Admin: 03/10/25 07:55 Dose: 10 mg Documented By: JOSE Calcium Carbonate (Calcium Carbonate 750 Mg Tab.Chew) 750 mg PO Q4H PRN PRN Reason: Heartburn Clonidine HCl (Clonidine Hcl 0.1 Mg Tablet) 0.1 mg PO BID PRN; Protocol PRN Reason: Anxiety Last Admin: 03/10/25 01:44 Dose: 0.1 mg Documented By: SUSAN Duloxetine HCl (Duloxetine Hcl 60 Mg Capsule.Dr) 60 mg PO BID [facility] Last Admin: 03/10/25 07:55 Dose: 60 mg Documented By: JOSE Enoxaparin Sodium (Enoxaparin Sodium 40 Mg/0.4 Ml Syringe) 40 mg SUBCUT Q24H [facility] Last Admin: 03/10/25 07:48 Dose: 40 mg Documented By: JOSE Famotidine (Famotidine 20 Mg Tablet) 20 mg PO BID [facility] Last Admin: 03/10/25 07:55 Dose: 20 mg Documented By: JOSE Folic Acid (Folic Acid 1 Mg Tablet) 1 mg PO DAILY [facility] Stop: 03/11/25 08:59 Last Admin: 03/10/25 07:55 Dose: 1 mg Documented By: JOSE Hydroxyzine HCl (Hydroxyzine Hcl 25 Mg Tablet) 25 mg PO BID [facility] Last Admin: 03/10/25 07:55 Dose: 25 mg Documented By: JOSE Lidocaine (Lidocaine 4 % Patch Adh..Patch) 1 patch TRANSDERMA DAILY [facility]; Protocol Last Admin: 03/10/25 07:50 Dose: Not Given Documented By: JOSE Non-Admin Reason: Patient Refused Magnesium Hydroxide (Milk Of Magnesia 30 Ml Oral.Susp) 30 ml PO DAILY PRN PRN Reason: Constipation Melatonin (Melatonin 3 Mg Tablet) 6 mg PO BEDTIME PRN PRN Reason: Insomnia Multivitamins/Vitamin C (Multivitamin Tablet) 1 tab PO DAILY [facility] Stop: 03/11/25 08:59 Last Admin: 03/10/25 07:55 Dose: 1 tab Documented By: JOSE Ondansetron HCl (Ondansetron Hcl 4 Mg/2 Ml Vial) 4 mg IVPUSH Q8H PRN PRN Reason: Nausea and Vomiting Oxycodone HCl (Oxycodone Hcl Immed Release 5 Mg Tablet) 5 mg PO Q4H PRN PRN Reason: Pain, Severe (Pain Scale 7-10) Last Admin: 03/10/25 07:54 Dose: 5 mg Documented By: JOSE Pharmacy Consult (Consult Rx Etoh Phenob Im/Po) 1 each MISCELLANE ONCE PRN; Protocol PRN Reason: Consult order Phenobarbital (Phenobarbital 15 Mg Tablet) 15 mg PO BID@0700,1900 [facility] Stop: 03/12/25 07:01 Phenobarbital (Phenobarbital 15 Mg Tablet) 15 mg PO DAILY@0700 [facility] Stop: 03/14/25 07:01 Sodium Chloride (0.9 % Sodium Chloride Flush 3 Ml Syringe) 3 ml IVFLUSH QSHIFT [facility] Last Admin: 03/10/25 07:56 Dose: 3 ml Documented By: JOSE Trazodone HCl (Trazodone Hcl 100 Mg Tablet) 200 mg PO BEDTIME [facility] Last Admin: 03/09/25 20:40 Dose: 200 mg Documented By: SUSAN Labs 03/08/25 05:34 03/08/25 05:34 Assessment and Plan (1) Depressed: Status: Acute (2) Suicidal ideation: Status: Acute Plan d3, 49yo M with HTN, anxiety, depression, degenerative spine disease, hx DVT, and AUD presenting with depression/SI with EtOH intoxication + cocaine abuse AUD with impending withdrawal: phenobarbital taper to prevent withdrawal, thiamine, folate, multivitamin, Addiction Medicine consulted cocaine abuse: Addiction Medicine consulted, negative screen for HBV/HCV/HIV, already on baclofen SI: sitter, CARE Team evaluatioon done, plan discharge to dual diagnosis facility chronic pain: duloxetine, baclofen, added back oxycodone mood disorder: duloxetine, clonidine, hydroxyzine, trazodone VTE ppx: enoxaparin dispo: inpatient psychiatry In my clinical judgment, the patient requires continued inpatient hospitalization for the following reasons: psychiatric placement Total time managing care of this patient today: 35 minutes. Quality Stroke Does the patient have a stroke diagnosis?: No VTE Prior VTE?: No VTE Risk Level:: Medical - moderate - high VTE Device Contraindication: Treatment Not Indicated VTE Drug Contraindication: N/A - Med Ordered
[2025-03-10 12:00] VITALS: BP 119/64; PULSE 80; RESP 18; TEMP 36.4; O2SAT 98
--- NOTE | 2025-03-10 14:11 | MHC.CM.PN ---
Per MD in [facility]OUN[facility], Patient is medically cleared for dc, pending Care Team Eval. CM will follow.
--- NOTE | 2025-03-10 14:42 | MHC.CARE ---
Pt was accepted to [facility] by Dorian hanna. The accepting provider is Dr. Sung and the ETA is TWLIA. The address is [address] [place] [address], [place] [address]. CARE Team and shelter case manager have been notified. Nursing staff at [facility] will call for a n2n. reception manager Guera will work on booking transport.
[2025-03-10 14:43] VITALS: BP 123/74
--- NOTE | 2025-03-10 14:52 | P.DS_ITS ---
DS: Providers Provider Date of Service: 03/10/25 Date of admission: 03/08/25 04:56 Date of discharge: 03/10/25 Primary care physician: Leslie Mata MD Consults: 03/08/25 02:19 ED CARE Team Crisis Consult Routine Comment: Reason for consultation: SI, mdd 03/08/25 06:07 Consult to Psychiatry Routine Consulting Provider: [facility] [place] [facility] [place] Reason for consultation: SI 03/08/25 08:31 Addiction Medicine Provider Routine Consulting Provider: Addiction Covering Reason for consultation: cocaine + etoh 03/10/25 08:06 Inpt CARE Team Crisis Consult Routine Comment: Reason for consultation: suicidal, etoh withdrawal under control DS: Diagnosis Discharge Diagnosis (1) Depressed: Status: Acute (2) Suicidal ideation: Status: Acute (3) Cocaine abuse: Status: Acute (4) Cocaine use disorder: Status: Acute (5) Alcohol withdrawal: Status: Acute DS: Summary Hospital Course Hospital Course: From the history and physical by the admitting hospitalist, Maribel Shoemaker 03/08/25: 49-year-old male with a past medical history of hypertension, anxiety, depression, degenerative spine disease, history of DVT, alcohol use disorder; presented to the hospital with a chief complaint of feeling depressed. Mentions that he has been drinking alcohol every day about a L. Last drink was prior coming to the hospital. Reports he has chronic back pain. Denies any chest pain or palpitations. Denies any fever chills cough or sputum production. Denies any abdominal pain. Review of all other systems is negative except mentioned above ER course: Per ER team, patient initial expiratory wheezing [sic] suicidal ideations; care team consult is pending; patient has started to withdraw. Started him on phenobarb protocol. 49yo M with HTN, anxiety, depression, degenerative spine disease, hx DVT, and AUD presenting with depression/SI with EtOH intoxication + cocaine abuse and starting to withdrawal from alcohol. Admitted to the hospitalist service with sitter and started on phenobarbital taper. Addiction Medicine consulted. Negative screen for HBV/HCV/HIV. Continued baclofen both for chronic pain and management of cocaine cravings. Seen by CARE Team and discharged to dual diagnosis unit at [facility] for ongoing psychiatric care. To continue phenobarbital taper 15 mg bid 03/11-03/12, then 15 mg daily 03/13-03/14. Time Attestation Discharge Coordination Time (in mins): 40 Quality: Safe Use of Opioids Does Pt have an Active Cancer Diagnosis on the Problem List?: No Quality: Stroke Does the patient have a stroke diagnosis?: No Physical Exam Vital Signs: Vital Signs: Last Vital Signs Temp 97.6 F 03/10/25 12:00 Pulse 80 03/10/25 12:00 Resp 18 03/10/25 12:00 BP 123/74 03/10/25 14:43 Pulse Ox 98 03/10/25 12:00 O2 Del Method Room Air 03/10/25 12:00 BMI result Body Mass Index 26.3 Gen: in no acute distress HEENT: sclera anicteric, moist mucus membranes Neck: supple Lungs: clear to auscultation bilaterally Heart: regular rate and rhythm, no murmurs Abd: soft, non-tender, non-distended Ext: no edema Skin: warm/well-perfused Neuro: alert and oriented x3, no focal findings Psych: restricted affect DS: Data Data Completed and Pending Completed studies during hospitalization [Text1]: Laboratory Results WBC 7.3 X10*3/uL (4.8-10.8) 03/08/25 05:34 RBC 4.01 X10*6/uL (4.60-5.80) L 03/08/25 05:34 Hgb 12.4 g/dl (14.0-18.0) L 03/08/25 05:34 Hct 36.0 % (42.0-52.0) L 03/08/25 05:34 MCV 89.8 fL (80.0-98.0) 03/08/25 05:34 MCH 30.9 pg (27.0-33.0) 03/08/25 05:34 MCHC 34.4 g/dl (31.0-36.0) 03/08/25 05:34 RDW 13.0 % (11.0-16.0) 03/08/25 05:34 Plt Count 276 X10*3/uL (160-400) 03/08/25 05:34 MPV 9.0 fL (9.4-12.4) L 03/08/25 05:34 Immature Gran % (Auto) 0.4 % (0.0-0.4) 03/08/25 05:34 Neut % (Auto) 49.9 % (45-73) 03/08/25 05:34 Lymph % (Auto) 29.4 % (20-40) 03/08/25 05:34 Ashley % (Auto) 15.9 % (2-11) H 03/08/25 05:34 Eos % (Auto) 3.0 % (0-4) 03/08/25 05:34 Baso % (Auto) 1.4 % (0-2) 03/08/25 05:34 Lymph # (Auto) 2.1 X10*3/uL (1.2-4.9) 03/08/25 05:34 Ashley # (Auto) 1.2 X10*3/uL (0.1-1.2) 03/08/25 05:34 Eos # (Auto) 0.2 X10*3/uL (0.0-0.4) 03/08/25 05:34 Baso # (Auto) 0.1 X10*3/uL (0.0-0.2) 03/08/25 05:34 Abs Immat Gran (auto) 0.03 X10*3/uL (0.00-0.03) 03/08/25 05:34 Absolute Neuts (auto) 3.6 x10*3/uL (2.0-8.3) 03/08/25 05:34 Absolute Nucleated RBC 0.000 X10*3/uL (0.0-0.012) 03/08/25 05:34 Nucleated RBC % (auto) 0.0 /100WBC (0.0-0.2) 03/08/25 05:34 Hold Purple Top SEE NOTE 03/09/25 06:22 Sodium 139 mmol/L (135-145) 03/08/25 05:34 Potassium 3.8 mmol/L (3.3-5.1) 03/08/25 05:34 Chloride 106 mmol/L (96-108) 03/08/25 05:34 Carbon Dioxide 25 mmol/L (22-29) 03/08/25 05:34 Anion Gap 12 (12-20) 03/08/25 05:34 BUN 21 mg/dL (9-16) H 03/08/25 05:34 Creatinine 0.65 mg/dL (0.5-1.4) 03/08/25 05:34 Estim Creat Clear Calc 122.2 03/08/25 05:34 Estimated GFR > 60 03/08/25 05:34 Random Glucose 81 mg/dL (60-115) 03/08/25 05:34 Calcium 8.6 mg/dL (8.4-10.2) 03/08/25 05:34 Total Bilirubin 0.5 mg/dL (0.0-1.0) 03/08/25 05:34 AST 23 U/L (5-37) 03/08/25 05:34 ALT 17 U/L (0-40) 03/08/25 05:34 Alkaline Phosphatase 60 U/L (39-117) 03/08/25 05:34 Total Protein 6.2 g/dL (6.5-8.0) L 03/08/25 05:34 Albumin 3.6 g/dL (3.5-5.0) 03/08/25 05:34 Urine Color Yellow 03/07/25 17:41 Urine Appearance Clear 03/07/25 17:41 Urine pH 5.0 (5.0-9.0) 03/07/25 17:41 Ur Specific [place] 1.025 (1.005-1.025) 03/07/25 17:41 Urine Protein Negative mg/dL (Neg-Trace) 03/07/25 17:41 Urine Glucose (UA) Negative mg/dL (Negative) 03/07/25 17:41 Urine Ketones Negative mg/dL (Negative) 03/07/25 17:41 Urine Blood Negative (Negative) 03/07/25 17:41 Urine Nitrite Negative (Negative) 03/07/25 17:41 Ur Leukocyte Esterase Negative (Negative) 03/07/25 17:41 Urine RBC 0-2 /HPF (0-2) 03/07/25 17:41 Urine WBC 0-5 /HPF (0-5) 03/07/25 17:41 Ur Squamous Epith Cells 0-2 /HPF (0-2) 03/07/25 17:41 Urine Bacteria None Seen (None Seen) 03/07/25 17:41 Hyaline Casts 0-2 /LPF (0-2) 03/07/25 17:41 Urine Opiates Screen Not Detected (Not Detect) 03/07/25 17:41 Ur Buprenorphine Scrn Not Detected ng/mL (Not Detect) 03/07/25 17:41 Ur Oxycodone Screen Positive ng/mL (Not Detect) H 03/07/25 17:41 Urine Methadone Screen Not Detected ng/mL (Not Detect) 03/07/25 17:41 Urine Fentanyl Screen Not Detected (Not Detect) 03/07/25 17:41 Ur Barbiturates Screen Not Detected (Not Detect) 03/07/25 17:41 Ur Phencyclidine Scrn Not Detected (Not Detect) 03/07/25 17:41 Ur Amphetamines Screen POSITIVE (Not Detect) H 03/07/25 17:41 U Benzodiazepines Scrn Not Detected (Not Detect) 03/07/25 17:41 Urine Cocaine Screen POSITIVE (Not Detect) H 03/07/25 17:41 U Marijuana (THC) Screen Not Detected (Not Detect) 03/07/25 17:41 Ethyl Alcohol 231 mg/dL 03/07/25 17:41 Hep Bs Antigen Negative (Negative) 03/09/25 06:22 Hep Bs Antibody NONREACTIVE (Nonreactive) 03/09/25 06:22 Hep B Core Total Ab Nonreactive (Nonreactive) 03/09/25 06:22 Hepatitis C Ab (EIA) Nonreactive (Nonreactive) 03/09/25 06:22 HIV 1&2 Ab/P24 Ag 4thGn Nonreactive (Nonreactive) 03/09/25 06:22 Discharge Plan Discharge Anticipated Discharge Date/Time: 03/10/25 14:50 Patient Disposition: Xfer Psychiatric Hosp Discharge Diagnosis: alcohol use disorder, suicidal ideation, cocaine abuse Referrals: Leslie Mata MD [Primary Care Provider, Internal Medicine] - 1 Week Discharge Medications: New multivitamin [Daily-Erick] Tablet 1 tab PO DAILY Qty: 1 0RF phenobarbital 15 mg Tablet 15 mg PO DAILY@0700 Qty: 1 0RF phenobarbital 15 mg Tablet 15 mg PO BID@0700,1900 Qty: 1 0RF folic acid 1 mg Tablet 1 mg PO DAILY Qty: 1 0RF thiamine HCl (vitamin B1) 100 mg tablet 100 mg PO DAILY Qty: 1 0RF Continued meloxicam 15 mg tablet 15 mg PO DAILY baclofen 10 mg tablet 10 mg PO BID hydroxyzine HCl 25 mg tablet 25 mg PO BID duloxetine 60 mg capsule,delayed release(DR/EC) 60 mg PO BID oxycodone-acetaminophen 7.5-325 mg tablet 1 tab PO TID PRN (Reason: Pain (Scale Score 7-10)) clonidine HCl 0.1 mg tablet 0.1 mg PO BID PRN (Reason: Anxiety) trazodone 100 mg Tablet 200 mg PO BEDTIME 7 Days Qty: 14 0RF melatonin 10 mg capsule 10 mg PO BEDTIME 7 Days Qty: 7 0RF Discharge Orders: Discharge Order (Routine); Ordered 03/10/25 Ordered By: Leslie Ramey Diet: Advance to usual diet Activity on Discharge: As tolerated Stand Alone Forms: Patient Portal Discharge page Print Language: Moroccan Care Plan Goals: mental wellness Health Concerns: alcohol use disorder, suicidal ideation, cocaine abuse Plan of Treatment: transfer to dual diagnosis unit continue phenobarbitalt taper contiune all other medications Please follow up with your primary care doctor within 1 week of discharge. Return to the hospital if you experience recurrent or worsening symptoms. Assessment: See Discharge Summary.
--- NOTE | 2025-03-10 15:16 | MHC.CM.PN ---
Addendum entered by Guera Rey 03/10/25 15:30: [facility] transport auth # is [id number]. Original Note: CM called [facility] transport for booking auth and was told that the trip ad to be sent through, [place] because [place] miles. No booking ID # as of yet. Richy from [employer] is aware.
[2025-03-10 16:00] VITALS: BP 105/65; PULSE 110; RESP 19; TEMP 36.2; O2SAT 98
== END 2025-03-10 16:34 | DRG 897 ==
LOC: HO.ED 03-08 04:37 → HO.EDOVER 03-08 05:02 → HO.IMC 03-08 23:22
PROVIDERS: Student in an Organized Health Care Education/Training Program; Admitting Provider Hospitalist; Emergency Provider Emergency Medicine; PCP Internal Medicine; Visit Provider Family Medicine
DX: F10.939 Alcohol use, unspecified with withdrawal, unspecified (principal); R45.851 Suicidal ideations; F33.9 Major depressive disorder, recurrent, unspecified; Y90.7 Blood alcohol level of 200-239 mg/100 ml; F41.9 Anxiety disorder, unspecified; M54.9 Dorsalgia, unspecified; G89.29 Other chronic pain; F14.10 Cocaine abuse, uncomplicated; F10.90 Alcohol use, unspecified, uncomplicated; Z98.1 Arthrodesis status; Z98.84 Bariatric surgery status; Z79.899 Other long term (current) drug therapy
CPT/HCPCS: 36415; 80053; 80307; 81001; 85025; 86704; 86706; 86803; 87340; 87389; 99285; J1171; J1650; J2405; J2560; J3360; J7120; S9485

== ENCOUNTER → 2025-03-08 04:56 | Outpatient (BNV) | payer OTHER, SELFPAY | PROVIDERS: Admitting Provider Hospitalist; Emergency Provider Emergency Medicine; PCP Internal Medicine; Visit Provider Nurse Practitioner Psychiatric/Mental Health | DX: F33.2 Major depressive disorder, recurrent severe without psychotic features (principal); R45.851 Suicidal ideations; F14.10 Cocaine abuse, uncomplicated; F10.90 Alcohol use, unspecified, uncomplicated | CPT/HCPCS: 99222; 99499 ==

== ENCOUNTER → 2025-03-08 04:56 | Outpatient (BNV) | payer OTHER, SELFPAY | PROVIDERS: Admitting Provider Hospitalist; Emergency Provider Emergency Medicine; PCP Internal Medicine; Visit Provider Family Medicine | DX: F32.A Depression, unspecified (principal); R45.851 Suicidal ideations | CPT/HCPCS: 99232 ==